=== PATIENT | male | born 1975 | race Caucasian/White ===

== ENCOUNTER → 2018-06-08 | Emergency (ER) | payer MEDICAID ==
[~2018-06-08] VITALS: Ht 177.8 cm; Wt 117.9 kg
[~2018-06-08] MED LIST: PERCOCET 5-3251 EACH PO
--- NOTE | 2018-06-09 07:52 | EKG ---
[facility] [address] [facility] [address] [place], [place] [address] Signed Normal sinus rhythm Possible Left atrial enlargement Right ventricular hypertrophy Possible Anteroseptal infarct , age undetermined Abnormal ECG No previous ECGs available Confirmed by CALLIE HASTINGS MD ([id number]) on 06/09/2018 7:51:59 AM Electronically Signed By: CALLIE HASTINGS MD 06/09/18 0752 PATIENT NAME: CAROLE MARTINS Electrocardiogram DATE OF : 77 PHYSICIAN: CALLIE HASTINGS MD REPORT #: [id number] REPORT IS CONFIDENTIAL AND NOT TO BE RELEASED WITHOUT AUTHORIZATION
== END ==
LOC: ED 22:02
DX: I11.0 Hypertensive heart disease with heart failure (principal); I50.9 Heart failure, unspecified; R09.02 Hypoxemia; F15.90 Other stimulant use, unspecified, uncomplicated; E83.42 Hypomagnesemia; R79.89 Other specified abnormal findings of blood chemistry; Z88.5 Allergy status to narcotic agent; Z88.2 Allergy status to sulfonamides
CPT/HCPCS: 71045; 80053; 83735; 83880; 84484; 85025; 93005; 93010; 94640; 96374; 96375; 99285-25; J1100; J1650; J3475

== ENCOUNTER 2018-08-19 18:18 | Observation (INO) | payer MEDICAID ==
[~2018-08-19] VITALS: Ht 177.8 cm; Wt 107.6 kg
--- OUTSIDE RECORDS SUMMARY | ~2018-08-19 | XMS | Clinical Summary ---
Demographics + + + | Address | [address] | | | [place] [address] | + + + | Home Phone | | + + + | Preferred Language | Unknown | + + + | Marital Status | Legally | + + + | Mormon Affiliation | Unknown | + + + | Race | Unknown | + + + | Ethnic Group | Unknown | + + + Author + + + | Author | [facility] | + + + | Organization | [facility] | + + + | Address | Unknown | + + + | Phone | Unavailable | + + + Support + + +---------+ + | Name | Relationship | Address | Phone | + + +---------+ + | Shelley Dodson | ECON | Unknown | | + + +---------+ + Care Team Providers + +------+ + | Care Pecan Huller Name | Role | Phone | + [...] + | CLARE (acute kidney injury) (HCC) | 08/15/2017 | + + + | Drug abuse (HCC) | 08/15/2017 | + + + Social [...] | | | | (Season Ended) | 9 | | | + + [...] +------+-------+---------+ | HEALTHY OPTIONS | HEALTH | [id number] | HMO | | | | MEDICAID [...] | [birth year] | Home: | [address] | | | al/Fam | | 1975 | [phone] | [address] [place] | | | [place] | | | [phone] | [phone] | + +--------+ +--------+ + +
--- OUTSIDE RECORDS SUMMARY | ~2018-08-19 | XMS | Clinical Summary ---
Demographics + + + | Address | [address] | | | [place] [address] | + + + | Home Phone [...] + + + | Author | [facility] | + + + | Organization | [facility] | + + + | Address | Unknown | + + + | Phone | Unavailable | + + + Support + + +---------+ + | Name | Relationship | Address | Phone | + + +---------+ + | Shelley Dodson | ECON | Unknown | | + + +---------+ + Care Team Providers + +------+ + | Care Armature Winder Name | Role | Phone | + [...] +------+-------+---------+ | HEALTHY OPTIONS | HEALTH | [id number] | HMO | | | | MEDICAID [...] | [place] | | | [phone] | [phone] | + +--------+ +--------+ + +
--- OUTSIDE RECORDS SUMMARY | ~2018-08-19 | XMS | Clinical Summary ---
Demographics + + + | Address | [address] | | | [place] [address] | + + + | Home Phone | | + + + | Preferred Language | Unknown | + + + | Marital Status | Legally | + + + | Bahai Affiliation | Unknown | + + + | Race | Unknown | + + + | Ethnic Group | Unknown | + + + Author + + + | Author | [facility] | + + + | Organization | [facility] | + + + | Address | Unknown | + + + | Phone | Unavailable | + + + Support + + +---------+ + | Name | Relationship | Address | Phone | + + +---------+ + | Shelley Dodson | ECON | Unknown | | + + +---------+ + Care Team Providers + +------+ + | Care Special Assets Officer Name | Role | Phone | [...] +------+-------+---------+ | HEALTHY OPTIONS | HEALTH | [id number] | HMO | | | | MEDICAID [...] | [place] | | | [phone] | [phone] | + +--------+ +--------+ + +
[2018-08-19] MEDS ORDERED: LASIX40 MG PO (18:32)
[2018-08-19] MEDS ORDERED: ISOSORBIDE MONO10 MG PO (18:32)
[2018-08-19] MEDS ORDERED: LISINOPRIL20 MG PO (18:32)
--- NOTE | 2018-08-20 15:32 | EKG ---
[facility] [address] [facility] [place] [address] Signed Sinus rhythm with premature atrial complexes Incomplete right bundle branch block Right ventricular hypertrophy Septal infarct (cited on or before 08-JUN-2018) Abnormal ECG When compared with ECG of 08-JUN-2018 22:14, premature atrial complexes are now present Questionable change in initial forces of Anterior leads Confirmed by HAYDER GARCIA MD ([id number]) on 08/20/2018 3:32:25 PM Electronically Signed By: HAYDER GARCIA MD 08/20/18 1532 PATIENT NAME: CAROLE MARTINS Electrocardiogram DATE OF : [birth year] PHYSICIAN: HAYDER GARCIA MD REPORT #: [id number] REPORT IS CONFIDENTIAL AND NOT TO BE RELEASED WITHOUT AUTHORIZATION
[2018-08-21] MEDS ORDERED: CARVEDILOL6.25 MG PO (10:08)
== END 2018-08-21 11:08 | disposition home or self-care (01) ==
LOC: ED 18:18 → MS 18:20
PROVIDERS: ADMIT Internal Medicine
DX: I11.0 Hypertensive heart disease with heart failure (principal); I50.33 Acute on chronic diastolic (congestive) heart failure; I50.810 Right heart failure, unspecified; I27.29 Other secondary pulmonary hypertension; K76.1 Chronic passive congestion of liver; E83.42 Hypomagnesemia; F15.10 Other stimulant abuse, uncomplicated; F10.11 Alcohol abuse, in remission; Z91.14 Patient's other noncompliance with medication regimen; Z79.899 Other long term (current) drug therapy; Z88.5 Allergy status to narcotic agent; Z88.2 Allergy status to sulfonamides
CPT/HCPCS: 36415; 71045; 80053; 83735; 83880; 84484; 85025; 93005; 93010; 96365; 96366; 96372; 96374; 96375; 96376; 99285-25; G0378; J1650; J1940; J3475

== ENCOUNTER 2019-03-14 11:21 | Inpatient (IN) | payer OTHER ==
[~2019-03-14] VITALS: Ht 177.8 cm; Wt 109.9 kg
--- OUTSIDE RECORDS SUMMARY | ~2019-03-14 | XMS | Encounter Summary ---
Demographics + + + | Address | [address] | | | [place] [address] | + + + | Home Phone | | + + + | Preferred Language | Unknown | + + + | Marital Status | Legally | + + + | Cheondoism Affiliation | Unknown | + + + | Race | Unknown | + + + | Ethnic Group | Unknown | + + + Author + + + | Author | [facility] | | | and [place] | + + + | Organization | [facility] | | | and [place] | + + + | Address | Unknown | + + + | Phone | Unavailable | + + + Support + + +---------+ + | Name | Relationship | Address | Phone | + + +---------+ + | Shelley Dodson | ECON | Unknown | | + + +---------+ + Care Team Providers + +------+ + | Care Tobacco Baler Name | Role | Phone | + +------+ + PCP | Unavailable | + +------+ + Encounter Details +--------+ + + + + | Date | Type | Department | Care Team | Description | +--------+ + + + + | 04/23/ | Emergency | [facility] | [facility] | Cough; | | 2019 | | [facility] | [address] | Viral syndrome | | | | EMERGENCY CENTER | [address] | | | | | [address] | [place], [place] | | | | | [place], [place] | [address] | | | | | [address] | [phone] | | | | | [phone] | | | +--------+ + + + [...] on file | | + + + + + + + | Job Start Date | Occupation | Industry | + + + + | Not on file | Not on file | Not on file | + + + + + + + + | Travel History | Travel Start | Travel End | + + + + + + | No recent travel history available. | + + documented as of this encounter Last Filed Vital Signs + + + + + | Vital Sign | Reading | Time Taken | Comments | + + + + + | Blood Pressure | 170/114 | 04/23/2018 11:36 PM | | | | | PST | | + + + + + | Pulse | 86 | 04/23/2018 11:36 PM | | | | | PST | | + + + + + | Temperature | 36.4 C (97.6 F) | 04/23/2018 11:36 PM | | | | | PST | | + + + + + | Respiratory Rate | 20 | 04/23/2018 11:36 PM | | | | | PST | | + + + + + | Oxygen Saturation | - | - | | + + + + + | Inhaled Oxygen | - | - | | | Concentration | | | | + + + + + | Weight | 111 kg (244 lb 11.4 | 04/23/2018 11:36 PM | | | | oz) | PST | | + + + + + | Height | - | - | | + + + + + | Body Mass Index | 36.14 | 08/16/2017 1:01 PM | | | | | PDT | | + + + + + documented in this encounter Medications at Time of Discharge + + + +---------+ + + | Medication | Sig | Dispensed | Refills | Start | End Date | | | | | | Date | | + + + +---------+ + + | amLODIPine | Take 1 tablet by | 30 | 0 | 08/18/19 | | | (NORVASC) 10 MG | mouth daily. | tablet | | 18 | 9 | | tablet | | | | | | + + + +---------+ + + | hydrALAZINE | Take 1 tablet by | 60 | 1 | 08/17/19 | | | (APRESOLINE) 25 mg | mouth 3 (three) | tablet | | 18 | 9 | | tablet | times daily. | | | | | + + + +---------+ + + documented as of this encounter Plan of Treatment Not on filedocumented as of this encounter Procedures + +--------+ + + + | Procedure Name | Priori | Date/Time | Associated Diagnosis | Comments | | | ty | | | | + +--------+ + + + | XR CHEST 2 VIEWS | Routin | 04/23/2018 | | Results for this | | | e | 11:24 PM | | procedure are in the | | | | PST | | results section. | + +--------+ + + + | HISTORICAL | Routin | 04/23/2018 | | Results for this | | MICROBIOLOGY RESULT | e | 11:15 PM | | procedure are in the | | | | PST | | results section. | + +--------+ + + + | HISTORICAL | STAT | 04/23/2018 | | Results for this | | MICROBIOLOGY RESULT | | 11:06 PM | | procedure are in the | | | | PST | | results section. | + +--------+ + + + documented in this encounter Results XR Chest 2 Vws (04/23/2018 11:24 PM PST) + + | Specimen | + + | | + + + + + | Impressions | Performed At | + + + | No acute cardiopulmonary disease. Lungs clear. Chronic mild | | | cardiomegaly with prominence of the main pulmonary artery suggesting a | | | degree of pulmonary hypertension. Signed by: Malik Morales Sign | | | Date/Time: 04/23/2018 11:43 PM | | + + + + + + | Narrative | Performed At | + + + | CHEST TWO VIEWS CLINICAL INFORMATION: Shortness of Breath | | | COMPARISON: CTA CHEST PULMONARY EMBOLISM W CONTRAST (08/15/2017); XR | | | CHEST 2 VIEW (08/15/2017); FINDINGS: Mild cardiomegaly with | | | prominence of the main pulmonary artery contour suggesting a degree | | | of pulmonary hypertension. Findings similar to prior exams. Lungs | | | clear. No focal consolidation, pneumothorax or pleural effusion. | | | Normal bones. | | + + + + + | Procedure Note | + + | Bill, Rad Conversion - 11/10/2018 10:20 PM PDT CHEST TWO VIEWS | | CLINICAL INFORMATION: | | Shortness of Breath | | COMPARISON: | | CTA CHEST PULMONARY EMBOLISM W CONTRAST (08/15/2017); XR CHEST 2 VIEW | | (08/15/2017); | | FINDINGS: | | Mild cardiomegaly with prominence of the main pulmonary artery contour | | suggesting a degree of pulmonary hypertension. Findings similar to | | prior exams. Lungs clear. No focal consolidation, pneumothorax or | | pleural effusion. Normal bones. | | IMPRESSION: | | No acute cardiopulmonary disease. Lungs clear. Chronic mild | | cardiomegaly with prominence of the main pulmonary artery suggesting a | | degree of pulmonary hypertension. | | Signed by: Malik Morales | | Sign Date/Time: 04/23/2018 11:43 PM | + + HISTORICAL MICROBIOLOGY RESULT (04/23/2018 11:15 PM PST) + + | Specimen | + + | | + + + + + | Narrative | Performed At | + + + | INFLUENZA A NEGATIVE | EXTERNAL LAB | | INFLUENZA B NEGATIVE Testing | | | performed by Molecular Methodology Testing performed at [facility];[address] | | | [place] [address] | | + + + + +---------+ + + | Performing | Address | City/State/Zipcode | Phone Number | | Organization | | | | + +---------+ + + | EXTERNAL LAB | | | | + +---------+ + + HISTORICAL MICROBIOLOGY RESULT (04/23/2018 11:06 PM PST) + + | Specimen | + + | | + + + + + | Narrative | Performed At | + + + | Flu Swab Collection SPECIMEN RECEIVED IN LAB | EXTERNAL LAB | | Testing performed at [facility];[address] [facility] [address];[place] [address] | | + + + + +---------+ + + | Performing | Address | City/State/Zipcode | Phone Number | | Organization | | | | + +---------+ + + | EXTERNAL LAB | | | | + +---------+ + + documented in this encounter Visit Diagnoses + + | Diagnosis | + + | Cough | + + | Viral syndrome Unspecified viral infection, in conditions classified elsewhere and of | | unspecified site | + + documented in this encounter"
--- OUTSIDE RECORDS SUMMARY | ~2019-03-14 | XMS | Clinical Summary ---
Demographics + + + | Address | [address] | | | [place] [address] | + + + | Home Phone | | + + + | Preferred Language | Unknown | + + + | Marital Status | Legally | + + + | Mandaeism Affiliation | Unknown | + + + | Race | Unknown | + + + | Ethnic Group | Unknown | + + + Author + + + | Author | [facility] | | | and [place] | + + + | Organization | [facility] | | | and [...] Team Providers + +------+ + | Care Retirement Specialist Name | Role | Phone | + +------+ + | Penelope Gage | PCP | | + +------+ + Allergies + + + + + + | Active Allergy | Reactions | Severity | Noted | Comments | | | | | Date | | + + + + + + | Sulfa Antibiotics | Other (See Comments) | Medium | 08/16/19 | States told as a | | | | | 19 | child not to take | | | | | | sulfa meds - unknown | | | | | | reation | + + + + + + Medications Not on file Active Problems + + + | Problem | Noted Date | + + + | Chest pain | 08/15/2017 | + + + | Uncontrolled hypertension | 08/15/2017 | + + + | CLARE (acute kidney injury) | 08/15/2017 | + + + | Drug abuse | 08/15/2017 | + + + Social History + +-------+ [...] recent travel history available. | + + Last Filed Vital Signs + + + [...] | | + + + + + Plan of Treatment + + + + + | Health Maintenance | Due Date | Last Done | Comments | + + + + + | Vaccine: | | | | | Dtap/Tdap/Td (1 - | 5 | | | | Tdap) | | | | + + + + + | Vaccine: Influenza | | | | | (#1) | 9 | | | + + + + + Results Not on filefrom Last 3 Months
--- OUTSIDE RECORDS SUMMARY | ~2019-03-14 | XMS | Clinical Summary ---
Demographics + + + | Address | [address] | | | [place] [address] | + + + | Home Phone | | + + + | Preferred Language | Unknown | + + + | Marital Status | Legally | + + + | Pentecostal Affiliation | Unknown | + + + | Race | Unknown | + + + | Ethnic Group | Unknown | + + + Author + + + | Author | [facility] | | | and [place] | + + + | Organization | [facility] [...] Team Providers + +------+ + | Care Digital Campaign Manager Name | Role | Phone | [...]
--- OUTSIDE RECORDS SUMMARY | ~2019-03-14 | XMS | Encounter Summary ---
Demographics + + + | Address | [address] | | | [place] [address] | + + + | Home Phone | | + + + | Preferred Language | Unknown | + + + | Marital Status | Legally | + + + | Rastafarian Affiliation | Unknown | + + + | Race | Unknown | + + + | Ethnic Group | Unknown | + + + Author + + + | Author | [facility] | | | and [place] | + + + | Organization | [facility] | | | and [...] Team Providers + +------+ + | Care Office Manager Executive Assistant Name | Role | Phone | + +------+ + PCP | Unavailable | + +------+ + Encounter Details +--------+ + + + + | Date | Type | Department | Care Team | Description | +--------+ + + + + | 08/15/ | Hospital | LOCATED WITHIN [facility] | Tania Raines MD | Chest pain, | | 2018 - | Encounter | MEDICAL CENTER | [address] [place] | unspecified type; | | | | CLINICAL DECISION | [address] [place], [place] | Hypoxia; | | 08/16/ | | [address] | [address] | Uncontrolled | | 2018 | | [place], [place] | | hypertension; CLARE | | | | [phone] | | (acute kidney | | | | [phone] | | injury) ([facility]); Drug | | | | | [...] Summaries by Tania Raines MD at 08/16/17 0035 Author: Tania Raines MD Service: (none) Author Type: Physician Filed: 08/16/17 1603 Date of Service: 08/16/17 1514 Status: Signed Clinical Care Leader: Tania Raines MD (Physician) Patient: Carole Terry [...] need PCP f/ up information family practice [facility] kahlil michel stats to call and make an apt [...] soft BS+ no tenderness EXt no edwema PROFESSOR OF LEGAL STUDIES alert orientated time three no focality Recent [...] other data, potentially affecting final categorization. 1. English Heart Association and Americ an College of Cardiology Scientific Statement. Circulation (2008); 118: p 4406-4141 Selectio n Text Definition Low Risk 1.Normal [...] (none) Author Type: Registered Nurse Filed: 08/16/17 1517 Date of Service: 08/16/171499 Status: Signed Clinical Care Leader: Lata Arzola RN (Registered Nurse) Patient given AVS and prescriptions. Verbalizes understanding and is agreeable; states no further questions at this time. Declines wheelchair ride out to private vehicle. onver pamela Transaction, Provider Unknown - 08/15/2017 11:09 PM PDT Progress Notes by Elijah Swain RPH at 08/15/172308 Author: Elijah Swain RPH Service: Pharmacy Author Type: Pharmacist Filed: 08/15/172308 Date of Service: 08/15/172308 Status: Signed Clinical Care Leader: Elijah Swain RPH (Pharmacist) Note ccl 82.1ml/min meds reviewed pharmacy will follow c 2309 onver pamela Transaction, Provider Unknown - 08/15/2017 6:08 PM PDT Progress Notes by LUIS ALBERTO Shine at 08/15/171807 Author: LUIS ALBERTO Shine Service: (none) Author Type: Professor Of Exercise Science Filed: 08/15/171810 Date of Service: 08/15/171807 Status: Signed Clinical Care Leader: LUIS ALBERTO Shine (Professor Of Exercise Science) 08/15/171807 Discharge Planning Evaluation Admitting Diagnosis Headache Readmission No Living Arrangements Spouse/significant other Support Systems Spouse/significant other;Family members Type of Residence Private residence House type Apartment Elevator available No Independent with ADL's Yes Independent with Mobility Yes Home Care Services No Caregiver after Discharge No Mental Status Oriented Prior functional status Independent Met with: pt and SO Shelley Dodson [phone] and discussed discharge planning, Pt is a 42 y.o., male, lives with Shelley, is independent, does not use any DME. Patient's PCP is: Per Pt None (Will need assistance) Patient's insurance: [employer] Options [facility] Coverage concerns: None noted Medication coverage/concerns: None noted Community resources utilized / needed: TBD Assistance in transportation: TBD Identification of any specific education / training: TBD Barriers to Discharge / Alternative housing needed: TBD Anticipated DCP: To home via private vehicle, pt will arrange his own transport. PARDEEP CAM docume nted in this encounter Plan of [...] | maxP.34 mmHg TR Vmax: 3.13 m/s Hand Coke Drawer: VICTOR MANUEL | | | Authenticated by: Pina Guallpa MD Report Date/Time: 08-16-2017 | | | 15:18:31 | | + + + + + | Procedure Note | + + | Rubio Khan Conversion - 11/11/2018 4:41 PM PDT Patient [...] (A-L): 11.46 | | ml/m2LAAs A2C: 14.11 [id number] A-L A2C: 29.21 mlLAESV MOD A2C: 27.32 mlLALs A2C: | | 5.78 cmLAAs A4C: 12.17 fl2NUCQM A-L A4C: 22.05 mlLAESV MOD A4C: 19.21 mlLALs A4C: | | 5.70 cmTAPSE: 1.38 cmHR: 90.78 BPMAV maxP.67 mmHgAV meanP.35 mmHgAV | | Vmax: 1.19 m/Carmen Vmean: 0.87 m/Carmen VTI: 17.60 cmAVA Vmax: 4.01 cm2AVA (VTI): | | 4.87 wo6AEUR Vmax: 0.00 cm2/m2AVAI (VTI): 0.00 cm2/m2LVCI Dopp: 3.53 l/pyjx8OLAQ | | Dopp: 7.87 l/minHR: 91.74 BPMLVOT [...] | m/sTR maxP.34 mmHgTR Vmax: 3.13 m/s Hand Coke Drawer: Stepanted by: Pina | | Saloni Guzman Date/Time: 08-16-2017 15:18:31 IMPRESSION: 1. Left ventricular [...] DecT: 207.83 ms | |MV E Jose Calros: 0.68 m/s | |MV E/A Ratio: 0.71 [...] |TR Vmax: 3.13 m/s | | | |Hand Coke Drawer: MW | |Authenticated by: Pina Guallpa MD [...] | | | affecting final categorization. 1. English Heart Association | | | and English College of Cardiology Scientific Statement. Circulation | | | (2008); 118: p 6063-7885 Selection Text Definition Low | | | [...] | + + + | CAROLE TERRY PA MYOCARDIAL PERFUSION SPECT - STRESS AND REST [...] Procedure Note | + + | Bill, Rubio Conversion - 11/11/2018 4:41 PM NIKOLAS SMART MYOCARDIAL PERFUSION | | SPECT - [...] potentially affecting final | | categorization. 1. English Heart Association and English College of Cardiology | | Scientific Statement. Circulation (2008); 118: p 9745-6472 Selection Text Definition | | Low Risk [...] | |final categorization. | | | |1. English Heart Association and English College of Cardiology Scientific Statement. Cir culation (2008); 118: p 8208-0356 | | | | | |Selection Text [...] | | | | | + + Troponin I (08/16/2017 3:08 AM [...] | | | | | | ACUTE TN Testing | | | | | | performed at [facility] | | | | | [facility];[place], [place] | | | | | | [address] | | | | + + + [...] + + + + + + | RED CELL | 5.76 (H) | 4.20 - 5.70 | EXTERNAL | | | COUNT | | M/uL | LAB | | + + + + + + | Hgb | 16.1 | 13.2 - 17.0 | [...] | | | Basophils | performed at [facility], [address] | K/uL | LAB | | | | [address], | | | | | | [place] [address] | | | | + + + [...] EXTERNAL | | | | performed at [facility], [address] | | LAB | | | | [address], | | | | | | [place] [address] | | | | + + + [...] EXTERNAL | | | | performed at [facility], [address] | | LAB | | | | [address], | | | | | | [place] [address] | | | | + + + [...] + + | Hemoglobin | 6.0Comment: The English | 4.0 - 6.0 % | EXTERNAL [...] | | | | | performed at [facility], [address] | | | | | | [facility], | | | | | | [place] [address] | | | | + + + [...] + + + + + + | LDL | 82Comment: Testing | mg/dL | EXTERNAL | | | Cholesterol | performed at [facility], [address] | | LAB | | | , | [address], | | | | | Calculated, | [place] [address] | | | | | External | | | | | + + [...] | | | | | | at [facility], [address] | | | | | | [address], | | | | | | [place] [address] | | | | + + + [...] | | | | | | ACUTE TN Testing | | | | | | performed at [facility];[address] | | | | | | [address];[place], [place] | | | | | | [address] | | | | + + + [...] | | | | | performed at [facility], [address] | | | | | [address], | | | | | | [place] [address] | | | | + + + [...] - 1.035 | EXTERNAL | | | [place] | | | LAB | | + [...] | | | Urine | performed at [facility], [address] | | LAB | | | | [address], | | | | | | [place] [address] | | | | + + + [...] | | LAB | | | | [facility], [address], | | | | | | [place] [address] | | | | + + + [...] | | | reconstructions were performed by instructional design technologist. No 3-D imaging. | | | [...] Conversion - 11/11/2018 4:41 PM PDT CAROLE W DOW1975 42 years MaleCTA | | CHEST PULMONARY EMBOLISM W CONTRAST08/15/2017 5:25 PM HISTORY: Chest pain. COMPARISON: | | Chest radiographs dated August 15, 2017. TECHNIQUE:1.5-mm axial images of the chest were | | acquired in the arterial phase according to a CT angiography protocol. Coronal CT | | angiographic MIP reconstructions were performed by instructional design technologist. No 3-D imaging. | | Automated [...] | | | | | + + XR Chest 2 [place] (08/15/2017 4:18 PM PDT) + + | [...] - 11/11/2018 4:41 PM PDT CAROLE Miramontes DOW years MaleXR | | CHEST 2 VIEW [...] + + + + + -+ | RED CELL | 5.79 (H) | 4.20 - 5.70 | EXTERNAL | | | COUNT | | M/uL | LAB | | + + + + + -+ | Hgb | 16.3 | 13.2 - 17.0 | [...] | | | | | | ACUTE TN Testing | | | | | | performed at [facility], [address] [place], | | | | | | [place] [address] | | | | + + + [...] EXTERNAL | | | | performed at [facility], [address] | | LAB | | | | [address], | | | | | | [place] [address] | | | | + + + [...]
--- OUTSIDE RECORDS SUMMARY | ~2019-03-14 | XMS | Encounter Summary ---
Demographics + + + | Address | [address] | | | [place] [address] | + + + | Home Phone | | + + + | Preferred Language | Unknown | + + + | Marital Status | Legally | + + + | Church Affiliation | Unknown | + + + | Race | Unknown | + + + | Ethnic Group | Unknown | + + + Author + + + | Author | [facility] | | | and [place] | + + + | Organization | [facility] | | | [...] Team Providers + +------+ + | Care Lower In Supervisor Name | Role | Phone | + +------+ + PCP | Unavailable | + +------+ + Encounter Details +--------+ + + + + | Date | Type | Department | Care Team | Description | +--------+ + + + + | 04/23/ | Emergency | [facility] | Thor Soria | Cough; | | 2019 | | MEDICAL CENTER | [address] | Viral syndrome | | | | EMERGENCY CENTER | [address] | | | | | [address] | [place], [place] | | | | | [place], [place] | [address] | | | | | [address] | [phone] | | | | | [phone] | | | +--------+ + + + [...] performed by Molecular Methodology Testing performed at [facility];[address] | | | [address];[place] [address] | | + + + + +---------+ [...] EXTERNAL LAB | | Testing performed at [facility];[address] [facility];[place] [address] | | + + + + +---------+ [...]
--- OUTSIDE RECORDS SUMMARY | ~2019-03-14 | XMS | Encounter Summary ---
Demographics + + + | Address | [address] | | | [place] [address] | + + + | Home Phone | | + + + | Preferred Language | Unknown | + + + | Marital Status | Legally | + + + | Pentecostal Affiliation | Unknown | + + + | Race | Unknown | + + + | Ethnic Group | Unknown | + + + Author + + + | Author | [facility] | | | and [place] | + + + | Organization | [facility] | | [...] Team Providers + +------+ + | Care Drug Abuse Counselor Name | Role | Phone | + +------+ + PCP | Unavailable | + +------+ + Encounter Details +--------+ + + + + | Date | Type | Department | Care Team | Description | +--------+ + + + + | 04/23/ | Emergency | [facility] | Thor Soria | Cough; | | 2019 | | MEDICAL CENTER | [address] | Viral syndrome | | | | EMERGENCY CENTER | [address] | | | | | [address] | [place], [place] | | | | | [place], [place] | [address] | | | | | [address] | [phone] | | | | | [phone] | | | +--------+ + + + [...] performed by Molecular Methodology Testing performed at [facility];[address] | | | [place] [address] | | + + + + +---------+ [...] EXTERNAL LAB | | Testing performed at [facility];[address] [facility];[place] [address] | | + + + + +---------+ [...]
--- OUTSIDE RECORDS SUMMARY | ~2019-03-14 | XMS | Clinical Summary ---
Demographics + + + | Address | [address] | | | [place] [address] | + + + | Home Phone | | + + + | Preferred Language | Unknown | + + + | Marital Status | Legally | + + + | Latter Day Affiliation | Unknown | + + + | Race | Unknown | + + + | Ethnic Group | Unknown | + + + Author + + + | Author | [facility] [employer] (Historical as of | | | 11-14-18) | + + + | Organization | [facility] [employer] (Historical as of | | | 11-14-18) | + + + | Address | Unknown | + + + | Phone | Unavailable | + + + Support + + +---------+ + | Name | Relationship | Address | Phone | + + +---------+ + | Shelley Dodson | ECON | Unknown | | + + +---------+ + Care Team Providers + +------+ + | Care Novelty Worker Name | Role | Phone | + +------+ + | Penelope Gage | PP | | + +------+ + Allergies + [...] | + + + + + + Current Medications + + +--------+---------+------+------+-------+ | Prescription | Sig. | Disp. | Refills | Star | End | Statu | | | | | | t | Date | s | | | | | | Date | | | + + +--------+---------+------+------+-------+ | amLODIPine | Take 1 tablet by | 30 | 0 | 05/2 | | Activ | | (NORVASC) 10 MG | mouth daily. | tablet | | 0/20 | | e | | tablet | | | | 18 | | | + + +--------+---------+------+------+-------+ | hydrALAZINE | Take 1 tablet by | 60 | 1 | 05/1 | | Activ | | (APRESOLINE) 25 MG | mouth 3 (three) | tablet | | 9/20 | | e | | tablet | times daily. | | | 18 | | | + + +--------+---------+------+------+-------+ Active Problems + + + | Problem | Noted Date | + + + | Chest pain | 08/15/2017 | + + + | Uncontrolled hypertension | 08/15/2017 | + + + | CLARE (acute kidney injury) ([facility]) | 08/15/2017 | + + + | Drug abuse ([facility]) | 08/15/2017 | + + + Social History + +-------+ +--------+------+ | Tobacco Use | Types | Packs/Day | Years | Date | | | | | Used | | + +-------+ +--------+------+ | Never Smoker | | | | | + +-------+ +--------+------+ + +---+---+---+ | Smokeless Tobacco: | | | | | Current User | | | | + +---+---+---+ + + +---------+ + | Alcohol Use | Drinks/We | oz/Week | Comments | | | ek | | | + + +---------+ + | No | | | | + + +---------+ + + + + | Sex Assigned at | Date Recorded | | | | + + + | Not on file | | + + + Last Filed Vital Signs + + + + | Vital Sign | Reading | Time Taken | + + + + | Blood Pressure | 170/114 | 04/23/2018 11:35 PM PST | + + + + | Pulse | 86 | 04/23/2018 11:35 PM PST | + + + + | Temperature | 36.4 C (97.6 F) | 04/23/2018 10:53 PM PST | + + + + | Respiratory Rate | 20 | 04/23/2018 11:35 PM PST | + + + + | Oxygen Saturation | 94% | 04/23/2018 11:35 PM PST | + + + + | Inhaled Oxygen | - | - | | Concentration | | | + + + + | Weight | 111 kg (244 lb 11.4 | 04/23/2018 10:53 PM PST | | | oz) | | + + + + | Height | 175.3 cm (5' 9") | 08/15/2017 3:55 PM PDT | + + + + | Body Mass Index | 36.14 | 04/23/2018 10:53 PM PST | + + + + Plan of Treatment [...] filefrom Last 3 Months Insurance + +--------+ +------+-------+---------+ | Payer | Benefi | Subscriber | Type | Phone | Address | | | t Plan | ID | | | | | | / | | | | | | | Group | | | | | + +--------+ +------+-------+---------+ | [employer] | HEALTH | [id number] | HMO | | | | MEDICAID PLANS | Y | | | | | | | OPTION | | | | | | | [place] | | | | | | | IGROUP | | | | | + +--------+ +------+-------+---------+ + +--------+ +--------+ + + | Guarantor Name | Accoun | Relation to | Date | Phone | Billing Address | | | t Type | Patient | of | | | | | | | | | | + +--------+ +--------+ + + | CAROLE TERRY | Person | Self [birth year] Home: | [address] | | | al/Fam | | 1974 | [phone] | [address] [place] | | | [place] | | | [phone] | [phone] | + +--------+ +--------+ + +
--- OUTSIDE RECORDS SUMMARY | ~2019-03-14 | XMS | Encounter Summary ---
Demographics + + + | Address | [address] | | | [place] [address] | + + + | Home Phone | | + + + | Preferred Language | Unknown | + + + | Marital Status | Legally | + + + | Temple Affiliation | Unknown | + + + [...] Team Providers + +------+ + | Care Horseshoer Name | Role | Phone | + +------+ + | Penelope Gage | PCP | | + +------+ + Encounter Details +--------+ + + + + | Date | Type | Department | Care Team | Description | +--------+ + + + + | 08/16/ | Orders Only | [facility] | Teto Broussard MD | | | 2018 | | [facility] [address] | [address] [place] | | | | | [address] [place] [address] | [address] [place] | | | | | [place] | [address] | | | | | [address] | | | | | | [phone] | | | +--------+ + + + [...]
--- OUTSIDE RECORDS SUMMARY | ~2019-03-14 | XMS | Encounter Summary ---
Demographics + + + | Address | [address] | | | [place] [address] | + + + | Home Phone | | + + + | Preferred Language | Unknown | + + + | Marital Status | Legally | + + + | Adventism Affiliation | Unknown | + + + | Race | Unknown | + + + | Ethnic Group | Unknown | + + + Author + + + | Author | [facility] | | | and [place] | + + + | Organization | [facility] | | | [...] Team Providers + +------+ + | Care Sql Consultant Name | Role | Phone | + +------+ + | Penelope Gage | PCP | | + +------+ + Encounter Details +--------+ + + + + | Date | Type | Department | Care Team | Description | +--------+ + + + + | 08/16/ | Orders Only | [facility] | Teto Broussard MD | | | 2018 | | [facility] [address] | [address] [place] | | | | | [address] [place] [address] | [address] [place] | | | | | [place] | [address] | | | | | [address] | | | | | | [phone] | | | +--------+ + + + [...]
--- OUTSIDE RECORDS SUMMARY | ~2019-03-14 | XMS | Clinical Summary ---
Demographics + + + | Address | [address] | | | [place] [address] | + + + | Home Phone | | + + + | Preferred Language | Unknown | + + + | Marital Status | Legally | + + + | Jainism Affiliation | Unknown | + + + | Race | Unknown | + + + | Ethnic Group | Unknown | + + + Author + + + | Author | [facility] [employer] (Historical as of | | | 11-14-18) | + + + | Organization | [facility] [employer] (Historical as of | | | 11-14-18) [...] Team Providers + +------+ + | Care Primary Teacher Name | Role | Phone | + [...] + + | CLARE (acute kidney injury) ([facility]) | 08/15/2017 | + + + | Drug abuse ([facility]) | 08/15/2017 | + + + Social [...] +------+-------+---------+ | [employer] OPT[employer] | HEALTH | [id number] | HMO | | | | MEDICAID [...] | [birth year] | Home: | [address] | | | al/Fam | | 1974 | [phone] | [address] [place] | | | [place] | | | [phone] | [phone] | + +--------+ +--------+ + +
--- OUTSIDE RECORDS SUMMARY | ~2019-03-14 | XMS | Clinical Summary ---
Demographics + + + | Address | [address] | | | [place] [address] | + + + | Home Phone | | + + + | Preferred Language | Unknown | + + + | Marital Status | Legally | + + + | Scientologist Affiliation | Unknown | + + + | Race | Unknown | + + + | Ethnic Group | Unknown | + + + Author + + + | Author | [facility] | | | and [place] | + + + | Organization | [facility] | | [...] Team Providers + +------+ + | Care Merchandising Director Name | Role | Phone | + [...]
--- OUTSIDE RECORDS SUMMARY | ~2019-03-14 | XMS | Encounter Summary ---
Demographics + + + | Address | [address] | | | [place] [address] | + + + | Home Phone | | + + + | Preferred Language | Unknown | + + + | Marital Status | Legally | + + + | Buddhist Affiliation | Unknown | + + + | Race | Unknown | + + + | Ethnic Group | Unknown | + + + Author + + + | Author | [facility] | | | and [place] | + + + | Organization | [facility] | [...] Team Providers + +------+ + | Care Registered Nurse Nursery Name | Role | Phone | + +------+ + PCP | Unavailable | + +------+ + Encounter Details +--------+ + + + + | Date | Type | Department | Care Team | Description | +--------+ + + + + | 08/15/ | Hospital | [facility] | Tania Raines MD | Chest pain, | | 2018 - | Encounter | MEDICAL CENTER | [address] | unspecified type; | | | | CLINICAL DECISION | [address] [place], [place] | Hypoxia; | | 08/16/ | | [address] | [id number] | Uncontrolled | | 2018 | | [place], [place] | | hypertension; [place] | | | | [address] | | (acute kidney | | | | [phone] | | injury) ([facility]); Drug | | | | | | [...] Summaries by Tania Raines MD at 08/16/17 4898 Author: Tania Raines MD Service: (none) Author Type: Physician Filed: 08/16/17 1603 Date of Service: 08/16/17 1514 Status: Signed Etcher Apprentice: Tania Raines MD (Physician) Patient: Carole Terry [...] soft BS+ no tenderness EXt no edwema CONTRACT IMPLEMENTATION ANALYST alert orientated time three no focality [...] acute cardiopulmonary process. Electronically signed by Dylan aHgan MD on 2017 4:34 PM Nm Myocardial [...] other data, potentially affecting final categorization. 1. [place] Heart Association and [place] College of Cardiology Scientific Statement. Circulation (2008); 118: p 3066-7102 Selectio n Text Definition Low Risk 1.Normal [...] 1517 Date of Service: 08/16/171499 Status: Signed Etcher Apprentice: Lata Arzola RN (Registered Nurse) Patient given [...] 08/15/172308 Date of Service: 08/15/172308 Status: Signed Etcher Apprentice: Elijah Swain RPH (Pharmacist) Note ccl 82.1ml/min meds reviewed pharmacy will follow c 2309 onver pamela Transaction, Provider Unknown - 08/15/2017 6:08 PM PDT Progress Notes by LUIS ALBERTO Shine at 08/15/171807 Author: LUIS ALBERTO Shine Service: (none) Author Type: Fish Processing Supervisor Filed: 08/15/171810 Date of Service: 08/15/171807 Status: Signed Etcher Apprentice: LUIS ALBERTO Shine (Fish Processing Supervisor) 08/15/171807 Discharge Planning Evaluation Admitting Diagnosis Headache Readmission No Living Arrangements Spouse/significant other Support Systems Spouse/significant other;Family members Type of Residence Private residence House type Apartment Elevator available No Independent with ADL's Yes Independent with Mobility Yes Home Care Services No Caregiver after Discharge No Mental Status Oriented Prior functional status Independent Met with: pt and SO Shelley Dodson [phone] and discussed discharge planning, Pt is a 42 y.o., male, lives with Shelley, is independent, does not use any DME. Patient's PCP is: Per Pt None (Will need assistance) Patient's insurance: Healthy Options [facility] Coverage concerns: None noted Medication [...] | maxP.34 mmHg TR Vmax: 3.13 m/s Roll Tender: VICTOR MANUEL | | | Authenticated by: [...] (A-L): 11.46 | | ml/m2LAAs A2C: 14.11 [id number] A-L A2C: 29.21 mlLAESV MOD A2C: 27.32 mlLALs A2C: | | 5.78 cmLAAs A4C: 12.17 [id number] A-L A4C: 22.05 mlLAESV MOD A4C: 19.21 mlLALs A4C: | | 5.70 cmTAPSE: 1.38 cmHR: 90.78 BPMAV maxP.67 mmHgAV meanP.35 mmHgAV | | Vmax: 1.19 m/Carmen Vmean: 0.87 m/Carmen VTI: 17.60 cmAVA Vmax: 4.01 cm2AVA (VTI): | | 4.87 ms0VPDO Vmax: 0.00 cm2/m2AVAI (VTI): 0.00 cm2/m2LVCI Dopp: 3.53 l/[id number] | | Dopp: 7.87 l/minHR: 91.74 BPMLVOT [...] | m/sTR maxP.34 mmHgTR Vmax: 3.13 m/s Roll Tender: Stepanted by: Pina | | Saloni Guzman [...] |TR Vmax: 3.13 m/s | | | |Roll Tender: MW | |Authenticated by: Pina Guallpa MD [...] | | | affecting final categorization. 1. [place] Heart Association | | | and [place] College of Cardiology Scientific Statement. Circulation | | | (2008); 118: p 2244-7483 Selection Text Definition Low | | | [...] | + + + | CAROLE TERRY [place] MYOCARDIAL PERFUSION SPECT - STRESS AND REST [...] potentially affecting final | | categorization. 1. [place] Heart Association and [place] College of Cardiology | | Scientific Statement. Circulation (2008); 118: p 5981-9907 Selection Text Definition | | Low Risk [...] | |final categorization. | | | |1. [place] Heart Association and [place] College of Cardiology Scientific Statement. Cir culation (2008); 118: p 8948-3999 | | | | | |Selection Text [...] | | | | | | ACUTE [place] Testing | | | | | | performed at [facility] | | | | | | [facility];[place], [place] | | | | | | [address] | | | | + + + [...] | | | Basophils | performed at [facility], [address] | [address] | LAB | | | | [place], | | | | | | [place] [address] | | | | + + + [...] EXTERNAL | | | | performed at [facility], [address] | | LAB | | | | [place], | | | | | | [place] [address] | | | | + + + [...] | | | | | [place] [address] | | | | + + + [...] + + | Hemoglobin | 6.0Comment: The Lao | 4.0 - 6.0 % | EXTERNAL [...] | | | | | performed at [facility], [address] | | | | | | [facility], | | | | | | [place] [address] | | | | + + + [...] | | | Cholesterol | performed at [facility], [address] | | LAB | | | , | [place], | | | | | Calculated, | [place] [address] | | | | | External | [...] | | | | | | at [facility], [address] | | | | | | [place], | | | | | | [place] [address] | | | | + + + [...] | | | | | | ACUTE [place] Testing | | | | | | performed at [facility] | | | | | | [address];[place], [place] | | | | | | [address] | | | | + + + [...] | | | | | performed at [facility], [address] | | | | | [address], | | | | | | [place] [address] | | | | + + + [...] - 1.035 | EXTERNAL | | | [place] | | | LAB | | + [...] | | | Urine | performed at [facility], [address] | | LAB | | | | [address], | | | | | | [place] [address] | | | | + + + [...] | | LAB | | | | [facility], [address], | | | | | | [place] [address] | | | | + + + [...] | | | reconstructions were performed by cytogenetics technologist. No 3-D imaging. | | | [...] | angiographic MIP reconstructions were performed by cytogenetics technologist. No 3-D imaging. | | Automated [...] | | | | | | ACUTE [place] Testing | | | | | | performed at [facility], [address] [place], | | | | | | [place] [address] | | | | + + + [...] EXTERNAL | | | | performed at [facility], [address] | | LAB | | | | [address], | | | | | | [place] [address] | | | | + + + [...]
--- OUTSIDE RECORDS SUMMARY | ~2019-03-14 | XMS | Clinical Summary ---
Demographics + + + | Address | [address] | | | [place] [address] | + + + | Home Phone | | + + + | Preferred Language | Unknown | + + + | Marital Status | Legally | + + + | Yazidism Affiliation | Unknown | + + + | Race | Unknown | + + + | Ethnic Group | Unknown | + + + Author + + + | Author | [facility] (Historical as of | | | 11-14-18) | + + + | Organization | [facility] [employer] (Historical as of | | | 11-14-18) [...] Team Providers + +------+ + | Care Sewage Screen Operator Name | Role | Phone | + [...] + + | [place] (acute kidney injury) ([facility]) | 08/15/2017 | + + + | Drug abuse ([facility]) | 08/15/2017 | + + + [...] +------+-------+---------+ | HEALTHY OPTIONS | HEALTH | [id number] | HMO | | | | MEDICAID [...] | [birth year] | Home: | [address] | | | al/Fam | | 1974 | [phone] | [address] [place] | | | [place] | | | [phone] | [phone] | + +--------+ +--------+ + +
--- OUTSIDE RECORDS SUMMARY | ~2019-03-14 | XMS | Encounter Summary ---
Demographics + + + | Address | [address] | | | [place] [address] | + + + | Home Phone | | + + + | Preferred Language | Unknown | + + + | Marital Status | Legally | + + + | Jewish Affiliation | Unknown | + + + | Race | Unknown | + + + | Ethnic Group | Unknown | + + + Author + + + | Author | [facility] | | | and [place] | + + + | Organization | [facility] | | | [...] Team Providers + +------+ + | Care Accessibility Lift Technician Name | Role | Phone | + +------+ + PCP | Unavailable | + +------+ + Encounter Details +--------+ + + + + | Date | Type | Department | Care Team | Description | +--------+ + + + + | 08/15/ | Hospital | [facility] | Tania Raines MD | Chest pain, | | 2018 - | Encounter | MEDICAL CENTER | [address] | unspecified type; | | | | CLINICAL DECISION | [address] [place], [place] | Hypoxia; | | 08/16/ | | [address] | [address] | Uncontrolled | | 2018 | | [place], [place] | | hypertension; [place] | | | | [address] | | (acute kidney | | | | [phone] | | injury) ([facility]); Drug | | | | | | [...] Summaries by Tania Raines MD at 08/16/17 8478 Author: Tania Raines MD Service: (none) Author Type: Physician Filed: 08/16/17 1603 Date of Service: 08/16/17 1514 Status: Signed Thermal Engineer: Tania Raines MD (Physician) Patient: [place] [...] soft BS+ no tenderness EXt no edwema TIN PLATER alert orientated time three no focality Recent [...] other data, potentially affecting final categorization. 1. [place] Heart Association and [place] an College of Cardiology Scientific Statement. Circulation (2008); 118: p 4997-6507 Selectio n Text Definition Low Risk 1.Normal [...] 1517 Date of Service: 08/16/171499 Status: Signed Thermal Engineer: Lata Arzola RN (Registered Nurse) Patient given [...] 08/15/172308 Date of Service: 08/15/172308 Status: Signed Thermal Engineer: Elijah Swain RPH (Pharmacist) Note ccl 82.1ml/min meds reviewed pharmacy will follow c 2309 onver pamela Transaction, Provider Unknown - 08/15/2017 6:08 PM PDT Progress Notes by LUIS ALBERTO Shine at 08/15/171807 Author: LUIS ALBERTO Shine Service: (none) Author Type: Manager Managed Care Filed: 08/15/171810 Date of Service: 08/15/171807 Status: Signed Thermal Engineer: LUIS ALBERTO Shine (Manager Managed Care) 08/15/171807 Discharge Planning Evaluation Admitting Diagnosis Headache Readmission No Living Arrangements Spouse/significant other Support Systems Spouse/significant other;Family members Type of Residence Private residence House type Apartment Elevator available No Independent with ADL's Yes Independent with Mobility Yes Home Care Services No Caregiver after Discharge No Mental Status Oriented Prior functional status Independent Met with: pt and SO Shelley Dodson [phone] and discussed discharge planning, Pt is a 42 y.o., male, lives with Shelley, is independent, does not use any DME. Patient's PCP is: Per Pt None (Will need assistance) Patient's insurance: Healthy Options [facility] Coverage concerns: None noted Medication coverage/concerns: [...] | maxP.34 mmHg TR Vmax: 3.13 m/s Timber Sizer Operator: VICTOR MANUEL | | | Authenticated by: [...] (A-L): 11.46 | | ml/m2LAAs A2C: 14.11 [id number] A-L A2C: 29.21 mlLAESV MOD A2C: 27.32 mlLALs A2C: | | 5.78 cmLAAs A4C: 12.17 [id number] A-L A4C: 22.05 mlLAESV MOD A4C: 19.21 mlLALs A4C: | | 5.70 cmTAPSE: 1.38 cmHR: 90.78 BPMAV maxP.67 mmHgAV meanP.35 mmHgAV | | Vmax: 1.19 m/Carmen Vmean: 0.87 m/Carmen VTI: 17.60 cmAVA Vmax: 4.01 cm2AVA (VTI): | | 4.87 qc4NXPD Vmax: 0.00 cm2/m2AVAI (VTI): 0.00 cm2/m2LVCI Dopp: 3.53 l/[id number] | | Dopp: 7.87 l/minHR: 91.74 BPMLVOT [...] | m/sTR maxP.34 mmHgTR Vmax: 3.13 m/s Timber Sizer Operator: Stepanted by: Pina | | Saloni Guzman [...] |TR Vmax: 3.13 m/s | | | |Timber Sizer Operator: MW | |Authenticated by: Pina Guallpa MD [...] | | | affecting final categorization. 1. [place] Heart Association | | | and [place] College of Cardiology Scientific Statement. Circulation | | | (2008); 118: p 7264-9133 Selection Text Definition Low | | | [...] | + + + | CAROLE TERRY [place] MYOCARDIAL PERFUSION SPECT - STRESS AND REST [...] potentially affecting final | | categorization. 1. [place] Heart Association and [place] College of Cardiology | | Scientific Statement. Circulation (2008); 118: p 4951-1548 Selection Text Definition | | Low Risk [...] | |final categorization. | | | |1. [place] Heart Association and [place] College of Cardiology Scientific Statement. Cir culation (2008); 118: p 5314-0536 | | | | | |Selection Text [...] | | | | | | ACUTE [place] Testing | | | | | | performed at [facility] | | | | | | [facility];[place], [place] | | | | | | [address] | | | | + + + [...] | | | Basophils | performed at [facility], [address] | [address] | LAB | | | | [address], | | | | | | [place] [address] | | | | + + + [...] EXTERNAL | | | | performed at [facility], [address] | | LAB | | | | [place], | | | | | | [place] [address] | | | | + + + [...] | | | | | [place] [address] | | | | + + + [...] + + | Hemoglobin | 6.0Comment: The [place] | 4.0 - 6.0 % | EXTERNAL [...] | | | | | performed at [facility], [address] | | | | | | [facility], | | | | | | [place] [address] | | | | + + + [...] | | | Cholesterol | performed at [facility], [address] | | LAB | | | , | [place], | | | | | Calculated, | [place] [address] | | | | | External | [...] | | | | | | at [facility], [address] | | | | | | [place], | | | | | | [place] [address] | | | | + + + [...] | | | | | | ACUTE [place] Testing | | | | | | performed at [facility];[address] | | | | | | [address];[place], [place] | | | | | | [address] | | | | + + + [...] | | | | | performed at [facility], [address] | | | | | [address], | | | | | | [place] [address] | | | | + + + [...] - 1.035 | EXTERNAL | | | [place] | | | LAB | | + [...] | | | Urine | performed at [facility], [address] | | LAB | | | | [address], | | | | | | [place] [address] | | | | + + + [...] | | LAB | | | | [facility], [address], | | | | | | [place] [address] | | | | + + + [...] | | | reconstructions were performed by electroencephalographic technologist. No 3-D imaging. | | | [...] | angiographic MIP reconstructions were performed by electroencephalographic technologist. No 3-D imaging. | | Automated [...] | | | | | | ACUTE [place] Testing | | | | | | performed at [facility], [address] [place], | | | | | | [place] [address] | | | | + + + [...] EXTERNAL | | | | performed at [facility], [address] | | LAB | | | | [address], | | | | | | [place] [address] | | | | + + + [...]
--- OUTSIDE RECORDS SUMMARY | ~2019-03-14 | XMS | Encounter Summary ---
Demographics + + + | Address | [address] | | | [place] [address] | + + + | Home Phone | | + + + | Preferred Language | Unknown | + + + | Marital Status | Legally | + + + | Sabianism Affiliation | Unknown | + + + | Race | Unknown | + + + | Ethnic Group | Unknown | + + + Author + + + | Author | [facility] | | | and [place] | + + + | Organization | [facility] | | [...] Team Providers + +------+ + | Care Flaking Roll Operator Name | Role | Phone | + +------+ + | Penelope Gage | PCP | | + +------+ + Encounter Details +--------+ + + + + | Date | Type | Department | Care Team | Description | +--------+ + + + + | 08/16/ | Orders Only | [facility] | Teto Broussard MD | | | 2018 | | [facility] [address] | [address] [place] | | | | | [address] [place] [address] | [address] [place] | | | | | [place] | [address] | | | | | [address] | | | | | | [phone] | | | +--------+ + + + [...]
[~2019-03-14 11:21] MED LIST changes: +CARVEDILOL6.25 MG PO; +ISOSORBIDE MONO10 MG PO; +LASIX40 MG PO; +LISINOPRIL20 MG PO
--- NOTE | 2019-03-14 16:14 | EKG ---
[facility] [address] [facility] [place] [address] Signed Normal sinus rhythm Right axis deviation Right ventricular hypertrophy Cannot rule out Anteroseptal infarct (cited on or before 08-JUN-2018) Abnormal ECG When compared with ECG of 19-AUG-2018 18:29, premature atrial complexes are no longer present Questionable change in initial forces of Anteroseptal leads Confirmed by HAYDER GARCIA MD ([id number]) on 03/14/2019 4:14:22 PM Electronically Signed By: HAYDER GARCIA MD 03/14/19 1614 PATIENT NAME: CAROLE MARTINS Electrocardiogram DATE OF : [birth year] PHYSICIAN: HAYDER GARCIA MD REPORT #: [id number] REPORT IS CONFIDENTIAL AND NOT TO BE RELEASED WITHOUT AUTHORIZATION
--- NOTE | 2019-03-14 16:40 | NUR ---
PATIENT ARRIVED TO THE CRITICAL CARE VIA STRETCHER. PATIENT TRANSFERED FROM STRETCHER TO STANDING SCALE AND THEN TO HIS BED. ON ARRIVAL PATIENT NOTED TO HAVE BLUISH TINGED FINGERS, NOSE, LIPS, AND EARS. PATIENT ARRIVES ON 4L NC. PATIENT SPO2 94%. WILL CONTINUE TO CLOSELY MONITOR.
--- NOTE | 2019-03-14 16:53 | NUR ---
Medications reconciled, however, per patient, he has not taken any of his prescribed meds for quite a while
--- NOTE | 2019-03-14 17:00 | NUR ---
PATIENT ASSESSMENT COMPLETED. PATIENT SKIN NOTED TO BE RED ON ABD AND UMBILICUS. PATIENT NOTED TO HAVE A SCAB ON RIGHT GAFFNEY AND STATES "THATS BEEN THERE FOR A MONTH OR SO". PATIENT REFUSED TO REMOVE HIS PANTS TO ALLOW STAFF TO DO A COMPLETE SKIN ASSESSMENT. EDUCATED PATIENT THE REASON STAFF NEED TO SEE HIS SKIN TO DOCUMENT ANY WOUNDS OR OTHER SKIN ISSUES. PATIENT STATES "I DONT THINK I HAVE ANY OTHER ISSUES". BOWEL TONES ACTIVE. BREATH SOUNDS CLEAR AND DIMINISHED. CAP REFIL 5 SECONDS IN ALL EXTREMITIES. EDEMA UP TO MID ABDOMEN. NO OTHER ISSUES AT THIS TIME. WILL CONTINUE TO CLOSELY MONITOR.
--- NOTE | 2019-03-14 17:10 | NUR ---
MD GARCIA UPDATED OF BLUISH TINGED EXTREMITIES, NOSE, LIPS, AND EARS. ALSO UPDATED OF STOP BANG SCORE OF 7 OFR THE SLEEP APNEA SCREENING. RT IN TO ASSESS PATIENT WELL. PATIENT SPO2 94% ON 5L NC. RT SET-UP HUMIDIFICATION FOR COMFORT. PER MD GARCIA RT MAY SET UP CPAP FOR SLEEP. WILL CONTINUE TO CLOSELY MONITOR SPO2. PATIENT DENIES ANY OTHER NEEDS AT THIS TIME. WILL CONTINUE TO CLOSELY MONITOR.
--- NOTE | 2019-03-14 17:19 | NUR ---
PT STOOD AT EDGE OF BED INDEPENDENTLY TO VOID USING URINAL. NOW SITTING AT EDGE OF BED EATING DINNER. O2 SAT 96% ON 5LNC. CALL LIGHT WITHIN REACH.
--- NOTE | 2019-03-14 18:03 | NUR ---
PATIENT ATE ALL OF HIS DINNER. PATIENT NOW RESTING . PATIENTS SPO2 90% WITH SLEEPING. CALLED RT TO SET-UP CPAP MACHINE AT THIS TIME. NO OTHER NEEDS. WILL CONTINUE TO CLOSELY MONITOR.
--- NOTE | 2019-03-14 18:39 | NUR ---
RT WAS IN TO SET-UP CPAP. PATIENT DID NOT TOLERATE PRESSURES AND TOLD RT HE WOULD TRY IT AGAIN LATER. STAFF IN TO SWITCH HIM OVER TO OXYMASK D/T PATIENTS SPO2 88% WITH REST. INCREASED OXYGEN TO 6L OXYMASK WHILE PATIENT IS RESTING TO KEEP SPO2 93%. PATIENT WAS MORE IRRITABLE WITH STAFF AT THIS TIME. COMPLAINING OF CORDS AND TOLD STAFF "JUST HURRY UP AND GET WHAT EVER DONE YOU NEED TO". REORIENTED PATIENT TO SITUATION AND THAT STAFF ARE JUST TRYING TO HELP HIM SO HE CAN GET BETTER. PATIENT NOW RESTING. WILL CONTINUE TO CLOSELY MONITOR.
--- NOTE | 2019-03-14 19:49 | NUR ---
IN TO DO ASSESSMENT. pt RECENTLY BACK IN BED AFTER VOID. RESPIRATIONS REGULAR. AT BEDSIDE. pt DENIED PAIN AND SOB. NO REQUESTS AT THIS TIME. ASSESSMENT DONE. UPDATED ON PLAN OF CARE. CALL LIGHT WITHIN REACH.
--- NOTE | 2019-03-14 21:04 | NUR ---
MEDICATIONS ADMINISTERED. pt REPORTED NICOTINE CRAVING. NIO FOR LOZENGE. NO FURTHER REQUESTS AT THIS TIME. DENIES INCREASED SOB. CALL LIGHT WITHIN REACH.
--- NOTE | 2019-03-14 22:11 | NUR ---
pt O2 SAT DOWN TO 86% pt HAD REMOVED OXYMASK, REPLACED. O2 SAT 89%. CALL LIGHT WITHIN REACH.
--- NOTE | 2019-03-14 23:05 | NUR ---
ROUNDED ON pt. RESTING WITH EYES CLOSED, RESPIRATIONS REGULAR. CALL LIGHT WITHIN REACH.
--- NOTE | 2019-03-15 00:07 | NUR ---
ROUNDED ON pt. RESTING WITH EYES CLOSED, RESPIRATIONS REGULAR. CALL LIGHT WITHIN REACH.
--- NOTE | 2019-03-15 00:30 | NUR ---
pt UP TO VOID. SITTING ON SIDE OF BED SAT 90% ON ROOM AIR. URINAL EMPTIED. ASSESSMENT DONE. PROVIDED REST OF WATER. EDUCATED ON FLUID RESTRICTION. NO FURTHER REQUESTS AT THIS TIME. CALL LIGHT WITHIN REACH.
--- NOTE | 2019-03-15 01:47 | NUR ---
ROUNDED ON pt. RESTING WITH EYES CLOSED, RESPIRATIONS REGULAR. CALL LIGHT WITHIN REACH.
--- NOTE | 2019-03-15 02:39 | NUR ---
ROUNDED ON pt. RESTING ON LEFT SIDE, RESPIRATIONS REGULAR. CALL LIGHT WITHIN REACH.
--- NOTE | 2019-03-15 02:46 | NUR ---
CALL LIGHT ON. pt REPORTED "MY NOSE IS STUFFY" OXYGEN HUMIDIFIED. NO FURTHER REQUESTS AT THIS TIME. CALL LIGHT WITHIN REACH.
--- NOTE | 2019-03-15 03:49 | NUR ---
pt RESTING WITH EYES CLOSED, SNORING. CALL LIGHT WITHIN REACH.
--- NOTE | 2019-03-15 04:46 | NUR ---
pt LAYING ON BACK, SNORING, RESPIRATIONS REGULAR. CALL LIGHT WITHIN REACH.
--- NOTE | 2019-03-15 05:27 | NUR ---
LAB INTO DRAW. pt BREATHING LESS LABORED THAN START OF SHIFT. SAT 91% ON ROOM AIR. REPORTED "I SLEPT OKAY LAST NIGHT" ASSESSMENT DONE. EDUCATED ABOUT FLUID RESTRICTION. pt VERBALIZED UNDERSTANDING. NO REQUESTS AT THIS TIME. CALL LIGHT WITHIIN REACH.
--- NOTE | 2019-03-15 07:26 | NUR ---
REPORT RECEIVED FROM LIZETTE WARREN. PATIENT DIURESED 1600ML OF URINE OVERNIGHT. REFUSED CPAP OVERNIGHT. WEARING 6L O2 VIA OXYMASK WHILE ASLEEP. ALL QUESTIONS ANSWERED.
--- NOTE | 2019-03-15 07:30 | NUR ---
In and spoke with pt. He is very irritable and not wanting to answer questions, want to sleep. Pt upset stating oriana is asking the same questions and what don't you get, I am homeless. Discussed with pt there are varying levels of homeles. He is couch surfing at this point and has a place to stay. He is from his of 15 years. Discussed [facility] and he agrees to see. Referral made. Spoke with Sanchez from Cardiac rehab and she will see pt for education.
--- NOTE | 2019-03-15 07:37 | NUR ---
CHW CALLED AND LEFT BLAINE WARRENMAINTENANCE PARTS TECHNICIAN AT [facility] A MESSAGE FOR A RETURN CALL IN REGARDS TO PATIENT.
--- NOTE | 2019-03-15 07:38 | NUR ---
ALEXEIW EMAILED [facility]A [facility]- [facility] TO REVIEW PATIENT CHART AND POSSIBLE CONTACT WITH PATIENT IN REGARDS TO CARDIAC REHAB.
--- NOTE | 2019-03-15 07:58 | NUR ---
WHITEBOARD UPDATED IN ROOM. PATIENT SLEEPING AT THIS TIME. WILL OBTAIN DAILY WEIGHT WHEN HE IS AWAKE.
--- NOTE | 2019-03-15 10:30 | NUR ---
DR. GARCIA IN TO SEE PATIENT. PATIENT TO BE TRANSFERRED TO MED/SURG ON TELEMETRY. PT INFORMED OF THIS AND OKAY WITH TRANSITION. PT NOW RESTING IN BED AND ATTEMPTING TO SLEEP. OXYGEN AT 2 L NASAL CANNULA NOT KEEPING SP02 ABOVE, 90%. PT SWITCHED TO OXYMASK AT 4 L, BUT HAD TO INCREASE TO 6 L TO KEEP SP02 UP. WILL CONTINUE TO MONITOR.
--- NOTE | 2019-03-15 12:05 | NUR ---
PATIENT VERY IRRITABLE WITH NURSING STAFF AND WITH CASE MANAGEMENT. PATIENT REPEATS OVER AND OVER, "I JUST WOKE UP, AND YOU GUYS JUST KEEP ASKING ME THE SAME FUCKING QUESTIONS, CAN'T YOU READ?" PATIENT OFFERED NICOTINE LOZENGE AND REFUSED ADAMENTLY THAT THESE DO NOT HELP. PATIENT ALSO VERY IRRITABLE WITH HIS TRAY TABLE AND STATES, "I WANT IT RIGHT HERE, AND EVERYONE KEEPS MOVING IT, AND I KEEP TELLING EVERYONE BUT THEY DON'T SEEM TO LISTEN." APOLOGIZED TO PATIENT FOR HIS FRUSTRATION, AND REASSURED HIM THAT WE ARE TRYING TO HELP HIM, AND ALSO INFORMED HIM THAT WE HAVE BEEN TRYING TO BUNDLE HIS CARES TOGETHER, TO TRY TO ALLOW HIM TO REST. PATIENT LUNCH ORDERED FOR PATIENT. PATIENT ALSO STATES THAT HE DOES NOT WANT ANY INFORMATION GIVEN TO HIS SISTER, WHO DID CALL EARLIER TO INQUIRE ABOUT PATIENT. 2ND DOSE OF LASIX GIVEN AT THIS TIME. PATIENT'S ARRIVES SHORTLY AFTER AND NOW IN ROOM WITH PATIENT. PT REQUESTING HIS DOOR TO BE SHUT.
--- NOTE | 2019-03-15 12:35 | NUR ---
REPORT GIVEN TO BRIANA ALY ON MED SURG. PATIENT TO BE TRANSFERRED TO ROOM 118 ON TELEMETRY. PT EATING LUNCH AND WILL WAIT UNTIL HE IS DONE EATING BEFORE TRANSFERRING.
--- NOTE | 2019-03-15 12:54 | NUR ---
PT TRANSFERRED TO ROOM 118 ON MED SURG FLOOR AT 1255. AMBULATED WITH STANDBY ASSIST FROM ROOM 127 TO ROOM 118. AT BEDSIDE. TOLERATED WELL.
--- NOTE | 2019-03-15 13:09 | NUR ---
PT ARRIVED TO ROOM 109 FROM CCU. PT ALERT AND ORIENTED. VSS ON 6LPER OXYMASK. CALL LIGHT AND H2O IN REACH. PT TOLERATING FLUID RESTRICTION WELL PER REPORT FROM CCU RN. ASSESSMENT COMPLETED. NO NEEDS OR CONCERNS VOICED.
--- NOTE | 2019-03-15 13:46 | NUR ---
TEACHER DRAMA INFORMED ME THAT PT IS IRRITABLE, LUNCH JUST BROUGHT IN. PT IS TO BE TRANSFERRED TO M/S RM 118 AFTER LUNCH. SUGGESTED I WAIT UNTIL MOVE HAS TAKEN PLACE FOR VISIT. WILL FOLLOW NEEDED
--- NOTE | 2019-03-15 14:21 | NUR ---
CHW CONTACTED ACCREDITATION SPECIALIST JOSE AT [facility] [phone]. REQUESTED TO HAVE PATIENT REVIEWED FOR EMERGENT HOUSING RESOURCES/FUNDING. JOSE STATED PATIENT DOES NOT QUALIFY FOR THE ASSISTANCE AT THIS TIME. REFERRED TO [facility] WAIT LIST.
--- NOTE | 2019-03-15 14:23 | NUR ---
CHW CALLED FRANKLIN CHAND AT [facility] [phone] TO SEE IF FURTHER PROGRAMS ARE AVAILABLE FOR PATIENT BASED ON HOMELESS/COUCH SURFING STATUS. LEFT A MESSAGE FOR A RETURN CALL.
--- NOTE | 2019-03-15 14:24 | NUR ---
ALEXEIW PRINTED OUT HOUSING APPLICATION FOR PATIENT- ONLY APARTMENTS ACCEPTING NEW APPLICATIONS AT THIS TIME IS [facility].
--- NOTE | 2019-03-15 15:05 | NUR ---
Pt resting in semifowlers position in bed, eyes closed and respirations even and unlabored. Call light and h2o in reach. Pt appears to be sleeping comfortably.
--- NOTE | 2019-03-15 16:21 | NUR ---
VISITED WITH THE PT REGARDING PT EDUCATION. PT STATES LOOK IF YOU ARE JUST GOING TO ASK ME A BUNCH OF QUESTIONS DON'T BOTHER. MY HAS RECENTLY LEFT ME AND I AM HOMELESS AND THAT IS THE BIGGEST PROBLEM ON TAKING CARE OF MY HEALTH. WE TALKED ABOUT THE FACT THAT EVEN THOUGH HE IS HOMELESS HE IS STILL ABLE TO GET AND TAKE HIS MEDS HE STILL HAS MEDICAL INSURANCE. HE WAS ABLE TO TALK WITH ME ABOUT HIS MEDS, GIVING ME THAT NAME OF MOST OF THEM AND WHY HE IS TAKING THEM. HE STATES THAT HE IS HAVING A LOT OF DIFFICULTIES BECAUSE OF A BREAKUP WITH HIS OF 15 YEARS. THAT IS WHY HE ISN'T TAKING CARE OF HIMSELF. HE KNOWS HE NEEDS TO WORK ON IT BETTER. WE DID REVIEW IN DEPTH THE STOP LIGHT MAGNET, HE STATES UNDERSTANDING. BUT THEN HE STATES HE JUST WANTS TO SLEEP AND NO ONE TO WAKE HIM UP. TOLD HIM WE WOULD TALK AGAIN TOMORROW. HE AGREED.
--- NOTE | 2019-03-15 16:35 | NUR ---
PT UP TO RESTROOM AND BACK TO BED INDEPENDANTLY ON RA. PT ASSSITED WITH ORDERING DINNER AND PT BACK ON 6L PER OXYMASK AND DENIES SOB AT THIS TIME. CALL LIGHT AND H2O IN REACH. PT TOLERATING FLUID RESTRICTION WELL.
--- NOTE | 2019-03-15 17:02 | NUR ---
Certified Heart Failure Nurse Notes: Diagnosis:HFpEF with pulmonary hypertension Doctor Of Chiropractic -CRISTINA PCP: Marlin Altamirano Date of echocardiogram -not found Admit Wt.: 274 lb Admit BNP:652 Social support system: See case specialist's notes Medication routine: Has been non adherent due to situational stressors Attempted to see patient today but he was eating lunch. supervisor long goods has reviewed zones forms and discussed obtaining medications with patients. Barriers to self-care include: Homeless. Current tobacco use. May not have access to healthy food options. Follow-up plans: Will confer with medical staff specialist and windows software developer. How to access healthy meal items, how to keep track of weights/symptom monitoring in current situation. Will attempt to follow up with patient before discharge. Recommendations prior to discharge: Document ambulation oxygen saturations prior to discharge;Absence of orthostatic hypotension. Discharge weight less than admit weight. Discharge BNP less than admit (as per [facility] Heart Failure DC Bundle) Follow up appointment be within a week of discharge. Teaching materials given today: [facility] Heart Failure bundle folder-[facility] My Action Plan Living Well with Heart Failure book, , Zones magnet, [facility] contact information
--- NOTE | 2019-03-15 17:36 | NUR ---
PATIENT SITTING UP ON THE EDGE OF THE BED. VITAL SIGNS AND I&O DONE. CALL LIGHT WITHIN REACH. NO OTHER NEEDS AT THIS TIME
--- NOTE | 2019-03-15 19:25 | NUR ---
REPORT TO BRIANA CABALLERO. PT RESTING ON LEFT LATERAL SIDE ALERT TO VOICE. OXYMASK LAYING NEXT TO PT PT STATES "IT'S DRYING ME OUT TOO MUCH I CANT USE IT". PROVIDED PT WITH MOISTENED TOOTHETTES FOR COMFORT. O2 BACK ON AT 6LPER OXYMASK AND PT NOW TOLERATING WELL. CALL LIGTH AND H2O IN REACH. PT DENIES SOB WITH OR WITHOUT O2 SURING THIS INTERACTION. PT'S O2 SAT WAS 89% ON RA PRIOR TO O2 BEING REAPPLIED AND IS NOW SATTING IN HIGH 90'S. NO NEEDS OR CONCERNS VOICED.
--- NOTE | 2019-03-15 20:03 | NUR ---
REPORT RECEIVED FROM DAY SHIFT RN. PT LYING IN BED ON RIGHT SIDE. DROWSY BUT ALERT AND ORIENTED. RESPONDS APPROPRIATELY. FAMILY MEMBER IN ROOM. DENIES FURTHER NEEDS AT THIS TIME. CALL LIGHT IN REACH.
--- NOTE | 2019-03-15 22:10 | NUR ---
EVENING ASSESSMENT COMPLETE. PM MEDS GIVEN WITHOUT ISSUE. O2 3L NC IN PLACE, OXYGEN SATS 92-93%. RR 22. FINGERTIPS NOTED TO BE DUSKY. PT CONTINUES TO C/O DRY MOUTH. CHAPSTICK AND FRESH H20 PROVIDED. PT DENIES PAIN. VS AND I&O COMPLETE. PT CONTINUES TO SUSANNAH FLUID RESTRICTION WELL. NO FURTHER NEEDS AT THIS TIME. CALL LIGHT IN REACH.
--- NOTE | 2019-03-15 23:25 | NUR ---
OXYGEN SPOT CHECKED, 92% ON 3L/NC. RR EVEN AND UNLABORED.
--- NOTE | 2019-03-16 00:20 | NUR ---
PT WITHOUT NASAL CANNULA FOR AN UNKNOWN AMOUNT OF TIME. OXYGEN SATURATIONS 88%. REPLACED NC 3L, SATURATIONS RETURNED TO 93%. RR EVEN AND UNLABORED.
--- NOTE | 2019-03-16 03:22 | NUR ---
IN TO CHECK ON PT. PT HAD REMOVED NASAL CANNULA BECAUSE HIS FACE/NOSE IS "SO FUCKING DRY" AND HE CAN NOT BREATHE. OXYGEN SATURATIONS 90-91% ON RA WHILE PT IS AWAKE AND SPEAKING TO THIS RN. SATS DROP TO 88% WHEN PT BEGINS TO DOZE OFF. A FEW ICE CHIPS GIVEN FOR COMFORT. EDUCATION PROVIDED. PT AGREES TO WEAR OXY MASK AT 3L AT THIS TIME. O2 SATS 93%. PT DENIES SOB. PT STARVING AND REQUESTING SOMETHING TO EAT. WILL PROVIDE SNACK.
--- NOTE | 2019-03-16 05:25 | NUR ---
IN TO CHECK ON PT. OXYGEN OFF, O2 SATS 83%. PT STATES HE CAN'T "FLIPPING BREATHE" BECAUSE HIS NOSE AND MOUTH ARE SO "FLIPPING DRY". PT EXPRESSES FRUSTRATION AND STATES HE JUST WANTS TO GET OUT OF "HERE". ORAL SWABS, CHAPSTICK, ICE CHIPS, AND DECREASED OXYGEN LEVELS HAVE ALL BEEN ATTEMPTED TO MAKE PT MORE COMFORTABLE WITHOUT SUCCESS. DISCUSSED WITH PROVISIONING ANALYST AND RT. OXY MASK AT 3L ON AT THIS TIME, OXYGEN SATS 91-93%. PT STATES "I DON'T KNOW" WHEN ASKED IF HE FEELS SOB BECAUSE HE'S HAVING DIFFICULTY BREATHING DUE TO DRYNESS. NO INCREASED WORK OF BREATHING NOTED. PT REQUESTING LIGHTS OUT AND DOOR CLOSED. CALL LIGHT IN REACH.
--- NOTE | 2019-03-16 06:10 | NUR ---
PT HAD A RESTLESS NIGHT. ALERT AND ORIENTED, USES CALL LIGHT APPROPRIATELY. 3L OXYGEN, ALTERNATES BETWEEN NC AND OXYMASK. PT C/O MOUTH/NOSE DRYNESS FROM WEARING OXYGEN. BECOMES FRUSTRATED EASILY. ORAL SWABS, CHAPSTICK, ICE CHIPS, AND HUMIDIFICATION PROVIDED FOR COMFORT, PT WITH NO RELIEF. DAILY WEIGHT. 2GR NA DIET, 1600 ML FLUID RESTRICTION. DENIES PAIN. NO SOB NOTED.
--- NOTE | 2019-03-16 09:36 | NUR ---
CHW MET WITH PATIENT IN ROOM- CHW PROVIDED RESOURCE DOCUMENTS FOR [facility], [facility] INFORMATION IF PATIENT WOULD LIKE TO APPLY FOR [facility], [facility] APARTMENT APPLICATION FOR HOUSING. PATIENT STATED HE IS CURRENTLY HOMELESS AND WAS NOT WANTING TO TALK MUCH. HE STATED HE WOULD CONTACT CHW IF HE WANTED TO ONCE HE WAS DISCHARGED FROM THE HOSPITAL. CHW ASKED IF PATIENT WOULD LIKE TO FOLLOW UP WITH [facility] PATIENT STATED HE WOULD DO THAT IF HE WANTED TO ONCE HE LEFT. PER BLAINE WARRENMETROLOGIST AT [facility] PATIENT HAS NOT BEEN SEEN AT [facility] IN A LONG TIME AND HE WOULD HAVE TO REAPPLY FOR BENEFITS. PATIENT LAST KNOWN ADDRESS TO THEM WAS IN [place]. PATIENT IS AWARE AND DOES NOT WANT TO FURTHER DISCUSS AND OR TALK AT THIS TIME. CHW PROVIDED CONTACT CARD FOR FURTHER HELP WITH RESOURCES IF NEEDED.
--- NOTE | 2019-03-16 09:56 | NUR ---
PATIENT RESTING IN BED. RN IN ROOM. VITAL SIGNS AND I&O DONE. ICE WATER GIVEN .CALL LIGHT WITHIN REACH. NO OTHER NEEDS AT THIS TIME
--- NOTE | 2019-03-16 10:08 | NUR ---
CHW CALLED AND LEFT A MESSAGE WITH NELSON IN REGARDS TO HOUSING RESOURCES.
--- NOTE | 2019-03-16 10:09 | NUR ---
CHW CALLED AND LEFT JOSE SinhaPIPE FITTER MARINE FOR [facility] A MESSAGE- FURTHER DISCUSSION FOR RESOURCES FOR HOUSING FOR PATIENT AFTER DISCHARGE.
--- NOTE | 2019-03-16 10:51 | NUR ---
CHW SPOKE WITH JOSE WARRENPROGRAMMER ENGINEERING AND SCIENTIFIC FROM [facility]- SHE STATED SHE WOULD RECOMMEND A DHS ASSESSMENT IF PATIENT IS BEING DISCHARGED WITH OXYGEN HALFWAY DUE TO THE PATIENT BEING HOMELESS. IF PATIENT IS ONLY HAVING OXYGEN FOR SHORT TERM USAGE SHE RECOMMENDED THE RESOURCES CHW PROVIDED TO PAIENT. PER ILA WARRENPROGRAMMER ENGINEERING AND SCIENTIFIC THEY ARE GOING TO SEE IF PATIENT WOULD LIKE PEER TO PEER SUPPORT BASED ON PATIENT RECENT BREAK UP WITH HIS OF 15 YEARS. FURTHER DISCUSSION WITH PATIENT.
--- NOTE | 2019-03-16 11:09 | NUR ---
PT SISTER CALLED FOR AN UPDATE, PT SAID NO WHEN ASKED IF WE COULD TALK TO HER. EXPLAINED TO HER AND SHE WAS OK. ADMINSTERED LASIX. PT ASKED APPROP. QUESTIONS REGARDING MEDICATIONS. PT HAS OXY MASK IN PLACE.
--- NOTE | 2019-03-16 11:49 | NUR ---
CHW SPOKE WITH CARLOS ALBERTO- HE STATED HE CAN COME AND DO AN ASSESSMENT WITH PATIENT TO START THE PROCESS FOR HOUSING FUNDING AVAILABILITY AND RESOURCES. CHW STATED SHE WOULD CONTACT CAKE KNOCKER ILA AND HAVE HER DISCUSS WITH PATIENT IF HE ACCEPTS THE SERVICE/ASSESSMENT. CARLOS ALBERTO DAMON- CONTACT NUMBER [phone] IS HIS DIRECT LINE. HE STATED THERE IS FUNDING THAT COMES AND GO FOR HOUSING FOR THE HOMELESS AND THERE IS A WAIT LIST BUT IT COMES AND GOES BASED ON THE AVAILABILITY OF FUNDING SO HE HIGHLY RECOMMENDED PATIENT HAVE AN ASSESSMENT DONE WHILE IN THE HOSPITAL IF PATIENT APPROVES. ILA CAKE KNOCKER NOTIFIED OF INFORMATION.
--- NOTE | 2019-03-16 12:30 | NUR ---
In to speak with pt. Woman in the room, who I think is his . Pt is extremely nice while visiting with me. Let him now CHW has been in contact with Dylan from [facility] and he will visit today, if the pt agrees, to talk about assist with funding for housing. Pt agrees to see him. I also offered and Kimber also agrees to Peer to Peer support counseling for Drug and Alcohol. Called and spoke with Dylan, he will visit at 3pm. Pt. notified.
--- NOTE | 2019-03-16 13:57 | NUR ---
Called and left a messassage for [facility] for peer support. Left my number. Awaiting call back.
--- NOTE | 2019-03-16 14:00 | NUR ---
PATIENT RESTING IN BED. VITAL SIGNS AND I&O DONE. ICE WATER GIVEN. CALL LIGHT WITHIN REACH. NO OTHER NEEDS AT THIS TIME
--- NOTE | 2019-03-16 14:17 | NUR ---
ADMINISTERED MEDS. PT WOULD LIKE TO BE LEFT ALONE FOR A NAP UNTIL 3 WHEN [facility] IS COMING AND THEN AGAIN UNTIL 6 FOR VITALS
--- NOTE | 2019-03-16 14:24 | NUR ---
Received call from Nirmala from [facility] A&D. She can visit Kimber now, let her know MITESH will be here in 20 minutes. States she will visit at 5 pm.
--- NOTE | 2019-03-16 14:28 | NUR ---
WENT INTO PTS' RM WITH BRIANA SARGENT SHE WAS GIVING MEDS. PT WAS AWAKE, O2 MASK ON. PT WAS PLEASANT, SAID HE WAS TRYING TO GET SOME REST UNTIL 3PM. GAVE A BLESSING TO PT AND TLD HIM I WOULD BE BY AGAIN TOMORROW. HE SAID THAT WOULD BE FINE. VENUS VAUGHAN REQUESTED I VISIT PT-HAVING SOME STRUGGLES. WILL FOLLOW NEEDED
--- NOTE | 2019-03-16 15:20 | NUR ---
Dylan Varela from [facility] in to speak with pt about assistance with housing.
--- NOTE | 2019-03-16 15:30 | NUR ---
Dylan in to speak with pt and releases and consents signed. Unfortunately [facility] does not have funds at this time. Per Dylan he encouraged Kimber to stay in touch as they have new funding from grants or money which "opens up". Awaiting visit from A&D from [facility] at 1700.
--- NOTE | 2019-03-16 18:08 | NUR ---
PATIENT SITTING UP IN BED. IN ROOM. VITAL SINGS AND I&O DONE. CALL LIGHT WITHIN REACH. NO OTHER NEEDS AT THIS TIME
--- NOTE | 2019-03-16 19:17 | NUR ---
RECEIVED REPORT AT NURSES STATION PT WANTS TO BE DISTURBED LITTLE POSSIBLE.
--- NOTE | 2019-03-16 20:41 | NUR ---
IN ROOM TO ASSESS PT AND ADMINISTER MEDICATIONS. Nila AND YAYA ALSO IN ROOM TO GROUP CARE. PT STATES HE WAS UP TO PEE 5 TIMES SINCE HAVING LASIX BUT IS NOT COMPLIANT WITH USING URINAL. HE DENIES PAIN AND DENIES SOB. HE IS ON RA AT THIS TIME. HE DENIES NEEDS AT THIS TIME. CALL LIGHT IS CLOSE.
--- NOTE | 2019-03-16 20:43 | NUR ---
SPOKE WITH DR CASAS ABOUT HOLDING THE COREG. HE WAS OKAY WITH THIS. NO NEW ORDERS RECEIVED.
--- NOTE | 2019-03-16 23:23 | NUR ---
PT IS RESTING WITH EYES CLOSED, RR IS EVEN AND NONLABORED. CALL LIGHT IS CLOSE.
--- NOTE | 2019-03-17 01:16 | NUR ---
PT IS RESTING WITH EYES CLOSED, RR IS EVEN AND NONLABORED. CALL LIGHT IS WITHIN REACH.
--- NOTE | 2019-03-17 02:54 | NUR ---
PT WOKE ASKING FOR A SNACK, HE WAS ALSO GIVEN MORE FLUIDS HE HAS NOT MET HIS FLUID RESTRICTION GOAL FOR THE DAY. HE DENIES SOB AND LUNGS SOUND CLEAR. PT DENIES FURTHER NEEDS AT THIS TIME. CALL LIGHT IS WITHIN REACH.
--- NOTE | 2019-03-17 06:14 | NUR ---
VS and I&Os complete, pt was weighing in at 253.9lbs. He stated his bedding has not been changed since he has been here so I changed out the linens. He gave me his breakfast order, nothing further was needed at this time.
--- NOTE | 2019-03-17 06:36 | NUR ---
PT IS INDEPENDENT IN THE ROOM. HE WAS UP TO THE RESTROOM VOIDING MANY TIMES THROUGH THE NIGHT. HE IS ON A 2G SODIUM DIET WITH 1600 FLUID RESTRICTION. IV IS SL. PT DENIES SOB AND PAIN. HE DID WELL ON RA ALL NIGHT.
--- NOTE | 2019-03-17 07:05 | NUR ---
PT RESTING SUPINE IN BED, EYES CLOSED AND RESPIRATIONS UNLABORED AT 20. PT APPEARS TO BE SLEEPING COMFORTABLY. CALL LIGHT AND H2O IN REACH. BEDSIDE REPORT RECEIVED FROM BRIANA HERBERT.
--- NOTE | 2019-03-17 07:41 | NUR ---
PATIENTS BOARD WAS UPDATED, PATIENT NEEDED NOTHING ELSE AT THIS TIME
--- NOTE | 2019-03-17 08:53 | NUR ---
PT RESTING IN SEMIFOWLERS POSITION IN BED. PT ALERT AND ORIENTED AND DENIES SOB ON RA. PT ASSESSMENT COMPLETED. CALL LIGHT AND H2O IN REACH. NO NEEDS OR CONCERNS VOICED.
--- NOTE | 2019-03-17 09:33 | NUR ---
In to speak with Kimber as nurse has completed pt care and flu shot. Discussed his meeting with [facility] A&D last night. Per Nirmala, he agreed to A&D treatment and they are working on a place for him to go. There is a waiting list for most of the places they usually use. August will return today at 3 pm for Peer to Peer support and hopefully a place for him to go. They have scheduled an appt with him for Mar.02Friday at 1:30. I requested if he is willing to use [facility]. He becomes angry stating, "why wouldn't I". I reminded him of our first conversation where he refused help and did not want to answer any questions. He agrees to appt with [facility]. Called and set appt. for Apr 02 @ 2pm with Carie Mcintyre. Attempted to discuss with patient where he plans to discharge to tomorrow and if he will have a ride. He states he has his own vehichle or he will call his . Pt is very angry during this conversation. States he has a place he can go but will not give me a name, states it is not what would be considered safe as people use alcohol and drugs. He has been staying here prior to hospitalization. Pt again complains entire visit of not being allowed to sleep. Reminded him my last two visits have been when he is awake. Everyone is attempting to work around his schedule. He denies need for addresses of warming station in the area. States he knows what is and is not available.
--- NOTE | 2019-03-17 09:46 | NUR ---
Certified Heart Failure Nurse Notes: Patient reports that he understands diagnosis and does not have any questions. Patient is not very verbal during this interaction so level of understanding not assessed. Patient invited to call this service for outpatient heart failure education sessions.
--- NOTE | 2019-03-17 11:05 | NUR ---
PT RESTING ON LEFT LATERAL SIDE IN BED EYES CLOSED AND RESPIRATIONS EVEN AND UNLABORED. CALL LIGHT AND H2O IN REACH. PT APPEARS TO BE SLEEPING COMFORTABLY.
--- NOTE | 2019-03-17 14:29 | NUR ---
PT RESTING IN SEMIFOWLERS POSITION IN BED ALERT AND ORIENTED. CALL LIGHT AND H2O IN REACH. PT DENIES PAIN, SOB OR NAUSEA AND STATES "I'M ACTUALLY FEELING BETTER TODAY, I'D LIKE TO BE DISCHARGED TOMORROW". PT ASSESSMENT COMPLETED. CALL LIGHT AND H2O IN REACH. NO NEEDS OR CONCERNS VOICED.
--- NOTE | 2019-03-17 16:38 | NUR ---
PT SITTING UP IN BED WATCHING TV. CALL LIGHT AND H2O IN REACH. PT DNEIES NEEDS OR CONCERNS AND APPEARS TO BE IN NO ACUTE DISTRESS.
--- NOTE | 2019-03-17 16:39 | NUR ---
ATTEMPTED TO TALK WITH THE PT REGARDING HIS MEDICATIONS, AND DX AND EVERYTIME I SAID SOMETHING HE STATED "YES I KNOW THAT" "YES I KNOW THAT" 'WHY DO YOU GUYS JUST KEEP GOING OVER AND OVER AND OVER THE SAME QUESTIONS AND INFORMATION "I KNOW I HAVE CONGESTIVE HEART FAILURE AND MY MEDICATIONS JUST QUIT BUGGING ME ABOUT IT" I ASKED THEN WHERE HIS INFORMATION PACKET WAS AND HE STATES "WELL MY TOOK IT, I DIDN'T NEED IT ANYMORE." I INFORMED HIM I WOULD LEAVE HIM THE STOPLIGHT MAGNET AND A WEIGHT LOG. HE THEN STATED HE WOULD DO THE BEST HE COULD TO CARE FOR HIMSELF HE DOES NOT HAVE A HOME--I [place] [address] WHAT AM I TO DO WITH STUFF LIKE THAT. AGAIN STATES HE KNOWS WHAT MEDS ETC THAT HE IS SUPPOSE TO TAKE BUT SAYS THAT BECAUSE OF THAT HE IS NOT SURE HE WILL BE ABLE TO COMPLY WITH THAT.
--- NOTE | 2019-03-17 20:05 | NUR ---
IN ROOM FOR REPORT, PT HAS VISITOR IN THE ROOM AT THIS TIME. CALL LIGHT IS CLOSE.
--- NOTE | 2019-03-17 21:50 | NUR ---
IN ROOM TO ASSESS PT AND ADMINISTER MEDICATIONS. PT DENIES ANY SOB AND PAIN. HE IS EXCITED TO LEAVE TOMORROW AND SAID HE WOULD LIKE A SHOWER IN THE MORNING. HE IS 90% ON RA. REMINDED PT TO COUGH AND DEEP BREATHE. PT DENIES FURTHER NEEDS AND CALL LIGHT IS CLOSE.
--- NOTE | 2019-03-18 00:18 | NUR ---
PT IS RESTING WITH EYES CLOSED, RR IS EVEN AND NONLABORED. CALL LIGHT IS CLOSE.
--- NOTE | 2019-03-18 02:27 | NUR ---
PT IS RESTING WITH EYES CLOSED, RR IS EVEN AND NONLABORED. CALL LIGHT IS CLOSE.
--- NOTE | 2019-03-18 04:07 | NUR ---
PT IS RESTING WITH EYES CLOSED, RR IS EVEN AND NONLABORED. CALL LIGHT IS WITHIN REACH.
--- NOTE | 2019-03-18 06:02 | NUR ---
PT IS RESTING WITH EYES CLOSED, RR IS EVEN AND NONLABORED. CALL LIGHT IS CLOSE.
--- NOTE | 2019-03-18 06:18 | NUR ---
PT IS INDEPENDENT IN THE ROOM. HE IS ON RA IN THE LOW 90'S O2 SAT. HE IS ON THE 2G SODIUM DIET WITH A 1600 FLUID RESTRICTION. IV IS SL. HE IS A DAILY WEIGHT.
--- NOTE | 2019-03-18 07:10 | NUR ---
BEDSIDE HANDOFF REPORT RECEIVED FROM SENIOR BENEFITS MANAGER RN. PT RESTING IN BED. PT REQUESTING APPLE JUICE, PROVIDED. PT DENIES OTHER NEEDS AT THIS TIME.
--- NOTE | 2019-03-18 09:37 | NUR ---
PT ON ROOM AIR, LUNG SOUNDS CLEAR WITH DIMINISHED BASES. PT DENIES PAIN. IV SALINE LOCKED. PT TOLERATING DIET, DENIES NAUSEA, BOWEL TONES ACTIVE. PT WITH EDEMA 1-2+ TO BLE, CMS INTACT. PT PROVIDED WATER WITHIN FLUID RESTRICTION. PT ASKING ABOUT LASIX, NO ORDER AT THIS TIME. DISCUSSED PLAN OF CARE FOR THE DAY. MORNING MEDICATIONS ADMINISTERED PER ORDER. PT DENIES OTHER NEEDS AT THIS TIME.
[2019-03-18] MEDS ORDERED: LISINOPRIL20 MG PO (10:34)
[2019-03-18] MEDS ORDERED: CARVEDILOL6.25 MG PO (10:34)
[2019-03-18] MEDS ORDERED: LASIX40 MG PO (10:35)
--- NOTE | 2019-03-18 11:00 | NUR ---
In to speak with pt about discharge. He is wanting to sleep. Denies needsf or dc. Will call a friend or his exwife for transport.
--- NOTE | 2019-03-18 11:03 | NUR ---
DISCHARGE INSTRUCTIONS COMPLETED WITH PT. MEDICATIONS REVIEWED. VSS. IV CATH REMOVED. DISCUSSED DIET AND FLUID RESTRICTION. FOLLOW UP APPOINTMENTS REVIEWED. PT REQUESTING LUNCH TO GO, KITCHEN CALLED. EX TO PROVIDE RIDE, SHE IS IN ROOM.
== END 2019-03-18 11:17 | disposition home or self-care (01) | DRG 291 ==
LOC: ED 11:21 → CCU 15:51 → MS 03-15 12:55
PROVIDERS: ADMIT Internal Medicine
DX: I11.0 Hypertensive heart disease with heart failure (principal); J96.01 Acute respiratory failure with hypoxia; I50.33 Acute on chronic diastolic (congestive) heart failure; I27.22 Pulmonary hypertension due to left heart disease; K76.1 Chronic passive congestion of liver; F19.11 Other psychoactive substance abuse, in remission; G47.33 Obstructive sleep apnea (adult) (pediatric); Z79.899 Other long term (current) drug therapy; Z91.14 Patient's other noncompliance with medication regimen; Z88.5 Allergy status to narcotic agent; Z88.2 Allergy status to sulfonamides; Z59.0 Homelessness
CPT/HCPCS: 36415; 36600; 71045; 71260; 80048; 80053; 80076; 82803; 83735; 83880; 84439; 84443; 84484; 85025; 85379; 90688; 93005; 93010; 94640; 94660; 94760; 99285-25; J1650; J1940; J3475

== ENCOUNTER 2019-05-02 01:13 | Emergency (ER) | payer OTHER ==
[~2019-05-02] VITALS: Ht 177.8 cm; Wt 113.4 kg
--- NOTE | 2019-05-02 11:11 | EKG ---
[facility] [address] [place], [place] [address] Signed Normal sinus rhythm Possible Left atrial enlargement Incomplete right bundle branch block Right ventricular hypertrophy with repolarization abnormality Possible Anteroseptal infarct (cited on or before 08-JUN-2018) Abnormal ECG When compared with ECG of 14-MAR-2019 11:25, Questionable change in initial forces of Septal leads Confirmed by LISA CASAS DO ([id number]) on 05/02/2019 11:11:25 AM Electronically Signed By: LISA CASAS DO 05/02/19 1111 PATIENT NAME: CAROLE MARTINS Electrocardiogram DATE OF : 77 PHYSICIAN: LISA CASSA DO REPORT #: [id number] REPORT IS CONFIDENTIAL AND NOT TO BE RELEASED WITHOUT AUTHORIZATION
== END 2019-05-02 05:33 | disposition home or self-care (01) ==
LOC: ED 01:13
DX: R06.02 Shortness of breath (principal); R07.9 Chest pain, unspecified; I11.0 Hypertensive heart disease with heart failure; I50.9 Heart failure, unspecified; Z88.5 Allergy status to narcotic agent; Z88.2 Allergy status to sulfonamides; Z79.899 Other long term (current) drug therapy
CPT/HCPCS: 71046; 80053; 83735; 83880; 84484; 85025; 93005; 93010; 96374; 99285-25; J1940

== ENCOUNTER 2019-06-10 20:14 | Inpatient (IN) | payer OTHER ==
[~2019-06-10] VITALS: Ht 177.8 cm; Wt 113.1 kg
--- NOTE | 2019-06-10 22:30 | NUR ---
PT ARRIVED TO THE FLOOR VIA STRETCHER AND WAS ABLE TO SLOWLY MOVE HIMSELF OVER TO THE BED SBA. HE WAS SOB WITH AMBULATION ON 4 LNC. VS TAKEN AND ENTERED. RR IS ELEVATED AT 26. ADMISSION HX IS COMPLETE AND HE HAS APPLEJUICE AT BEDSIDE AND WARM BLANKETS. ORIENTED PT TO ROOM. PT DENIES FURTHER NEEDS AT THIS TIME AND CALL LIGHT IS CLOSE.
--- NOTE | 2019-06-10 23:20 | NUR ---
ASSESSMENT COMPLETE, SCHEDULED EVENING MEDS GIVEN (SEE EMAR). VSS AND RECORDED. PT ON 4LNC, BREATH SOUNDS CLEAR. PT REPORTS PAIN AT ONTIVEROS INSERTION, GENERALIZED EDEMA TO SCROTUM/LOWER ABDOMEN/BLE NOTED. CATHETER PATENT, VOIDING QS. LUNCHBOX AT BEDSIDE. NO FURTHER NEEDS VERBALIZED, CALL LIGHT IN REACH.
--- NOTE | 2019-06-10 23:45 | NUR ---
SCHEDULED IV BUMEX INFUSING AT 10MLS/HR, IV SITE PATENT AND WNL. INFUSION RATE VERIFIED BY SECOND RN LIZETTE. VSS, PT REMAINS ON 4LNC. NO NEED VERBALIZED, CALL LIGHT IN REACH.
--- NOTE | 2019-06-11 01:15 | NUR ---
PT RESTING IN BED, RESPIRATIONS EVEN AND UNLABORED. 4LNC IN PLACE, NO DISTRESS NOTED. VS RECENTLY COMPLETED BY SONIA JUNE, RR 24. IV BUMEX CONTINUES TO INFUSE AT 10MLS/HR. CALL LIGHT IN REACH.
--- NOTE | 2019-06-11 03:01 | NUR ---
VITALS AND I&OS DONE AND CHARTED. FRESH ICE WATER GIVEN. BEDSIDE TABLE AND CALL LIGHT IN REACH.
--- NOTE | 2019-06-11 06:00 | NUR ---
ASSESSMENT COMPLETE, NO NEW CHANGES OR CONCERNS. VSS, PT ON 4LNC. DAILY WEIGHT ALSO COMPLETED. PT ATTEMPTED TO HAVE BM, UNSUCCESSFUL. QUESTIONS REGARDING ONTIVEROS CATHETER ANSWERED, PT VOIDING QS. PT NOW RESTING IN BED, NO FURTHER NEEDS. CALL LIGHT IN REACH.
--- NOTE | 2019-06-11 07:35 | NUR ---
0700: Bedside report received from Maria L WARREN. Pt denies any new problems at this time and fell to sleep while receiving report in his room. Call hernandez within reach. Alfredo draining clear yellow urine.
--- NOTE | 2019-06-11 08:26 | NUR ---
PT states he has some pain related to his edema in his abd, groin and legs. He rates it at a 4 which he states is acceptable. Sat on 4l is 92%, lung sounds clear with decreased bases and he denies any sob at rest. Pt back to sleep prior to me leaving his room. See assessment.
--- NOTE | 2019-06-11 10:11 | NUR ---
PT DROWSY, DENIES ANY LIGHTHEADNESS, SOB, OR PAIN. HE ATE 100% OF HIS BREAKFAST.
--- NOTE | 2019-06-11 11:21 | NUR ---
Pt sleeping at this time.
--- NOTE | 2019-06-11 11:50 | NUR ---
Pt complains of his nairs being dryed out due to his o2. Humidification placed to his o2 at this time.
--- NOTE | 2019-06-11 12:06 | NUR ---
Dr Porras made aware of the pt's blood pressures. New orders recieved, see emar.
--- NOTE | 2019-06-11 12:26 | EKG ---
[facility] [address] [place], [place] [address] Signed Normal sinus rhythm Possible Left atrial enlargement Incomplete right bundle branch block Right ventricular hypertrophy with repolarization abnormality Cannot rule out Anteroseptal infarct (cited on or before 08-JUN-2018) Abnormal ECG When compared with ECG of 02-MAY-2019 01:27, No significant change was found Confirmed by HAYDER GARCIA MD ([id number]) on 06/11/2019 12:26:40 PM Electronically Signed By: HAYDER GARCIA MD 06/11/19 1226 PATIENT NAME: CAROLE AMRTINS Electrocardiogram DATE OF : 77 PHYSICIAN: HAYDER GARCIA MD REPORT #: [id number] REPORT IS CONFIDENTIAL AND NOT TO BE RELEASED WITHOUT AUTHORIZATION
--- NOTE | 2019-06-11 12:39 | NUR ---
PT LAYING IN CHAIR, TV OFF.WAS VERY OPEN ABOUT HOW HE WAS STRUGGLING WITH HIS PRESENT CONDITION.HE AND THAT HE ADMITTED WAS ADDING STRESS TO HIS SITUATION. GENETICS HE FEELS PLAYS A PART, AND I SUGGESTED HE VISIT WITH THE MOCK UP MAKER ABOUT THE REHAB PROGRAM-PT ACKNOWLEDDGED. REQUESTED PRAYER. LEFT Jacob.POST
--- NOTE | 2019-06-11 13:08 | NUR ---
MED REC COMPLETED.
--- NOTE | 2019-06-11 13:21 | NUR ---
PT DENIES ANY CHANGE IN HIS CONDITION. SAT 94% ON 4L, LUNGS DECREASED IN THE BASES. PT DENIES ANY SOB AT REST, HE STATES IT IS JUST WITH ACTIVITY. ONTIVEROS DRAINING LARGE AMOUNTS OF YELLOW URINE. BP 102/57 AT THIS TIME. SEE ASSESSMENT.
--- NOTE | 2019-06-11 14:27 | NUR ---
notified of the pt's BP. Medication changes have already been made by Dr Porras. Pt continues to deny any lightheadedness.
--- NOTE | 2019-06-11 15:13 | NUR ---
BUMEX CONCENTRATION CHANGED, MEDICATION DOSE CHECKED WITH MARTHA WARREN PRIOR TO HANGING.
--- NOTE | 2019-06-11 15:16 | NUR ---
PT STATES HIS BREATHING IS DOING WELL AT THIS TIME. WILL CONTINUE TO MONITOR.
--- NOTE | 2019-06-11 15:56 | NUR ---
Pt resting in his bed and denies any lightheadedness or changes in his condition. Sat on 4l is 93%, bp is 96/68. Pt instructed to not get out of bed without help and he states understanding.
--- NOTE | 2019-06-11 17:39 | NUR ---
Pt continues to have tachypena but denies any sob while resting in his bed. Pt declines to get up to the chair at this time and states, "maybe later". He states he is unsure if his breathing is getting any better as he states he was only sob with activity which he has not attempted to try yet. Sat remains in the low 90's on 4L.
--- NOTE | 2019-06-11 19:09 | NUR ---
DR GARCIA CALLED AND ORDERED THE BUMEX GTT BE DC'D AT THIS TIME WHICH WAS DONE.
--- NOTE | 2019-06-11 19:10 | NUR ---
SHIFT REPORT RECIEVED FROM BRENT WARREN. PT ON 4L NC, DENIES SOB. IV SL, WNL. NO OTHER NEEDS. CALL LIGHT IN REACH.
--- NOTE | 2019-06-11 21:44 | NUR ---
ASSESSMENT COMPLETED. EDEMA NOTED TO ABD, SCROTUM AND BLE. LUNG SOUNDS CLEAR IN UPPER LOBES AND DIMINISHED IN LOWER LOBES. PT CHANGED TO OXYMASK FOR COMFORT, RT NOTIFIED. IV CDI, WNL, FLUSHED WELL. ICE PROVIDED. NO OTHER NEEDS. CALL LIGHT IN REACH.
--- NOTE | 2019-06-11 23:40 | NUR ---
PT RESTING IN BED, EYES CLOSED. OXYMASK AT 4L. RR EVEN AND UNLABORED. CALL LIGHT IN REACH.
--- NOTE | 2019-06-12 02:26 | NUR ---
PT AWAKE IN ROOM. PT ASKS TO BE PUT BACK ON NC, NC @ 4L PROVIDED. ASSESSMENT COMPLETED. NO CHANGES IN LUNG SOUNDS OR EDEMA. ONTIVEROS AND IV WNL. NO OTHER NEEDS. CALL LIGHT IN REACH.
--- NOTE | 2019-06-12 04:23 | NUR ---
PT RESTING IN BED, EYES CLOSED. RR EVEN, UNLABORED. NC @ 4L. CALL LIGHT IN REACH.
--- NOTE | 2019-06-12 05:15 | NUR ---
PT SLEPT WELL LAST NIGHT. NC WAS CHANGED TO OXYMASK AND BACK TO NC AT PT REQUEST. PT USING NC @ 4L CURRENTLY. LUNG SOUNDS CLEAR IN UPPER LOBES AND DIMINISHED IN LOWER LOBES. PT HAS MODERATE EDEMA IN ABD, GENERALIZED IN SCROTUM AND 3+ IN BLE. THIS IS UNCHNAGED THIS SHIFT. PT TOLERATED ONTIVEROS WELL. PT HAS NOT BEEN UP TO AMBULATE YET. PT HAS TOLERATED FLUID RESTRICTION WELL.
--- NOTE | 2019-06-12 07:26 | NUR ---
0705: BEDSIDE REPORT RECEIVED FROM LUBNA WARREN. PT RESTING IN BED AND HE DENIES ANY NEW PROBLEMS OR NEEDS AT THIS TIME. CALL REES WITHIN REACH.
--- NOTE | 2019-06-12 09:18 | NUR ---
PATIENT SITTING UP IN BED. CALL LIGHT IN REACH. NO FURTHER NEEDS AT THIS TIME.
--- NOTE | 2019-06-12 09:33 | NUR ---
SAT 93% ON 4L VIA NC WITH DECREASED LUNG BASES OTHERWISE CLEAR. HE DENIES ANY SOB AT REST BUT DECLINES TO GET OUT OF BED AT THIS TIME. HE STATES HE WILL GET OUT OF BED LATER TODAY. BP IMPORVED FROM YESTERDAY. CAROLE DENIES ANY NEW PROBLEMS. EDEMA IN HIS ABD, GROIN, THIGHS AND LOWER LEGS REMAINS BUT APPEARS TO BE SLIGHTLY LESS TIGHT FROM WHAT IT WAS YESTERDAY.
--- NOTE | 2019-06-12 10:00 | NUR ---
Pt sleeping. IV bumex restarted as ordered, see emar.
--- NOTE | 2019-06-12 11:21 | NUR ---
SAT 94% ON 4L, O2 DECREASED TO 3L VIA NC.
--- NOTE | 2019-06-12 11:51 | NUR ---
SAT 88-89% ON 3L, O2 INCREASED TO 4L AND SAT INCREASED TO 92%. PT DENIES ANY NEW PROBLEMS.
--- NOTE | 2019-06-12 12:45 | NUR ---
PT REMAINS IN BED AND WAS SLEEPING WHEN I ENTERED HIS ROOM. HE STATES HE HAS NOT BEEN SLEEPING WELL AT NIGHT AND IS CATCHING UP NOW. HE DENIES ANY OTHER NEW PROBLEMS, SEE ASSESSMENT.
--- NOTE | 2019-06-12 13:55 | NUR ---
PATIENT IN BED, IN ROOM. CALL LIGHT IN REACH. NO FURTHER NEEDS AT THIS TIME.
--- NOTE | 2019-06-12 15:25 | NUR ---
PT RESTING IN BED WITH NO NEW COMPALINTS. HE CONTINUES TO DENY ANY SOB AT REST AND DECLINES TO GET OUT HIS BED.
--- NOTE | 2019-06-12 17:50 | NUR ---
PT SLEEPING WHEN I ARRIVED TO HIS ROOM AND AWAKES TO VOICE AND DENIES ANY NEW PROBLEMS. HE HAS SLEPT A LARGE AMOUNT OF THE DAY AND HAS DECLINED TO GET UP FROM BED EVERY TIME IT HAS BEEN REQUESTED BY MYSELF AND THE ADMINISTRATIVE TECHNICIAN. VITAL SIGNS ARE STABLE AND HE HAS BEEN PUTTING OUT LARGE AMOUNTS OF URINE. PT'S DINNER AT BEDSIDE AND HE STATES HE WILL EAT LATER AFTER SLEEPING SOME MORE.
--- NOTE | 2019-06-12 19:47 | NUR ---
REPORT RECEIVED FROM DAY SHIFT RN. PT LYING IN BED, ALERT AND ORIENTED. VISITOR AT BEDSIDE. RAMA AVILA. IV DRIP INFUSING. O2 4L/NC IN PLACE. PT DENIES NEEDS AT THIS TIME. CALL LIGHT IN REACH.
--- NOTE | 2019-06-12 21:30 | NUR ---
EVENING ASSESSMENT COMPLETE. SCHEDULED MEDS GIVEN WITHOUT ISSUE. PRN GIVEN FOR "ACHING/CRAMPING" IN BOTH HANDS THAT PT STATES HE HAS A HISTORY OF. ONTIVEROS PATENT DRAINING CL YELLOW URINE. BUMEX INFUSING AT 2ML/HR. SPO2 96% ON 4L/NC. PT DENIES CHEST PAIN OR SOB. NO FURTHER NEEDS AT THIS TIME. CALL LIGHT IN REACH.
--- NOTE | 2019-06-13 01:00 | NUR ---
CALL LIGHT ANSWERED. PT REQUESTING TO GET OOB TO SIT IN RECLINER. SBA TO CHAIR. SUSANNAH WELL. NO SOB OR CHEST PAIN. ONTIVEROS EMPTIED. IV DRIP INFUSING. OXYGEN IN PLACE.
--- NOTE | 2019-06-13 02:49 | NUR ---
OXYGEN TITRATED TO 2L/NC. SPO2 93-94% AT THIS TIME. RESPIRATIONS EVEN AND NON-LABORED.
--- NOTE | 2019-06-13 06:16 | NUR ---
PT SLEPT WELL. ALERT AND ORIENTED. USES CALL LIGHT APPROPRIATELY. BUMEX DRIP. 1800 ML FLUID RESTRICTION, PT COMPLIANT. 2L/NC. DAILY WEIGHT, 19 LB DECREASE IN WEIGHT FROM YESTERDAY. ONTIVEROS DRAINING COPIOUS AMOUNTS OF YELLOW URINE. PRN TYLENOL GIVEN FOR HANDS "CRAMPING/ACHING".
--- NOTE | 2019-06-13 07:13 | NUR ---
0700: Report received from Lupe WARREN. Pt sleeping and had requested prior that report given in the lewis. Will follow up with him shortly.
--- NOTE | 2019-06-13 08:23 | NUR ---
PT SLEEPING, AWAKES TO VOICE AND QUICKLY FALLS BACK TO SLEEP. ONTIVEROS CONTINIUES DRAINING LARGE VOLUMES OF URINE. PT REMAINS ON BUMEX GTT ORDERED. SWELLING IS DECREASED FROM YESTERDAY AND HIS WEIGHT IS DOWN. PT NOW SATING 90% ON 2L WHICH IS AN IMPROVMENT. WILL CONTINUE TO MONITOR, SEE ASSESSMENT.
--- NOTE | 2019-06-13 08:59 | NUR ---
Dr Porras called and notifed of the pt's large amount of urine output, bun and creatine levels and of his weight loss. New orders received, see emar.
--- NOTE | 2019-06-13 09:05 | NUR ---
BUMEX GTT DOSE DECREASED TO 0.25 MG/HR ORDERED.
--- NOTE | 2019-06-13 10:00 | NUR ---
PATIENT IN BED RESTING. CALL LIGHT IN REACH. NO FURTHER NEEDS AT THIS TIME.
--- NOTE | 2019-06-13 10:51 | NUR ---
Pt continues resting in his bed with no new complaits.
--- NOTE | 2019-06-13 11:20 | NUR ---
PT laying in his bed and continues sleeping when not taking directly to him. He was instructed that it would be good for him to move and to get out of his bed. He states he was out of bed for awhile last night and he refuses to get up at this time. He states he will get out of bed when his gets here. He stated this same thing to me for the past two days and then did not get up once she arrived.
--- NOTE | 2019-06-13 12:40 | NUR ---
EDEMA CONTINUES TO DECREASE AND ONTIVEROS PUTTING OUT LARGE VOLUMES OF URINE. PT CONTINUES SLEEPING.
--- NOTE | 2019-06-13 13:49 | NUR ---
Pt had stated he would take a shower once his mag gtt was completed. The mag gtt is done and he is refusing a shower at this time. Pt quickly back to sleep.
--- NOTE | 2019-06-13 17:20 | NUR ---
PT CONTINUE LAYING IN BED. HE STATES HE BREATHING CONTINUE TO FEEL FINE AT THIS TIME.
--- NOTE | 2019-06-13 18:31 | NUR ---
PT DENIES ANY CHANGES IN HIS CONDITION.
--- NOTE | 2019-06-13 19:20 | NUR ---
REPORT RECEIVED FROM DAY SHIFT RN. PT LYING IN BED, ALERT AND ORIENTED. RAMA PATENT. IV BUMEX INFUSING AT 1ML/HR. 2L/NC IN PLACE. PT DENIES SOB. NO NEEDS AT THIS TIME. WHITE BOARD UPDATED. CALL LIGHT IN REACH.
--- NOTE | 2019-06-13 20:31 | NUR ---
EVENING ASSESSMENT COMPLETE. SCHEDULED MEDS GIVEN WITHOUT ISSUE. LUNCH BOX PROVIDED. OXYGEN TITRATED TO 1L/NC. PT DENIES SOB OR CHEST PAIN. ONTIVEROS DRAINING QS. 1+ BLE EDEMA AND ABDOMINAL EDEMA. PT WEARING SAME GOWN FROM LAST NOC, STATES "I'M OK FOR NOW" WHEN OFFERED A FRESH GOWN. ICE CHIPS GIVEN. NO QUESTIONS OR CONCERNS. CALL LIGHT IN REACH.
--- NOTE | 2019-06-13 21:55 | NUR ---
SPO2 91% ON 1L/NC. HR 84. RR EVEN AND UNLABORED. PT DENIES SOB. EXTRA BLANKET PROVIDED.
--- NOTE | 2019-06-13 23:17 | NUR ---
PT UP TO BR TO HAVE BM. SET UP FOR SHOWER, PT SHOWERED INDEPENDENTLY. REFUSED TO WEAR OXYGEN DURING SHOWER. LINENS CHANGED. BACK TO BED, DENIES SOB OR CHEST PAIN. SUSANNAH WELL. SPO2 88-91% ON RA, RR 20, HR 95. 1L/NC PLACED. NO FURTHER NEEDS. CALL LIGHT IN REACH.
--- NOTE | 2019-06-14 01:30 | NUR ---
PT IN BED RESTING WITH EYES CLOSED, RR EVEN AND UNLABORED. SPO2 88-93% ON 1L/NC.
--- NOTE | 2019-06-14 05:34 | NUR ---
DAILY WEIGHT COMPLETE. PT ON RA AT THIS TIME. SPO2 89-90%. PT WITHOUT OXYGEN WHEN ENTERING ROOM. DENIES SOB. RR EVEN AND UNLABORED. HALF CUP COFFEE PROVIDED. BREAKFAST ORDER TAKEN. NO QUESTIONS OR CONCERNS AT THIS TIME. CALL LIGHT IN REACH.
--- NOTE | 2019-06-14 09:00 | NUR ---
DC'D ONTIVEROS PRE DR. GARCIA ORDERS. PT DID NOT SUSANNAH WELL, HAD SIGNIFICANT PAIN WITH ONTIVEROS REMOVAL DUE TO MODERATE AMOUNT OF SWELLING OF GROIN AND SCROTUM. NOW AWAITING VOID BEFORE STOPPING BUMEX AND PROCEEDING WITH DISCHARGE. PT ALERT AND ORIENTED BUT BECOMES EASILY AGITATED. PT DENIES NEEDS OR CONCERNS AT THIS TIME. URINAL LEFT AT BEDSIDE. CALL LIGHT WITHIN REACH.
[2019-06-14] MEDS ORDERED: LASIX40 MG PO (09:18)
[2019-06-14] MEDS ORDERED: CARVEDILOL6.25 MG PO (09:18)
[2019-06-14] MEDS ORDERED: LISINOPRIL20 MG PO (09:18)
--- NOTE | 2019-06-14 10:16 | NUR ---
PT VOIDED APPROX 425ML WITHOUT DIFFICULTY. BUMEX DRIP STOPPED PER DR. GARCIA. PT AWAITING DC NOW. ATE ALL OF BREAKFAST DENIES NEEDS OR CONCERNS AT THIS TIME. CALL LIGHT WITHIN REACH.
--- NOTE | 2019-06-14 11:16 | NUR ---
Patient admitted for HF exacerbation. History of uncontrolled hypertension. Patient not receptive to heart failure education and declines information from this service. States he lives with others and what he eats is out of his control. Left low salt shopping list and contact information at bedside. Conferred with Jess lumite injector on folow up with PCP.
== END 2019-06-14 10:52 | disposition home or self-care (01) | DRG 291 ==
LOC: ED 20:14 → MS 21:53
PROVIDERS: ADMIT Internal Medicine
DX: I11.0 Hypertensive heart disease with heart failure (principal); J96.01 Acute respiratory failure with hypoxia; I50.33 Acute on chronic diastolic (congestive) heart failure; I27.20 Pulmonary hypertension, unspecified; F15.11 Other stimulant abuse, in remission; F17.220 Nicotine dependence, chewing tobacco, uncomplicated; K76.1 Chronic passive congestion of liver; Z79.899 Other long term (current) drug therapy; Z88.5 Allergy status to narcotic agent; Z88.2 Allergy status to sulfonamides; Z91.14 Patient's other noncompliance with medication regimen
CPT/HCPCS: 36415; 51702; 71045; 80048; 80053; 80076; 81001; 83735; 83880; 84484; 85025; 93005; 93010; 93306; 99285-25; J1650; J1940; J3475; J3490

== ENCOUNTER 2019-09-23 12:10 | Inpatient (IN) | payer OTHER ==
[~2019-09-23] VITALS: Ht 177.8 cm; Wt 117.9 kg
--- OUTSIDE RECORDS SUMMARY | ~2019-09-23 | XMS | Encounter Summary ---
Demographics + + + | Address | [address] | | | [place] [address] | + + + | Home Phone | | + + + | Preferred Language | Unknown | + + + | Marital Status | Legally | + + + | Anglican Affiliation | Unknown | + + + | Race | Unknown | + + + | Ethnic Group | Unknown | + + + Author + + + | Author | [facility] | | | and [place] | + + + | Organization | [facility] | | | and [place] | + + + | Address | Unknown | + + + | Phone | Unavailable | + + + Support + + +---------+ + | Name | Relationship | Address | Phone | + + +---------+ + | Contact No | ECON | Unknown | | + + +---------+ + Care Team Providers + +------+ + | Care Mechanical Meter Tester Name | Role | Phone | + +------+ + | Penelope Gage | PCP | | + +------+ + Reason for Visit +--------+--------+ + | Reason | Onset | Comments | | | Date | | +--------+--------+ + | Other | 07/26/ | CHF QM | | | 2020 | | +--------+--------+ + Encounter Details +--------+ + + + + | Date | Type | Department | Care Team | Description | +--------+ + + + + | 07/26/ | Telephone | [facility] | Zunilda Chávez | Other ([facility]) | | 2020 | | [address] | [place] | | | | | [place], [place] | | | | | | [address] | | | | | | [phone] | | | +--------+ + + + + Social History + +-------+ +--------+------+ | Tobacco Use | Types | Packs/Day | Years | Date | | | | | Used | | + +-------+ +--------+------+ | Never Smoker | | | | | + +-------+ +--------+------+ + + + | Sex Assigned at | Date Recorded | | | | + + + | Not on file | | + + + documented as of this encounter Miscellaneous Notes Telephone Encounter - Zunilda Chávez RN - 07/27/2019 3:57 PM PDTCHF QM chart check c omplete. documented in this encounter Plan of Treatment Not on filedocumented as of this encounter Visit Diagnoses Not on filedocumented in this encounter"
--- OUTSIDE RECORDS SUMMARY | ~2019-09-23 | XMS | Encounter Summary ---
Demographics + + + | Address | [address] | | | [place] [address] | + + + | Home Phone | | + + + | Preferred Language | Unknown | + + + | Marital Status | Legally | + + + | Restoration Affiliation | Unknown | + + + | Race | Unknown | + + + | Ethnic Group | Unknown | + + + Author + + + | Author | [facility] | | | and [place] | + + + | Organization | [facility] | | | and [place] [...] Team Providers + +------+ + | Care Store Deli Manager Name | Role | Phone | + +------+ + PCP | Unavailable | + +------+ + Encounter Details +--------+ + + + + | Date | Type | Department | Care Team | Description | +--------+ + + + + | 08/15/ | Hospital | [facility] | Tania Raines MD | Chest pain, | | 2018 - | Encounter | MEDICAL CENTER | [address] [place] | unspecified type; | | | | CLINICAL DECISION | [address] [place], [place] | Hypoxia; | | 08/16/ | | [address] | [phone] | Uncontrolled | | 2018 | | [place], [place] | | hypertension; CLARE | | | | [phone] | | (acute kidney | | | | [phone] | | injury) ([facility]); Drug | | | | | | abuse; Acute | | | | | | nonintractable | | | | | | headache, | | | | | | unspecified headache | | | | | | type | +--------+ + + + + Social History + +-------+ +--------+------+ | Tobacco Use | Types | Packs/Day | Years | Date | | | | | Used | | + +-------+ +--------+------+ | Never Assessed | | | | | + +-------+ [...] + + + | Blood Pressure | 140/92 | 08/16/2017 1:01 PM | | | | | PDT | | + + + + + | Pulse | 86 | 08/16/2017 1:01 PM | | | | | PDT | | + + + + + | Temperature | 36.7 C (98 F) | 08/16/2017 1:01 PM | | | | | PDT | | + + + + + | Respiratory Rate | 20 | 08/16/2017 1:01 PM | | | | | PDT | | + + + + + | Oxygen Saturation | - | - | | + + + + + | Inhaled Oxygen | - | - | | | Concentration | | | | + + + + + | Weight | 108.9 kg (240 lb) | 08/16/2017 1:01 PM | | | | | PDT | | + + + + + | Height | 175.3 cm (5' 9") | 08/16/2017 1:01 PM | | | | | PDT | | + + + + + | Body Mass Index | 35.44 | 08/16/2017 1:01 PM | | | | | PDT | | + + + + + documented in this encounter Discharge Summaries Tania Raines MD - 08/16/2017 3:14 PM PDTFormatting of this note might be different f rom the original. Discharge Summaries by Tania Raines MD at 08/16/17 0530 Author: Tania Raines MD Service: (none) Author Type: Physician Filed: 08/16/17 6564 Date of Service: 08/16/175 Status: Signed Foot Worker: Tania Raines MD (Physician) Patient: Carole Terry : 1975 Date of Admission: 08/15/2017 Date of Discharge: 08/16/2017 Treatment Team: Consulting Physician: Tania Raines MD Admitting Provider: Tania Raines MD Discharging Provider: TANIA RAINES MD Discharge Diagnoses: Active Problems: Chest pain resolved at d/c Uncontrolled hypertension better trend at d/c CLARE (acute kidney injury) (HCC) resolved at d/c Drug abuse amphatamine daily user -educate drug cessation Procedures Performed: NM stress Chief Complaint: Headache (states has had headaches for several months); Dizziness (stats has had progressiv e dizziness for several months); and Blurred Vision usually with his migrain aura Hospital Course: Carole Terry is a 42 y.o. male who was admitted on 08/15/2017 with complinat high BP noted at home reading And headache ( h/o of migrain with aura) per michelle ent noted labile BP last 3 months on and off up to 236 systolic bP at home ER arrival SBP 210s HR 92 afebril o2 sat 94% was givien labetalol IV SBP Drop 160s , O2 sat drop 85% some what diaphorectic ches t pain compliantr O2 was put on feel better was givien Resolved CP O2 sat > 90% no PCP never evaluted in term of BP issue for headache Taking ibuprofen at home he daily use meth amphatamine ( last use was august 16 am befor ER visist) Hb and Hct stable plt normal cre 1.44 no baseline to compare AST normal ALt 70s GFR 57 BNP 376 tropon sets neg no acute EKG changes Xray chest neg CTA pE no PE cardiomegaly he also has family history of hypertension, admitted for BP control and cardic work up echo was order NM stress test NM stress Test today was negative With BP trend better than admit no headcahe or CP or s OB or palpitaion his lipid and a!C profile were in range CLARE resolved he is d/c home today BP med norvasc and hydralzine were written educate diet luifestyle educate drug abuse use c essation need PCP f/ up information family practice [facility] clinic kahlil he stats to call and make an apt in 1 week echo was pending at d/c time to f/ up with new PCP Office for result Discharge Exam and Data: Vital Signs: BP (!) 140/92 (BP Location: Left upper arm) | Pulse 86 | Temp 98 F (36.7 C) (Oral) | Resp 20 | Ht 1.753 m (5' 9") | Wt 108.9 kg (240 lb) | SpO2 92% | BMI 35.44 kg/m HEENT-perrel NEck Supple no JVD, no L/N lung- BS+ no crepts No wheez heart S1 S2 no murmur abdomen- soft BS+ no tenderness EXt no edwema 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 No acute cardiopulmonary process. Electronically signed by Dylan Hagan MD on 2017 4:34 PM Nm Myocardial Perfusion Spect (stress And Rest) Result Date: 08/16/2017 1. No evidence of pharmacologic stress-induced left ventricular ischemia. 2. Left ventric ular stress ejection fraction is calculated at 55%. Using the risk stratification system at our institution, this examination equates to at least a low risk based on this imaging, frank ing from the criteria below (1). Note that this should be interfaced with clinical and other data, potentially affecting final categorization. 1. [place] [employer] and [place] an College of Cardiology Scientific Statement. Circulation (2008); 118: p 8975-8191 Selectio n Text Definition Low Risk 1.Normal or small myocardial perfusion defect at rest or with st ress.* 2. No change of resting wall motion abnormalities during stress* . * Although the pub lished data are limited, patients with these findings will probably not be at low risk in th e presence of either a high-risk treadmill score or severe resting left ventricular dysfunct ion (LVEF <35%). Low risk equates with a less than 1% annual mortality rate. Intermediate Ri sk 1. Mild/moderate resting left ventricular dysfunction (LVEF=35% to 49%). 2. Stress-echo abdirashid moderate perfusion defect without LV dilation or increased lung intake Intermediate risk equates with a 1%-3% annual mortality rate. High Risk 1. Severe resting left ventricular d ysfunction (exercise LVEF <35%) 2. Severe exercise left ventricular dysfunction (exercise L VEF <35%) 3. Stress-induced large perfusion defect (particularly if anterior) 4. Stress-in duced multiple perfusion defects of moderate size 5. Large, fixed perfusion defect with LV dilation 6. Stress-induced moderate perfusion defect with LV dilation High risk equates wit h a greater than 3% annual mortality rate. 1. Electronically signed by MD rafa Javier 08/16/2017 12:[address] Chest Pe Protocol Result Date: 08/15/2017 1. No pulmonary arterial emboli or other acute findings are noted. 2. Mild to moderate ca rdiomegaly. Echo Cardiac Adult Complete Result Date: 08/16/2017 1. Left ventricular systolic function is hyperdynamic with an estimated EF of >70%. 2. Ther e is mild concentric left ventricular hypertrophy. 3. No regional wall motion abnormalities. 4. The right ventricle is severely enlarged measuring >4.1 cm. 5. The right ventricular sys tolic function is severely impaired. 6. The right atrium is moderately enlarged. 7. Mild tri cuspid regurgitation present. 8. There is moderate pulmonary hypertension. 9. The right vent ricular systolic pressure (pulmonary artery systolic pressure), as measured by Doppler, is 3 9+15=54 mmHg. 10. The aortic root and ascending aorta are dilated measuring up to 4.1 cm. Outstanding Issues: echo result to f/ up with new PCP Discharge Information: Follow up: need new PCP information kahlil Medication List START taking these medications amLODIPine 10 MG tablet QTY: 30 tablet Refills: 0 Commonly known as: NORVASC Take 1 tablet by mouth daily. Start taking on: 08/17/2017 Notes to patient: Last 08/16 at 1130am hydrALAZINE 25 MG tablet QTY: 60 tablet Refills: 1 Commonly known as: APRESOLINE Take 1 tablet by mouth 3 (three) times daily. Notes to patient: Last 08/16 at 1215am Where to Get Your Medications You can get these medications from any pharmacy Bring a paper prescription for each of these medications amLODIPine 10 MG tablet hydrALAZINE 25 MG tablet Disposition: Home Condition: Stable Code Status: Full Code Discharge took 30 minutes, to include final examination, discussion of admission, and prepa ration of prescriptions, instructions for on-going care, follow-up and documentation of disc harge summary. TANIA RAINES 3:39 PM documented in this encounter Medications at Time [...] + + documented as of this encounter Progress Notes Conversion Transaction, Provider Unknown - 08/16/2017 3:00 PM PDTFormatting of this note m ight be different from the original. Nurse Progress Note by Lata Arzola RN at 08/16/17 1500 Author: Lata Arzola RN Service: (none) Author Type: Registered Nurse Filed: 08/16/17 4741 Date of Service: 08/16/171499 Status: Signed Foot Worker: Lata Arzola RN (Registered Nurse) Patient given AVS and prescriptions. Verbalizes understanding and is agreeable; states no further questions at this time. Declines wheelchair ride out to private vehicle. onver pamela Transaction, Provider Unknown - 08/15/2017 11:09 PM PDT Progress Notes by Elijah Swain RPH at 08/15/17 1554 Author: Elijah Swain RPH Service: Pharmacy Author Type: Pharmacist Filed: 08/15/172308 Date of Service: 08/15/172308 Status: Signed Foot Worker: Elijah Swain RPH (Pharmacist) Note ccl 82.1ml/min meds reviewed pharmacy will follow [facility] [address] pam[address] Transaction, Provider Unknown - 08/15/2017 6:08 PM PDT Progress Notes by LUIS ALBERTO Shine at 08/15/171807 Author: LUIS ALBERTO Shine Service: (none) Author Type: Laundromat Manager Filed: 08/15/171810 Date of Service: 08/15/171807 Status: Signed Foot Worker: LUIS ALBERTO Shine (Laundromat Manager) 08/15/171807 Discharge Planning Evaluation Admitting Diagnosis Headache Readmission No Living Arrangements Spouse/significant other Support Systems Spouse/significant other;Family members Type of Residence Private residence House type Apartment Elevator available No Independent with ADL's Yes Independent with Mobility Yes Home Care Services No Caregiver after Discharge No Mental Status Oriented Prior functional status Independent Met with: pt and SO Shelley Dodson [phone] and discussed discharge planning, Pt is a 42 y.o., male, lives with Shelley, is independent, does not use any DME. Patient's PCP is: Per Pt None (Will need assistance) Patient's insurance: [employer] [facility] Coverage concerns: None noted Medication coverage/concerns: None noted Community resources utilized / needed: TBD Assistance in transportation: TBD Identification of any specific education / training: TBD Barriers to Discharge / Alternative housing needed: TBD Anticipated DCP: To home via private vehicle, pt will arrange his own transport. PARDEEP CAM docume nted in this encounter H&P Notes Tania Raines MD - 08/15/2017 6:15 PM PDTFormatting of this note might be different f rom the original. H&P by Tania Raines MD at 08/15/171814 Author: Tania Raines MD Service: (none) Author Type: Physician Filed: 08/15/172200 Date of Service: 08/15/171814 Status: Addendum Foot Worker: Tania Raines MD (Physician) Related Notes: Original Note by Tania Raines MD (Physician) filed at 08/15/172054 [facility] Service: Hospitalist Admission History & Physical Pt: Carole Terry AGE/SEX: 42 y.o. male ROOM: [place] [address] PCP: Per Pt None : 1975 TODAY'S DATE: 08/15/2017 Date of Admission: 08/15/2017 Chief Complaint: Reason for Admission: uncontrol BP chest pain ( h/o meth use) History of Present Illness: History Obtained From: patient /girlfriend The patient is a 42 y.o. male with significant past medical history of History reviewed. No pertinent past medical history. complinat high BP headche ( h/o of migrain with aura with labile BP last 3 montsh on and off 236 systolic bP at home ER arrival SBP 210s HR 92 afebril o2 sat 94% was givien labetalol IV SBP Drop 160s O2 sat drop 85% some what diaphorectic chest pain compliantr O2 was put on was givien tylenol now subside CP O2 sat > 90% no PCP never evaluted in term of BP issue for headache Taking ibuprofen at home also use meth ( last use thsi am as well ) ER lab- Hb and Hct stable plt normal cre 1.44 no baseline to compare ADT normal ALt 70s GFR 57 BNP 376 tropon 1 set neg no acuter EKG chnages Xray chest neg CTA pE no PE cardiomegaly family history of hypertension, Review of Systems: A 10 point review of systems was negative except as mentioned in the HPI. PSHx: Past Surgical History Procedure Laterality Date HERNIA REPAIR Prior To admission Meds: Prior to Admission medications Not on File Allergies: Allergies Allergen Reactions Sulfa Antibiotics Other (See Comments) States told as a child not to take sulfa meds - unknown reation Family Hx: History reviewed. No pertinent family history. Social Hx: Social History Social History Marital status: Legally Spouse name: N/A Number of children: N/A Years of education: N/A Occupational History Not on file. Social History Main Topics Smoking status: Never Smoker Smokeless tobacco: Current User Alcohol use No Drug use: Yes Types: Methamphetamines Sexual activity: Not on file Other Topics Concern Not on file Social History Narrative No narrative on file History Smoking Status Never Smoker Smokeless Tobacco Current User History Alcohol Use No Physical Exam: BP (!) 153/104 (BP Location: Left upper arm) | Pulse 75 | Temp 98.1 F (36.7 C) (Oral) | Resp 20 | Ht 1.753 m (5' 9") | Wt 108.9 kg (240 lb) | SpO2 94% | BMI 35.44 kg/m No intake/output data recorded. General Appearance: Alert, cooperative, no distress, appears stated age Head: Normocephalic, without obvious abnormality, atraumatic Eyes: PERRL, conjunctiva/corneas clear, EOM's intact. Ears: Normal external ear canals, both ears Nose: Nares normal, septum midline, mucosa normal, no drainage or sinus tenderness Throat: Lips, mucosa, and tongue normal; teeth and gums normal Neck: Supple, symmetrical, trachea midline, thyroid: no enlargement/tenderness/nodules ; no carotid bruit or JVD Back: Symmetric, no curvature, ROM normal, no CVA tenderness Lungs: Clear to auscultation bilaterally, respirations unlabored Chest Wall: No tenderness or deformity Heart: Regular rate and rhythm, S1 and S2 normal, no murmur, rub or gallop Abdomen: Soft, non-tender, bowel sounds active all four quadrants, no masses, no organomegaly Psychiatric: Alert and oriented x 3. Intact Judgement and insight Rectal: Deferred Extremities: Extremities normal, atraumatic, no cyanosis or edema Pulses: 2+ and symmetric all extremities Skin: Skin color, texture, turgor normal, no rashes or lesions Lymph nodes: Cervical nodes normal Neurologic: CNII-XII intact, normal strength, sensation and reflexes throughout Data: CBC: Lab Results Component Value Date WBC 8.24 08/15/2017 RBC 5.79 (H) 08/15/2017 HGB 16.3 08/15/2017 HCT 48.6 08/15/2017 MCV 83.9 08/15/2017 MCH 28.1 08/15/2017 MCHC 33.5 08/15/2017 RDW 42.0 08/15/2017 PLT 192 08/15/2017 MPV 9.7 08/15/2017 DIFFTYPE AUTOMATED 08/15/2017 CMP: Lab Results Component Value Date NA 142 08/15/2017 K 4.1 08/15/2017 CL 107 08/15/2017 CO2 26 08/15/2017 ANIONGAP 13 08/15/2017 GLUF 76 08/15/2017 BUN 23 08/15/2017 CREATININE 1.44 (H) 08/15/2017 BCR 16 08/15/2017 CA 9.0 08/15/2017 PROT 7.0 08/15/2017 ALB 3.6 08/15/2017 GLOB 3.4 08/15/2017 BILITOT 1.2 08/15/2017 ALP 92 08/15/2017 AST 40 08/15/2017 ALT 70 (H) 08/15/2017 EGFR 57 (L) 08/15/2017 Magnesium: No results found for: MG Phosphorus: No results found for: PHOS PT/INR: Lab Results Component Value Date INR 1.1 08/15/2017 Troponin: Lab Results Component Value Date TROPONINI <0.04 08/15/2017 Last 3 Troponin: Lab Results Component Value Date TROPONINI <0.04 08/15/2017 TSH: No results found for: TSH, TSHNEO CPK: Lab Results Component Value Date CKTOTAL 193 08/15/2017 CKMB: Lab Results Component Value Date CKMB 5.4 (H) 08/15/2017 U/A: No results found for: COLORU, CLARITYU, MEROPENEM, LEUKOCYTESUR, NITRITE, UROBILINOGE N, UPRO, PHUR, BLOODU, KETONES, BILIRUBINUR, GLUCOSEU EKG: I personally reviewed the EKG. Findings: IMAGING: Xr Chest Pa And Lateral Result Date: 08/15/2017 CAROLE TERRY 1975 42 years Male XR CHEST 2 VIEW FRONTAL AND LATERAL 08/15/2017 4:18 PM INDICATION: Chest pain. COMPARISON: None. TECHNIQUE: Two view chest, PA and lateral views FI NDINGS: The cardiomediastinal contours are normal. There is no mediastinal widening or shif t. No pneumothorax or effusion. The lungs are clear with no focal consolidation or pulmona ry nodules. Mild to moderate multilevel degenerative disc disease is seen in the spine. 1. No acute cardiopulmonary process. Electronically signed by Dylan Hagan MD on 2017 4:[address] Chest Pe Protocol Result Date: 08/15/2017 CAROLE TERRY 1975 42 years Male CTA CHEST PULMONARY EMBOLISM W CONTRAST 08/15/2017 5:25 PM HISTORY: Chest pain. COMPARISON: Chest radiographs dated August 15, 2017. TECHNIQUE: 1.5-m m axial images of the chest were acquired in the arterial phase according to a CT angiograph y protocol. Coronal CT angiographic MIP reconstructions were performed by medical technologist generalist. No 3-D imaging. Automated exposure control was utilized. IV contrast: 100 mL IsoVue 370 FIND INGS: The visualized portion of the thyroid gland is normal. No thoracic aortic aneurysm is seen. The cardiac size is mild to moderately enlarged. No pulmonary arterial dilatation or p ulmonary arterial filling defects are seen. No lung mass or significant region of lung conso lidation seen. No pneumothorax or pleural effusions found. Upper abdominal structures are no table for probable hepatic steatosis and an incidental right adrenal adenoma measures 12 mm. Multilevel degenerative disc disease and facet arthropathy are seen spine. 1. No pulmonary arterial emboli or other acute findings are noted. 2. Mild to moderate ca rdiomegaly. Problem List: Active Problems: Urgent HTN chest pressure CLARE ( unknown baseline ) meth ( drug use h/o) Assessment and Plan: Active Problems: Urgent HTN admit hydralzine for now with parameter norvasc will titred slowly down next 24-48 hours educate drug use might precipitated sympathomimetic effect effect demand on heart might trigger chest compliant low salt diet chest pressure with uncontroll BP at presentataion and met use as well tele ASA statin betablocker ( caution use with meth h/o ) NTG as need echo for wall motion with cardiomegaly noted in Xray CTA pE was negative BNP review 300s can be ventricular strain with BP if all troponins set neg will do stress test in am CLARE ( unknown baseline ) Can precipiated by uncontroll BP ruuning for period of time per h/o seem to be euvoluemic will control BP send out renal work up including UA For proteinuri moniter trend avoid ne phrotoxins meth ( drug use h/o) educate cessation effect on health educate drug screen amphetamine + noted LFT trend mild ALT up moniter trend will use IV lorazepan low dose as need As alos can help BP lability With meth use effect h/o of migrain with aura no temporal tenderness no visison change today moniter pain med a s need DVT pro Patient's old records and labs that were available, were reviewed in detail and summarized as above. explained radiology and lab findings, plan of care and management to patient at bedside, Mo re than 50 minutes spent on admitting this patient face to face at bedside, taking history a nd physical examination, more than 65% of this spent on explaining plan of care to patient a nd relatives at bedside, chart review,formulating a plan and placing orders coordinating car e with other providers well as Computerized Ruby Software Developer. Other recommendations for managemen t of this patient will be dependent upon the patient's clinical course. Code Status: No Order Primary Care Physician: Per Pt None TANIA RAINES MD 08/15/2017 6:15 PM documented in this encounter Procedure Notes Anthony Sharp NP - 08/16/2017 10:17 AM PDT Procedures by LILIANA Green at 08/16/17 1017 Author: LILIANA Green Service: Palliative Care Author Type: Advanced Registered Nurse Practitioner Filed: 08/16/17 1019 Date of Service: 08/16/17 1017 Status: Signed Foot Worker: LILIANA Green (Advanced Registered Nurse Practitioner) Pre-procedure Diagnoses: 1. Chest tightness [R07.89] Post-procedure Diagnoses: 1. Chest tightness [R07.89] Procedures: 1. NM MYOCARDIAL PERFUSION SPECT - STRESS AND REST [VLE936 (Custom)] [facility] Service: Diagnostic Imaging/Nuclear Medicine Preliminary Cardiac Stress Test Note Type of Stress Test performed (protocol): Initial attempt with exercise. Patient became to o fatigued to continue, target HR not achieved. Changed to pharmacologic stress test. Sudheer protocol time (if applicable): 3:31 Rhythm changes: None Ectopy: Occasional PVC Symptoms experienced during exam: Fatigue with exercise, no CP/discomfort ST/T wave changes: None Medications administered: Lexiscan 0.4 mg Aggarwal Treadmill Score: N/A LILIANA GREEN 08/16/2017 10:18 AM documented in th is encounter ED Notes Conversion Transaction, Provider Unknown - 08/15/2017 10:30 PM PDTFormatting of this note m ight be different from the original. ED Notes by Nirmal Carr RN at 08/15/172229 Author: Nirmal Carr RN Service: (none) Author Type: Registered Nurse Filed: 08/15/172229 Date of Service: 08/15/172229 Status: Signed Foot Worker: Nirmal Carr RN (Registered Nurse) Report given to EMS crew. Patient transferred to [facility] at this time Nirmal Carr RN 08/15/172229 onver pamela Transaction, Provider Unknown - 08/15/2017 10:04 PM PDT ED Notes by Nirmal Carr RN at 08/15/172203 Author: Nirmal Carr RN Service: (none) Author Type: Registered Nurse Filed: 08/15/172203 Date of Service: 08/15/172203 Status: Signed Foot Worker: Nirmal Carr RN (Registered Nurse) Report called to CDU RN Nirmal Carr RN 08/15/172203 onver pamela Transaction, Provider Unknown - 08/15/2017 5:32 PM PDT ED Notes by Alicia Dupont RN at 08/15/171731 Author: Alicia Dupont RN Service: (none) Author Type: Registered Nurse Filed: 08/15/171732 Date of Service: 08/15/171731 Status: Signed Foot Worker: Alicia Dupont RN (Registered Nurse) Patient denies any pain at this time, advised of current plan of care-ct results and need f or urine. Bolus continues running to patent line at this time. Alicia Dupont RN 08/15/17 1733 onver pamela Transaction, Provider Unknown - 08/15/2017 4:55 PM PDT ED Notes by Cheryl Charlton at 08/15/171654 Author: Cheryl Charlton Service: (none) Author Type: Irrigating Pump Operator Filed: 08/15/171654 Date of Service: 08/15/171654 Status: Signed Foot Worker: Cheryl Charlton (Irrigating Pump Operator) Tele notified that patient in on the monitor Cheryl Charlton 08/15/171654 onver pamela Transaction, Provider Unknown - 08/15/2017 4:53 PM PDT ED Notes by Nirmal Carr RN at 08/15/171652 Author: Nirmal Carr RN Service: (none) Author Type: Registered Nurse Filed: 08/15/171653 Date of Service: 08/15/171652 Status: Signed Foot Worker: Nirmal Carr RN (Registered Nurse) x1 SL NTG prepared and patient now denies chest pain. NTG not given Nirmal Carr RN 08/15/171653 onver pamela Transaction, Provider Unknown - 08/15/2017 4:49 PM PDT ED Notes by Nirmal Carr RN at 08/15/171648 Author: Nirmal Carr RN Service: (none) Author Type: Registered Nurse Filed: 08/15/171649 Date of Service: 08/15/171648 Status: Signed Foot Worker: Nirmal Carr RN (Registered Nurse) Patient c/o chest pain. ED provider notified. Patient on 4L NC O2 to maintain sats Nirmal Carr RN 08/15/171649 onver pamela Transaction, Provider Unknown - 08/15/2017 4:32 PM PDT ED Notes by Nirmal Carr RN at 08/15/171631 Author: Nirmal Carr RN Service: (none) Author Type: Registered Nurse Filed: 08/15/171632 Date of Service: 08/15/171631 Status: Signed Foot Worker: Nirmal Carr RN (Registered Nurse) Patient's room air sat at rest = 85%. O2 at 2L applied. ED provider informed Nirmal Carr RN 08/15/171632 cPhee , SANDI Arevalo - 08/15/2017 3:56 PM PDT ED Provider Notes by Mickey Brand PA-C at 08/15/171555 Author: Mickey Brand PA-C Service: Emergency Department Author Type: Physician Salvador tant - Certified Filed: 08/15/172017 Date of Service: 08/15/171555 Status: Attested Foot Worker: Mickey Brand PA-C (Physician [employer] Etch Operator - Certified) Cosigner: Angel hancock DO at 08/15/172029 Attestation signed by Angel Holland DO at 08/15/172029 I have reviewed the patient's chart. I was available for consultation during the care of the patient. Angel Holland DO Procedures [facility] EMERGENCY DEPARTMENT IN [place] History of Present Illness Patient Identification Carole Terry is a 42 y.o. male. Patient information was obtained from patient and spouse/partner. History/Exam limitations: none. Patient presented to the Emergency Department by: Car Chief Complaint Chief Complaint Patient presents with Headache states has had headaches for several months Dizziness stats has had progressive dizziness for several months Blurred Vision The patient is a 42 y.o. male presenting for Hypertension, headaches, and visual changes. T he patient and his reports that he has had at least 3 months of elevated blood pressure readings at home. states they have been around 236 systolic. He reports getting daily headaches that he feels is related to this, and getting migraines because of this. He will h ave blurred vision in his right eye, usually with associated migraine. Currently he states t hat his vision is at baseline, but does have a headache. He states that he will feel lighthe aded with standing up, but denies vertigo. He does admit yesterday he had some chest tightne ss and shortness of breath. He also reports swelling in his legs bilaterally around his sock line. He has a family history of hypertension, but states that he does not have any persona l history of hypertension or other medical problems. He takes no medications daily other danielle n ibuprofen prn for headaches. No primary care provider. The patient does admit to methamphe tamine use including this morning. PCP: Per Pt None History reviewed. No pertinent past medical history. Past Surgical History Procedure Laterality Date HERNIA REPAIR Prior to Admission medications Not on File Allergies Allergen Reactions Sulfa Antibiotics Other (See [...] use No Drug use: Yes Types: Methamphetamines Sexual activity: Not on file Other Topics Concern Not on file Social History Narrative No narrative on file History reviewed. No pertinent family history. ROS Review of Systems Review of Systems Eyes: Positive for blurred vision. Respiratory: Positive for shortness of breath. Cardiovascular: Positive for chest pain (described as "tightness") and leg swelling. Gastrointestinal: Negative for abdominal pain and vomiting. Neurological: Positive for headaches. Negative for sensory change, speech change and focal weakness. All other systems reviewed and are negative. Physical Exam Vitals: 08/15/17 1731 08/15/17 1830 08/15/17 1923 08/15/172014 BP: (!) 153/104 (!) 151/110 (!) 154/104 BP Location: Left upper arm Left upper arm Left upper arm Pulse: 75 78 77 78 Resp: Temp: TempSrc: SpO2: 94% 93% 93% 94% Weight: Height: Pulse Oximetry interpretation: Normal Vital Signs Reviewed: hypertensive General: Alert, in no apparent distress, non toxic Eyes: Normal inspection, pupils equal and round, reactive to light, no conjunctival inject ion, EOMI, HENT: Nose normal Pharynx normal, no erythema or exudates noted Uvula midline Moist mucous membranes Neck: Normal inspection, trachea midline Cardiovascular: Rate and rhythm normal No murmurs, clicks, or rubs Normal distal perfusion Respiratory: Breath sounds normal bilaterally without rhonchi, rales, or wheezes Normal respiratory excursion without retractions Abdomen: Soft and non tender without guarding or rebound tenderness Genitourinary: Deferred Rectal exam: Deferred Back: Normal inspection Skin: Color normal, well perfused Warm and dry No rash Neuro: No AMS, normal speech CN II-XII grossly intact Normal sensation to light touch 5/5 strength in all 4 extremities No pronator drift Normal gait Medical Decision Making and Emergency Department Course ED Department Course 1555: Patient is a 42 y.o. male presenting with hypertension, headaches with visual changes for the last several months. Differential diagnosis includes, but is not limited to: Hypert ensive urgency, hypertensive emergency, untreated hypertension, cranial hemorrhage, acute co ronary syndrome, new onset congestive heart failure, vs other. Patient reports chronically elevated blood pressure up to 236 home systolically, and daily headaches associated with this. Symptoms have not acutely worsen, but his partner reports th at she felt like it was time to get evaluated. He does not have primary care. He does admit to methamphetamine use including today, which is likely contributing to his hypertension. Do not see any evidence of neurological deficits, I considered intracranial hemorrhage, but fe el this is less likely. Discussed case with the attending physician, Dr. Holland. We disc ussed plan of screening labs and treating his hypertension with 10 mg of IV labetalol. 1643: RN reports the patient is now hypoxic at 85 percent on room air. He has put the patie nt on 4 L of oxygen he is still maintaining sats in the upper 80s to low 90s. I reevaluated the patient who is now diaphoretic and complaining of chest pain. I have discussed case becky paul with Dr. Holland evaluated the patient. It is unclear what is causing the patient's hyp oxia. CTA chest and give nitroglycerin. Will repeat EKG. 1651: Repeat EKG similar to prior. Patient reports chest pain has improved. CXR negative. BNP mildly elevated at 376. Troponin <0.04. Creatinine slightly elevated and GFR 57. This may be acute kidney injury, but no prior labs for comparison. ALT mildly elevat ed. 1745: CTA does not show any pulmonary arterial emboli or other acute findings. Pagr-ep-anyb rate cardiomegaly noted. Chest pain has resolved currently. We will admit this time. Discuss ed admission with the patient and his girlfriend. He reluctantly agrees to admission, but re fuses my offer for [facility] transport. Currently he is maintaining his oxygen saturations on room air and denies chest pain. 1820: Spoke with Dr. Raines, hospitalist, who has agreed to accept the patient. I appreciate her help in the care of this patient. Patient has consented to ambulance transfer. Dictation software, [employer], is used. Sound-alike errors may be present. If there is any maia bt, please refer to provider for clarification. Records Reviewed Nursing notes. Records unavailable Labs & Radiology Results Laboratory Evaluation Results Procedure Component Value Ref Range Date/Time Urine DOA screen (PLUS TCA) DRUG8 FSED ONLY [[id number]] (Abnormal) Collected: 08/15/171854 Order Status: Completed Specimen: Urine, Clean Catch Updated: 08/15/17 1920 PCP NEGATIVE NEGATIVE BENZODIAZEPINE NEGATIVE NEGATIVE COCAINE NEGATIVE NEGATIVE AMPHETAMINE POSITIVE (A) NEGATIVE THC NEGATIVE NEGATIVE OPIATES NEGATIVE NEGATIVE BARBITUATES NEGATIVE NEGATIVE TRICYCLIC ANTIDEPRESS NEGATIVE NEGATIVE Urine microscopic only [[id number]] Collected: 08/15/171854 Order Status: Completed Updated: 08/15/17 1918 WBC NONE SEEN 0 - 5 /hpf RBC 0-2 0 - 2 /hpf EPITHELIAL NONE SEEN /lpf BACTERIA NONE SEEN NONE SEEN Urinalysis (reflex to microscopic/reflex to culture) [[id number]] (Abnormal) Collected: 08/15/171854 Order Status: Completed Specimen: Urine from Urine, Clean Catch Updated: 08/15/17 191 8 COLOR UA YELLOW CLARITY CLEAR Specific [place], UA <1.005 1.001 - 1.035 LEUKOCYTE ESTERASE NEGATIVE NEGATIVE NITRITE NEGATIVE NEGATIVE UROBILINOGEN 0.2 <1.1 mg/dL PROTEIN NEGATIVE NEGATIVE mg/dL PH,URINE 5.5 4.6 - 8.0 BLOOD TRACE (A) NEGATIVE KETONES NEGATIVE NEGATIVE mg/dL BILIRUBIN NEGATIVE NEGATIVE GLUCOSE NEGATIVE NEGATIVE mg/dL Cardiac Panel [[id number]] (Abnormal) Collected: 08/15/17 1600 Order Status: Completed Updated: 08/15/17 1640 WBC 8.24 3.80 - 11.00 K/uL RBC 5.79 (H) 4.20 - 5.70 M/uL HGB 16.3 13.2 - 17.0 g/dL HCT 48.6 39.0 - 50.0 % MCV 83.9 80.0 - 100.0 fl MCH 28.1 27.0 - 34.0 pg MCHC 33.5 32.0 - 35.5 g/dL RDW SD 42.0 37 - 53 fl PLT 192 150 - 400 K/uL MPV 9.7 fl DIFF TYPE AUTOMATED NEUTROPHILS 60.32 % LYMPHOCYTES 29.13 % MONOCYTES 8.67 % EOSINOPHILS 1.15 % BASOPHILS 0.73 % NEUTROPHILS ABS 4.97 1.90 - 7.40 K/uL LYMPHOCYTES ABS 2.40 1.00 - 3.90 K/uL MONOCYTES ABS 0.72 0.00 - 0.80 K/uL EOSINOPHILS ABS 0.09 0.00 - 0.50 K/uL BASOPHILS ABS 0.06 0.00 - 0.10 K/uL SODIUM 142 135 - 145 mmol/L POTASSIUM 4.1 3.5 - 4.9 mmol/L CHLORIDE 107 99 - 109 mmol/L CO2 26 23 - 32 mmol/L ANION GAP AGAP 13 5 - 20 mmol/L GLUCOSE 76 65 - 99 mg/dL BUN 23 8 - 25 mg/dL CREATININE 1.44 (H) 0.70 - 1.30 mg/dL BUN/CREAT 16 CALCIUM 9.0 8.5 - 10.5 mg/dL TOTAL PROTEIN 7.0 6.3 - 8.2 g/dL Albumin 3.6 3.6 - 5.0 g/dL GLOBULIN 3.4 1.3 - 4.9 g/dL A/G 1.1 1.0 - 2.4 TBIL 1.2 0.1 - 1.5 mg/dL ALK PHOS 92 35 - 115 U/L AST 40 10 - 45 U/L ALT 70 (H) 10 - 65 U/L EGFR 57 (L) >60 mL/min/1.73m2 CPK 193 55 - 400 U/L INR 1.1 APTT 26 23 - 32 seconds MMB 5.4 (H) 0.5 - 3.6 ng/mL CK-MB Index 2.8 Troponin I, Lab [[id number]] Collected: 08/15/17 1600 Order Status: Completed Specimen: Blood Updated: 08/15/17 1640 TROPONIN I <0.04 0.00 - 0.10 ng/mL BNP [[id number]] (Abnormal) Collected: 08/15/17 1600 Order Status: Completed Specimen: Blood Updated: 08/15/17 1627 BRAIN NATRIURETIC PEPTIDE 376 (H) 0 - 100 pg/mL Radiology and EKG Evaluation EKG @ 1558: Normal Sinus Rhythm. Rate: 98 Right ventricular hypertrophy S wave in lead I, Q waves in lead III and V1 Nonspecific ST abnormality No acute ischemia. Interpreted by myself and Dr. Holland at time of service. Priors for comparison: none Imaging Results CT Chest PE Protocol (Final result) Result time 08/15/17 17:37:08 Final result by Dylan Hagan MD (08/15/17 17:37:08) Impression: 1. No pulmonary arterial emboli or other acute findings are noted. 2. Mild to moderate cardiomegaly. Narrative: CAROLE TERRY 1975 42 years Male CTA CHEST PULMONARY EMBOLISM W CONTRAST 08/15/2017 5:25 PM HISTORY: Chest pain. COMPARISON: Chest radiographs dated August 15, 2017. TECHNIQUE: 1.5-mm axial images of the chest were acquired in the arterial phase according to a CT valente ography protocol. Coronal CT angiographic MIP reconstructions were performed by CT technolo [facility]. No 3-D imaging. Automated exposure control was utilized. IV contrast: 100 mL IsoVue 370 FINDINGS: The visualized portion of the thyroid gland is normal. No thoracic aortic aneurys m is seen. The cardiac size is mild to moderately enlarged. No pulmonary arterial dilatation or pulmonary arterial filling defects are seen. No lung mass or significant region of lung consolidation seen. No pneumothorax or pleural effusions found. Upper abdominal structures are notable for probable hepatic steatosis and an incidental rig ht adrenal adenoma measures 12 mm. Multilevel degenerative disc disease and facet arthropath y are seen spine. XR chest PA and lateral (Final result) Result time 08/15/17 16:34:19 Final result by Dylan Hagan MD (08/15/17 16:34:19) Impression: 1. No acute cardiopulmonary process. Narrative: CAROLE TERRY 1975 42 years Male XR CHEST 2 VIEW FRONTAL AND LATERAL 08/15/2017 4:18 PM INDICATION: Chest pain. COMPARISON: None. TECHNIQUE: Two view chest, PA and lateral views FINDINGS: The cardiomediastinal contours are normal. There is no mediastinal widening or s hift. No pneumothorax or effusion. The lungs are clear with no focal consolidation or pulm onary nodules. Mild to moderate multilevel degenerative disc disease is seen in the spine. Diagnosis & Disposition ED Diagnoses Final diagnoses Chest pain, unspecified type Hypoxia Uncontrolled hypertension CLARE (acute kidney injury) ([facility]) Drug abuse Acute nonintractable headache, unspecified headache type Disposition: ED Disposition ED Disposition Condition Comment Admit/Observation Bed request special needs: none Diagnosis?: Chest pain, hypoxia, hypertension, methamphetamine abuse Follow-up Information None Discharge Medications: New Prescriptions No new medications Mickey Brand PA-C 08/15/172017 Angel Holland DO 08/15/172029 documented in this encounter Miscellaneous Notes Plan of Care - Conversion Transaction, Provider Unknown - 08/16/2017 1:22 AM PDT Plan of Care by Toi Vaca RN at 08/16/17121 Author: Toi Vaca RN Service: (none) Author Type: Registered Nurse Filed: 08/16/17121 Date of Service: 08/16/17121 Status: Signed Foot Worker: Toi Vaca RN (Registered Nurse) Problem: Pain Goal: Patient's pain/discomfort is manageable Assess and monitor patient's pain using appropriate pain scale. Collaborate with interdisci plinary team and initiate plan and interventions as ordered. Re-assess patient's pain level approximately 1-2 hours after pain management intervention. Premedicate as needed. Outcome: Progressing Patient denies any chest pain/discomfort. Patient able to express needs. Will continue to m onitor. docume nted in this encounter Plan of Treatment Not on filedocumented as of this encounter Procedures + +--------+ + + + | Procedure Name | Priori | Date/Time | Associated Diagnosis | Comments | | | ty | | | | + +--------+ + + + | ECHO COMPLETE | Routin | 08/16/2017 | | Results for this | | | e | 12:50 PM | | procedure are in the | | | | PDT | | results section. | + +--------+ + + + | NM MYOCARDIAL | Routin | 08/16/2017 | | Results for this | | PERFUSION MULT SPECT | e | 11:32 AM | | procedure are in the | | | | PDT | | results section. | + +--------+ + + + | ECG 12 LEAD | Routin | 08/16/2017 | | Results for this | | | e | 4:20 AM | | procedure are in the | | | | PDT | | results section. | + +--------+ + + + | EXTERNAL LAB: CBC | Routin | 08/16/2017 | | Results for this | | | e | 3:08 AM | | procedure are in the | | | | PDT | | results section. | + +--------+ + + + | LIPID PANEL | Routin | 08/16/2017 | | Results for this | | | e | 3:08 AM | | procedure are in the | | | | PDT | | results section. | + +--------+ + + + | TROPONIN I | Routin | 08/16/2017 | | Results for this | | | e | 3:08 AM | | procedure are in the | | | | PDT | | results section. | + +--------+ + + + | PHOSPHORUS | Routin | 08/16/2017 | | Results for this | | | e | 3:08 AM | | procedure are in the | | | | PDT | | results section. | + +--------+ + + + | MAGNESIUM | Routin | 08/16/2017 | | Results for this | | | e | 3:08 AM | | procedure are in the | | | | PDT | | results section. | + +--------+ + + + | HEMOGLOBIN A1C | Routin | 08/16/2017 | | Results for this | | | e | 3:08 AM | | procedure are in the | | | | PDT | | results section. | + +--------+ + + + | COMPREHENSIVE | Routin | 08/16/2017 | | Results for this | | METABOLIC PANEL | e | 3:08 AM | | procedure are in the | | | | PDT | | results section. | + +--------+ + + + | TROPONIN I | Routin | 08/15/2017 | | Results for this | | | e | 11:21 PM | | procedure are in the | | | | PDT | | results section. | + +--------+ + + + | DOA, TRICYCLICS, | Routin | 08/15/2017 | | Results for this | | URINE, QUANT | e | 6:55 PM | | procedure are in the | | | | PDT | | results section. | + +--------+ + + + | URINALYSIS, REFLEX | Routin | 08/15/2017 | | Results for this | | MICROSCOPIC AND/OR | e | 6:55 PM | | procedure are in the | | CULTURE | | PDT | | results section. | + +--------+ + + + | URINALYSIS, | Routin | 08/15/2017 | | Results for this | | MICROSCOPIC ONLY | e | 6:55 PM | | procedure are in the | | | | PDT | | results section. | + +--------+ + + + | CT ANGIOGRAM | Routin | 08/15/2017 | | Results for this | | PULMONARY | e | 5:25 PM | | procedure are in the | | | | PDT | | results section. | + +--------+ + + + | ECG 12 LEAD | Routin | 08/15/2017 | | Results for this | | | e | 4:53 PM | | procedure are in the | | | | PDT | | results section. | + +--------+ + + + | XR CHEST 2 VIEWS | Routin | 08/15/2017 | | Results for this | | | e | 4:18 PM | | procedure are in the | | | | PDT | | results section. | + +--------+ + + + | HISTORICAL LAB PANEL | Routin | 08/15/2017 | | Results for this | | RESULT | e | 4:00 PM | | procedure are in the | | | | PDT | | results section. | + +--------+ + + + | TROPONIN I | Routin | 08/15/2017 | | Results for this | | | e | 4:00 PM | | procedure are in the | | | | PDT | | results section. | + +--------+ + + + | B TYPE NATRIURETIC | Routin | 08/15/2017 | | Results for this | | PEPTIDE | e | 4:00 PM | | procedure are in the | | | | PDT | | results section. | + +--------+ + + + | ECG 12 LEAD | Routin | 08/15/2017 | | Results for this | | | e | 3:58 PM | | procedure are in the | | | | PDT | | results section. | + +--------+ + + + documented in this encounter Results ECHO Complete (08/16/2017 12:50 PM PDT) + + | Specimen | + + | | + + + + + | Impressions | Performed At | + + + | 1. Left ventricular systolic function is hyperdynamic with an | | | estimated EF of >70%. 2. There is mild concentric left ventricular | | | hypertrophy. 3. No regional wall motion abnormalities. 4. The right | | | ventricle is severely enlarged measuring >4.1 cm. 5. The right | | | ventricular systolic function is severely impaired. 6. The right | | | atrium is moderately enlarged. 7. Mild tricuspid regurgitation | | | present. 8. There is moderate pulmonary hypertension. 9. The right | | | ventricular systolic pressure (pulmonary artery systolic pressure), as | | | measured by Doppler, is 39+15=54 mmHg. 10. The aortic root and | | | ascending aorta are dilated measuring up to 4.1 cm. | | + + + + + + | Narrative | Performed At | + + + | Patient Name: CAROLE TERRY Date of : 1975 | | | Performing Physician: Pina Guallpa MD | | | | | | INDICATIONS wall motion evaluation CONCLUSIONS | | | 1. Left ventricular systolic function is hyperdynamic | | | with an estimated EF of >70%. 2. There is mild concentric left | | | ventricular hypertrophy. 3. No regional wall motion abnormalities. | | | 4. The right ventricle is severely enlarged measuring >4.1 cm. 5. The | | | right ventricular systolic function is severely impaired. 6. The | | | right atrium is moderately enlarged. 7. Mild tricuspid regurgitation | | | present. 8. There is moderate pulmonary hypertension. 9. The right | | | ventricular systolic pressure (pulmonary artery systolic pressure), as | | | measured by Doppler, is 39+15=54 mmHg. 10. The aortic root and | | | ascending aorta are dilated measuring up to 4.1 cm. FINDINGS | | | -------- ECG rhythm: Sinus rhythm. Study: A 2-dimensional | | | transthoracic echocardiogram with m-mode, spectral and color flow | | | Doppler was perfomed. Study: This was a technically adequate study. | | | Left Ventricle: Left ventricular systolic function is hyperdynamic | | | with an estimated EF of >70%. Left Ventricle: The cavity size is | | | decreased. Left Ventricle: There is mild concentric left ventricular | | | hypertrophy. Indeterminate diastolic filling. Left Ventricle: No | | | regional wall motion abnormalities. Left Ventricle: There is septal | | | flattening in diastole and systole which is consistent with right | | | ventricular pressure and volume overload. Right Ventricle: The right | | | ventricle is severely enlarged measuring >4.1 cm. Right Ventricle: | | | The right ventricular systolic function is severely impaired. Left | | | Atrium: The left atrial size is normal. Right Atrium: The right | | | atrium is moderately enlarged. Aortic Valve: The aortic valve is | | | trileaflet. Aortic Valve: There is no evidence of aortic | | | regurgitation. Aortic Valve: There is no evidence of aortic stenosis. | | | Mitral Valve: The mitral valve is normal. Mitral Valve: No mitral | | | regurgitation. Tricuspid Valve: Mild tricuspid regurgitation present. | | | Tricuspid Valve: There is moderate pulmonary hypertension. | | | Tricuspid Valve: The right ventricular systolic pressure (pulmonary | | | artery systolic pressure), as measured by Doppler, is 39+15=54 mmHg. | | | Pulmonic Valve: Moderate pulmonic regurgitation. Pericardium: There | | | is a trivial pericardial effusion present. Pericardium: No pleural | | | effusion seen. IVC/Hepatic Veins: The IVC is dilated and collapses | | | <50% with sniff, consistent with central venous pressures of 15 mmHg. | | | Aorta: The aortic root and ascending aorta are dilated measuring up | | | to 4.1 cm. Septum: Interatrial septal aneurysm. MEASUREMENTS | | | Ao asc: 4.12 cm Ao sinus: 3.80 cm IVC: 2.39 | | | cm LA Diam: 4.59 cm EDV(Teich): 54.21 ml IVSd: 1.19 cm | | | LVIDd: 3.59 cm LVPWd: 1.47 cm LVOT Diam: 2.33 cm %FS: | | | 42.98 % EF(Teich): 75.03 % ESV(Teich): 13.53 ml IVSs: 1.79 | | | cm LVIDs: 2.04 cm LVPWs: 1.95 cm SV(Teich): 40.68 ml | | | MPA: 3.24 cm RA Major: 6.45 cm RVIDd: 4.90 cm LAESV(A-L): | | | 25.55 ml LAESV Index (A-L): 11.46 ml/m2 LAAs A2C: 14.11 cm2 | | | LAESV A-L A2C: 29.21 ml LAESV MOD A2C: 27.32 ml LALs A2C: | | | 5.78 cm LAAs A4C: 12.17 cm2 LAESV A-L A4C: 22.05 ml LAESV | | | MOD A4C: 19.21 ml LALs A4C: 5.70 cm TAPSE: 1.38 cm HR: | | | 90.78 BPM AV maxP.67 mmHg AV meanP.35 mmHg AV Vmax: | | | 1.19 m/s AV Vmean: 0.87 m/s AV VTI: 17.60 cm EDI Vmax: | | | 4.01 cm2 EDI (VTI): 4.87 cm2 AVAI Vmax: 0.00 cm2/m2 AVAI | | | (VTI): 0.00 cm2/m2 LVCI Dopp: 3.53 l/minm2 LVCO Dopp: 7.87 | | | l/min HR: 91.74 BPM LVOT maxP.02 mmHg LVOT meanPG: | | | 2.99 mmHg LVSI Dopp: 38.48 ml/m2 LVSV Dopp: 85.82 ml LVOT | | | Vmax: 1.12 m/s LVOT Vmean: 0.83 m/s LVOT VTI: 20.12 cm | | | MCO: 408.30 ms MV A Jose Carlos: 0.94 m/s MV DecT: 207.83 ms MV E | | | Jose Carlos: 0.68 m/s MV E/A Ratio: 0.71 MV PHT: 65.93 ms MVA By | | | PHT: 3.33 cm2 MV A Dur: 138.40 ms Septal e': 0.05 m/s | | | Septal E/e': 12.33 Lateral e': 0.08 m/s Lateral E/e': 7.90 | | | PRend P.81 mmHg PRend Vmax: 2.28 m/s HR: 87.13 BPM | | | PV maxP.33 mmHg PV meanP.61 mmHg PV Vmax: 0.57 m/s | | | PV Vmean: 0.37 m/s PV VTI: 9.57 cm RV S': 0.10 m/s TR | | | maxP.34 mmHg TR Vmax: 3.13 m/s Spray Technician: VICTOR MANUEL | | | Authenticated by: Pina Guallpa MD Report Date/Time: 08-16-2017 | | | 15:18:31 | | + + + + + | Procedure Note | + + | BillRubio benton Conversion - 11/11/2018 4:41 PM PDT Patient Name: Luis Fernando TERRY of | | : 1975 Performing Physician: Pina Guallpa | | INDICATIONS w | | all motion evaluation CONCLUSIONS 1. Left ventricular systolic function is | | hyperdynamic with an estimated EF of >70%.2. There is mild concentric left ventricular | | hypertrophy.3. No regional wall motion abnormalities.4. The right ventricle is severely | | enlarged measuring >4.1 cm.5. The right ventricular systolic function is severely | | impaired.6. The right atrium is moderately enlarged.7. Mild tricuspid regurgitation | | present.8. There is moderate pulmonary hypertension.9. The right ventricular systolic | | pressure (pulmonary artery systolic pressure), as measured by Doppler, is 39+15=54 | | mmHg.10. The aortic root and ascending aorta are dilated measuring up to 4.1 cm. | | FINDINGS--------ECG rhythm: Sinus rhythm.Study: A 2-dimensional transthoracic | | echocardiogram with m-mode, spectral and color flow Doppler was perfomed.Study: This was | | a technically adequate study.Left Ventricle: Left ventricular systolic function is | | hyperdynamic with an estimated EF of >70%.Left Ventricle: The cavity size is | | decreased.Left Ventricle: There is mild concentric left ventricular hypertrophy. | | Indeterminate diastolic filling.Left Ventricle: No regional wall motion | | abnormalities.Left Ventricle: There is septal flattening in diastole and systole which | | is consistent with right ventricular pressure and volume overload.Right Ventricle: The | | right ventricle is severely enlarged measuring >4.1 cm.Right Ventricle: The right | | ventricular systolic function is severely impaired.Left Atrium: The left atrial size is | | normal.Right Atrium: The right atrium is moderately enlarged.Aortic Valve: The aortic | | valve is trileaflet.Aortic Valve: There is no evidence of aortic regurgitation.Aortic | | Valve: There is no evidence of aortic stenosis.Mitral Valve: The mitral valve is | | normal.Mitral Valve: No mitral regurgitation.Tricuspid Valve: Mild tricuspid | | regurgitation present.Tricuspid Valve: There is moderate pulmonary | | hypertension.Tricuspid Valve: The right ventricular systolic pressure (pulmonary artery | | systolic pressure), as measured by Doppler, is 39+15=54 mmHg.Pulmonic Valve: Moderate | | pulmonic regurgitation.Pericardium: There is a trivial pericardial effusion | | present.Pericardium: No pleural effusion seen.IVC/Hepatic Veins: The IVC is dilated and | | collapses <50% with sniff, consistent with central venous pressures of 15 mmHg.Aorta: | | The aortic root and ascending aorta are dilated measuring up to 4.1 cm.Septum: | | Interatrial septal aneurysm. MEASUREMENTS Ao asc: 4.12 cmAo sinus: 3.80 | | cmIVC: 2.39 cmLA Diam: 4.59 cmEDV(Teich): 54.21 mlIVSd: 1.19 cmLVIDd: 3.59 | | cmLVPWd: 1.47 cmLVOT Diam: 2.33 cm%FS: 42.98 %EF(Teich): 75.03 %ESV(Teich): | | 13.53 mlIVSs: 1.79 cmLVIDs: 2.04 cmLVPWs: 1.95 cmSV(Teich): 40.68 mlMPA: 3.24 | | cmRA Major: 6.45 cmRVIDd: 4.90 cmLAESV(A-L): 25.55 mlLAESV Index (A-L): 11.46 | | ml/m2LAAs A2C: 14.11 qc4LFPVE A-L A2C: 29.21 mlLAESV MOD A2C: 27.32 mlLALs A2C: | | 5.78 cmLAAs A4C: 12.17 [id number] A-L A4C: 22.05 mlLAESV MOD A4C: 19.21 mlLALs A4C: | | 5.70 cmTAPSE: 1.38 cmHR: 90.78 BPMAV maxP.67 mmHgAV meanP.35 mmHgAV | | Vmax: 1.19 m/Carmen Vmean: 0.87 m/Carmen VTI: 17.60 cmAVA Vmax: 4.01 cm2AVA (VTI): | | 4.87 vi6JCVX Vmax: 0.00 cm2/m2AVAI (VTI): 0.00 cm2/m2LVCI Dopp: 3.53 l/inhc3ZOEM | | Dopp: 7.87 l/minHR: 91.74 BPMLVOT maxP.02 mmHgLVOT meanP.99 mmHgLVSI | | Dopp: 38.48 ml/m2LVSV Dopp: 85.82 mlLVOT Vmax: 1.12 m/sLVOT Vmean: 0.83 m/sLVOT | | VTI: 20.12 cmMCO: 408.30 msMV A Jose Carlos: 0.94 m/sMV DecT: 207.83 msMV E Jose Carlos: 0.68 | | m/sMV E/A Ratio: 0.71MV PHT: 65.93 msMVA By PHT: 3.33 cm2MV A Dur: 138.40 | | msSeptal e': 0.05 m/sSeptal E/e': 12.33Lateral e': 0.08 m/sLateral E/e': | | 7.90PRend P.81 mmHgPRend Vmax: 2.28 m/sHR: 87.13 BPMPV maxP.33 mmHgPV | | meanP.61 mmHgPV Vmax: 0.57 m/sPV Vmean: 0.37 m/sPV VTI: 9.57 cmRV S': 0.10 | | m/sTR maxP.34 mmHgTR Vmax: 3.13 m/s Spray Technician: Adryticated by: Pina | | Saulim MDReport Date/Time: 08-16-2017 15:18:31 IMPRESSION: 1. Left ventricular systolic | | function is hyperdynamic with an estimated EF of >70%.2. There is mild concentric left | | ventricular hypertrophy.3. No regional wall motion abnormalities.4. The right ventricle | | is severely enlarged measuring >4.1 cm.5. The right ventricular systolic function is | | severely impaired.6. The right atrium is moderately enlarged.7. Mild tricuspid | | regurgitation present.8. There is moderate pulmonary hypertension.9. The right | | ventricular systolic pressure (pulmonary artery systolic pressure), as measured by | | Doppler, is 39+15=54 mmHg.10. The aortic root and ascending aorta are dilated measuring | | up to 4.1 cm. | |LA Diam: 4.59 cm | |EDV(Teich): 54.21 ml | |IVSd: 1.19 cm | |LVIDd: 3.59 cm | |LVPWd: 1.47 cm | |LVOT Diam: 2.33 cm | |%FS: 42.98 % | |EF(Teich): 75.03 % | |ESV(Teich): 13.53 ml | |IVSs: 1.79 cm | |LVIDs: 2.04 cm | |LVPWs: 1.95 cm | |SV(Teich): 40.68 ml | |MPA: 3.24 cm | |RA Major: 6.45 cm | |RVIDd: 4.90 cm | |LAESV(A-L): 25.55 ml | |LAESV Index (A-L): 11.46 ml/m2 | |LAAs A2C: 14.11 cm2 | |LAESV A-L A2C: 29.21 ml | |LAESV MOD A2C: 27.32 ml | |LALs A2C: 5.78 cm | |LAAs A4C: 12.17 cm2 | |LAESV A-L A4C: 22.05 ml | |LAESV MOD A4C: 19.21 ml | |LALs A4C: 5.70 cm | |TAPSE: 1.38 cm | |HR: 90.78 BPM | |AV maxP.67 mmHg | |AV meanP.35 mmHg | |AV Vmax: 1.19 m/s | |AV Vmean: 0.87 m/s | |AV VTI: 17.60 cm | |EDI Vmax: 4.01 cm2 | |EDI (VTI): 4.87 cm2 | |AVAI Vmax: 0.00 cm2/m2 | |AVAI (VTI): 0.00 cm2/m2 | |LVCI Dopp: 3.53 l/minm2 | |LVCO Dopp: 7.87 l/min | |HR: 91.74 BPM | |LVOT maxP.02 mmHg | |LVOT meanP.99 mmHg | |LVSI Dopp: 38.48 ml/m2 | |LVSV Dopp: 85.82 ml | |LVOT Vmax: 1.12 m/s | |LVOT Vmean: 0.83 m/s | |LVOT VTI: 20.12 cm | |MCO: 408.30 ms | |MV A Jose Carlos: 0.94 m/s | |MV DecT: 207.83 ms | |MV E Jose Carlos: 0.68 m/s | |MV E/A Ratio: 0.71 | |MV PHT: 65.93 ms | |MVA By PHT: 3.33 cm2 | |MV A Dur: 138.40 ms | |Septal e': 0.05 m/s | |Septal E/e': 12.33 | |Lateral e': 0.08 m/s | |Lateral E/e': 7.90 | |PRend P.81 mmHg | |PRend Vmax: 2.28 m/s | |HR: 87.13 BPM | |PV maxP.33 mmHg | |PV meanP.61 mmHg | |PV Vmax: 0.57 m/s | |PV Vmean: 0.37 m/s | |PV VTI: 9.57 cm | |RV S': 0.10 m/s | |TR maxP.34 mmHg | |TR Vmax: 3.13 m/s | | | |Spray Technician: MW | |Authenticated by: Pina Guallpa MD | |Report Date/Time: 08-16-2017 15:18:31 | | | |IMPRESSION: | |1. Left ventricular systolic function is hyperdynamic with an estimated EF of >70%. | |2. There is mild concentric left ventricular hypertrophy. | |3. No regional wall motion abnormalities. | |4. The right ventricle is severely enlarged measuring >4.1 cm. | |5. The right ventricular systolic function is severely impaired. | |6. The right atrium is moderately enlarged. | |7. Mild tricuspid regurgitation present. | |8. There is moderate pulmonary hypertension. | |9. The right ventricular systolic pressure (pulmonary artery systolic pressure), as measure d by Doppler, is 39+15=54 mmHg. | |10. The aortic root and ascending aorta are dilated measuring up to 4.1 cm. | + + NM Myocardial Perfusion Mult SPECT (08/16/2017 11:32 AM PDT) + + | Specimen | + + | | + + + + + | Impressions | Performed At | + + + | 1. No evidence of pharmacologic stress-induced left ventricular | | | ischemia. 2. Left ventricular stress ejection fraction is | | | calculated at 55%. Using the risk stratification system at our | | | institution, this examination equates to at least a low risk based on | | | this imaging, arising from the criteria below (1). Note that this | | | should be interfaced with clinical and other data, potentially | | | affecting final categorization. 1. [place] [employer] | | | and [place] [employer] Scientific Statement. Circulation | | | (2008); 118: p 6239-5528 Selection Text Definition Low | | | Risk 1.Normal or small myocardial perfusion defect at rest or with | | | stress.* 2. No change of resting wall motion abnormalities during | | | stress* . * Although the published data are limited, patients | | | with these findings will probably not be at low risk in the presence | | | of either a high-risk treadmill score or severe resting left | | | ventricular dysfunction (LVEF <35%). Low risk equates with a less | | | than 1% annual mortality rate. Intermediate Risk 1. | | | Mild/moderate resting left ventricular dysfunction (LVEF=35% to 49%). | | | 2. Stress-induced moderate perfusion defect without LV dilation | | | or increased lung intake Intermediate risk equates with a 1%-3% | | | annual mortality rate. High Risk 1. Severe resting left | | | ventricular dysfunction (exercise LVEF <35%) 2. Severe exercise | | | left ventricular dysfunction (exercise LVEF <35%) 3. | | | Stress-induced large perfusion defect (particularly if anterior) | | | 4. Stress-induced multiple perfusion defects of moderate size 5. | | | Large, fixed perfusion defect with LV dilation 6. | | | Stress-induced moderate perfusion defect with LV dilation High | | | risk equates with a greater than 3% annual mortality rate. 1. | | | | | + + + + + + | Narrative | Performed At | + + + | [facility] MYOCARDIAL PERFUSION SPECT - STRESS AND REST | | | 08/16/2017 11:32 AM HISTORY: 42 years. Male. Chest pain | | | TECHNIQUE: A same day, dual-isotope protocol was used. For the | | | resting portion of the study the patient was injected intravenously | | | with 11.3 mCi of technetium 99 labeled Myoview. Gated SPECT imaging | | | was performed in the supine position. The patient was then | | | pharmacologically stressed with 0.4 mg of regadenoson intravenously | | | according to protocol. Resting heart rate bernadette from 79 beats/min to | | | 121 beats/min which was 67% of the maximum age-predicted heart rate. | | | At the point of maximum stress, the patient received 30.2 mCi of | | | technetium 99m labeled Myoview intravenously. Gated SPECT images | | | were acquired in the prone and supine positions. Chest pain: None. | | | Arrhythmias: Ventricular premature beats.. ST segment changes: | | | None. COMPARISON: None. FINDINGS: All segments of the | | | ventricular myocardium demonstrate normal perfusion. Wall motion | | | is normal in all segments. The following functional stress data | | | was obtained: End-diastolic volume: 65 mL End-systolic volume: 23 mL | | | Ejection fraction: 55% The following functional rest data was | | | obtained: End-diastolic volume: 68 mL End-systolic volume: 20 mL | | | Ejection fraction: 71% | | + + + + + | Procedure Note | + + | Bill, Rad Conversion - 11/11/2018 4:41 PM PDT [facility] MYOCARDIAL PERFUSION | | SPECT - STRESS AND REST08/16/2017 11:32 AM HISTORY:42 years. Male. Chest pain | | TECHNIQUE:A same day, dual-isotope protocol was used. For the resting portion of the | | study the patient was injected intravenously with 11.3 mCi of technetium 99 labeled | | Myoview. Gated SPECT imaging was performed in the supine position. The patient was then | | pharmacologically stressed with 0.4 mg of regadenoson intravenously according to | | protocol. Resting heart rate bernadette from 79 beats/min to 121 beats/min which was 67% of | | the maximum age-predicted heart rate. At the point of maximum stress, the patient | | received 30.2 mCi of technetium 99m labeled Myoview intravenously. Gated SPECT images | | were acquired in the prone and supine positions. Chest pain: None.Arrhythmias: | | Ventricular premature beats..ST segment changes: None. COMPARISON:None. FINDINGS:All | | segments of the ventricular myocardium demonstrate normal perfusion. Wall motion is | | normal in all segments. The following functional stress data was obtained:End-diastolic | | volume: 65 mLEnd-systolic volume: 23 mLEjection fraction: 55% The following functional | | rest data was obtained:End-diastolic volume: 68 mLEnd-systolic volume: 20 mLEjection | | fraction: 71% IMPRESSION: 1. No evidence of pharmacologic stress-induced left | | ventricular ischemia.2. Left ventricular stress ejection fraction is calculated at 55%. | | Using the risk stratification system at our institution, this examination equates to at | | least a low risk based on this imaging, arising from the criteria below (1). Note that | | this should be interfaced with clinical and other data, potentially affecting final | | categorization. 1. [place] [employer] and [employer] | | Scientific Statement. Circulation (2008); 118: p 3496-4494 Selection Text Definition | | Low Risk 1.Normal or small myocardial perfusion defect at rest or with stress.* 2. No | | change of resting wall motion abnormalities during stress* . * Although the published | | data are limited, patients with these findings will probably not be at low risk in the | | presence of either a high-risk treadmill score or severe resting left ventricular | | dysfunction (LVEF <35%). Low risk equates with a less than 1% annual mortality rate. | | Intermediate Risk 1. Mild/moderate resting left ventricular dysfunction (LVEF=35% to | | 49%). 2. Stress-induced moderate perfusion defect without LV dilation or increased lung | | intake Intermediate risk equates with a 1%-3% annual mortality rate. High Risk 1. | | Severe resting left ventricular dysfunction (exercise LVEF <35%) 2. Severe exercise | | left ventricular dysfunction (exercise LVEF <35%) 3. Stress-induced large perfusion | | defect (particularly if anterior) 4. Stress-induced multiple perfusion defects of | | moderate size5. Large, fixed perfusion defect with LV dilation 6. Stress-induced | | moderate perfusion defect with LV dilation High risk equates with a greater than 3% | | annual mortality rate.1. | | PM | |Using the risk stratification system at our institution, this examination equates to at lynette st a low risk based on this imaging, arising from the criteria below (1). Note that this fei uld be interfaced with clinical and | |other data, potentially affecting | |final categorization. | | | |1. [place] [employer] and [place] [employer] Scientific Statement. Cir culation (2008); 118: p 4373-8700 | | | | | |Selection Text Definition | | | |Low Risk | | | |1.Normal or small myocardial perfusion defect at rest or with stress.* | | | |2. No change of resting wall motion abnormalities during stress* . | | | |* Although the published data are limited, patients with these findings will probably not b e at low risk in the presence of either a high-risk treadmill score or severe resting left v entricular dysfunction (LVEF <35%). | | | |Low risk equates with a less than 1% annual mortality rate. | | | | | |Intermediate Risk 1. Mild/moderate resting left ventricular dysfunction (LVEF=35% to 49%). | | | |2. Stress-induced moderate perfusion defect without LV dilation or increased lung intake | | | |Intermediate risk equates with a 1%-3% annual mortality rate. | | | | | |High Risk 1. Severe resting left ventricular dysfunction (exercise LVEF <35%) | | | |2. Severe exercise left ventricular dysfunction (exercise LVEF <35%) | | | |3. Stress-induced large perfusion defect (particularly if anterior) | | | |4. Stress-induced multiple perfusion defects of moderate size | |5. Large, fixed perfusion defect with LV dilation | | | |6. Stress-induced moderate perfusion defect with LV dilation | | | |High risk equates with a greater than 3% annual mortality rate. | |1. | | | | | + + ECG 12 lead (08/16/2017 4:20 AM PDT) + + + + + + | Component | Value | Ref Range | Performed | Pathologist | | | | | At | Signature | + + + + + + | DIAGNOSIS: | Normal sinus | | EXTERNAL | | | | rhythmPossible Right | | LAB | | | | ventricular | | | | | | hypertrophyNonspecific | | | | | | ST abnormalityProlonged | | | | | | QTAbnormal ECGWhen | | | | | | compared with ECG of | | | | | | 15-AUG-2017 16:53,T wave | | | | | | inversion no longer | | | | | | evident in Anterior | | | | | | leadsQT has | | | | | | lengthenedConfirmed by | | | | | | Pina Guallpa MD | | | | | | (111) on 08/18/2017 | | | | | | 7:01:30 PM | | | | + + + + + + + + | Specimen | + + | | + + + + + | Narrative | Performed At | + + + | Historically converted procedure from [facility] environment | EXTERNAL LAB | + + + + +---------+ + + | Performing | Address | City/State/Zipcode | Phone Number | | Organization | | | | + +---------+ + + | EXTERNAL LAB | | | | + +---------+ + + Troponin I (08/16/2017 3:08 AM PDT) + + + + + + | Component | Value | Ref Range | Performed | Pathologist | | | | | At | Signature | + + + + + + | Troponin I, | 0.034Comment: 0.00 to | 0.00 - 0.10 | EXTERNAL | | | Qual | 0.10 CONSISTENT WITH | ng/mL | LAB | | | | NORMAL POPULATION0.11 to | | | | | | 0.60 CONSISTENT WITH | | | | | | INCREASED RISK FOR | | | | | | ADVERSE OUTCOMES> 0.60 | | | | | | CONSISTENT | | | | | | WITH WHO CRITERIA FOR | | | | | | ACUTE NE Testing | | | | | | performed at [facility];[id number] | | | | [address] [facility];[place], [place] | | | | | | [address] | | | | + + + + + + + + | Specimen | + + | Blood specimen | | (specimen) | + + + +---------+ + + | Performing | Address | City/State/Zipcode | Phone Number | | Organization | | | | + +---------+ + + | EXTERNAL LAB | | | | + +---------+ + + External Lab: CBC (08/16/2017 3:08 AM PDT) + + + + + + | Component | Value | Ref Range | Performed | Pathologist | | | | | At | Signature | + + + + + + | WBC | 9.22 | 3.80 - 11.00 | EXTERNAL | | | | | K/uL | LAB | | + + + + + + | Red Blood | 5.76 (H) | 4.20 - 5.70 | EXTERNAL | | | Cells | | M/uL | LAB | | | Counted | | | | | + + + + + + | Hemoglobin | 16.1 | 13.2 - 17.0 | EXTERNAL | | | | | g/dL | LAB | | + + + + + + | Hematocrit, | 48.0 | 39.0 - 50.0 % | EXTERNAL | | | POC | | | LAB | | + + + + + + | MCV | 83.4 | 80.0 - 100.0 fl | EXTERNAL | | | | | | LAB | | + + + + + + | MCH | 28.0 | 27.0 - 34.0 pg | EXTERNAL | | | | | | LAB | | + + + + + + | MCHC | 33.5 | 32.0 - 35.5 | EXTERNAL | | | | | g/dL | LAB | | + + + + + + | RDW-CV | 44.6 | 37 - 53 fl | EXTERNAL | | | | | | LAB | | + + + + + + | Platelet | 200 | 150 - 400 K/uL | EXTERNAL | | | Count | | | LAB | | | Plasma | | | | | + + + + + + | MPV | 10.4 | fl | EXTERNAL | | | | | | LAB | | + + + + + + | Differentia | AUTOMATED | | EXTERNAL | | | l Type | | | LAB | | + + + + + + | % Segmented | 53.94 | % | EXTERNAL | | | | | | LAB | | | Neutrophils | | | | | + + + + + + | % | 36.46 | % | EXTERNAL | | | Lymphocytes | | | LAB | | + + + + + + | % Monocytes | 7.01 | % | EXTERNAL | | | | | | LAB | | + + + + + + | % | 1.70 | % | EXTERNAL | | | Eosinophils | | | LAB | | + + + + + + | % Basophils | 0.89 | % | EXTERNAL | | | | | | LAB | | + + + + + + | Absolute | 4.98 | 1.90 - 7.40 | EXTERNAL | | | Segmented | | K/uL | LAB | | | Neutrophils | | | | | + + + + + + | Absolute | 3.36 | 1.00 - 3.90 | EXTERNAL | | | Lymphocytes | | K/uL | LAB | | + + + + + + | Absolute | 0.65 | 0.00 - 0.80 | EXTERNAL | | | Monocytes | | K/uL | LAB | | + + + + + + | Absolute | 0.16 | 0.00 - 0.50 | EXTERNAL | | | Eosinophils | | K/uL | LAB | | + + + + + + | Absolute | 0.08Comment: Testing | 0.00 - 0.10 | EXTERNAL | | | Basophils | performed at [facility], [address] | K/uL | LAB | | | | [facility], | | | | | | [place] [address] | | | | + + + + + + + + | Specimen | + + | Blood specimen | | (specimen) | + + + +---------+ + + | Performing | Address | City/State/Zipcode | Phone Number | | Organization | | | | + +---------+ + + | EXTERNAL LAB | | | | + +---------+ + + Phosphorus (08/16/2017 3:08 AM PDT) + + + + + + | Component | Value | Ref Range | Performed | Pathologist | | | | | At | Signature | + + + + + + | PHOSPHORUS | 3.8Comment: Testing | 2.3 - 4.8 mg/dL | EXTERNAL | | | | performed at [facility], [address] | | LAB | | | | [address], | | | | | | [place] [address] | | | | + + + + + + + + | Specimen | + + | Blood specimen | | (specimen) | + + + +---------+ + + | Performing | Address | City/State/Zipcode | Phone Number | | Organization | | | | + +---------+ + + | EXTERNAL LAB | | | | + +---------+ + + Magnesium (08/16/2017 3:08 AM PDT) + + + + + + | Component | Value | Ref Range | Performed | Pathologist | | | | | At | Signature | + + + + + + | Magnesium | 1.9Comment: Testing | 1.7 - 2.4 mg/dL | EXTERNAL | | | | performed at [facility], [address] | | LAB | | | | [address], | | | | | | [place] [address] | | | | + + + + + + + + | Specimen | + + | Blood specimen | | (specimen) | + + + +---------+ + + | Performing | Address | City/State/Zipcode | Phone Number | | Organization | | | | + +---------+ + + | EXTERNAL LAB | | | | + +---------+ + + Hemoglobin A1C (08/16/2017 3:08 AM PDT) + + + + + + | Component | Value | Ref Range | Performed | Pathologist | | | | | At | Signature | + + + + + + | Hemoglobin | 6.0Comment: The [place] | 4.0 - 6.0 % | EXTERNAL | | | A1c | Diabetes Association | | LAB | | | | considers a hemoglobin | | | | | | A1c result of <7.0% to | | | | | | be the goal of diabetic | | | | | | therapy. When results | | | | | | are consistently >8.0%, | | | | | | the ADA suggests | | | | | | reevaluation of the | | | | | | treatment regimen. The | | | | | | testing method used is | | | | | | certified traceable to | | | | | | the Diabetes Control and | | | | | | Complications Trial | | | | | | reference method. | | | | + + + + + + | Glycohemogl | 126Comment: The ADA | mg/dL | EXTERNAL | | | obin | considers an eAG result | | LAB | | | (GHb),Total | of LT 154 mg/dL to be | | | | | | the goal of diabetic | | | | | | therapy. Estimated | | | | | | Average Glucose | | | | | | calculated from | | | | | | hemoglobin A1c by use of | | | | | | the ADA recommended | | | | | | formula.Testing | | | | | | performed at [facility], [address] | | | | | | [address], | | | | | | [place] [address] | | | | + + + + + + + + | Specimen | + + | Blood specimen | | (specimen) | + + + +---------+ + + | Performing | Address | City/State/Zipcode | Phone Number | | Organization | | | | + +---------+ + + | EXTERNAL LAB | | | | + +---------+ + + Lipid Panel (08/16/2017 3:08 AM PDT) + + + + + + | Component | Value | Ref Range | Performed | Pathologist | | | | | At | Signature | + + + + + + | Cholesterol | 126 | mg/dL | EXTERNAL | | | | | | LAB | | + + + + + + | Triglycerid | 104 | mg/dL | EXTERNAL | | | es | | | LAB | | + + + + + + | HDL | 23 (L) | mg/dL | EXTERNAL | | | | | | LAB | | + + + + + + | LDL, | 82Comment: Testing | mg/dL | EXTERNAL | | | Calculated | performed at [facility], [address] | | LAB | | | | [address], | | | | | | [place] [address] | | | | + + + + + + + + | Specimen | + + | Blood specimen | | (specimen) | + + + +---------+ + + | Performing | Address | City/State/Zipcode | Phone Number | | Organization | | | | + +---------+ + + | EXTERNAL LAB | | | | + +---------+ + + Comprehensive Metabolic Panel (08/16/2017 3:08 AM PDT) + + + + + + | Component | Value | Ref Range | Performed | Pathologist | | | | | At | Signature | + + + + + + | Na | 139 | 135 - 145 | EXTERNAL | | | | | mmol/L | LAB | | + + + + + + | K | 4.1 | 3.5 - 4.9 | EXTERNAL | | | | | mmol/L | LAB | | + + + + + + | Cl | 108 | 99 - 109 mmol/L | EXTERNAL | | | | | | LAB | | + + + + + + | CO2 | 23 | 23 - 32 mmol/L | EXTERNAL | | | | | | LAB | | + + + + + + | Anion Gap | 12 | 5 - 20 mmol/L | EXTERNAL | | | | | | LAB | | + + + + + + | Glucose, | 121 (H) | 65 - 99 mg/dL | EXTERNAL | | | Fasting | | | LAB | | + + + + + + | BUN | 19 | 8 - 25 mg/dL | EXTERNAL | | | | | | LAB | | + + + + + + | Creatinine | 1.2 | 0.70 - 1.30 | EXTERNAL | | | | | mg/dL | LAB | | + + + + + + | BUN/Creatin | 16 | | EXTERNAL | | | ine Ratio | | | LAB | | + + + + + + | Calcium | 8.8 | 8.5 - 10.5 | EXTERNAL | | | | | mg/dL | LAB | | + + + + + + | Protein, | 6.3 | 6.3 - 8.2 g/dL | EXTERNAL | | | Total | | | LAB | | + + + + + + | Albumin | 3.3 (L) | 3.6 - 5.0 g/dL | EXTERNAL | | | | | | LAB | | + + + + + + | Globulin | 3.0 | 1.3 - 4.9 g/dL | EXTERNAL | | | | | | LAB | | + + + + + + | A/G Ratio | 1.1 | 1.0 - 2.4 | EXTERNAL | | | | | | LAB | | + + + + + + | Bilirubin | 1.2 | 0.1 - 1.5 mg/dL | EXTERNAL | | | Total | | | LAB | | + + + + + + | ALP, | 94 | 35 - 115 U/L | EXTERNAL | | | External | | | LAB | | + + + + + + | AST | 37 | 10 - 45 U/L | EXTERNAL | | | | | | LAB | | + + + + + + | ALT | 63 | 10 - 65 U/L | EXTERNAL | | | | | | LAB | | + + + + + + | Estimated | >60Comment: GFR <60: | mL/min/1.73m2 | EXTERNAL | | | GFR | CHRONIC KIDNEY DISEASE, | | LAB | | | | IF FOUND OVER A 3 MONTH | | | | | | PERIOD.GFR <15: KIDNEY | | | | | | FAILURE.FOR | | | | | | AMERICANS, MULTIPLY THE | | | | | | CALCULATED GFR BY | | | | | | 1.210.Testing performed | | | | | | at [facility], [address] | | | | | | [facility], | | | | | | [place] [address] | | | | + + + + + + + + | Specimen | + + | Blood specimen | | (specimen) | + + + +---------+ + + | Performing | Address | City/State/Zipcode | Phone Number | | Organization | | | | + +---------+ + + | EXTERNAL LAB | | | | + +---------+ + + Troponin I (08/15/2017 11:21 PM PDT) + + + + + + | Component | Value | Ref Range | Performed | Pathologist | | | | | At | Signature | + + + + + + | Troponin I, | 0.03Comment: 0.00 to | 0.00 - 0.10 | EXTERNAL | | | Qual | 0.10 CONSISTENT WITH | ng/mL | LAB | | | | NORMAL POPULATION0.11 to | | | | | | 0.60 CONSISTENT WITH | | | | | | INCREASED RISK FOR | | | | | | ADVERSE OUTCOMES> 0.60 | | | | | | CONSISTENT | | | | | | WITH WHO CRITERIA FOR | | | | | | ACUTE NE Testing | | | | | | performed at [facility] | | | | | | [facility];[place], [place] | | | | | | [address] | | | | + + + + + + + + | Specimen | + + | Blood specimen | | (specimen) | + + + +---------+ + + | Performing | Address | City/State/Zipcode | Phone Number | | Organization | | | | + +---------+ + + | EXTERNAL LAB | | | | + +---------+ + + Drugs of Abuse, Tricyclics, Urine, Quant (08/15/2017 6:55 PM PDT) + + + + + + | Component | Value | Ref Range | Performed | Pathologist | | | | | At | Signature | + + + + + + | PCP | NEGATIVEComment: | | EXTERNAL | | | | Positive cutoff for PCP | | LAB | | | | = 25 ng/mL | | | | + + + + + + | Benzodiazep | NEGATIVEComment: | | EXTERNAL | | | heike | Positive cutoff for | | LAB | | | Screen, | BENZO = 300 ng/mL | | | | | Urine | | | | | + + + + + + | Cocaine | NEGATIVEComment: | | EXTERNAL | | | | Positive cutoff for FABRICE | | LAB | | | | = 300 ng/mL | | | | + + + + + + | Amphetamine | POSITIVE (A)Comment: | | EXTERNAL | | | s | Positive cutoff for AMP | | LAB | | | | = 1000 ng/mL | | | | + + + + + + | Cannabinoid | NEGATIVEComment: | | EXTERNAL | | | s Screen, | Positive cutoff for THC | | LAB | | | Serum | = 50 ng/mL | | | | + + + + + + | Opiates | NEGATIVEComment: | | EXTERNAL | | | | Positive cutoff for OPI | | LAB | | | | = 300 ng/mL | | | | + + + + + + | Barbiturate | NEGATIVEComment: | | EXTERNAL | | | s Screen, | Positive cutoff for SHAYY | | LAB | | | Urine | = 300 ng/mL | | | | + + + + + + | TCA Scrn | NEGATIVEComment: | | EXTERNAL | | | | Positive cutoff for TCA | | LAB | | | | = 1000 ng/mLThe above | | | | | | are unconfirmed | | | | | | screening results. | | | | | | These results are to | | | | | | be used only for medical | | | | | | (i.e.,treatment) | | | | | | purposes. Unconfirmed | | | | | | screening results must | | | | | | not be used for | | | | | | non-medical purposes | | | | | | (e.g., employment | | | | | | testing, legal | | | | | | testing).Testing | | | | | | performed at [facility], [address] | | | | | [address], | | | | | | [place] [address] | | | | + + + + + + + + | Specimen | + + | | + + + +---------+ + + | Performing | Address | City/State/Zipcode | Phone Number | | Organization | | | | + +---------+ + + | EXTERNAL LAB | | | | + +---------+ + + Urinalysis, Reflex Microscopic and/or Culture (08/15/2017 6:55 PM PDT) + + + + + + | Component | Value | Ref Range | Performed | Pathologist | | | | | At | Signature | + + + + + + | Color | YELLOW | | EXTERNAL | | | | | | LAB | | + + + + + + | Clarity | CLEAR | | EXTERNAL | | | | | | LAB | | + + + + + + | Specific | <1.005 | 1.001 - 1.035 | EXTERNAL | | | [place], | | | LAB | | | Urine | | | | | + + + + + + | Leukocyte | NEGATIVE | | EXTERNAL | | | Esterase, | | | LAB | | | Urine | | | | | + + + + + + | Nitrite, | NEGATIVE | | EXTERNAL | | | Urine | | | LAB | | + + + + + + | Urobilinoge | 0.2 | mg/dL | EXTERNAL | | | n, Urine | | | LAB | | + + + + + + | Protein, | NEGATIVE | mg/dL | EXTERNAL | | | Urine | | | LAB | | + + + + + + | pH, Urine | 5.5 | 4.6 - 8.0 | EXTERNAL | | | | | | LAB | | + + + + + + | Blood, | TRACE (A) | | EXTERNAL | | | Urine | | | LAB | | + + + + + + | Ketones | NEGATIVE | mg/dL | EXTERNAL | | | | | | LAB | | + + + + + + | Bilirubin, | NEGATIVE | | EXTERNAL | | | Urine | | | LAB | | + + + + + + | Glucose, | NEGATIVEComment: Testing | mg/dL | EXTERNAL | | | Urine | performed at [facility], [address] | LAB | | | | [address], | | | | | | [place] [address] | | | | + + + + + + + + | Specimen | + + | Urine specimen | | (specimen) | + + + +---------+ + + | Performing | Address | City/State/Zipcode | Phone Number | | Organization | | | | + +---------+ + + | EXTERNAL LAB | | | | + +---------+ + + Urinalysis, Microscopic Only (08/15/2017 6:55 PM PDT) + + + + + + | Component | Value | Ref Range | Performed | Pathologist | | | | | At | Signature | + + + + + + | WBC, UA | NONE SEEN | 0 - 5 /hpf | EXTERNAL | | | | | | LAB | | + + + + + + | RBC, UA | 0-2 | 0 - 2 /hpf | EXTERNAL | | | | | | LAB | | + + + + + + | Epithelial | NONE SEEN | /lpf | EXTERNAL | | | Cells | | | LAB | | + + + + + + | Bacteria, | NONE SEENComment: | | EXTERNAL | | | UA | Testing performed at | | LAB | | | | [facility], [address], | | | | | | [place] [address] | | | | + + + + + + + + | Specimen | + + | | + + + +---------+ + + | Performing | Address | City/State/Zipcode | Phone Number | | Organization | | | | + +---------+ + + | EXTERNAL LAB | | | | + +---------+ + + CT Angiogram Pulmonary w Contrast (08/15/2017 5:25 PM PDT) + + | Specimen | + + | | + + + + + | Impressions | Performed At | + + + | 1. No pulmonary arterial emboli or other acute findings are noted. | | | 2. Mild to moderate cardiomegaly. | | + + + + + + | Narrative | Performed At | + + + | CAROLE TERRY 1975 42 years Male CTA CHEST PULMONARY EMBOLISM | | | W CONTRAST 08/15/2017 5:25 PM HISTORY: Chest pain. | | | COMPARISON: Chest radiographs dated August 15, 2017. TECHNIQUE: | | | 1.5-mm axial images of the chest were acquired in the arterial phase | | | according to a CT angiography protocol. Coronal CT angiographic MIP | | | reconstructions were performed by medical technologist generalist. No 3-D imaging. | | | Automated exposure control was utilized. IV contrast: 100 mL IsoVue | | | 370 FINDINGS: The visualized portion of the thyroid gland is | | | normal. No thoracic aortic aneurysm is seen. The cardiac size is mild | | | to moderately enlarged. No pulmonary arterial dilatation or pulmonary | | | arterial filling defects are seen. No lung mass or significant | | | region of lung consolidation seen. No pneumothorax or pleural | | | effusions found. Upper abdominal structures are notable for | | | probable hepatic steatosis and an incidental right adrenal adenoma | | | measures 12 mm. Multilevel degenerative disc disease and facet | | | arthropathy are seen spine. | | + + + + + | Procedure Note | + + | Bill, Rad Conversion - 11/11/2018 4:41 PM PDT CAROLE Miramontes DOW1975 42 years MaleCTA | | CHEST PULMONARY EMBOLISM W CONTRAST08/15/2017 5:25 PM HISTORY: Chest pain. COMPARISON: | | Chest radiographs dated August 15, 2017. TECHNIQUE:1.5-mm axial images of the chest were | | acquired in the arterial phase according to a CT angiography protocol. Coronal CT | | angiographic MIP reconstructions were performed by medical technologist generalist. No 3-D imaging. | | Automated exposure control was utilized.IV contrast: 100 mL IsoVue 370 FINDINGS: The | | visualized portion of the thyroid gland is normal. No thoracic aortic aneurysm is seen. | | The cardiac size is mild to moderately enlarged. No pulmonary arterial dilatation or | | pulmonary arterial filling defects are seen. No lung mass or significant region of lung | | consolidation seen. No pneumothorax or pleural effusions found. Upper abdominal | | structures are notable for probable hepatic steatosis and an incidental right adrenal | | adenoma measures 12 mm. Multilevel degenerative disc disease and facet arthropathy are | | seen spine. IMPRESSION: 1. No pulmonary arterial emboli or other acute findings are | | noted. 2. Mild to moderate cardiomegaly. | |significant region of lung consolidation seen. No pneumothorax or pleural effusions found. | | | |Upper abdominal structures are notable for probable hepatic steatosis and an incidental rig ht adrenal adenoma measures 12 mm. Multilevel degenerative disc disease and facet arthropath y are seen spine. | | | |IMPRESSION: | |1. No pulmonary arterial emboli or other acute findings are noted. | | | |2. Mild to moderate cardiomegaly. | | | | | + + ECG 12 lead (08/15/2017 4:53 PM PDT) + + + + + + | Component | Value | Ref Range | Performed | Pathologist | | | | | At | Signature | + + + + + + | DIAGNOSIS: | Normal sinus | | EXTERNAL | | | | rhythmPossible Right | | LAB | | | | ventricular | | | | | | hypertrophyST & T wave | | | | | | abnormality, consider | | | | | | anterior | | | | | | ischemiaAbnormal ECGWhen | | | | | | compared with ECG of | | | | | | 15-AUG-2017 15:58,No | | | | | | significant change was | | | | | | foundThis ECG contains | | | | | | Unconfirmed | | | | | | Interpretation | | | | | | Statements. See ED | | | | | | Record for Physician | | | | | | Interpretation. | | | | | | Confirmed by MUSE READ | | | | | | ONLY, -COMPUTER ([id number]), | | | | | | legal editor Elida Lucas | | | | | | ([id number]) on 08/16/2017 | | | | | | 2:57:08 AM | | | | + + + + + + + + | Specimen | + + | | + + + + + | Narrative | Performed At | + + + | Historically converted procedure from [facility] | EXTERNAL LAB | + + + + +---------+ + + | Performing | Address | City/State/Zipcode | Phone Number | | Organization | | | | + +---------+ + + | EXTERNAL LAB | | | | + +---------+ + + XR Chest 2 Vws (08/15/2017 4:18 PM PDT) + + | Specimen | + + | | + + + + + | Impressions | Performed At | + + + | 1. No acute cardiopulmonary process. | | + + + + + + | Narrative | Performed At | + + + | CAROLE Miramontes LAKSHMI 1975 42 years Male XR CHEST 2 VIEW FRONTAL AND | | | LATERAL 08/15/2017 4:18 PM INDICATION: Chest pain. COMPARISON: | | | None. TECHNIQUE: Two view chest, PA and lateral views | | | FINDINGS: The cardiomediastinal contours are normal. There is no | | | mediastinal widening or shift. No pneumothorax or effusion. The | | | lungs are clear with no focal consolidation or pulmonary nodules. Mild | | | to moderate multilevel degenerative disc disease is seen in the | | | spine. | | + + + + + | Procedure Note | + + | Bill, Rad Conversion - 11/11/2018 4:41 PM PDT CAROLE Miramontes DOW1975 42 years MaleXR | | CHEST 2 VIEW FRONTAL AND LATERAL08/15/2017 4:18 PM INDICATION: Chest pain. COMPARISON: | | None. TECHNIQUE: Two view chest, PA and lateral views FINDINGS: The cardiomediastinal | | contours are normal. There is no mediastinal widening or shift. No pneumothorax or | | effusion. The lungs are clear with no focal consolidation or pulmonary nodules. Mild to | | moderate multilevel degenerative disc disease is seen in the spine. IMPRESSION: 1. No | | acute cardiopulmonary process. | | 4:34 PM | |COMPARISON: None. | | | |TECHNIQUE: Two view chest, PA and lateral views | | | |FINDINGS: The cardiomediastinal contours are normal. There is no mediastinal widening or s hift. No pneumothorax or effusion. The lungs are clear with no focal consolidation or pulm onary nodules. Mild to | |moderate multilevel degenerative disc disease is | | seen in the spine. | | | |IMPRESSION: | |1. No acute cardiopulmonary process. | | | | | + + HISTORICAL LAB PANEL RESULT (08/15/2017 4:00 PM PDT) + + + + + -+ | Component | Value | Ref Range | Performed | Pathologist | | | | | At | Signature | + + + + + -+ | WBC | 8.24 | 3.80 - 11.00 | EXTERNAL | | | | | K/uL | LAB | | + + + + + -+ | Red Blood | 5.79 (H) | 4.20 - 5.70 | EXTERNAL | | | Cells | | M/uL | LAB | | | Counted | | | | | + + + + + -+ | Hemoglobin | 16.3 | 13.2 - 17.0 | EXTERNAL | | | | | g/dL | LAB | | + + + + + -+ | Hematocrit, | 48.6 | 39.0 - 50.0 % | EXTERNAL | | | POC | | | LAB | | + + + + + -+ | MCV | 83.9 | 80.0 - 100.0 fl | EXTERNAL | | | | | | LAB | | + + + + + -+ | MCH | 28.1 | 27.0 - 34.0 pg | EXTERNAL | | | | | | LAB | | + + + + + -+ | MCHC | 33.5 | 32.0 - 35.5 | EXTERNAL | | | | | g/dL | LAB | | + + + + + -+ | RDW-CV | 42.0 | 37 - 53 fl | EXTERNAL | | | | | | LAB | | + + + + + -+ | Platelet | 192 | 150 - 400 K/uL | EXTERNAL | | | Count | | | LAB | | | Plasma | | | | | + + + + + -+ | MPV | 9.7 | fl | EXTERNAL | | | | | | LAB | | + + + + + -+ | Differentia | AUTOMATED | | EXTERNAL | | | l Type | | | LAB | | + + + + + -+ | % Segmented | 60.32 | % | EXTERNAL | | | | | | LAB | | | Neutrophils | | | | | + + + + + -+ | % | 29.13 | % | EXTERNAL | | | Lymphocytes | | | LAB | | + + + + + -+ | % Monocytes | 8.67 | % | EXTERNAL | | | | | | LAB | | + + + + + -+ | % | 1.15 | % | EXTERNAL | | | Eosinophils | | | LAB | | + + + + + -+ | % Basophils | 0.73 | % | EXTERNAL | | | | | | LAB | | + + + + + -+ | Absolute | 4.97 | 1.90 - 7.40 | EXTERNAL | | | Segmented | | K/uL | LAB | | | Neutrophils | | | | | + + + + + -+ | Absolute | 2.40 | 1.00 - 3.90 | EXTERNAL | | | Lymphocytes | | K/uL | LAB | | + + + + + -+ | Absolute | 0.72 | 0.00 - 0.80 | EXTERNAL | | | Monocytes | | K/uL | LAB | | + + + + + -+ | Absolute | 0.09 | 0.00 - 0.50 | EXTERNAL | | | Eosinophils | | K/uL | LAB | | + + + + + -+ | Absolute | 0.06 | 0.00 - 0.10 | EXTERNAL | | | Basophils | | K/uL | LAB | | + + + + + -+ | Na | 142 | 135 - 145 | EXTERNAL | | | | | mmol/L | LAB | | + + + + + -+ | K | 4.1 | 3.5 - 4.9 | EXTERNAL | | | | | mmol/L | LAB | | + + + + + -+ | Cl | 107 | 99 - 109 mmol/L | EXTERNAL | | | | | | LAB | | + + + + + -+ | CO2 | 26 | 23 - 32 mmol/L | EXTERNAL | | | | | | LAB | | + + + + + -+ | Anion Gap | 13 | 5 - 20 mmol/L | EXTERNAL | | | | | | LAB | | + + + + + -+ | Glucose, | 76 | 65 - 99 mg/dL | EXTERNAL | | | Fasting | | | LAB | | + + + + + -+ | BUN | 23 | 8 - 25 mg/dL | EXTERNAL | | | | | | LAB | | + + + + + -+ | Creatinine | 1.44 (H) | 0.70 - 1.30 | EXTERNAL | | | | | mg/dL | LAB | | + + + + + -+ | BUN/Creatin | 16 | | EXTERNAL | | | ine Ratio | | | LAB | | + + + + + -+ | Calcium | 9.0 | 8.5 - 10.5 | EXTERNAL | | | | | mg/dL | LAB | | + + + + + -+ | Protein, | 7.0 | 6.3 - 8.2 g/dL | EXTERNAL | | | Total | | | LAB | | + + + + + -+ | Albumin | 3.6 | 3.6 - 5.0 g/dL | EXTERNAL | | | | | | LAB | | + + + + + -+ | Globulin | 3.4 | 1.3 - 4.9 g/dL | EXTERNAL | | | | | | LAB | | + + + + + -+ | A/G Ratio | 1.1 | 1.0 - 2.4 | EXTERNAL | | | | | | LAB | | + + + + + -+ | Bilirubin | 1.2 | 0.1 - 1.5 mg/dL | EXTERNAL | | | Total | | | LAB | | + + + + + -+ | ALP, | 92 | 35 - 115 U/L | EXTERNAL | | | External | | | LAB | | + + + + + -+ | AST | 40 | 10 - 45 U/L | EXTERNAL | | | | | | LAB | | + + + + + -+ | ALT | 70 (H) | 10 - 65 U/L | EXTERNAL | | | | | | LAB | | + + + + + -+ | Estimated | 57 (L)Comment: GFR <60: | mL/min/1.73m2 | EXTERNAL | | | GFR | CHRONIC KIDNEY DISEASE, | | LAB | | | | IF FOUND OVER A 3 MONTH | | | | | | PERIOD.GFR <15: KIDNEY | | | | | | FAILURE.FOR | | | | | | AMERICANS, MULTIPLY THE | | | | | | CALCULATED GFR BY 1.210. | | | | | | | | | | + + + + + -+ | CK, Total | 193 | 55 - 400 U/L | EXTERNAL | | | | | | LAB | | + + + + + -+ | INR | 1.1Comment: REFERENCE | | EXTERNAL | | | | RANGE:0.9 - 1.2 | | LAB | | | | NON-ANTICOAGULATED2.0 | | | | | | - 3.0 ALL OTHER | | | | | | THERAPEUTIC | | | | | | INDICATIONS2.5 - 3.5 | | | | | | MECHANICAL HEART VALVES, | | | | | | RECURRENT OR SYSTEMIC | | | | | | EMBOLISM | | | | + + + + + -+ | aPTT, | 26 | 23 - 32 seconds | EXTERNAL | | | Patient | | | LAB | | + + + + + -+ | CK-MB | 5.4 (H) | 0.5 - 3.6 ng/mL | EXTERNAL | | | | | | LAB | | + + + + + -+ | CK-MB Index | 2.8Comment: CK INDEX | | EXTERNAL | | | | INTERPRETATION: | | LAB | | | | MMB ng/mL | | | | | | | | | | | |CK INDEX INTERPRETATION: | | | | | | MMB ng/mL | | | | | | | | | | + + + + + -+ + + | Specimen | + + | | + + + +---------+ + + | Performing | Address | City/State/Zipcode | Phone Number | | Organization | | | | + +---------+ + + | EXTERNAL LAB | | | | + +---------+ + + Troponin I (08/15/2017 4:00 PM PDT) + + + + + + | Component | Value | Ref Range | Performed | Pathologist | | | | | At | Signature | + + + + + + | Troponin I, | <0.04Comment: 0.00 to | 0.00 - 0.10 | EXTERNAL | | | Qual | 0.10 CONSISTENT WITH | ng/mL | LAB | | | | NORMAL POPULATION0.11 to | | | | | | 0.60 CONSISTENT WITH | | | | | | INCREASED RISK FOR | | | | | | ADVERSE OUTCOMES> 0.60 | | | | | | CONSISTENT | | | | | | WITH WHO CRITERIA FOR | | | | | | ACUTE NE Testing | | | | | | performed at [facility], [address], | | | | | | [place] [address] | | | | + + + + + + + + | Specimen | + + | Blood specimen | | (specimen) | + + + +---------+ + + | Performing | Address | City/State/Zipcode | Phone Number | | Organization | | | | + +---------+ + + | EXTERNAL LAB | | | | + +---------+ + + B Type Natriuretic Peptide (08/15/2017 4:00 PM PDT) + + + + + + | Component | Value | Ref Range | Performed | Pathologist | | | | | At | Signature | + + + + + + | BNP | 376 (H)Comment: Testing | 0 - 100 pg/mL | EXTERNAL | | | | performed at [facility], [address] | LAB | | | | [address], | | | | | | [place] [address] | | | | + + + + + + + + | Specimen | + + | Blood specimen | | (specimen) | + + + +---------+ + + | Performing | Address | City/State/Zipcode | Phone Number | | Organization | | | | + +---------+ + + | EXTERNAL LAB | | | | + +---------+ + + ECG 12 lead (08/15/2017 3:58 PM PDT) + + + + + + | Component | Value | Ref Range | Performed | Pathologist | | | | | At | Signature | + + + + + + | DIAGNOSIS: | Normal sinus rhythmRight | | EXTERNAL | | | | ventricular | | LAB | | | | hypertrophyNonspecific | | | | | | ST abnormalityAbnormal | | | | | | ECGNo previous ECGs | | | | | | availableThis ECG | | | | | | contains Unconfirmed | | | | | | Interpretation | | | | | | Statements. See ED | | | | | | Record for Physician | | | | | | Interpretation. | | | | | | Confirmed by MUSE READ | | | | | | ONLY, -COMPUTER ([id number]), | | | | | | legal editor Elida Lucas | | | | | | ([id number]) on 08/16/2017 | | | | | | 2:57:07 AM | | | | + + + + + + + + | Specimen | + + | | + + + + + | Narrative | Performed At | + + + | Historically converted procedure from [place] [facility] | EXTERNAL LAB | + + + + +---------+ + + | Performing | Address | City/State/Zipcode | Phone Number | | Organization | | | | + +---------+ + + | EXTERNAL LAB | | | | + +---------+ + + documented in this encounter Visit Diagnoses + + | Diagnosis | + + | Chest pain, unspecified type | + + | Hypoxia Hypoxemia | + + | Uncontrolled hypertension Unspecified essential hypertension | + + | CLARE (acute kidney injury) (HCC) Acute kidney failure, unspecified | + + | Drug abuse (HCC) Other, mixed, or unspecified nondependent drug abuse, unspecified | + + | Acute nonintractable headache, unspecified headache type | + + documented in this encounter
--- OUTSIDE RECORDS SUMMARY | ~2019-09-23 | XMS | Encounter Summary ---
Demographics + + + | Address | [address] | | | [place] [address] | + + + | Home Phone | | + + + | Preferred Language | Unknown | + + + | Marital Status | Legally | + + + | Jew Affiliation | Unknown | + + + | Race | Unknown | + + + | Ethnic Group | Unknown | + + + Author + + + | Author | [facility] | | | and [place] | + + + | Organization | [facility] | | | and [place] | [...] Team Providers + +------+ + | Care Lug Breaker And Wire Puller Name | Role | Phone | + [...] + + + + | 06/26/ | [facility] | [facility] | Sergei Gamez MD | Acute on chronic | | 2020 - | Encounter | MEDICAL CENTER ACUTE | [address] | respiratory failure | | | | CARE FLOOR [address] | [place], [place] | with hypoxia (HCC) | | 04/04/ | | [address] | [address] | (Primary Dx); Acute | | 2020 | | [place], [place] | [phone] | on chronic diastolic | | | | [address] | | heart failure | | | | [phone] | Veronica Arriola MD | (HCC); Hypervolemia, | | | | | [address] | unspecified | | | | | [place] [address] | hypervolemia type | | | | | [phone] | | | | | | | | | | | | Maxime Cochran MD | | | | | | [address] | | | | | | [place] [address] | | | | | | [phone] | | | | | | | | | | | | Pernell Godoy MD | | | | | | [address] | | | | | | [place] [address] | | | | | | [phone] | | | | | | | | | | | | Markos Sanchez DO | | | | | | [address] | | | | | | [place] [address] | | | | | | [phone] | | | | | | | | | | | | Augustus Mclean MD | | | | | | [address] | | | | | | [place] | | | | | | [address] | | | | | | | | | | | | Teodoro Gutierrez MD | | | | | | [address] | | | | | | [place] [address] | | | | | | [phone] | | | | | | | [...] fraction, and other comorbidities who presented to [facility] on 06/26 with progressivel y worsening [...] Information: Follow up: LILIANA Saez [address] [facility] [address] In 1 week hospital follow up Current [...] ugustus Mclean MD - 2:26 PM PDT [facility] Adult Hospitalist Progress Note Hospital Day: 5 Patient Summary: Briefly, 44-year-old male with a significant past medical history of essential hypertensio n, history of methamphetamine abuse (quit 6 months ago), chronic right heart failure, chroni c heart failure with preserved ejection fraction likely, and other comorbidities who present s to [facility] on 06/26 with progressively worsening shortness [...] hydralazine PRN -COVID-19 negative. -Kindly, see case briefer note for further details. The patient will require set up with outpatient CHF clinic and referral to outpatient architectural wood model maker. Elevated troponin: -Patient presently denies any chest [...] DVT prophylaxis: In place Augustus Mclean MD 2:26 PM 07/02/2019 Augustus Carter MD - 07/01/2019 11:06 AM PDT [facility] Adult Hospitalist Progress Note Hospital Day: 4 Patient Summary: Briefly, 44-year-old male with a significant past medical history of essential hypertensio n, history of methamphetamine abuse (quit 6 months ago), chronic right heart failure, chroni c heart failure with preserved ejection fraction likely, and other comorbidities who present s to [facility] on 06/26 with progressively worsening shortness [...] Will continue to monitor. Ezio Booker RN 0085: pt tapered down to approx 3L per [...] note might be different from the original. [facility] Adult Hospitalist Progress Note Hospital Day: 3 Patient Summary: Briefly, 44-year-old male with a significant past medical history of essential hypertensio n, history of methamphetamine abuse (quit 6 months ago), chronic right heart failure, chroni c heart failure with preserved ejection fraction likely, and other comorbidities who present s to [facility] on 06/26 with progressively worsening shortness [...] notes minimal/no shortness of breath at rest; [facility] er, the patient does get dyspneic with [...] Carter MD - 06/29/2019 10:16 AM PDT [facility] Adult Hospitalist Progress Note Hospital Day: 2 Patient Summary: Briefly, 44-year-old male with a significant past medical history of essential hypertensio n, history of methamphetamine abuse (quit 6 months ago), chronic right heart failure, chroni c heart failure with preserved ejection fraction likely, and other comorbidities who present s to [facility] on 06/26 with progressively worsening shortness [...] Arriola MD - 06/27/2019 7:52 PM PDT [facility] Service: Hospitalist Admission History & Physical Date [...] 05/19 for dyspnea along with [facility] at [facility]. He was transferred to [facility] for acute on chronic right-sided heart failure [...] file Gets together: Not on file Attends scientologist service: Not on file Active member of [...] Will repeat echocardiogram. Also patient admitted at [facility] 05/20, will request records. Acute hypoxic respiratory failure: most likely will need fdc oxygen as dyspnea due to pulmonary hypertension. [...] LILIANA Saez MD 06/27/2019 documented in this [facility] ED Notes Segrei Gamez MD - 06/27/2019 3:33 PM PDTFormatting of this note might be different from t he original. [facility] Department of Emergency Medicine 7:59 PM Pt [...] file Gets together: Not on file Attends scientologist service: Not on file Active member of [...] includes, but is not limited to: acute CO, unstable angina, thoracic aortic dissection, pneumothorax, PE, myocarditis, pericarditis, esophagitis, musculoskeletal disorder, pleurisy, anxiety, vs other. Considered COVID19 as trigger for his CHF and so wore appropriate PPE and face shiel d during my clinical encounter. Will obtain labs and imaging and reevaluate the patient. ====EKG Interpretation==== The following EKG interpreted by Me Time: 15:04 Rate: 88 Rhythm: NSR [place]: normal Intervals: qrs 94 ST: No significant [...] on chronic respiratory failure with hypoxia (HCC) [[id number]] Clinical impression: Acute on chronic diastolic heart failure (HCC) [428.33.ICD-9-CM] Clinical impression: Hypervolemia, unspecified hypervolemia type [7191068] Admitting provider: [facility] [[id number]] Expected patient class: Inpatient [101] Level of [...] Current Outpt/Agency/Support Groups: none Community Agency Name: ([facility] food stamps) Neptune of Choice: given Other Resources: offered Pt declined, wanting to leave hospital today Equipment Durable Medical Equipment Provider: Home Equipment at Discharge: Equipment Used at Home: none Pharmacy Pharmacy/Medication needs: ([facility]) Notes: Pt stated he wanted to leave hospital today.Pt to discharge home today 07/03/19. Pt st ated he had a place to go, if needed he could go to friends or [place]. Pt's [place], [place], can contact friend if needed. Prescription [...] Medium Current Discharge Plan Anticipated Discharge Disposition: correction/friends Expected DC Date: TBD Barriers to Discharge: Pt is homeless Steps Taken Toward Discharge: (CM discussed by phone w/pt initial discharge plan) Next Steps: (f/u on placement issues) Community Support Services Current Outpt/Agency/Support Groups: none Community Agency Name: ([facility] food stamps) Discharge Transportation Transportation Needs: Pt car in [facility] parking garage Notes:Pt will likely discharge to the [facility] when medically stable. Pt is still requiring [...] on while ambulating. lan of Care - [facility], Keyla Bey RN - 06/28/2019 1:20 PM PDTCare Management Initial Assessment Readmission Risk: Medium Status Prior to Admission or Illness Arrival From: home or self-care Lives With: alone Living Arrangements: homeless Caregiver For: no one Patient s Caregiver: Functional Status: IADLs, lives out of his car currently. Caregiving Concerns: Home Accessibility: no concerns Transportation Available: car(Pt car in in [facility] garage) Able to return to prior living: may need placement @ [place] or [facility]. Pending Covid19 re [place]. Care [...] Current Outpt/Agency/Support Groups: none Community Agency Name: ([facility] food stamps) Anticipated Changes Related to Illness: inability to care for self Concerns to be Addressed: homelessness/housing concerns Services Anticipated at Discharge: education services Equipment Used at Home: none Equipment Needed after Discharge: Durable Medical Equipment Provider: Pharmacy/Medication Needs: ([facility]) Transportation Needs: no home, pt car in garage. Initial Plan Anticipated Discharge Disposition: correction Expected DC Date: Steps Taken Toward Discharge: (CM discussed by phone w/pt initial discharge plan) Next Steps: (f/u on placement issues) Notes: Pt lives out of his car. Claims has food stamps for meals. States, he has no conta cts. Pt has not been to the [place]. He lives from place to place when available. Electronically signed: KEYLA WILKERSON RN 06/28/2019 1:21 PM lan of [...] | + +--------+ + + + | RT BLOOD [place] | STAT | 06/27/2019 | | | | OF CARE | | 2:54 PM | | | [...] W?MRN: | | | | | | [id number] | | | [id number] | | | riteri | | | [...] | | | St. | | | [place] | | | y | | | [...] | | | St. | | | [place] | | | y H. | | [...] | | | St. | | | [place] | | | y H. | | [...] | | | St. | | | [place] | | | y H. | | [...] | | | St. | | | [place] | | | y H. | | [...] | | | St. | | | [place] | | | y H. | | [...] | | | St. | | | [place] | | | y H. | | [...] | | | St. | | | [place] | | | y H. | | [...] | >60Comment: GFR <60: | >60 | [facility] | | | GFR | CHRONIC KIDNEY [...] | | | | | performed at [facility], [address] | | | | | | [facility], | | | | | | [place] [address] | | | | + + + + + + + + | Specimen | + + | Blood | + + + + + + + | Performing | Address | City/State/Zipcode | Phone Number | | Organization | | | | + + + + + | [facility] | [address] | [place] [address] | [phone] | + + + + + Magnesium (07/02/2019 5:33 AM PDT) + + + + + + | Component | Value | Ref Range | Performed | Pathologist | | | | | At | Signature | + + + + + + | Magnesium | 2.1Comment: Testing | 1.7 - 2.4 mg/dL | [facility] | | | | performed at [facility], [address] | | LABORATORY | | | | [address], | | | | | | [place] [address] | | | | + + + + + + + + | Specimen | + + | | + + + + + + + | Performing | Address | City/State/Zipcode | Phone Number | | Organization | | | | + + + + + | [facility] | [address] | [place] [address] | [phone] | + + + + + Renal [...] | >60Comment: GFR <60: | >60 | [facility] | | | GFR | CHRONIC KIDNEY [...] | | | | | | MDRD IDNV traceable | | | | | | equation.Testing | | | | | | performed at [facility], [address] | | | | | | [facility], | | | | | | [place] [address] | | | | + + + + + + + + | Specimen | + + | Blood | + + + + + + + | Performing | Address | City/State/Zipcode | Phone Number | | Organization | | | | + + + + + | [facility] | [address] | [place] [address] | [phone] | + + + + + Potassium (07/01/2019 4:54 AM PDT) + + + + + + | Component | Value | Ref Range | Performed | Pathologist | | | | | At | Signature | + + + + + + | K | 3.9Comment: Testing | 3.5 - 4.9 | [facility] | | | | performed at [facility];[address] | mmol/L | LABORATORY | | | | [address];[place], [place] | | | | | | [address] | | | | + + + + + + + + | Specimen | + + | Blood | + + + + + + + | Performing | Address | City/State/Zipcode | Phone Number | | Organization | | | | + + + + + | [facility] | [address] | [place] [address] | [phone] | + + + + + Magnesium (06/30/2019 5:35 AM PDT) + + + + + + | Component | Value | Ref Range | Performed | Pathologist | | | | | At | Signature | + + + + + + | Magnesium | 2.1Comment: Testing | 1.7 - 2.4 mg/dL | [facility] | | | | performed at [facility], [address] | | LABORATORY | | | | [address], | | | | | | [place] [address] | | | | + + + + + + + + | Specimen | + + | | + + + + + + + | Performing | Address | City/State/Zipcode | Phone Number | | Organization | | | | + + + + + | [facility] | [address] | [place] [address] | [phone] | + + + + + Renal [...] | | | | | performed at [facility], [address] | | | | | | [facility], | | | | | | [place] [address] | | | | + + + + + + + + | Specimen | + + | Blood | + + + + + + + | Performing | Address | City/State/Zipcode | Phone Number | | Organization | | | | + + + + + | [facility] | [address] | [place] [address] | [phone] | + + + + + Potassium (06/29/2019 7:17 PM PDT) + + + + + + | Component | Value | Ref Range | Performed | Pathologist | | | | | At | Signature | + + + + + + | K | 3.8Comment: Testing | 3.5 - 4.9 | [facility] | | | | performed at [facility];[address] | mmol/L | LABORATORY | | | | [address];[place], [place] | | | | | | [address] | | | | + + + + + + + + | Specimen | + + | Blood | + + + + + + + | Performing | Address | City/State/Zipcode | Phone Number | | Organization | | | | + + + + + | [facility] | [address] | [place] [address] | [phone] | + + + + + Phosphorus (06/29/2019 6:29 AM PDT) + + + + + + | Component | Value | Ref Range | Performed | Pathologist | | | | | At | Signature | + + + + + + | Phosphorus | 4.0Comment: Testing | 2.3 - 4.8 mg/dL | [facility] | | | | performed at [facility];[address] | | LABORATORY | | | | [address];[place] | | | | | | [address] | | | | + + + + + + + + | Specimen | + + | Blood | + + + + + + + | Performing | Address | City/State/Zipcode | Phone Number | | Organization | | | | + + + + + | [facility] | [address] | [place] [address] | [phone] | + + + + + Magnesium (06/29/2019 6:29 AM PDT) + + + + + + | Component | Value | Ref Range | Performed | Pathologist | | | | | At | Signature | + + + + + + | Magnesium | 1.4 (L)Comment: Testing | 1.7 - 2.4 mg/dL | [facility] | | | | performed at [facility];[address] | | LABORATORY | | | | [address];[place] | | | | | | [address] | | | | + + + + + + + + | Specimen | + + | Blood | + + + + + + + | Performing | Address | City/State/Zipcode | Phone Number | | Organization | | | | + + + + + | [facility] | [address] | [place] [address] | [phone] | + + + + + Basic [...] | | | | | performed at [facility];[address] | | | | | | [facility];[place], [place] | | | | | | [address] | | | | + + + + + + + + | Specimen | + + | Blood | + + + + + + + | Performing | Address | City/State/Zipcode | Phone Number | | Organization | | | | + + + + + | [facility] | [address] | [place] [address] | [phone] | + + + + + CBC [...] + + + + + + | RBC | 4.71 | 4.20 - 5.70 | [facility] | | | | | M/uL | LABORATORY | | [...] + + + | Absolute | 0.88 () | 0.00 - 0.80 | [facility] | [...] | | | Absolute | performed at [facility];[address] | K/uL | LABORATORY | | | | [address];[place] | | | | | | [address] | | | | + + + + + + + + | Specimen | + + | Blood | + + + + + + + | Performing | Address | City/State/Zipcode | Phone Number | | Organization | | | | + + + + + | [facility] | [address] | [place] [address] | [phone] | + + + + + ECHO [...] (H)Comment: 0.04 | 0.00 - 0.04 | [facility] | | | | ng/mL or less [...] at | | | | | | [facility];[address] [facility] | | | | | | Blvd;[place] [address] | | | | + + + + + + + + | Specimen | + + | Blood | + + + + + + + | Performing | Address | City/State/Zipcode | Phone Number | | Organization | | | | + + + + + | [facility] | [address] | [place] [address] | [phone] | + + + + + Comprehensive [...] | | | | | performed at [facility];[address] | | | | | | [facility];[place], [place] | | | | | | [address] | | | | + + + + + + + + | Specimen | + + | Blood | + + + + + + + | Performing | Address | City/State/Zipcode | Phone Number | | Organization | | | | + + + + + | [facility] | [address] | [place] [address] | [phone] | + + + + + CBC [...] + + + + + + | RBC | 4.78 | 4.20 - 5.70 | [facility] | | | | | M/uL | LABORATORY | | [...] LABORATORY | | | | performed at [facility];[address] | | | | | | [address];[place], [place] | | | | | | [address] | | | | + + + + + + + + | Specimen | + + | Blood | + + + + + + + | Performing | Address | City/State/Zipcode | Phone Number | | Organization | | | | + + + + + | [facility] | [address] | [place] [address] | [phone] | + + + + + Troponin I (06/27/2019 9:48 PM PDT) + + + + + + | Component | Value | Ref Range | Performed | Pathologist | | | | | At | Signature | + + + + + + | Troponin I | 0.046 (H)Comment: 0.04 | 0.00 - 0.04 | [facility] | | | | ng/mL or less [...] at | | | | | | [facility];[address];[place] [address] | | | | + + + + + + + + | Specimen | + + | Blood | + + + + + + + | Performing | Address | City/State/Zipcode | Phone Number | | Organization | | | | + + + + + | [facility] | [address] | [place] [address] | [phone] | + + + + + POC CG 4, ISTAT Arterial (06/27/2019 4:15 PM PDT) + + + + + + | Component | Value | Ref Range | Performed | Pathologist | | | | | At | Signature | + + + + + + | pH, | 7.460 (H)Comment: This | 7.350 - 7.450 | [facility] | | | Arterial, | test was [...] | | | | | performed at [facility];[address] | | | | | | [address];[place], [place] | | | | | | [address] | | | | + + + + + + + + | Specimen | + + | | + + + + + + + | Performing | Address | City/State/Zipcode | Phone Number | | Organization | | | | + + + + + | [facility] | [address] | [place] [address] | [phone] | + + + + + XR [...] + + | Bill, Rad Results In 06/27/2019 4:14 PM PDT | | CHEST [...] + + | Performing | Address | City/State/[facility] | Phone Number | | Organization [...] | Not DetectedComment: | Not Detected | [facility] | | | [facility] | Testing was performed | | LABORATORY | | | (COVID-19) | using the robert(R) | | | | | | SARS-CoV-2 test.This | | | | | | test was developed and | | | | | | its performance | | | | | | characteristicsdetermine | | | | | | d by [facility] | | | | | | [...] | | | | | performed at [facility] | | | | | | [place], [address] | | | | | | [address], | | | | | | [place], [id number]. | | | | + + + + + + + + | Specimen | + + | Tissue - Entire | | nasopharynx (body | | structure) | + + + + + + + | Performing | Address | City/State/Zipcode | Phone Number | | Organization | | | | + + + + + | [facility] | [address] | [place] [address] | [phone] | + + + + + ECG [...] | | | | | ONLY, -COMPUTER ([id number]), | | | | | | non linear editor Mack Hebert | | | | [...] | | | | | performed at [facility];[address] | | | | | | [address];[place], [place] | | | | | | [address] | | | | + + + + + + + + | Specimen | + + | Blood | + + + + + + + | Performing | Address | City/State/Zipcode | Phone Number | | Organization | | | | + + + + + | [facility] | [address] | [place] [address] | [phone] | + + + + + Troponin I (06/27/2019 2:55 PM PDT) + + + + + + | Component | Value | Ref Range | Performed | Pathologist | | | | | At | Signature | + + + + + + | Troponin I | 0.058 (H)Comment: 0.04 | 0.00 - 0.04 | [facility] | | | | ng/mL or less [...] at | | | | | | [facility];[address] [facility] | | | | | | [facility];[place] [address] | | | | + + + + + + + + | Specimen | + + | Blood | + + + + + + + | Performing | Address | City/State/Zipcode | Phone Number | | Organization | | | | + + + + + | [facility] | [address] | [place] [address] | [phone] | + + + + + Comprehensive [...] | | | | | performed at [facility];[address] | | | | | | [address];[place] | | | | | | [address] | | | | + + + + + + + + | Specimen | + + | Blood | + + + + + + + | Performing | Address | City/State/Zipcode | Phone Number | | Organization | | | | + + + + + | [facility] | [address] | [place] [address] | [phone] | + + + + + CBC [...] + + + + + + | RBC | 5.17 | 4.20 - 5.70 | [facility] | | | | | M/uL | LABORATORY | | [...] | | | Absolute | performed at [facility];[address] | K/uL | LABORATORY | | | | [address];[place], [place] | | | | | | [address] | | | | + + + + + + + + | Specimen | + + | Blood | + + + + + + + | Performing | Address | City/State/Zipcode | Phone Number | | Organization | | | | + + + + + | [facility] | [address] | [place] [address] | [phone] | + + + + + B Type Natriuretic Peptide (06/27/2019 2:55 PM PDT) + + + + + + | Component | Value | Ref Range | Performed | Pathologist | | | | | At | Signature | + + + + + + | BNP | 1,344.20 (H)Comment: | 0 - 100 pg/mL | [facility] | | | | Testing performed at | | LABORATORY | | | | [facility];[address] | | | | | | [address];[place] [address] | | | | + + + + + + + + | Specimen | + + | Blood | + + + + + + + | Performing | Address | City/State/Zipcode | Phone Number | | Organization | | | | + + + + + | [facility] | [address] | [place] [address] | [phone] | + + + + + documented [...] | | | (after last modification) on Anna | | | | | | | [...] Additional Health Concerns + + + + | Infection | Noted Time | Resolved Time | + + + + | Rule out COVID-19 | 06/27/2019 2:54 PM | 06/30/2019 8:50 AM | | | PDT | PDT | + + + + documented as of this encounter
--- OUTSIDE RECORDS SUMMARY | ~2019-09-23 | XMS | Encounter Summary ---
Demographics + + + | Address | [address] | | | [place] [address] | + + + | Home Phone [...] + + + | Author | [facility] | | | and [place] | + + + | Organization | [facility] | | | and [...] Team Providers + +------+ + | Care Mortgage Loan Assistant Name | Role | Phone | + +------+ + | Penelope Gage | PCP | | + +------+ + Encounter Details +--------+ + + + + | Date | Type | Department | Care Team | Description | +--------+ + + + + | 08/16/ | Orders Only | [facility] | Teto Broussard MD | | | 2018 | | [facility] [address] | [address] | | | | | [address] | [address] [facility] | | | | | [place] | [id number] | | | | | [address] | | | | | | [phone] | | | +--------+ + + + [...] Visit Diagnoses Not on filedocumented in this encounter Additional Health Concerns + + + + | Infection | Noted Time | Resolved Time | + + + + | Rule out COVID-19 | 06/27/2019 2:54 PM | 06/30/2019 8:50 AM | | | PDT | PDT | + + + + documented as of this encounter"
--- OUTSIDE RECORDS SUMMARY | ~2019-09-23 | XMS | Clinical Summary ---
Demographics + + + | Address | [address] | | | [place] [address] | + + + | Home Phone | | + + + | Preferred Language | Unknown | + + + | Marital Status | Legally | + + + | Hindu Affiliation | Unknown | + + + | Race | Unknown | + + + | Ethnic Group | Unknown | + + + Author + + + | Author | [facility] | | | and Jobyana | + + + | Organization | [facility] | | | and [...] Team Providers + +------+ + | Care Metal Welder Name | Role | Phone | + [...] Telephone | Hospitalist | Zunilda Chávez | Kelly ([facility]) | | 2019 | | | BRIANA Enriquez | | +--------+ + + + + | 06/26/ | Hospital | Internal Medicine | Sergei Gamez MD | Acute on chronic | | 2019 - | Encounter | | Veronica Arriola MD | respiratory failure | | | | | Maxime Cochran MD | with hypoxia ([facility]) | | 07/02/ | | | Pernell Godoy, | (Primary Dx); Acute | | 2019 | | | Markos Wells, | on chronic diastolic | | | | | DO Ablemona, | heart failure | | | | | MD Matt Coffman, | ([facility]); Hypervolemia, | | | | | MD Teodoro | unspecified | | | | | | hypervolemia type | +--------+ + + + + from [...] Vaccine: Influenza | | | | | (Season Ended) | 0 | | | + + +-------+ + Procedures + +--------+ + + + | [...] | | n - | | | 06/26/ | | | 2019 | | | [...] W?MRN: | | | | | | [id number] | | | [id number] | | | riteri | | | [...] | | | St. | | | [facility] | | | y | | | [...] | | | St. | | | Gates | | | y H. | | [...] | | | St. | | | Gates | | | y H. | | [...] | | | St. | | | Gates | | | y H. | | [...] | | | St. | | | Gates | | | y H. | | [...] | | | St. | | | Gates | | | y H. | | [...] | | | St. | | | Gates | | | y H. | | [...] | | | St. | | | Gates | | | y H. | | [...] | | | ed.? | | | 2019 | | | Collec | | | tive | | | Medica | | | l | | | Techno | | | logies | | | , Inc. | | | - | | | [email or web address] | | | llecti | | | vemedi | | | [email or web address] | | | m | +---+--------+ from Last 3 Months Results Renal Function Panel (07/03/2019 5:11 AM PDT)Only the most recent of 3 results within the time period is included. + + + + + + | [...] | >60Comment: GFR <60: | >60 | [facility] | | | GFR | CHRONIC KIDNEY [...] | | | | | performed at [facility], [address] | | | | | | [facility], | | | | | | [place] [address] | | | | + + + + + + + + | Specimen | + + | Blood | + + + + + + + | Performing | Address | City/State/Zipcode | Phone Number | | Organization | | | | + + + + + | [facility] | [address] | [place] [address] | [phone] | + + + + + Magnesium (07/02/2019 5:33 AM PDT)Only the most recent of 3 results within the time period is included. + + + + + + | Component | Value | Ref Range | Performed | Pathologist | | | | | At | Signature | + + + + + + | Magnesium | 2.1Comment: Testing | 1.7 - 2.4 mg/dL | [facility] | | | | performed at [facility], [address] | | LABORATORY | | | | [address], | | | | | | [place] [address] | | | | + + + + + + + + | Specimen | + + | | + + + + + + + | Performing | Address | City/State/Zipcode | Phone Number | | Organization | | | | + + + + + | [facility] | [address] | [place] [address] | [phone] | + + + + + Potassium (07/01/2019 4:54 AM PDT)Only the most recent of 2 results within the time period is included. + + + + + + | Component | Value | Ref Range | Performed | Pathologist | | | | | At | Signature | + + + + + + | K | 3.9Comment: Testing | 3.5 - 4.9 | [facility] | | | | performed at [facility];[address] | mmol/L | LABORATORY | | | | [address] [facility];[place], [place] | | | | | | [address] | | | | + + + + + + + + | Specimen | + + | Blood | + + + + + + + | Performing | Address | City/State/Zipcode | Phone Number | | Organization | | | | + + + + + | [facility] | [address] | [place] [address] | [phone] | + + + + + CBC with Differential (06/29/2019 6:29 AM PDT)Only the most recent of 2 results within the time period is included. + + + + + + | [...] 0.03Comment: Testing | 0.00 - 0.10 | [facility] | | | Absolute | performed at [facility];[address] | K/uL | LABORATORY | | | | [address];[place] | | | | | | [address] | | | | + + + + + + + + | Specimen | + + | Blood | + + + + + + + | Performing | Address | City/State/Zipcode | Phone Number | | Organization | | | | + + + + + | [facility] | [address] | [place] [address] | [phone] | + + + + + Phosphorus (06/29/2019 6:29 AM PDT) + + + + + + | Component | Value | Ref Range | Performed | Pathologist | | | | | At | Signature | + + + + + + | Phosphorus | 4.0Comment: Testing | 2.3 - 4.8 mg/dL | [facility] | | | | performed at [facility];[address] | | LABORATORY | | | | [address] [facility];[place], [place] | | | | | | [address] | | | | + + + + + + + + | Specimen | + + | Blood | + + + + + + + | Performing | Address | City/State/Zipcode | Phone Number | | Organization | | | | + + + + + | [facility] | [address] | [place] [address] | [phone] | + + + + + Basic [...] | 8.9 | 8.5 - 10.5 | [facility] | | | | | mg/dL | LABORATORY | | + + + + + + | Estimated | >60Comment: GFR <60: | >60 | [facility] | | | GFR | CHRONIC KIDNEY [...] | | | | | | MDRD IDNE traceable | | | | | | equation.Testing | | | | | | performed at [facility];[address] | | | | | | [facility];[place], [place] | | | | | | [address] | | | | + + + + + + + + | Specimen | + + | Blood | + + + + + + + | Performing | Address | City/State/Unm Psychiatric Centercode | Phone Number | | Organization | | | | + + + + + | [facility] | [address] | [place] [address] | [phone] | + + + + + ECHO [...] + + Troponin I (06/28/2019 4:23 AM PDT)Only the most recent of 3 results within the time aleksandar soto is included. + + + + + + | Component | Value | Ref Range | Performed | Pathologist | | | | | At | Signature | + + + + + + | Troponin I | 0.054 (H)Comment: 0.04 | 0.00 - 0.04 | [facility] | | | | ng/mL or less [...] at | | | | | | [facility];[address] [place] [address] | | | | | | [facility];[place] [address] | | | | + + + + + + + + | Specimen | + + | Blood | + + + + + + + | Performing | Address | City/State/Zipcode | Phone Number | | Organization | | | | + + + + + | [facility] | [address] | [place] [address] | [phone] | + + + + + CBC [...] LABORATORY | | | | performed at [facility];[address] | | | | | | [address];[place] | | | | | | [address] | | | | + + + + + + + + | Specimen | + + | Blood | + + + + + + + | Performing | Address | City/State/Zipcode | Phone Number | | Organization | | | | + + + + + | [facility] | [address] | [place] [address] | [phone] | + + + + + Comprehensive Metabolic Panel (06/28/2019 4:22 AM PDT)Only the most recent of 2 results wi thin the time period is included. + + + + + + | [...] | | | | | | MDRD [facility] traceable | | | | | | equation.Testing | | | | | | performed at [facility];[address] | | | | | | [facility];[place], [place] | | | | | | [address] | | | | + + + + + + + + | Specimen | + + | Blood | + + + + + + + | Performing | Address | City/State/Zipcode | Phone Number | | Organization | | | | + + + + + | [facility] | [address] | [place] [address] | [phone] | + + + + + POC CG 4, ISTAT Arterial (06/27/2019 4:15 PM PDT) + + + + + + | Component | Value | Ref Range | Performed | Pathologist | | | | | At | Signature | + + + + + + | pH, | 7.460 (H)Comment: This | 7.350 - 7.450 | [place] | | | Arterial, | test was [...] | | | | | performed at [facility];[address];[place] | | | | | | [address] | | | | + + + + + + + + | Specimen | + + | | + + + + + + + | Performing | Address | City/State/Zipcode | Phone Number | | Organization | | | | + + + + + | [facility] | [address] | [place] [address] | [phone] | + + + + + XR [...] Not Detected | [facility] | | | [facility] | Testing was performed | | LABORATORY | | | (COVID-19) | using the robert(R) | | | | | | SARS-CoV-2 test.This | | | | | | test was developed and | | | | | | its performance | | | | | | characteristicsdetermine | | | | | | d by [facility] | | | | | | Laboratories. [...] | | | | | performed at [facility] | | | | | | [place], [address] | | | | | [address], | | | | | | [place], [place]. | | | | + + + + + + + + | Specimen | + + | Tissue - Entire | | nasopharynx (body | | structure) | + + + + + + + | Performing | Address | City/State/Zipcode | Phone Number | | Organization | | | | + + + + + | [facility] | [address] | [place] [address] | [phone] | + + + + + ECG [...] (500), | | | | | | clinical editor Mack [place] | | | | [...] | | | | | performed at [facility] | | | | | | [address];[place], [place] | | | | | | [address] | | | | + + + + + + + + | Specimen | + + | Blood | + + + + + + + | Performing | Address | City/State/Zipcode | Phone Number | | Organization | | | | + + + + + | [facility] | [address] | [place] [address] | [phone] | + + + + + B Type Natriuretic Peptide (06/27/2019 2:55 PM PDT) + + + + + + | Component | Value | Ref Range | Performed | Pathologist | | | | | At | Signature | + + + + + + | BNP | 1,344.20 (H)Comment: | 0 - 100 pg/mL | [facility] | | | | Testing performed at | | LABORATORY | | | | [facility];[address];[place] [address] | | | | + + + + + + + + | Specimen | + + | Blood | + + + + + + + | Performing | Address | City/State/Zipcode | Phone Number | | Organization | | | | + + + + + | [facility] | [address] | [place] [address] | [phone] | + + + + + from Last 3 Months Insurance + +--------+ +--------+ [...] | [employer] | [employer] | [id number] | | [phone] | | [employer] | [...] | + +--------+ +--------+ + + | Carole Terry | Person | Self [birth year] | [address] | | | al/Fam | | 1975 | [phone] | [place] [address] | | | [place] | | | 5 (Home) | | + +--------+ +--------+ + + Advance Directives + + + + + | Type | Date Recorded | Patient | Explanation | | | | Occupational Rehabilitation Aide | | + + + + + | Power of | | | | | Product Design Specialist | | | | + + + [...]
--- OUTSIDE RECORDS SUMMARY | ~2019-09-23 | XMS | Encounter Summary ---
Demographics + + + | Address | [address] | | | [place] [address] | + + + | Home Phone | | + + + | Preferred Language | Unknown | + + + | Marital Status | Legally | + + + | Uatsdin Affiliation | Unknown | + + + | Race | Unknown | + + + | Ethnic Group | Unknown | + + + Author + + + | Author | [facility] | | | and Jobyana | + + + | Organization | [facility] | | | and [...] Team Providers + +------+ + | Care Newspaper Clipper Name | Role | Phone | + +------+ + PCP | Unavailable | + +------+ + Encounter Details +--------+ + + + + | Date | Type | Department | Care Team | Description | +--------+ + + + + | 04/23/ | Emergency | [facility] | Thor Soria | Cough; | | 2019 | | MEDICAL [facility]ENTER | DO Scott [address] | Viral syndrome | | | | EMERGENCY CENTER | [address] | | | | | [address] | [place], [place] | | | | | [place], [place] | [address] | | | | | [address] | [phone] | | | | | [phone] | | | +--------+ + + + [...] 04/23/182317 Date of Service: 04/23/182316 Status: Signed Management Trainee Program Stores: Charlee Quintanilla RN (Registered Nurse) Assumed care of patient at this time. Report received from BRIANA Garcia. Charlee Quintanilla RN 04/23/182317 onver pamela Transaction, Provider Unknown - 04/23/2018 11:05 PM PST ED Notes by Lani Brand RN at 04/23/182304 Author: Lani Brand RN Service: (none) Author Type: Registered Nurse Filed: 04/23/182309 Date of Service: 04/23/182304 Status: Signed Management Trainee Program Stores: Lani Brand RN (Registered Nurse) Pt c/o [...] Filed: 04/24/18 0144 Date of Service: 04/23/18 263 Status: Signed Management Trainee Program Stores: Thor Soria DO (Physician) [facility] Department of Emergency Medicine 11:00 PM History [...] sore throat CV/Resp: Positive for chest pain, [id number], cough GI: Negative for abdominal pain, nausea, [...] Ref Range Date/Time INFLUENZA A AND B [[id number]] Collected: 04/23/182314 Order Status: Completed Updated: 04/23/182345 INFLUENZA A NEGATIVE NEGATIVE INFLUENZA B NEGATIVE NEGATIVE Flu Swab [[id number]] Collected: 04/23/182305 Order Status: Completed Specimen: Nasal [...] up of your emergency department visit [facility] [address] [facility] Emergency Department Emergency Medicine Go to If symptoms worsen [address] [facility] [address] Discharge Medications: Discharge Medication List as of [...] performed by Molecular Methodology Testing performed at [facility];[address] | | | Jessica;[place] [address] | | + + + + +---------+ [...] EXTERNAL LAB | | Testing performed at [facility];[address] [facility];[place] [address] | | + + + + +---------+ [...]
--- NOTE | 2019-09-23 16:29 | NUR ---
PATIENT RESTING IN BED AT THIS TIME. PATIENT ARRIVED VIA STRETCHER AND WAS ABLE TO STAND AND TRANSFER ON HIS OWN TO THE BED. PATIENT TOLERATED WELL. PATIENTS AT THE BEDSIDE AND EDUCATED IF HE GOES BACK ON THE BIPAP SHE WILL HAVE TO LEAVE. PATIENT AND FAMILY AGREEABLE TO PLAN OF CARE. CALLED AND SPOKE WITH MD TO VERIFY PRECAUTIONS. PER MD PATIENT IS NOT A SUSPECTED OR R/O COVID AND DOES NOT NEED TO BE ON PRECAUTIONS UNLESS GETTING AEROSOLIZED PROCEDURES. PATIENT IS CURRENTLY ON 3-4L OYGEN VIA LA. PATIENT DENIES ANY OTHER NEEDS AT THIS TIME. DINNER ORDERED. WILL CONTINUE TO CLOSELY MONITOR.
--- NOTE | 2019-09-23 17:00 | NUR ---
PATIENT RESTING IN BED WITH HIS EYES SHUT. PATIENT DENEIS ANY NEEDS, BUT HAS CALL LIGHT IN PLACE. WILL CONTINUE TO CLOSELY MONITOR.
--- NOTE | 2019-09-23 18:56 | NUR ---
PATIENT ATE 100% OF HIS DINNER AND TOLERATED WELL. PATIENT REMAINS ON 4L NC. PATIENT CATHETER EMPTIED AND PATIENT HAS HAD GREAT URINE RETURN WITH BUMEX GTT. WILL CONTINUE TO CLOSELY MONITOR.
--- NOTE | 2019-09-23 19:15 | NUR ---
Report received, orders acknowledged.
--- NOTE | 2019-09-23 20:00 | NUR ---
Patient laying in bed with eyes closed, rouses easily to voice. Patient requests blinds drawn, which is accommodated. Vital signs taken, assessment complete. Anasarca noted. BLE tight and painful to the touch, 2+ pitting edema noted. Presumably would be 3-4+ pitting edema if less swelling and tightness in lower extremities. PM medications given. Alfredo emptied, 1400 mls of dilute urine. 4LNC in place, SpO2 of 95%. Lung sounds clear throughout all lobes. Warm blanket provided, patient denies further needs. Call light within reach.
--- NOTE | 2019-09-23 21:15 | NUR ---
Dr. Porras called, new orders acknowledged. Bumex gtt titrated to 0.25 mg/hr. Patient sleeping in bed, respirations even and unlabored. HR in the 80's, SpO2 of 95% on 4LNC. Call light within reach.
--- NOTE | 2019-09-23 22:02 | NUR ---
Patient sleeping in bed, respirations even and unlabored. HR in the 70-80's. SpO2 ranging from 93-95% on 4LNC. Urine output of 450 mls, yellow in color. Bumex gtt at 0.25mg/hr. Call light within reach.
--- NOTE | 2019-09-23 23:05 | NUR ---
Patient sleeping in bed, respirations even and unlabored. HR in the 80's, SpO2 of 96% on 4LNC. 175 mls of dark yellow urine emptied from bills. Call light within reach.
--- NOTE | 2019-09-24 00:01 | NUR ---
Patient restless in bed, reports pain in back of 8/10. In addition, reports heartburn. PRN maalox given, PRN acetaminophen given. Vitals taken, assessment complete. Fine crackles auscultated in bases of lungs. 2-3+ pitting edema noted in BLE. Distended abdomen of severe grade noted, tender to the touch. Patient sits up at edge of bed with feet on floor to relieve back pain. Dyspnea noted on exertion. HR in the 80's, SpO2 of 94% on 4LNC. After several minutes, patient lays back down in bed with RN assistance. HOB elevated, warm blankets provided. Patient denies needs at this time, call light within reach.
--- NOTE | 2019-09-24 01:09 | NUR ---
Dr. Porras called and notified of 12 beat run of vtach. Orders acknowledged to continue bumex gtt at 0.25mg/hr, unless systolic BP of 100. Patient sleeping in bed, respirations even and unlabored. Manual BP taken of 104/62 in left arm. Sinus rhythm noted currently. HR in the 70's. SpO2 of 93% on 4LNC. Call light within reach.
--- NOTE | 2019-09-24 01:09 | NUR ---
Run of 12 beats of vtach noted on monitor car operator. Patient sleeping in bed, respirations even and unlabored. Chest rise and fall observed. HR jumps to 110's, quickly returns to 70's. BP of 104/62. Bumex gtt placed on standby while Dr. Porras called and notified. Orders acknowledged to continue infusing bumex gtt unless systolic BP less than 100. Bumex gtt resumed at 0.25 mg/hr. Patient continues sleeping in bed, respirations even and unlabored. Call light within reach.
--- NOTE | 2019-09-24 01:30 | NUR ---
New orders acknowledged. 2gm mag sulfate hung and infusing at 50 mls/hr. Bumex gtt continues infusing at 0.25 mg/hr. Patient sleeping in bed, respirations even and unlabored. Rouses easily to voice. Denies needs at this time, call light within reach.
--- NOTE | 2019-09-24 02:00 | NUR ---
Patient laying in bed, HOB elevated. Respirations even and unlabored on 4LNC, SpO2 of 94%. Patient requests bipap, which is accommodated. Settings at 14/8, FiO2 of 40%, SpO2 of 99%. Mag sulfate gtt infusing at 50 mls/hr, bumex gtt infusing at 0.25 mg/hr. Patient reports "I'm hot," blankets removed. Denies further needs, call light within reach.
--- NOTE | 2019-09-24 03:00 | NUR ---
Patient restless in bed, reports continued pain in middle of back. Patient requests to sit in chair, 1PA to chair. 4LNC in place, SpO2 of 94%. Patient reports reduction in back pain from new position. Vitals taken, assessment complete. BP of 97/62, bumex gtt placed on standby. Urine output of 25 mls, christiane in color. Patient reports slight dizziness. Patient educated on safety and fall risk, patient verbalizes understanding to call RN prior to getting out of chair. Call light within reach.
--- NOTE | 2019-09-24 04:00 | NUR ---
Patient sleeping in chair, respirations even and unlabored. 4LNC in place, SpO2 of 93%. Urine output of 75 mls, dark yellow in color. Manual BP in the low 90's systolic. Bumex gtt continues to be on standby. 0430 - Manual BP taken with a systolic in the upper 80's. Dr. Porras called and notified of low urine output and soft BPs. Orders acknowledged for 500mls of LR to be infused over 30 minutes and morning cardiac meds to be held. Patient returns to bed with 1PA. Denies needs at this time, call light within reach.
--- NOTE | 2019-09-24 05:15 | NUR ---
Patient sleeping in bed, respirations even and unlabored. 4LNC in place, SpO2 of 94%. LR bolus finished infusing. Manual BP of 94/60. HR in the 60's. Urine output of 30 mls, dark yellow in color. Call light within reach. Dr. Porras called and notified of urine output and manual BP after bolus infusion complete. Orders acknowledged to continue holding bumex gtt, hold AM cardiac meds, and to administer a 500 ml bolus of LR if systolic BP drops below 90.
--- NOTE | 2019-09-24 06:45 | NUR ---
Patient sleeping in bed, respirations even and unlabored. Chest rise and fall observed. HR in the 70's, SpO2 of 95% on 4LNC. Call light within reach.
--- NOTE | 2019-09-24 07:42 | NUR ---
PT O2 TITRATED DOWN TO 2L FROM 4L. O2 SAT IS 98% ON 4L. WILL CONTINUE TO MONITOR.
--- NOTE | 2019-09-24 09:10 | NUR ---
pt sleeping soundly at this time. vitals are wnl, pt pam 2l o2 well, o2 sats are 94%
--- NOTE | 2019-09-24 09:16 | NUR ---
MED REC COMPLETE
--- NOTE | 2019-09-24 10:33 | NUR ---
pt still sleeping soudly, vitals are wnl, urine output is greater than qs. pt appears to be comfortable, and is snoring softly.
--- NOTE | 2019-09-24 10:45 | NUR ---
PT AWAKE AND ALERT X4, GAVE ORDER FOR BREAKFAST WHICH WAS THEN CALLED DOWN TO THE KITCHEN. ALL VITALS REMAIN WNL. PT COOPERATIVE AND POLITE THIS AM.
--- NOTE | 2019-09-24 11:39 | EKG ---
[facility] [address] [facility] [place], [place] [address] Signed Sinus rhythm with 1st degree AV block Right axis deviation Right ventricular hypertrophy with repolarization abnormality Septal infarct (cited on or before 08-JUN-2018) Abnormal ECG When compared with ECG of 10-JUN-2019 20:24, Questionable change in initial forces of Anteroseptal leads Confirmed by HAYDER GARCIA MD ([id number]) on 09/24/2019 11:38:43 AM Electronically Signed By: HAYDER GARCIA MD 09/24/19 1139 PATIENT NAME: CAROLE MARTINS Electrocardiogram DATE OF : 77 PHYSICIAN: HAYDER GARCIA MD REPORT #: [id number] REPORT IS CONFIDENTIAL AND NOT TO BE RELEASED WITHOUT AUTHORIZATION
--- NOTE | 2019-09-24 16:11 | NUR ---
CALLED TO UPDATE ON PT LOW URINE OUTPUT FOR THE LAST FOUR HOURS. ORDER GIVEN TO LIFT THE FLUID RESTRICTION, AND NOT RESTART BUMEX DRIP AT ALL TODAY. PT ALSO STILL HAVING SOFT B/P CONSISTANTLY.
--- NOTE | 2019-09-24 16:45 | NUR ---
In and spoke with Kimber. He immediately begins to complain he was attempting to sleep. Pt was watching TV on my arrival. He agrees to answer CM questions. He declines to answer most questions and states, "Yes janae" to all questions. I asked what his needs are when he goes home and just wants to get the fluid off. Discussed he has not kept any of the appt. to establish care with in the past. He agrees to keep appt, if I schedule him in [place]. Pt declines to answer any questions of where he live or if he has roommates. Will not answer questions regarding if he needs assistance. He denies all use of 02 or DME. He requests his exwife, Leonora be listed as emergency contact. Informed I will attenpt to schedule him with the [facility] in [place].
--- NOTE | 2019-09-24 16:51 | NUR ---
Called [facility] and they state they cannot accept any patients at this time. I asked about their walk in clinic and again was told they cannot accept of see any patients at this time. Will suggest pt go to Urgent Care in [place] for follow up. Spoke with Filomena Bejarano and she will pass info onto patient.
--- NOTE | 2019-09-24 19:00 | NUR ---
PT UP TO BEDSIDE COMMODE ABLE TO HAVE LARGE BM, CLEANS SELF WITH BABY WIPES. PT ABLE TO GET BACK TO BED ON HIS OWN. ONTIVEROS REMOVED, PT SLIGHTLY PAINFUL WITH REMOVAL, NOTED PENIAL SWELLING.
--- NOTE | 2019-09-24 19:00 | NUR ---
RECEIVED REPORT FROM BRIANA ABBOTT. TRANSFERRED pt FROM CCU TO MED/SURG VIA BED. pt SETTLED IN ROOM. SHADES SHUT FOR COMFORT. URINAL AT BEDSIDE. NO FURTHER REQUESTS AT THIS TIME. CALL LIGHT WITHIN REACH.
--- NOTE | 2019-09-24 19:12 | NUR ---
FULL BEDSIDE REPORT GIVEN TO LIZETTE WARREN, ALL QUESTIONS ANSWERED, PT TRANSFERED TO MED/SURG ROOM 109 VIA BED WITH ALL PERSONAL BELONGINGS. PT TRANSFERED WITH LIZETTE WARREN AND EDMOND SCOTT.
--- NOTE | 2019-09-24 20:51 | NUR ---
Nila SAID PT WOULD LIKE HIS DINNER TRAY TAKEN AWAY. PT DENIES FURTHER NEEDS AT THIS TIME. CALL LIGHT IS CLOSE.
--- NOTE | 2019-09-24 21:10 | NUR ---
ASSESSMENT DONE. pt DENIES PAIN ABOVE BASELINE AT THIS TIME. O2 SAT 93% ON ROOM AIR. pt DROWSY. MEDICATION GIVEN (SEE MAR). UPDATED pt ON PLAN OF CARE AND IMPORTANCE OF VOIDING. URINAL AT BEDSIDE. PROVIDED FRESH WATER. NO FURTHER REQUESTS AT THIS TIME. CALL LIGHT WITHIN REACH.
--- NOTE | 2019-09-24 21:32 | NUR ---
CALL LIGHT ON. pt REPORTED VOIDING, PINK URINE IN URINAL, URINE IN BED WELL. LINENS CHANGED, pt ASSISTED TO MOVE AND REPOSITION. URINAL AT BEDSIDE. REQUESTED pt CALL BEFORE ATTEMPTING TO GET UP, pt VERBALIZED UNDERSTANDING. NO FURTHER REQUESTS AT THIS TIME. CALL LIGHT WITHIN REACH.
--- NOTE | 2019-09-25 00:15 | NUR ---
CALL LIGHT ON. pt REQUESTED TO NC, "I CAN'T SLEEP, AND I'M FEELING SHORT OF BREATH WITHOUT THE OXYGEN" O2 SAT 92% ON ROOM AIR. NC PLACED PER REQUEST 2L O2 SAT 94%. pt REPORTED "NOW I CAN BREATH" RESPIRATIONS, WORK OF BREATHING AND LUNG SOUNDS UNCHANGED FROM PRIOR ASSESSMENT. NO FURTHER REQUESTS AT THIS TIME. CALL LIGHT WITHIN REACH.
--- NOTE | 2019-09-25 02:30 | NUR ---
ROUNDED ON pt. RESTING WITH EYES CLOSED RESPIRATIONS REGULAR AND UNLABORED, RATE = 14. NC IN PLACE. CALL LIGHT WITHIN REACH.
--- NOTE | 2019-09-25 03:24 | NUR ---
CALL LIGHT ON. pt REPORTED GETTING UP TO VOID "I DIDN'T MAKE IT" URINE FROM BED TO TOILET. SCANT AMOUNT OF BLOOD NOTED. URINE IN TOILET CONCENTRATED. EDUCATED ON THE IMPORTANCE OF USING CALL LIGHT AND MEASURING VOID. pt VERBALIZED UNDERSTANDING. URINAL REMAINS AT BEDSIDE. pt REPORTED "SOME" SOB AFTER AMBULATION, O2 OFF, O2 SAT 92% ON RA. NEW CANULA PROVIDED O2 SAT 95% ON 2L. ASSESSMENT DONE. ROOM CLEANED. NEW GOWN PROVIDED. pt REQUESTED A SANDWICH BOX, PROVIDED WITH FRESH WATER. NO FURTHER REQUESTS AT THIS TIME. CALL LIGHT WITHIN REACH.
--- NOTE | 2019-09-25 06:40 | NUR ---
pt RESTING WITH EYES CLOSED, RESPIRATIONS REGULAR AND UNLABORED. WOKE TO VOICE. REQUESTED pt WOULD VOID PRIOR TO WEIGHT, pt AGREEABLE TO TRY, STOOD AT BEDSIDE, STATED "NOTHING IS MOVING" THEN SHOUTED "NOTHING IS MOVING, WHERE IS THE SCALE" BROUGHT THE SCALE IN AND WEIGHED pt. VITALS RECORDED. pt SOB WHEN AMBULATED, RECOVERED QUICKLY. NO REQUESTS AT THIS TIME. CALL LIGHT WTIHIN REACH.
--- NOTE | 2019-09-25 07:24 | NUR ---
REPORT RECEIVED. PT IN BED WITH EYES CLOSED. RESPIRATIONS EQUAL AND NONLABORED. CALL LIGHT IN REACH
--- NOTE | 2019-09-25 08:03 | NUR ---
PATIENT RESTING IN BED. WHITE BOARD UPDATED. CALL LIGHT WITHIN REACH. NO OTHER NEEDS AT THIS TIME
--- NOTE | 2019-09-25 08:29 | NUR ---
IN TO ASSESS PT. PT EXPRESSES ANGER AND FRUSTRATION BECAUSE HE "DOESN'T KNOW WHATS GOING ON". PT EXPRESSED CONCERNS ABOUT REMOVAL OF FOELY D/T INCONTINENCE. OFFERED ATTENDS BE PUT ON. PT APPEARD FRUSTRATED BY THE SUGGESTION AND EXPRESSED EMBARASSMENT. PT REFUSED TO GET OOB STATING "I DON'T KNOW, I MIGHT DO IT I MIGHT NOT." DISCCUSED PLAN OF CARE MUCH POSSIBLE BUT PT WOULD LIKE TO "HEAR IT FROM THE DOCTOR". REASSURED PT THE DOCTOR WOULD BE IN TO SEE HIM TODAY.
--- NOTE | 2019-09-25 09:20 | NUR ---
IN TO ADMISNTER HOLLIE. VITALS TAKEN AND STABLE. PT BEING RUDE AND CONFRONTATIONAL THE WHOLE INTERACTION. ATE 100% OF BREAKFAST. PT IN BED WITH LIGHTS OFF AND BLINDS COSED. 2L NC PER PT REQUEST.
--- NOTE | 2019-09-25 09:33 | NUR ---
PATIENT RESTING IN BED. VITAL SIGNS DONE BY RN. I&O DONE. WARM BLANKET PROVIDED. CALL LIGHT WITHIN REACH. NO OTHER NEEDS AT THIS TIME
--- NOTE | 2019-09-25 10:58 | NUR ---
CALL LIGHT ANSWERED. PATIENT RESTING IN BED. RN IN ROOM. IV WRAPPED. SETS UP BATHROOM FOR SHOWER. CALL LIGHT WITHIN REACH. NO OTHER NEEDS AT THIS TIME
--- NOTE | 2019-09-25 11:41 | NUR ---
PT SET UP FOR INDEPENDENT SHOWER D/T INCONTINENCE OF BM. UP TO CHAIR AFTER SHOWER THEN AMBUALTED 1 LAP IN HALLS WITH NURSE. ON RA SATURATIONS 95%. PT SLIGHTLY SOB WITH ACTIVITY BUT ABLE TO COMPLETE WALK WITHOUT BREAK. NOW SITTING IN CHAIR WAITING FOR LUNCH. REQUESTING LIGHTS TO STAY OFF. CALL LIGHT IN REACH
--- NOTE | 2019-09-25 13:10 | NUR ---
PATIENT RESTING IN BED. VITAL SIGNS AND I&O DONE. CALL LIGHT WITHIN REACH. NO OTHER NEEDS AT THIS TIME
--- NOTE | 2019-09-25 14:37 | NUR ---
CALL LIGHT ANSWERED TO ASSIST IN TEACHING TO USE URINAL WITH SCROTAL AND PENILE EDEMA. PT EXPRESSES FRUSTRATION THAT CATHETER WAS PULLED. TOLD PT IT WAS GOOD IF HE WAS ABLE TO GET UP TO BATHROOM FOR ALL VOIDS. WILL CONTINUE TO ENCOURAGE GETTING OOB WHEN ABLE.
--- NOTE | 2019-09-25 15:55 | NUR ---
ROUNDED WITH DR GARCIA. POC DISCUSSED. NEW ORDER FOR IV LASIX GIVEN.
--- NOTE | 2019-09-25 18:09 | NUR ---
VITALS STABLE. GREAT URINE OUTPUT THIS SHIFT. PT AMBULATED X1 LAP TODAY. EATING WELL. TOLERATING FLUID RESTRICTION. SOME SOB WITH ACTIVITY.
--- NOTE | 2019-09-25 18:27 | NUR ---
PATIENT RESTING IN BED. VITAL SIGNS AND I&O DONE. CALL LIGHT WITHIN REACH. NO OTHER NEEDS AT THIS TIME
--- NOTE | 2019-09-25 18:45 | NUR ---
IN TO ROUND ON PT. PT AGGITATED I CAME INTO ROOM. REQUESTING TO BE LEFT ALONE SO HE CAN "NAP". REQUESTED WE DID NOT COME IN ROOM FOR REPORT.
--- NOTE | 2019-09-25 19:12 | NUR ---
RECEIVED REPORT FROM BRIANA MORAN. pt REQUESTED NOT TO BE DISTURBED AT THIS TIME.
--- NOTE | 2019-09-25 21:08 | NUR ---
pt REQUESTED FLUIDS. DISCUSSED FLUID RESTRICTION, pt AGREEABLE TO PLAN LONG "I GET WATER RIGHT NOW." pt VERBALIZED UNDERSTANDING THAT THE FLUIDS PROVIDED WERE ALL IN HIS FLUID RESTRICTION UNTIL 0600. ASSESSMENT DONE. VITALS AND I&O RECORDED. pt REQUESTED TO BE LEFT ALONE TO REST. CALL LIGHT WITHIN REACH.
--- NOTE | 2019-09-26 01:05 | NUR ---
ROUNDED ON pt. RESTING IN BED, RESPIRATIONS REGULAR AND UNLABORED. CALL LIGHT WTIHIN REACH.
--- NOTE | 2019-09-26 03:49 | NUR ---
ROUNDED ON pt. RESTING WITH EYES CLOSED, RESPIRATIONS REGULAR AND UNLABORED. CALL LIGHT WITHIN REACH.
--- NOTE | 2019-09-26 05:07 | NUR ---
WITH THE HELP OF BRIANA BAUER WE DID VITALS AND I&OS DONE AND CHARTED. DAILY WEIGHT DONE WELL. BEDSIDE TABLE AND CALL LIGHT IN REACH.
--- NOTE | 2019-09-26 05:09 | NUR ---
pt RESTED MOST OF SHIFT. SBA. SOB WITH EXERTION. DAILY WEIGHT. 2GM SODIUM DIET WITH 1800 FLUID RESTRICTION. IV SL. USES CALL LIGHT APPROPRIATELY.
--- NOTE | 2019-09-26 05:11 | NUR ---
CALL LIGHT ON. pt REQUESTED URINAL BE EMPTIED, DONE. pt WILL CALL WHEN HE HAS FINISHED URINATING. CALL LIGHT ON. pt UP FOR DAILY WEIGHT. DENIED SOB. ASSESSMENT DONE. VITALS AND I&O RECORDED. EDUCATED ON FLUID RESTRICTION NO FURTHER REQUESTS AT THIS TIME. CALL LIGHT WITHIN REACH.
--- NOTE | 2019-09-26 07:25 | NUR ---
REPORT RECIEVED. PT IN BED. CALL LIGHT IN REACH.
--- NOTE | 2019-09-26 10:00 | NUR ---
ASSESSMENT COMPLETED. PT STILL WITH TIGHT ABDOMEN. 2+ EDEMA ON BILAT LE AND THIGHS. SOB WITH ACTIVITY. VOIDING WELL. ON RA. AT BEDSIDE.
--- NOTE | 2019-09-26 13:42 | NUR ---
THIS NURSE TO BEDSIDE TO ADMINISTER LASIX. VITLAS TAKEN AND I/O COMPLETED. OFFER TO WALK PT IN HALLS. PT REFUSED. ASKED IF HE'D BE WILLING TO GETT OOB TO CHAIR. PT REFUSED. PT STARTED TO GET FRUSTRATED WITH QUESTIONS. PUDDLE ON FLOOR NEXT TO BED NOTICED. ASKED PT IF IT WAS URINE FROM URINAL. PT RESPONDED WITH " YEA, WELL IF YOU GUYS WOULD DUMP ALL THE URINE OUT. I DONT LIKE WHEN THERE IS ANY URINE IN MY URINAL". I ASKED IF HE DUMPED THE URINE ON THE GROUND. PT RESPONDED WITH, "WHERE ELSE AM I SUPPOSE TO DUMP IT? ON MY ZAFAR?" FINISHED ADMINSITERING MEDICATION AND TOLD PT I WOULD HAVE ES COME TO MOP AND ENDED INTERACTION AND TURNED LIGHT OFF PER PT REQUEST.
--- NOTE | 2019-09-26 16:00 | NUR ---
ROUNDED ON PT. ASKED PT IF HE WAS WILL TO TAKE A WALK IN HALLS. PT REFUSED. ASKED PT IF HE WOULD LIKE TO GET UP TO CHAIR. PT REFUSED. EDUATED ON RISKS OF STAYING IN BED, PT AWARE. PT PROVIDED WITH INCENTIVE SPEROMETER. RDUCATION PROVIDED. CALL LIGHT IN REACH
--- NOTE | 2019-09-26 18:19 | NUR ---
PT VOIDING WELL. VITALS STABLE. PT REFUSING ALL ACTIVITIES. DID NOT GET OOB ALL DAY. EDUCATED ON RISKS OF STAYING IN BED, IS PROVIDED. ATE 100% OF ALL MEALS. TOLERATING FLUID RESTRICTION WELL. IV WNL. NO BM THIS SHIFT.
--- NOTE | 2019-09-26 19:09 | NUR ---
IN TO VISIT. ASSITED PT UP TO SHOWER.
--- NOTE | 2019-09-26 19:31 | NUR ---
SHIFT REPORT FROM NURSE MORAN. PT IN SHOWER WITH PRESENT IN ROOM.
--- NOTE | 2019-09-26 19:43 | NUR ---
DID A COMPLETE BED CHANGE . PT TOOK A SHOWER AND WANTED IT DONE AT THIS TIME. CLEANED UP THE BATHROOM AND ALL LINEN. EMPTIED GARBAGES. NEW DERRICK GIVEN PER HIS REQUEST. BEDSIDE TABLE AND CALL LIGHT IN REACH. PT WOULD LIKE HIS RN SUKUMAR TO LOOK AT A "SORE" ON HIS LEG. I INFORMED RN. FRESH WATER GIVEN.
--- NOTE | 2019-09-26 20:17 | NUR ---
ASSESSMENT COMPLETE. OF PATIENT IN ROOM. PT IN BED, REQUESTS WARM BLANKET WHICH IS PROVIDED. PT IS PLEASANT AND COOPERATIVE, STATES HE IS TENDER IN LEGS AND ABDOMEN BUT THIS IS UNCHANGED FOR HIM. CURRENTLY PT IS NOT USING CALL LIGHT BUT IS MAKING REQUESTS FOR PT TO NURSES STATION. VSS.
--- NOTE | 2019-09-26 21:34 | NUR ---
PT CALLED SO I COULD TURN DOWN HIS HEAT.
--- NOTE | 2019-09-26 23:31 | NUR ---
CALL LIGHT ANSWERED. PT HAD VOIDED IN URINAL. NO OTHER REQUESTS AT THIS TIME.
--- NOTE | 2019-09-27 02:55 | NUR ---
ROUNDS COMPLETED. PT AWAKEN DOOR TO ROOM OPENED. PT REPORTS ALL IS WELL; NO REQUESTS OR NEEDS AT THIS TIME. CALL LIGHT AND BEDSIDE TABLE WITH IN REACH.
--- NOTE | 2019-09-27 04:49 | NUR ---
CALL LIGHT ANSWERED. URINAL EMPTIED. ALLOTTED ICE WATER PROVIDED. CALL LIGHT IN REACH, pt STATES HE HAS SLEPT WELL. NO ADDITIONAL REQUESTS.
--- NOTE | 2019-09-27 05:52 | NUR ---
ASSESSMENT COMPLETE. VSS, EDEMA STILL PRESENT BILATERAL LEGS, ABDOMEN DISTENTION TIGHT ALTHOUGH UNCHANGED THIS SHIFT.
--- NOTE | 2019-09-27 05:58 | NUR ---
PT HAD A DECENT NIGHT. PT REPORTS HE SLEPT "SOME". PT CALLED APPROPRIATELY AND WAS COOPERATIVE WITH HIS CARE. PT USED URINAL WHILE IN BED FOR VOIDS. PT WAS ONLY UP TO SCALE FOR DAILY WEIGHT AFTER THE SHOWER REPORTED AT SHIFT CHANGE.
--- NOTE | 2019-09-27 07:34 | NUR ---
Pt in bed awake, a&ox4. Pt denies sob and pain at this time. Recent lasix given. Urinal provided. No needs at this time.
--- NOTE | 2019-09-27 07:40 | NUR ---
PATIENT RESTING IN BED. RN IN ROOM. WHITE BOARD UPDATED. CALL LIGHT WITHIN REACH. NO OTHER NEEDS AT THIS TIME
--- NOTE | 2019-09-27 09:45 | NUR ---
PATIENT RESTING IN BED. VITAL SIGNS AND I&O DONE. CALL LIGHT WITHIN REACH. NO OTHER NEEDS AT THIS TIME
--- NOTE | 2019-09-27 11:00 | NUR ---
Attempted to see pt. He states he is trying sleep and does not want visitors.
--- NOTE | 2019-09-27 12:04 | NUR ---
In to empty urinal; urine more dilute as compared to earlier today. Pt eating at this time. Denies needs at this time. Call light within reach.
--- NOTE | 2019-09-27 13:28 | NUR ---
PATIENT RESTING IN BED. VITAL SIGNS AND I&O DONE. CALL LIGHT WITHIN REACH. NO OTHER NEEDS AT THIS TIME
--- NOTE | 2019-09-27 14:31 | NUR ---
Pt resting in bed, respirations are even and non labored. No notable distress. Personal supplies and call light within reach.
--- NOTE | 2019-09-27 18:00 | NUR ---
PATIENT RESTING IN BED. VITAL SIGNS AND I&O DONE. CALL LIGHT WITHIN REACH. NO OTHER NEEDS AT THIS TIME
--- NOTE | 2019-09-27 19:50 | NUR ---
REPORT RECEIVED FROM NURSE MODI. PT REQUESTS TO BE ALONE IN ROOM. NO REQUESTS AT THIS TIME.
--- NOTE | 2019-09-27 21:30 | NUR ---
ASSESSMENT COMPLETE. PT IS IN BED, ALERT, ORIENTED AND COOPERATIVE. PT REPORTS NO PAIN. PER PT WISHES EYE MASK AND EAR PLUGS PROVIDED. PT USING BEDSIDE URINAL FOR VOIDS. BEDSIDE TABLE AND CALL LIGHT PLACED WITHIN REACH.
--- NOTE | 2019-09-27 21:40 | NUR ---
SANDWICH BOX PLACED ON BEDSIDE TABLE. PT WITH EYES CLOSED, EYE MASK IN PLACE.
--- NOTE | 2019-09-28 00:08 | NUR ---
CALL LIGHT ANSWERED. PT REQUESTS URINAL EMPTIED AND WATER REFILL. NO OTHER REQUESTS AT THIS TIME.
--- NOTE | 2019-09-28 04:08 | NUR ---
PATIENT CALLED. EMPTIED THE URINAL.
--- NOTE | 2019-09-28 05:30 | NUR ---
ASSESSMENT COMPLETE. PT COOPERATIVE. PT STATES HE DID NOT SLEEP WELL ALTHOUGH PT CALL INFREQUENTLY THROUGH THIS SHIFT.
--- NOTE | 2019-09-28 05:52 | NUR ---
PT STATES HE DID NOT SLEEP WELL ALTHOUGH HE ONLY CALLED FOR URINAL EMPTYING THROUGHOUT THE NIGHT. PT REPORTS NO PAIN AND THAT HE OVERALL FEELS BETTER. PT QUESTIONED HIS PLAN OF CARE FOR TODAY. PT IS ABLE TO STAND EASILY ALTHOUGH REMAINS UNMOTIVATED TO AMBULATE.
--- NOTE | 2019-09-28 07:26 | NUR ---
Pt resting in bed, respirations are even and non labored. Pt has no distress noted. Respirations even and non labored. Call light within reach.
--- NOTE | 2019-09-28 09:15 | NUR ---
Attempted to see pt, per RN he only wants visitor when the RN goes in. Asked her to let him know, I attempted to schedule appt. in [place], they are not accepting new pts. I called today and they do take walk ins.
--- NOTE | 2019-09-28 09:39 | NUR ---
PATIENT RESTING IN BED. VITAL SIGNS AND I&O DONE. CALL LIGHT WITHIN REACH. NO OTHER NEEDS AT THIS TIME
--- NOTE | 2019-09-28 09:55 | NUR ---
Urinal emptied. Pt denies pain and sob. Personal supplies and call light within reach.
--- NOTE | 2019-09-28 12:59 | NUR ---
In to empty urinal. Pt has no needs at this time. at bedside visiting. Pt looking forward to visiting with provider here soon.
[2019-09-28] MEDS ORDERED: CARVEDILOL3.125 MG PO (13:04)
[2019-09-28] MEDS ORDERED: LISINOPRIL10 MG PO (13:05)
[2019-09-28] MEDS ORDERED: LASIX40 MG PO (13:06)
--- NOTE | 2019-09-28 13:47 | NUR ---
PATIENT SITTING UP IN BED. VISITOR IN ROOM. VITAL SIGNS AND I&O DONE. CALL LIGHT WITHIN REACH. NO OTHER NEEDS AT THIS TIME
== END 2019-09-28 14:00 | disposition home or self-care (01) | DRG 291 ==
LOC: ED 12:10 → CCU 14:58 → MS 09-24 19:10
PROVIDERS: ADMIT Internal Medicine
PROC: 5A09357 Assistance with Respiratory Ventilation, Less than 24 Consecutive Hours, Continuous Positive Airway Pressure (ICD-10-PCS; principal; 2019-09-23)
DX: I11.0 Hypertensive heart disease with heart failure (principal); J96.01 Acute respiratory failure with hypoxia; I50.33 Acute on chronic diastolic (congestive) heart failure; K76.1 Chronic passive congestion of liver; Z20.828 Contact with and (suspected) exposure to other viral communicable diseases; Z88.2 Allergy status to sulfonamides; Z88.5 Allergy status to narcotic agent; Z79.899 Other long term (current) drug therapy
CPT/HCPCS: 36415; 71045; 80053; 83735; 83880; 84484; 85025; 93005; 93010; 94660; 94760; 96374; 96375; 99285-25; C9803; J1650; J1940; J3475; J3490; J7121; U0002

== ENCOUNTER 2019-10-23 20:16 | Inpatient (IN) | payer OTHER ==
[~2019-10-23] VITALS: Ht 177.8 cm; Wt 111.7 kg
--- OUTSIDE RECORDS SUMMARY | ~2019-10-23 | XMS | Encounter Summary ---
Demographics + + + | Address | [address] | | | [place] [address] | + + + | Home Phone | | + + + | Preferred Language | Unknown | + + + | Marital Status | Legally | + + + | Advent Affiliation | Unknown | + + + | Race | Unknown | + + + | Ethnic Group | Unknown | + + + Author + + + | Author | [facility] | | | and Jobyana | + + + | Organization | [facility] | | | and [...] Team Providers + +------+ + | Care Community Health Navigator Name | Role | Phone | + [...] + + | 07/26/ | Telephone | [facility] | Zunilda Chávez | Other ([facility]) | | 2020 | | [phone] | [place] | | | | | [place], [place] | | | | | | [phone] | | | | | | [phone] | | | +--------+ + + + [...]
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
--- OUTSIDE RECORDS SUMMARY | ~2019-10-23 | XMS | Encounter Summary ---
Demographics + + + | Address | [address] | | | [place] [address] | + + + | Home Phone | | + + + | Preferred Language | Unknown | + + + | Marital Status | Legally | + + + | Catholic Affiliation | Unknown | + + + | Race | Unknown | + + + | Ethnic Group | Unknown | + + + Author + + + | Author | [facility] | | | and [place] | + + + | Organization | [facility] | | | and [...] Team Providers + +------+ + | Care Systems Programmer Analyst Name | Role | Phone | + +------+ + PCP | Unavailable | + +------+ + Encounter Details +--------+ + + + + | Date | Type | Department | Care Team | Description | +--------+ + + + + | 08/15/ | Hospital | [facility] | Tania Raines MD | Chest pain, | | 2018 - | Encounter | MEDICAL CENTER | [address] [place] | unspecified type; | | | | CLINICAL DECISION | [address] [place], [place] | Hypoxia; | | 08/16/ | | [address] | [id number] | Uncontrolled | | 2018 | | [place], [place] | | hypertension; [place] | | | | [phone] | | (acute kidney | | | | [phone] | | injury) ([facility]); Drug | | | | | | [...] Summaries by Tania Raines MD at 08/16/17 6242 Author: Tania Raines MD Service: (none) Author Type: Physician Filed: 08/16/17 9621 Date of Service: 08/16/176 Status: Signed Performance Manager: Tania Raines MD (Physician) Patient: Carole Terry [...] need PCP f/ up information family practice [facility] clinic kahlil he stats to [...] soft BS+ no tenderness EXt no edwema ALL SOURCE ANALYST alert orientated time three no focality Recent [...] other data, potentially affecting final categorization. 1. [place] [employer] and [place] [employer] College of Cardiology Scientific Statement. Circulation (2008); 118: p 0755-2843 Selectio n Text Definition Low Risk 1.Normal [...] (none) Author Type: Registered Nurse Filed: 08/16/17 9052 Date of Service: 08/16/171499 Status: Signed Performance Manager: Lata Arzola RN (Registered Nurse) Patient given AVS and prescriptions. Verbalizes understanding and is agreeable; states no further questions at this time. Declines wheelchair ride out to private vehicle. onver pamela Transaction, Provider Unknown - 08/15/2017 11:09 PM PDT Progress Notes by Elijah Swain RPH at 08/15/17 6029 Author: Elijah Swain RPH Service: Pharmacy Author Type: Pharmacist Filed: 08/15/172308 Date of Service: 08/15/172308 Status: Signed Performance Manager: Elijah Swain RPH (Pharmacist) Note ccl 82.1ml/min meds reviewed pharmacy will follow [facility] [address] onver pamela Transaction, Provider Unknown - 08/15/2017 6:08 PM PDT Progress Notes by LUIS ALBERTO Shine at 08/15/171807 Author: LUIS ALBERTO Shine Service: (none) Author Type: Plate Painter Apprentice Filed: 08/15/171810 Date of Service: 08/15/171807 Status: Signed Performance Manager: LUIS ALBERTO Shine (Plate Painter Apprentice) 08/15/171807 Discharge Planning Evaluation Admitting Diagnosis Headache Readmission No Living Arrangements Spouse/significant other Support Systems Spouse/significant other;Family members Type of Residence Private residence House type Apartment Elevator available No Independent with ADL's Yes Independent with Mobility Yes Home Care Services No Caregiver after Discharge No Mental Status Oriented Prior functional status Independent Met with: pt and SO Shelley Dodson [phone] and discussed discharge planning, Pt is a 42 y.o., male, lives with Shelley, is independent, does not use any DME. Patient's PCP is: Per Pt None (Will need assistance) Patient's insurance: [employer] [facility] Coverage concerns: None noted Medication coverage/concerns: None [...] 08/15/172200 Date of Service: 08/15/171814 Status: Addendum Performance Manager: Tania Raines MD (Physician) Related Notes: Original Note by Tania Raines MD (Physician) filed at 08/15/172054 [facility] Service: Hospitalist Admission History & Physical Pt: Carole Terry AGE/SEX: 42 y.o. male ROOM: [place] [address] PCP: Per Pt None : 1975 TODAY'S [...] CT angiographic MIP reconstructions were performed by phlebotomy technologist. No 3-D imaging. Automated exposure control was [...] e with other providers well as Computerized Gauger Chief Delivery. Other recommendations for managemen t of this [...] Date of Service: 08/16/17 1017 Status: Signed Performance Manager: LILIANA Green (Advanced Registered Nurse Practitioner) Pre-procedure Diagnoses: 1. Chest tightness [R07.89] Post-procedure Diagnoses: 1. Chest tightness [R07.89] Procedures: 1. NM MYOCARDIAL PERFUSION SPECT - STRESS AND REST [RBC336 (Custom)] [facility] Service: Diagnostic Imaging/Nuclear Medicine Preliminary Cardiac Stress [...] 08/15/172229 Date of Service: 08/15/172229 Status: Signed Performance Manager: Nirmal Carr RN (Registered Nurse) Report given to EMS crew. Patient transferred to [facility] CDU at this time Nirmal Carr RN 08/15/172229 onver pamela Transaction, Provider Unknown - 08/15/2017 10:04 PM PDT ED Notes by Nirmal Carr RN at 08/15/172203 Author: Nirmal Carr RN Service: (none) Author Type: Registered Nurse Filed: 08/15/172203 Date of Service: 08/15/172203 Status: Signed Performance Manager: Nirmal Carr RN (Registered Nurse) Report called to CDU RN Nirmal Carr RN 08/15/172203 onver apmela Transaction, Provider Unknown - 08/15/2017 5:32 PM PDT ED Notes by Alicia Dupont RN at 08/15/171731 Author: Alicia Dupont RN Service: (none) Author Type: Registered Nurse Filed: 08/15/171732 Date of Service: 08/15/171731 Status: Signed Performance Manager: Alicia Dupont RN (Registered Nurse) Patient denies any pain at this time, advised of current plan of care-ct results and need f or urine. Bolus continues running to patent line at this time. Alicia Dupont RN 08/15/17 1733 onver pamela Transaction, Provider Unknown - 08/15/2017 4:55 PM PDT ED Notes by Cheryl Charlton at 08/15/171654 Author: Cheryl Charlton Service: (none) Author Type: Feature Writer Filed: 08/15/171654 Date of Service: 08/15/171654 Status: Signed Performance Manager: Cheryl Charlton (Feature Writer) Tele notified that patient in on the monitor Cheryl Charlton 08/15/171654 onver pamela Transaction, Provider Unknown - 08/15/2017 4:53 PM PDT ED Notes by Nirmal Carr RN at 08/15/171652 Author: Nirmal Carr RN Service: (none) Author Type: Registered Nurse Filed: 08/15/171653 Date of Service: 08/15/171652 Status: Signed Performance Manager: Nirmal Carr RN (Registered Nurse) x1 SL NTG prepared and patient now denies chest pain. NTG not given Nirmal Carr RN 08/15/171653 onver pamela Transaction, Provider Unknown - 08/15/2017 4:49 PM PDT ED Notes by Nirmal Carr RN at 08/15/171648 Author: Nirmal Carr RN Service: (none) Author Type: Registered Nurse Filed: 08/15/171649 Date of Service: 08/15/171648 Status: Signed Performance Manager: Nirmal Carr RN (Registered Nurse) Patient c/o chest pain. ED provider notified. Patient on 4L NC O2 to maintain sats Nirmal Carr RN 08/15/171649 onver pamela Transaction, Provider Unknown - 08/15/2017 4:32 PM PDT ED Notes by Nirmal Carr RN at 08/15/171631 Author: Nirmal Carr RN Service: (none) Author Type: Registered Nurse Filed: 08/15/171632 Date of Service: 08/15/171631 Status: Signed Performance Manager: Nirmal Carr RN (Registered Nurse) Patient's room [...] 08/15/172017 Date of Service: 08/15/171555 Status: Attested Performance Manager: Mickey Brand PA-C (Physician Table Top Tile Setter - Certified) Cosigner: Angel hancock DO at 08/15/172029 Attestation signed by Angel Holland DO at 08/15/172029 I have reviewed the patient's chart. I was available for consultation during the care of the patient. Angel Holland DO Procedures [facility] EMERGENCY DEPARTMENT IN [place] History of Present Illness Patient Identification Carole [...] pulmonary arterial emboli or other acute findings. Tkzv-wk-maws rate cardiomegaly noted. Chest pain has resolved [...] has consented to ambulance transfer. Dictation software, [employer], is used. Sound-alike errors may be present. If there is any maia bt, please refer to provider for clarification. Records Reviewed Nursing notes. Records unavailable Labs & Radiology Results Laboratory Evaluation Results Procedure Component Value Ref Range Date/Time Urine DOA screen (PLUS TCA) DRUG8 FSED ONLY [[id number]] (Abnormal) Collected: 08/15/171854 Order Status: Completed Specimen: Urine, Clean Catch Updated: 08/15/17 1920 PCP NEGATIVE NEGATIVE BENZODIAZEPINE NEGATIVE NEGATIVE COCAINE NEGATIVE NEGATIVE AMPHETAMINE POSITIVE (A) NEGATIVE THC NEGATIVE NEGATIVE OPIATES NEGATIVE NEGATIVE BARBITUATES NEGATIVE NEGATIVE TRICYCLIC ANTIDEPRESS NEGATIVE NEGATIVE Urine microscopic only [[id number]] Collected: 08/15/171854 Order Status: Completed Updated: 08/15/17 1918 WBC NONE SEEN 0 - 5 /hpf RBC 0-2 0 - 2 /hpf EPITHELIAL NONE SEEN /lpf BACTERIA NONE SEEN NONE SEEN Urinalysis (reflex to microscopic/reflex to culture) [[id number]] (Abnormal) Collected: 08/15/171854 Order Status: Completed Specimen: Urine from Urine, Clean Catch Updated: 08/15/17 191 8 COLOR UA YELLOW CLARITY CLEAR Specific [place], UA <1.005 1.001 - 1.035 LEUKOCYTE ESTERASE NEGATIVE NEGATIVE NITRITE NEGATIVE NEGATIVE UROBILINOGEN 0.2 <1.1 mg/dL PROTEIN NEGATIVE NEGATIVE mg/dL PH,URINE 5.5 4.6 - 8.0 BLOOD TRACE (A) NEGATIVE KETONES NEGATIVE NEGATIVE mg/dL BILIRUBIN NEGATIVE NEGATIVE GLUCOSE NEGATIVE NEGATIVE mg/dL Cardiac Panel [[id number]] (Abnormal) Collected: 08/15/17 1600 Order Status: Completed [...] ng/mL CK-MB Index 2.8 Troponin I, Lab [[id number]] Collected: 08/15/17 1600 Order Status: Completed Specimen: Blood Updated: 08/15/17 1640 TROPONIN I <0.04 0.00 - 0.10 ng/mL BNP [[id number]] (Abnormal) Collected: 08/15/17 1600 Order Status: Completed [...] MIP reconstructions were performed by CT technolo [facility]. No 3-D imaging. Automated exposure control was [...] Hypoxia Uncontrolled hypertension CLARE (acute kidney injury) ([facility]) Drug abuse Acute nonintractable headache, unspecified headache [...] 08/16/17121 Date of Service: 08/16/17121 Status: Signed Performance Manager: Toi Vaca RN (Registered Nurse) Problem: Pain [...] | maxP.34 mmHg TR Vmax: 3.13 m/s Strap Sewer: VICTOR MANUEL | | | Authenticated by: [...] (A-L): 11.46 | | ml/m2LAAs A2C: 14.11 pr1ZCXTE A-L A2C: 29.21 mlLAESV MOD A2C: 27.32 mlLALs A2C: | | 5.78 cmLAAs A4C: 12.17 qx0XYBXS A-L A4C: 22.05 mlLAESV MOD A4C: 19.21 mlLALs A4C: | | 5.70 cmTAPSE: 1.38 cmHR: 90.78 BPMAV maxP.67 mmHgAV meanP.35 mmHgAV | | Vmax: 1.19 m/Carmen Vmean: 0.87 m/Carmen VTI: 17.60 cmAVA Vmax: 4.01 cm2AVA (VTI): | | 4.87 bt6WWPD Vmax: 0.00 cm2/m2AVAI (VTI): 0.00 cm2/m2LVCI Dopp: 3.53 l/bpth7EJYM | | Dopp: 7.87 l/minHR: 91.74 BPMLVOT [...] | m/sTR maxP.34 mmHgTR Vmax: 3.13 m/s Strap Sewer: Adryticated by: Pina | | Saulim MDReport [...] |TR Vmax: 3.13 m/s | | | |Strap Sewer: MW | |Authenticated by: Pina Guallpa MD [...] | | | affecting final categorization. 1. [employer] Heart Association | | | and [place] College of Cardiology Scientific Statement. Circulation | | | (2008); 118: p 7633-8252 Selection Text Definition Low | | | [...] potentially affecting final | | categorization. 1. [employer] Heart Association and [place] College of [employer]iology | | Scientific Statement. Circulation (2008); 118: p 4931-2178 Selection Text Definition | | Low Risk [...] | |final categorization. | | | |1. [employer] Heart Association and [place] College of [employer]iology Scientific Statement. Cir culation (2008); 118: p 1757-7244 | | | | | |Selection Text [...] + + | Historically converted procedure from [facility] environment | EXTERNAL LAB | + [...] | | | | | | ACUTE NH Testing | | | | | | performed at [facility];[address] | | | | | | [facility];[place], [place] | | | | | | [address] | | | | + + + [...] + + + + + + | Non- | 5.76 (H) | 4.20 - 5.70 | EXTERNAL | | | Red Blood | | M/uL | LAB | | | Cells | | | | | | Counted | | | [...] | | | Basophils | performed at [facility], [address] | K/uL | LAB | | | | [facility], | | | | | | [place] [address] | | | | + + + [...] EXTERNAL | | | | performed at [facility], [address] | | LAB | | | | [address], | | | | | | [place] [address] | | | | + + + [...] EXTERNAL | | | | performed at [facility], [address] | | LAB | | | | [address], | | | | | | [place] [address] | | | | + + + [...] + + | Hemoglobin | 6.0Comment: The Finnish | 4.0 - 6.0 % | EXTERNAL [...] | | | | | performed at [facility], [address] | | | | | | [facility], | | | | | | [place] [address] | | | | + + + [...] | | | Calculated | performed at [facility], [address] | | LAB | | | | [place], | | | | | | [place] [address] | | | | + + + [...] | | | | | | at [facility], [address] | | | | | | [facility], | | | | | | [place] [address] | | | | + + + [...] | | | | | | ACUTE NH Testing | | | | | | performed at [facility] | | | | | | [facility];[place] | | | | | | [address] | | | | + + + [...] | | | | | performed at [facility], [address] | | | | | [address] [place], | | | | | | [place] [address] | | | | + + + [...] + + + + + + | Clarity, | CLEAR | | EXTERNAL | | | Urine | | | LAB | | + + + + + + | Specific | <1.005 | 1.001 - 1.035 | EXTERNAL | | | [place], | | | LAB | | | [...] | | | Urine | performed at [facility], [address] | | LAB | | | | [address] [place], | | | | | | [place] [address] | | | | + + + [...] | | LAB | | | | [facility], [address], | | | | | | [place] [address] | | | | + + + [...] Performed At | + + + | CAROEL TERRY 1975 42 years Male CTA CHEST [...] | | | reconstructions were performed by phlebotomy technologist. No 3-D imaging. | | | Automated [...] | angiographic MIP reconstructions were performed by phlebotomy technologist. No 3-D imaging. | | Automated exposure [...] | | | | | ONLY, -COMPUTER (367), | | | | | | film editor Elida Lucas | | | | | | (62) on 08/16/2017 | | | | | | 2:57:08 AM | | | | + + + + + + + + | Specimen | + + | | + + + + + | Narrative | Performed At | + + + | [facility] | EXTERNAL LAB | + + + [...] + + + + + -+ | Non- | 5.79 (H) | 4.20 - 5.70 | EXTERNAL | | | Red Blood | | M/uL | LAB | | | Cells | | | | | | Counted | | | [...] | | | | | | ACUTE NH Testing | | | | | | performed at [facility], [address] | [address] | [address] [place], | | | | | | [place] [address] | | | | + + + [...] EXTERNAL | | | | performed at [facility], [address] | | LAB | | | | [address] [place] [address], | | | | | | [place] [address] | | | | + + + [...] | | | | | ONLY, -COMPUTER ([id number]), | | | | | | film editor Elida Lucas | | | | | | (00) on 08/16/2017 | | | | | | 2:57:07 AM | | | | + + + + + + + + | Specimen | + + | | + + + + + | Narrative | Performed At | + + + | Historically converted procedure from [facility] environment | EXTERNAL LAB | + [...]
--- OUTSIDE RECORDS SUMMARY | ~2019-10-23 | XMS | Encounter Summary ---
Demographics + + + | Address | [address] | | | [place] [address] | + + + | Home Phone | | + + + | Preferred Language | Unknown | + + + | Marital Status | Legally | + + + | Protestant Affiliation | Unknown | + + + | Race | Unknown | + + + | Ethnic Group | Unknown | + + + Author + + + | Author | [facility] | | | and [place] | + + + | Organization | [facility] | | | and [place] | [...] Team Providers + +------+ + | Care Highway Patrol Officer Name | Role | Phone | + +------+ + | Penelope Gage | PCP | | + +------+ + Reason for Visit + + + | Reason | Comments | + + + | Shortness of Breath | hx CHF | + + + | Cough | | + + + Auth/Cert +--------+--------+ + + + + | Status | Reason | Specialty | Diagnoses / | Referred By | Referred To | | | | | Procedures | Contact | Contact | +--------+--------+ + + + + | | | | Diagnoses | | | | | | | Acute on | | | | | | | chronic | | | | | | | diastolic | | | | | | | heart | | | | | | | failure | | | | | | | (HCC) Acute | | | | | | | on chronic | | | | | | | respiratory | | | | | | | failure with | | | | | | | hypoxia | | | | | | | (HCC) | | | | | | | Hypervolemia | | | | | | | , | | | | | | | unspecified | | | | | | | hypervolemia | | | | | | | type | | | +--------+--------+ + + + + Encounter Details +--------+ + + + + | Date | Type | Department | Care Team | Description | +--------+ + + + + | 06/26/ | [facility] | [facility] | Sergei Gamez MD | Acute on chronic | | 2020 - | Encounter | [facility] | [address] | respiratory failure | | | | CARE [address]LO[phone] | [place], [place] | with hypoxia (HCC) | | 04/04/ | [address] | [phone] | (Primary Dx); Acute | | 2020 | | [place], [place] | [phone] | on chronic diastolic | | | | [phone] | | heart failure | | | | [phone] | Veronica Arriola MD | (HCC); Hypervolemia, | | | | | [address] | unspecified | | | | | [place] [address] | hypervolemia type | | | | | [phone] | | | | | | | | | | | | Maxime Cochran MD | | | | | | [address] | | | | | | [place] [address] | | | | | | [phone] | | | | | | | | | | | | Pernell Godoy MD | | | | | | [address] | | | | | | [place] [address] | | | | | | [phone] | | | | | | | | | | | | Markos Sanchez DO | | | | | | [address] | | | | | | [place] [address] | | | | | | [phone] | | | | | | | | | | | | Augustus Mclean MD | | | | | | [address] | | | | | | [place] | | | | | | [address] | | | | | | | | | | | | Teodoro Gutierrez MD | | | | | | [address] | | | | | | [place] [address] | | | | | | [phone] | | | | | | | | +--------+ + + + [...] + + + | Blood Pressure | 101/56 | 07/03/2019 7:37 AM | | | | | PDT | | + + + + + | Pulse | 77 | 07/03/2019 7:37 AM | | | | | PDT | | + + + + + | Temperature | 36.6 C (97.8 F) | 07/03/2019 7:37 AM | | | | | PDT | | + + + + + | Respiratory Rate | 18 | 07/03/2019 7:37 AM | | | | | PDT | | + + + + + | Oxygen Saturation | 91% | 07/03/2019 7:37 AM | | | | | PDT | | + + + + + | Inhaled Oxygen | - | - | | | Concentration | | | | + + + + + | Weight | 102.3 kg (225 lb 9.6 | 07/02/2019 6:26 AM | | | | oz) | PDT | | + + + + + | Height | 175.3 cm (5' 9") | 06/27/2019 9:34 PM | | | | | PDT | | + + + + + | Body Mass Index | 33.32 | 06/27/2019 9:34 PM | | | | | PDT | | + + + + + documented in this encounter Discharge Summaries Teodoro Gutierrez MD - 07/03/2019 9:19 AM PDT Patient: Carole Terry : 1975 Date of Admission: 06/27/2019 Date of Discharge: 07/03/2019 Discharging Provider: Teodoro Gutierrez MD Discharge Diagnoses: Principal Problem: Acute right-sided heart failure Active Problems: Elevated troponin Cellulitis Acute hypoxemic respiratory failure Resolved Problems: * No resolved hospital problems. * Procedures Performed: None Chief Complaint: Shortness of Breath (hx CHF) and Cough Hospital Course: Mr. Terry is a 44-year-old male with a history of essential HTN, history of methamphetamine a buse (quit 6 months ago), chronic right heart failure, chronic heart failure with preserved ejection fraction, and other comorbidities who presented to [facility] on 06/26 with progressivel y worsening shortness of breath, found to have acute hypoxemic respiratory failure, admitted for acute on chronic combined right and left sided heart failure in the context of pulmonar y hypertension. Hospital stay also complicated with periumbilical cellulitis on admission. Patient was also ruled out for COVID-19 while here. Patient initially required IV diuresis however was transitioned to p.o. diuresis prior to discharge. He originally presented at 2 64 pounds and discharged at 225 pounds (102 kg) and this can be seen on his dry weight. Roxanna segura feels well overall and has been weaned to room air and is ambulating without assistance . He was discharged on his home regimen of Lasix 40 mg p.o. twice daily as well as potassiu m 20 mEq daily as well as a few days left of Keflex to complete a course for cellulitis. He has been advised to follow-up with his PCP within 1 week for general hospital follow-up. O n discharge she felt well denying any fevers, chills, chest pain, dyspnea, orthopnea, abdomi nal pain, nausea/vomiting. Discharge Exam and Data: Vital Signs: BP 101/56 | Pulse 77 | Temp 36.6 C (97.8 F) (Oral) | Resp 18 | Ht 1.753 m (5' 9") | Wt 102.3 kg (225 lb 9.6 oz) | SpO2 91% | BMI 33.32 kg/m GEN: middle aged male in no apparent distress HEAD: normocephalic EYES: no conjunctival icterus or injection ENT: MMM, clear oropharynx NECK: supple, no cervical lymphadenpathy CV: RR at ~70 bpm, normal S1/S2, no murmurs RESP: CTAB without crackles or wheezes ABD: soft, NT/ND, BS+, no obvious masses/organomegaly SKIN: warm and dry, no rashes MSK: normal muscle bulk and tone PSYCH: mood is good, affect congruent NEURO: grossly non-focal Recent Labs BMP 135 103 23 89 4.0 26 0.9 CaMgPhos 8.8 2.1 3.6 LFT 27 129* 14 2.3* CBC 7.00 13.4 313 41.3 Coag 1.4 Last labs from current encounter as of 07/03/19-09:19 Recent Radiology Results CXR - 06/27/19 - Impression: New left basilar opacities likely combination of pleural effusion and airspace consolidation. In the absence of suspected complicated infection requiring repeat or advanced imaging, radiographic followup in 8-10 weeks recommended to document complete resolution. Outstanding Issues: Unresulted Labs and Imaging (From admission, onward) None Discharge Information: Follow up: LILIANA Saez [address] [facility] [address] In 1 week hospital follow up Current active diet order is: Diet Diet fat and cholesterol modified; sodium restricted 2 gm; 2000 ml fluid; Effective Now Discharge Medications New Medications Details cephalexin 500 mg capsule Take 1 capsule by mouth 4 times daily for 2 days. Indications: Non-Purulent Skin and Soft Tissue Infection aka: KEFLEX furosemide 40 mg tablet Take 1 tablet by mouth 2 times daily for 30 days. aka: LASIX potassium chloride 20 mEq ER tablet Take 1 tablet by mouth Daily for 30 days. aka: Klor-Con M20 Start: July 04, 2019 Disposition: home Condition: Fair Code Status: Full Code Discharge took greater than 30 minutes, to include final examination, discussion of admissi on, and preparation of prescriptions, instructions for on-going care, follow-up and document ation of discharge summary. Teodoro Gutierrez MD 9:19 AM 07/03/2019 documented in t his encounter Medications at Time of Discharge + + + +---------+ + + | Medication | Sig | Dispensed | Refills | Start | End Date | | | | | | Date | | + + + +---------+ + + | cephalexin | Take 1 capsule by | 8 | 0 | 07/03/19 | | | (KEFLEX) 500 mg | mouth 4 times daily | capsule | | 20 | 0 | | capsuleIndications: | for 2 days. | | | | | | NON-PURULENT SKIN | Indications: | | | | | | AND SOFT TISSUE | Non-Purulent Skin | | | | | | INFECTION | and Soft Tissue | | | | | | | Infection | | | | | + + + +---------+ + + | furosemide (LASIX) | Take 1 tablet by | 60 | 0 | 07/03/19 | | | 40 mg tablet | mouth 2 times daily | tablet | | 20 | 0 | | | for 30 days. | | | | | + + + +---------+ + + | potassium chloride | Take 1 tablet by | 30 | 0 | 07/04/19 | | | (KLOR-CON M20) 20 | mouth Daily for 30 | tablet | | 20 | 0 | | mEq ER tablet | days. | | | | | + + + +---------+ + + documented as of this encounter Progress Notes Shakira Martin RN - 07/03/2019 9:47 AM PDTPatient wanting to go home today. Pt states if he is not to discharged in a few minutes he would leave AMA. Dr. Gutierrez notified. Patient being discharged home with Discharge instructions given to patient and patient verbalizes underst anding of teaching. Paper scripts given to patient. CHF education given to patient. VSS at t chance of discharge. All questions and concerns addressed. IV removed. Will continue to monito r. Shakira Martin RN Shakira Fritz RN - 07/01 6:50 PM PDTPt A/O x4. Afebrile. VSS. Denies nausea, vomiting, SOB or chest pain. Pt w alked in room today. O2 salutation in low 90's on RA. Pt desats when sleeping. No acute gómez ges since previous assessment. Will continue to monitor. Chart check complete. Shakira Martin RN ugustus Mclean MD - 2:26 PM PDT [facility] Adult Hospitalist Progress Note Hospital Day: 5 Patient Summary: Briefly, 44-year-old male with a significant past medical history of essential hypertensio n, history of methamphetamine abuse (quit 6 months ago), chronic right heart failure, chroni c heart failure with preserved ejection fraction likely, and other comorbidities who present s to [facility] on 06/26 with progressively worsening shortness of breath admitted for likely a cute on chronic combined right and left sided heart failure in the context of pulmonary hype rtension. Hospital stay also complicated with periumbilical cellulitis on admission. Patie nt is actively being ruled out for COVID. SUBJECTIVE No acute overnight events. Patient is alert and oriented x3. Patient is sitting up in bed no acute distress, patient does have nasal cannula in place at approximately 3 L/mi n. The patient notes improvement in his shortness of breath at rest as compared to 06/30. Th e patient is ambulating, but does note dyspnea with exertion. Associated with fatigue and m alaise. Patient notes stability with mild improvement in the past 24 hours. Review of Systems Constitutional: Positive for malaise/fatigue. Negative for chills and fever. Respiratory: Positive for cough and shortness of breath. Negative for hemoptysis. Cardiovascular: Positive for leg swelling. Negative for chest pain, palpitations and orthop paulette. Genitourinary: Negative for flank pain. Endo/Heme/Allergies: Positive for polydipsia. Psychiatric/Behavioral: Negative for hallucinations. OBJECTIVE Vital Signs: BP 103/66 | Pulse 85 | Temp 36.9 C (98.5 F) (Oral) | Resp 24 | Ht 1.753 m (5' 9") | Wt 102.3 kg (225 lb 9.6 oz) | SpO2 91% | BMI 33.32 kg/m Physical Exam Vitals signs and nursing note reviewed. Constitutional: General: He is not in acute distress. Appearance: He is obese. He is not toxic-appearing. HENT: Head: Normocephalic. Eyes: Pupils: Pupils are equal, round, and reactive to light. Cardiovascular: Rate and Rhythm: Normal rate. Pulses: Normal pulses. Pulmonary: Breath sounds: Rales present. Comments: Good air entry bilaterally Abdominal: Palpations: Abdomen is soft. Tenderness: There is no guarding. Musculoskeletal: General: Swelling (Trace) present. Neurological: Mental Status: He is alert and oriented to person, place, and time. Mental status is at baseline. DATA BMP 134* 102 20 84 4.0 25 0.9 CaMgPhos 8.4* 2.1 3.6 LFT 27 129* 14 2.3* CBC 7.00 13.4 313 41.3 Coag 1.4 Last labs from current encounter as of 07/02/19-14:26 Imaging: -Imaging reviewed and will be addressed as indicated in the assessment and plan. PROBLEM LIST Principal Problem: Acute right-sided heart failure Active Problems: Elevated troponin Cellulitis Resolved Problems: * No resolved hospital problems. * IMPRESSION/PLAN: 1. 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 Continue with telemetry monitoring. -Hemoglobin unremarkable. Downtrending troponin. -Home regimen: Home medications reviewed patient is homeless, no medication reconciliatio n list identified. -The patient states compliance with home regimen. -2D echocardiogram (06/27) demonstrates EF of 80%, pulmonary hypertension, moderate tricuspi d regurgitation and indeterminate left ventricular diastolic function; however, moderate inc reased left ventricular wall thickness with severely dilated right ventricle. -We will continue patient on Lasix 40 mg IV twice daily. We will administer Lasix 40 mg IV x1. -Strict I's and O's. Will attempt to target a net negative of 2 L daily. -Daily weights. Patient's reported dry weight is unknown. -Fluid and salt restriction -Continue with supportive care and blood pressure control hydralazine PRN -COVID-19 negative. -Kindly, see case management coordinator note for further details. 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 Elevated troponin: -Patient presently denies any chest pain. -Most likely demand ischemia secondary to point #1. -Would recommend outpatient cardiology referral/follow-up on discharge. Hypokalemia/hypomagnesemia: -Resolving. Essential hypertension: -Presently, the patient systolic blood pressure has been ranging from 113 122. Per mariangel rollins of home medication reconciliation list no antihypertensive medication identified. -We will add hydralazine 10 mg every 4 hours PRN for SBP persistently greater than 150 at r est not due to pain or anxiety. History of methamphetamine abuse: -Ativan PRN. Cellulitis: -We will transition the patient to Keflex. DVT prophylaxis: In place uAgustus Mclean MD 2:26 PM 07/02/2019 Augustus Carter MD - 07/01/2019 11:06 AM PDT [facility] Adult Hospitalist Progress Note Hospital Day: 4 Patient Summary: Briefly, 44-year-old male with a significant past medical history of essential hypertensio n, history of methamphetamine abuse (quit 6 months ago), chronic right heart failure, chroni c heart failure with preserved ejection fraction likely, and other comorbidities who present s to [facility] on 06/26 with progressively worsening shortness of breath admitted for likely a cute on chronic combined right and left sided heart failure in the context of pulmonary hype rtension. Hospital stay also complicated with periumbilical cellulitis on admission. Patie nt is actively being ruled out for COVID. SUBJECTIVE No acute overnight events. Patient is alert and oriented x3. Patient is sitting up in bed no acute distress, patient does have nasal cannula in place. The patient notes dec reased urine output as compared to the past 24 hours with increased fatigue and malaise. Th e patient does note progressively worsening dyspnea with exertion. Review of Systems Constitutional: Positive for malaise/fatigue. Negative for chills and fever. Respiratory: Positive for cough and shortness of breath. Negative for hemoptysis. Cardiovascular: Positive for leg swelling. Negative for chest pain, palpitations and orthop paulette. Gastrointestinal: Negative for abdominal pain. Neurological: Negative for focal weakness. Endo/Heme/Allergies: Negative for polydipsia. OBJECTIVE Vital Signs: BP 132/88 | Pulse 75 | Temp 36.9 C (98.5 F) (Oral) | Resp 20 | Ht 1.753 m (5' 9") | Wt 109 kg (240 lb 4.8 oz) | SpO2 95% | BMI 35.49 kg/m Physical Exam Vitals signs and nursing note reviewed. Constitutional: General: He is not in acute distress. Appearance: He is obese. He is not toxic-appearing. HENT: Head: Normocephalic. Eyes: Pupils: Pupils are equal, round, and reactive to light. Cardiovascular: Rate and Rhythm: Normal rate. Pulses: Normal pulses. Pulmonary: Breath sounds: Rales present. Comments: Good air entry bilaterally Abdominal: Palpations: Abdomen is soft. Tenderness: There is no guarding or rebound. Musculoskeletal: General: Swelling (+2) present. Neurological: Mental Status: He is alert and oriented to person, place, and time. Mental status is at baseline. DATA BMP 134* 102 28* 91 3.9 24 1.0 CaMgPhos 8.6 2.1 3.4 LFT 27 129* 14 2.3* CBC 7.00 13.4 313 41.3 Coag 1.4 Last labs from current encounter as of 07/01/19-11:06 Imaging: -Imaging reviewed and will be addressed as indicated in the assessment and plan. PROBLEM LIST Principal Problem: Acute right-sided heart failure Active Problems: Elevated troponin Cellulitis Resolved Problems: * No resolved hospital problems. * IMPRESSION/PLAN: 1. 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 Continue with telemetry monitoring. -Hemoglobin unremarkable. Downtrending troponin. -Home regimen: Home medications reviewed patient is homeless, no medication reconciliatio n list identified. -The patient states compliance with home regimen. -2D echocardiogram (06/27) demonstrates EF of 80%, pulmonary hypertension, moderate tricuspi d regurgitation and indeterminate left ventricular diastolic function; however, moderate inc reased left ventricular wall thickness with severely dilated right ventricle. -We will place patient on Lasix 40 mg IV twice daily. Will consider restarting p.o. Lasix in the next 24 to 48 hours. -Strict I's and O's. Will attempt to target a net negative of 2 L daily. -Daily weights. Patient's reported dry weight is unknown. -Fluid and salt restriction -Continue with supportive care and blood pressure control hydralazine PRN -COVID-19 negative. Elevated troponin: -Patient presently denies any chest pain. -Most likely demand ischemia secondary to point #1. -Would recommend outpatient cardiology follow-up on discharge. Hypokalemia/hypomagnesemia: -Resolving. Essential hypertension: -Presently, the patient systolic blood pressure has been ranging from 113 122. Per mariangel w of home medication reconciliation list no antihypertensive medication identified. -We will add hydralazine 10 mg every 4 hours PRN for SBP persistently greater than 150 at r est not due to pain or anxiety. History of methamphetamine abuse: -Ativan PRN. Cellulitis: -We will transition the patient to Keflex. DVT prophylaxis: In place Augustus Mclean MD 11:06 AM 07/01/2019 Shelley Hartley RN - 06/30/2019 12:05 PM PDTReceived report from BRIANA Arias. Assumed care of patient at 1000. Agree with previous assessment. Will continue to monitor. Ezio Booker RN [id number]: pt tapered down to approx 3L per nasal cannula and tolerating well. O2 saturations ma intaining in low to mid 90's. Otherwise no acute changes, will continue to monitor. END OF SHIFT AUDIT COMPLETE. Ezio Booker RN Electronically signed by Shelley Booker RN at 03/2019 5:14 PM Esther Momin RN - 06/30/2019 11:19 AM PDTPt COVID 19 negative. Re spiratory panel also negative. You may take off all isolation if patient remains asymptomati c of respiratory symptoms. Thank you! Esther Morfin, RN, MSN, Infection Prevention Coordinator Augustus Carter MD - 06/30/2019 11:04 AM PDTFormat ting of this note might be different from the original. [facility] Adult Hospitalist Progress Note Hospital Day: 3 Patient Summary: Briefly, 44-year-old male with a significant past medical history of essential hypertensio n, history of methamphetamine abuse (quit 6 months ago), chronic right heart failure, chroni c heart failure with preserved ejection fraction likely, and other comorbidities who present s to [facility] on 06/26 with progressively worsening shortness of breath admitted for likely a cute on chronic combined right and left sided heart failure in the context of pulmonary hype rtension. Hospital stay also complicated with periumbilical cellulitis on admission. Patie nt is actively being ruled out for COVID. SUBJECTIVE No acute overnight events. Patient is alert and oriented x3. The patient is sitting up in bed no acute distress. Patient notes minimal/no shortness of breath at rest; [facility], the patient does get dyspneic with minimal exertion including ambulating to the bathro om. Patient notes associated symptoms of fatigue, malaise and weakness. Progression stable with minimal improvement in next 24 hours. Review of Systems Constitutional: Positive for malaise/fatigue. Negative for chills and fever. Respiratory: Positive for cough and shortness of breath. Negative for hemoptysis. Cardiovascular: Positive for leg swelling. Negative for chest pain, palpitations and orthop paulette. Endo/Heme/Allergies: Positive for polydipsia. OBJECTIVE Vital Signs: BP 134/83 | Pulse 90 | Temp 36.6 C (97.9 F) (Oral) | Resp 20 | Ht 1.753 m (5' 9") | Wt 109 kg (240 lb 4.8 oz) | SpO2 93% | BMI 35.49 kg/m Physical Exam Vitals signs and nursing note reviewed. Constitutional: General: He is not in acute distress. Appearance: He is obese. He is not toxic-appearing. Cardiovascular: Rate and Rhythm: Normal rate. Pulses: Normal pulses. Pulmonary: Breath sounds: Rales present. Abdominal: Palpations: Abdomen is soft. Tenderness: There is no guarding or rebound. Musculoskeletal: General: Swelling (trace) present. Neurological: General: No focal deficit present. Mental Status: He is alert and oriented to person, place, and time. Mental status is at baseline. Cranial Nerves: No cranial nerve deficit. DATA BMP 134* 102 28* 91 4.1 24 1.0 CaMgPhos 8.6 2.1 3.4 LFT 27 129* 14 2.3* CBC 7.00 13.4 313 41.3 Coag 1.4 Last labs from current encounter as of 06/30/19-11:04 Recent Labs 06/28/19 0423 06/27/19 2148 06/27/19 1455 TROPONIN 0.054* 0.046* 0.058* BNP -- -- 1,344.20* Imaging: -Imaging reviewed and will be addressed as indicated in the assessment and plan. PROBLEM LIST Principal Problem: Acute right-sided heart failure Active Problems: Elevated troponin Cellulitis Resolved Problems: * No resolved hospital problems. * IMPRESSION/PLAN: 1. 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 Continue with telemetry monitoring. -Hemoglobin unremarkable. Downtrending troponin. -Home regimen: Home medications reviewed patient is homeless, no medication reconciliatio n list identified. -The patient states compliance with home regimen. -2D echocardiogram (06/27) demonstrates EF of 80%, pulmonary hypertension, moderate tricuspi d regurgitation and indeterminate left ventricular diastolic function; however, moderate inc reased left ventricular wall thickness with severely dilated right ventricle. -We will convert patient from Lasix 40 mg IV twice daily to p.o. Lasix 40 mg twice daily. -Strict I's and O's. Will attempt to target a net negative of 2 L daily. -Daily weights. Patient's reported dry weight is unknown. -Fluid and salt restriction -Continue with supportive care and blood pressure control hydralazine PRN -COVID-19 unremarkable, the patient is to be transferred out of COVID unit. Elevated troponin: -Patient presently denies any chest pain. -Most likely demand ischemia secondary to point #1. -Would recommend outpatient cardiology follow-up on discharge. Hypokalemia/hypomagnesemia: -Resolving. Essential hypertension: -Presently, the patient systolic blood pressure has been ranging from 113 122. Per revie w of home medication reconciliation list no antihypertensive medication identified. -We will add hydralazine 10 mg every 4 hours PRN for SBP persistently greater than 150 at r est not due to pain or anxiety. History of methamphetamine abuse: -Ativan PRN. Cellulitis: -We will transition the patient to Augmentin 1 tablet p.o. twice daily to complete a total of 10 days of antibiotic therapy. DVT prophylaxis: In place Augustus Mclean MD 11:04 AM 06/30/2019 Augustus Carter MD - 06/29/2019 10:16 AM PDT [facility] Adult Hospitalist Progress Note Hospital Day: 2 Patient Summary: Briefly, 44-year-old male with a significant past medical history of essential hypertensio n, history of methamphetamine abuse (quit 6 months ago), chronic right heart failure, chroni c heart failure with preserved ejection fraction likely, and other comorbidities who present s to [facility] on 06/26 with progressively worsening shortness of breath admitted for likely a cute on chronic combined right and left sided heart failure in the context of pulmonary hype rtension. Hospital stay also complicated with periumbilical cellulitis on admission. Patie nt is actively being ruled out for COVID. SUBJECTIVE No acute overnight events. Patient is alert and oriented x3. No family at bedside. Patient is sitting up in bed no acute distress. Patient notes associated fatigue, malais e, weakness, lower extremity/truncal edema. Progression stable, with mild improvement sin ce admission. Minimal ambulation. Review of Systems Constitutional: Positive for malaise/fatigue. Negative for chills and fever. HENT: Negative for ear discharge. Eyes: Negative for photophobia. Respiratory: Positive for cough and shortness of breath. Negative for hemoptysis. Cardiovascular: Positive for orthopnea and leg swelling. Negative for chest pain and palpit ations. Gastrointestinal: Negative for abdominal pain. Genitourinary: Negative for dysuria. Musculoskeletal: Negative for falls. Neurological: Negative for focal weakness. Endo/Heme/Allergies: Positive for polydipsia. Psychiatric/Behavioral: Negative for hallucinations. OBJECTIVE Vital Signs: BP 113/58 | Pulse 86 | Temp 36.7 C (98.1 F) (Oral) | Resp 16 | Ht 1.753 m (5' 9") | Wt 111.6 kg (246 lb 0.5 oz) | SpO2 93% | BMI 36.33 kg/m Physical Exam Vitals signs and nursing note reviewed. HENT: Head: Normocephalic. Eyes: Pupils: Pupils are equal, round, and reactive to light. Neck: Comments: Positive JVD Cardiovascular: Rate and Rhythm: Normal rate. Pulses: Normal pulses. Pulmonary: Breath sounds: Wheezing and rales present. Abdominal: Palpations: Abdomen is soft. Tenderness: There is no guarding or rebound. Musculoskeletal: General: Swelling present. Skin: General: Skin is warm. Neurological: General: No focal deficit present. Mental Status: He is alert and oriented to person, place, and time. Mental status is at baseline. Cranial Nerves: No cranial nerve deficit. DATA BMP 135 98* 21 102* 3.2* 26 1.09 CaMgPhos 8.9 1.4* 4.0 LFT 27 129* 14 3.6 CBC 7.00 13.4 313 41.3 Coag 1.4 Last labs from current encounter as of 06/29/19-10:17 Recent Labs 06/28/19 0423 06/27/19 2148 06/27/19 1455 TROPONIN 0.054* 0.046* 0.058* BNP -- -- 1,344.20* Imaging: -Imaging reviewed and will be addressed as indicated in the assessment and plan. PROBLEM LIST Principal Problem: Acute right-sided heart failure Active Problems: Elevated troponin Cellulitis Resolved Problems: * No resolved hospital problems. * IMPRESSION/PLAN: 1. 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 Continue with telemetry monitoring. -Hemoglobin 13.4. Initial troponin mildly elevated. -Home regimen: Home medications reviewed patient is homeless, no medication reconciliatio n list identified. -The patient states compliance with home regimen. -2D echocardiogram (06/27) demonstrates EF of 80%, pulmonary hypertension, moderate tricuspi d regurgitation and indeterminate left ventricular diastolic function; however, moderate inc reased left ventricular wall thickness with severely dilated right ventricle. -We will discontinue IV Lasix drip, and convert patient to Lasix 40 mg IV twice daily. -Strict I's and O's. Will attempt to target a net negative of 2 L daily. -Daily weights. Patient's reported dry weight is unknown. -Fluid and salt restriction -Continue with supportive care and blood pressure control hydralazine PRN -Follow-up COVID 19 Elevated troponin: -Patient presently denies any chest pain. -Most likely demand ischemia secondary to point #1. -Would recommend outpatient cardiology follow-up on discharge Hypokalemia/hypomagnesemia: -We will replete with 40 mEq of potassium x2 doses and 2 g of magnesium sulfate x1. Essential hypertension: -Presently, the patient systolic blood pressure has been ranging from 113 122. Per mariangel rollins of home medication reconciliation list no antihypertensive medication identified. -We will add hydralazine 10 mg every 4 hours PRN for SBP persistently greater than 150 at r est not due to pain or anxiety. History of methamphetamine abuse: -Ativan PRN. Cellulitis: -Continue with Ancef for 24 hours, if patient shows improvement will convert to Augmentin 1 tablet p.o. twice daily DVT prophylaxis: In place Augustus Mclean MD 10:17 AM 06/29/2019 Jelena Moreno RN - 06/28/2019 5:40 PM PDTPatient stable during shift. Lasix drip continues. Patient urin ating quantity sufficient. Awaiting COVID results. Otherwise, no acute changes from shift as sessment. Chart check complete. Jelena Saucedo RN Esther Momin RN - 06/28/2019 3:37 PM PDTFor COVID 19 rule-outs, patient should be placed on special d roplet/contact precautions, in addition to standard precautions. Thank you for ordering special precautions. Thank you! Esther Morfin, RN, MSN, Infection Prevention Coordinator arkos Sanchez DO - 06/28/2019 1:14 PM PDT PROGRESS NOTE for Carole Terry on the hospitalist service. 06/28/2019 ASSESSMENT & PLAN Acute R-sided heart failure and pulm HTN Echo pending. I/O are neg on IV furosemide infusion, continue same and monitor I/O. Goal im provement in oxygenation, currently 5L oxymask. Consider addition of BB and/or KARIN/ARB sheila laureano on echo and vitals. Periumbilical cellulitis Improving on Ancef, continue same. Elevated troponin Due to above, no further workup for ACS planned. Homelessness Creates a challenge for DC planning and outpatient compliance. Problem list: Principal Problem: Acute right-sided heart failure Active Problems: Elevated troponin Cellulitis Length of stay: 1 days Disposition: inpatient SUBJECTIVE Patient seen/examined sitting in bed, can't say if his breathing has improved at all withou t getting up and moving around. OBJECTIVE BP 127/88 | Pulse 83 | Temp 36.8 C (98.2 F) (Oral) | Resp 20 | Ht 1.753 m (5' 9") | Wt 116.4 kg (256 lb 9.9 oz) | SpO2 92% | BMI 37.90 kg/m Physical exam: AOx3 NAD Heart RRR +M Lungs crackles in lower lobes Abd S +TTP periumbilically, there is mild erythema, no induration, exudate/pus, or fluctuan ce Ext +pitting edema I spent over 35 minutes in reviewing patient s data, examination of patient and discussin g care of patient with patient and family. At least, 50% of time was face to face counseling or coordinating of care. Markos Sanchez DO 06/28/2019 1:14 PM documented in this enco unter H&P Notes Veronica Arriola MD - 06/27/2019 7:52 PM PDT [facility] Service: Hospitalist Admission History & Physical Date of Admission: 06/27/2019 Requesting Physician: Emergency Department Reason for Admission: Acute congestive heart failure History Obtained From: Patient CHIEF COMPLAINT: SOB HISTORY OF PRESENT ILLNESS This is a 44-year-old maleWith a past medical history of hypertension, history of methamphe tamine use quit 6 months ago (unsure of how long he took it for) right-sided and diastolic c ongestive heart failure with his last echo done in 08/15 showing an EF of 70% with severe rig ht sided enlargement and impaired systolic function, moderate pulmonary hypertension, and ao rtic root dilatation who presented to the emergency department with shortness of breath and anasarca. He reports lower extremity edema since the last 1 year that has been progressing to his abdomen and his arms.He also noticed shortness of breath 1-1/2-month ago that has bee n getting progressively worse.Patient was seen in 05/19 for dyspnea along with fever at [facility]. He was transferred to [facility] for acute on chronic right-sided heart failure and influe nza (per chart review from care everywhere). CTA done at that time showed no evidence of PE. He was discharged on oral Lasix twice daily. Patient reports that the Lasix has not been w orking for him. He has had decreased urine output, dry cough. He is homeless but has been sitting up and sleeping. He denies any fevers, chills, nausea, vomiting but does report per iumbilical abdominal pain. He does report chest pain 1 month ago which he described as some one stabbing him. No rhinorrhea, no diarrhea or constipation. He has been compliant with h is 1.8 L fluid restriction and 2 g salt restriction. In the emergency department his initial blood pressure was 133/101 he was satting 79% on ro om air and placed on 5 L of oxygen satting 92%. CBC was normal. Sodium was 133 with a bica rb of 22. BNP was 1344. Troponin was slightly elevated at 0.058. ABG was done which showe d a pH of 7.46, PCO2 23, PO2 59, bicarb 16. EKG showed no acute ischemic changes. Chest x- ray showed new left basilar opacity likely combination of pleural effusion and airspace cons olidation. Was given 100 mg of IV Lasix along with aspirin and nitroglycerin. REVIEW OF SYSTEMS Review of Systems - General ROS: negative ENT: No ear discharge No nasal drainage. No sore throat Endocrine:No cold or heat tolerance. No weight changes Respiratory: + cough, +shortness of breath, or wheezing Cardiovascular: no chest pain or dyspnea on exertion Gastrointestinal: + abdominal pain, no change in bowel habits, or black or bloody stools Genitourinary: no dysuria, polyuria, hematuria Musculoskeletal: negative No muscle weakness Neurological: no TIA or stroke symptoms Dermatological:No rash Psych: cooperative No past medical history on file. Past Surgical History: Procedure Laterality Date HERNIA REPAIR Allergies Allergen Reactions Sulfa Antibiotics Other (See Comments) States told as a child not to take sulfa meds - unknown reation No medications prior to admission. No family history on file. Social History Socioeconomic History Marital status: Legally Spouse name: Not on file Number of children: Not on file Years of education: Not on file Highest education level: Not on file Occupational History Not on file Social Needs Financial resource strain: Not on file Food insecurity: Worry: Not on file Inability: Not on file Transportation needs: Medical: Not on file Non-medical: Not on file Tobacco Use Smoking status: Never Smoker Substance and Sexual Activity Alcohol use: Not on file Drug use: Not on file Comment: Drug use: Yes Sexual activity: Not on file Lifestyle Physical activity: Days per week: Not on file Minutes per session: Not on file Stress: Not on file Relationships Social connections: Talks on phone: Not on file Gets together: Not on file Attends pentecostalism service: Not on file Active member of club or organization: Not on file Attends meetings of clubs or organizations: Not on file Relationship status: Not on file Intimate partner violence: Fear of current or ex partner: Not on file Emotionally abused: Not on file Physically abused: Not on file Forced sexual activity: Not on file Other Topics Concern Not on file Social History Narrative Not on file PHYSICAL EXAM Vitals: 06/27/19 2134 BP: (!) 134/96 Pulse: 83 Resp: 20 Temp: 36.7 C (98 F) Gen: AOX3. NAD HEENT: NCAT CV: RRR. S1S2 normal. no murmer, rubs, or gallops. No JVD Chest: diminished BS Abd: S, midline abdominal tenderness with erythema and mild warmth. BS+, no gaurding or rid igity Ext: +3 upper and lower extremity edema. 2+ DP Neuro: Motor/sensations intact. 2+ DTRs DATA Recent Results (from the past 24 hour(s)) B Type Natriuretic Peptide Result Value Ref Range BNP 1,344.20 (H) 0 - 100 pg/mL CBC with Differential Result Value Ref Range WBC 8.38 3.80 - 11.00 K/uL RBC 5.17 4.20 - 5.70 M/uL Hemoglobin 14.9 13.2 - 17.0 g/dL Hematocrit 45.8 39.0 - 50.0 % MCV 88.6 80.0 - 100.0 fl MCH 28.8 27.0 - 34.0 pg MCHC 32.5 32.0 - 35.5 g/dL RDW-SD 50.9 37 - 53 fl Platelet Count 370 150 - 400 K/uL MPV 10.4 fl Diff Type AUTOMATED % nRBC 0.0 0 /100WBC % Neutrophils 64.80 % IMMATURE GRANULOCYTE 0.20 % % Lymphocytes 22.70 % Monocyte % 11.30 % Eosinophils % 0.40 % Basophils % 0.60 % Neutrophils, Absolute 5.43 1.90 - 7.40 K/uL IMMATURE GRANS AB 0.02 0.00 - 0.07 K/uL Absolute Lymphocytes 1.90 1.00 - 3.90 K/uL Absolute Monocytes 0.95 (H) 0.00 - 0.80 K/uL Eosinophils, Absolute 0.03 0.00 - 0.50 K/uL Basophils, Absolute 0.05 0.00 - 0.10 K/uL Comprehensive Metabolic Panel Result Value Ref Range Na 133 (L) 135 - 145 mmol/L K 4.4 3.5 - 4.9 mmol/L Cl 99 99 - 109 mmol/L CO2 22 (L) 23 - 32 mmol/L Anion Gap 16 5 - 20 mmol/L Glucose 115 (H) 65 - 99 mg/dL BUN 22 8 - 25 mg/dL Creatinine 1.09 0.70 - 1.30 mg/dL BUN/Creatinine Ratio 20 Calcium 9.2 8.5 - 10.5 mg/dL Protein, Total 7.5 6.3 - 8.2 g/dL Albumin 4.0 3.6 - 5.0 g/dL Globulin 3.5 1.3 - 4.9 g/dL A/G Ratio 1.1 1.0 - 2.4 BILIRUBIN, TOTAL 4.8 (H) 0.1 - 1.5 mg/dL ALK PHOS 150 (H) 35 - 115 U/L AST 38 10 - 45 U/L ALT 18 10 - 65 U/L Estimated GFR >60 >60 mL/min/1.73m2 Troponin I Result Value Ref Range Troponin I 0.058 (H) 0.00 - 0.04 ng/mL Protime INR Result Value Ref Range INR 1.4 ECG 12 lead Result Value Ref Range INTERPRETATION TEXT Not Confirmed POC CG 4, ISTAT Arterial Result Value Ref Range pH, Arterial, POC 7.460 (H) 7.350 - 7.450 pCO2, Arterial 23 (L) 35 - 45 mmHg pO2, Arterial 59 (L) 80 - 105 mmHg Lactate, Arterial, POC 0.94 0.36 - 1.25 mmol/L HCO3, Arterial 16 (L) 22 - 26 mmol/L TCO2, Arterial, POC 17 (L) 23 - 27 mEq/L POC Base Deficit mmol/L 7 (H) 0.0 - 2.0 mmol/L SO2, Arterial, POC 92 (L) 95 - 98 % FiO2, POC 32 % Comment, POC Modified Miky Test passed IMAGING: Xr Chest Ap Portable Result Date: 06/27/2019 CHEST PORTABLE ONE VIEW CLINICAL INFORMATION: Shortness of breath and cough. COMPARISON: XR CHEST 2 VIEW FRONTAL AND LATERAL (04/24/2018); CTA CHEST PULMONARY EMBOLISM W CONTRAST (08/15); XR CHEST 2 VIEW (08/15/2017); FINDINGS: Left basilar opacities likely a combination o f airspace disease and pleural effusion. No pneumothorax. Stable cardiomegaly. No signifi cant osseous abnormality. New left basilar opacities likely combination of pleural effusion and airspace consolidatio n. In the absence of suspected complicated infection requiring repeat or advanced imaging, radiographic followup in 8-10 weeks recommended to document complete resolution. Signed by: Mary Ellen Guevara Tyson Sign Date/Time: 06/27/2019 4:10 PM PROBLEM LIST Principal Problem: Acute right-sided heart failure Active Problems: Elevated troponin Cellulitis ASSESSMENT & PLAN Acute on chronic right sided congestive heart failure: with mild diastolic congestive heart failure with echo done in 08/15. most likely in the setting of pulmonary hypertension from m ethamphetamine use. Patient with dyspnea, anasarca, and elevated BNP. Worsening symptoms lik cary due to progression of disease. Ordered IV lasix gtt, monitor I/Os and daily weight, 1.5L fluid restriction, 2gm salt restriction. Will repeat echocardiogram. Also patient admitted at [facility] 05/20, will request records. Acute hypoxic respiratory failure: most likely will need [facility] oxygen as dyspnea due to pulmonary hypertension. Monitor saturations. Patient being ruled out for COVID although his tory not suggestive of this. Elevated Troponin: most likely demand from CHF exacerbation, denies any recent chest pain, but will trend troponins and if continue to trend up will need to consult cardiology. Group I pulmonary hypertension: most likely from methamphetamine use. Will trial sildenafil . Will need outpatient follow up with pulmonology. Abdominal wall cellulitis: started ancef. Ordered UA abdomen to r/o underlying abscess, alt herb due to anasarca will check for cardiac cirrhosis and ascites. Hyponatremia: 2/2 hypervolemia. Monitor. Hypertension: BP improved after IV lasix. Monitor. Disposition: inpatient Code Status: Full Code DVT PPx: lovenox SQ Diet: Primary Care Physician: LILIANA Saez MD 06/27/2019 documented in this [facility] ED Notes Sergei Gamez MD - 06/27/2019 3:33 PM PDTFormatting of this note might be different from t he original. [facility] Department of Emergency Medicine 7:59 PM Pt Room: ED07/ED07 History of Present Illness Patient Identification Carole Terry is a 44 y.o. male. Patient information was obtained from patient History/Exam limitations: none. Patient presented to the Emergency Department by: POV History of Presenting Illness The patient is a 44 y.o. male presenting with Chief Complaint Patient presents with Shortness of Breath hx CHF Cough Location-respiratory Onset-is been gradually getting worse over the last week Duration-persistent slowly worsening Severity and Character-moderate shortness of breath Worse with- exertion Better with- nothing Radiation-none Denies- headache, vision change, sore throat, cough, chest pain, shortness of breath, abdom inal pain, nausea, vomiting, diarrhea, constipation, blood in the urine or stool, rash, feve r, mood change Admits-increase swelling lower abdomen, lower legs, exertional shortness of breath Context-patient states that he was diagnosed with congestive heart failure. He is not enti rely sure why. He was cocaine when he was younger. He states that he has had increased swe lling in his legs. He thinks that his dry weight is around 245 pounds. He feels that his L asix is no longer working. He takes 40 mg twice daily. PCP: LILIANA Saez Specialists: No past medical history on file. Past Surgical History: Procedure Laterality Date HERNIA REPAIR Prior to Admission medications Not on File Allergies Allergen Reactions Sulfa Antibiotics Other (See Comments) States told as a child not to take sulfa meds - unknown reation Social History Socioeconomic History Marital status: Legally Spouse name: Not on file Number of children: Not on file Years of education: Not on file Highest education level: Not on file Occupational History Not on file Social Needs Financial resource strain: Not on file Food insecurity: Worry: Not on file Inability: Not on file Transportation needs: Medical: Not on file Non-medical: Not on file Tobacco Use Smoking status: Never Smoker Substance and Sexual Activity Alcohol use: Not on file Drug use: Not on file Comment: Drug use: Yes Sexual activity: Not on file Lifestyle Physical activity: Days per week: Not on file Minutes per session: Not on file Stress: Not on file Relationships Social connections: Talks on phone: Not on file Gets together: Not on file Attends pentecostalism service: Not on file Active member of club or organization: Not on file Attends meetings of clubs or organizations: Not on file Relationship status: Not on file Intimate partner violence: Fear of current or ex partner: Not on file Emotionally abused: Not on file Physically abused: Not on file Forced sexual activity: Not on file Other Topics Concern Not on file Social History Narrative Not on file No family history on file. I have personally reviewed the social history, pertinent history has been addressed. Review of Systems Complete review of systems obtained and negative except as stated above in HPI Physical Exam Temp: 36 C (96.8 F) Pulse: 95 Resp: 30 BP: (!) 133/101 SpO2: 90 % Vital signs interpretation: Rapid respiratory rate. Borderline O2 sat although hypoxic at triage Pulse Oximetry interpretation: Normal on Ventimask however patient with SPO2 in the 70s in triage General: Obese male alert, in no apparent distress but dyspneic Head: Normocephalic, atraumatic Eyes: Normal inspection, pupils equal and round, non-icteric. EOMI ENT: External Ears normal Nose normal Moist mucous membranes Oropharynx clear Neck: Normal inspection Supple Cardiovasc: Rate and rhythm normal No murmurs Respiratory: Breath sounds equal bilaterally although wet in the bases Abdomen: Soft, nondistended, nontender. Edema over the inferior pannus No guarding or rebound No peritoneal sign Genitourinary: Deferred Rectal exam: Deferred Back: Normal inspection Extremities: Bilateral pitting edema all the way up to the thighs. Skin: Skin is mottled with slightly bluish fingertips and mottled wrists and knees No rash Neuro: Alert, no AMS No gross motor/sensory deficits Moving all extremities Psych: Normal Mood Normal Judgement Medical Decision Making and Emergency Department Course ED Department Course 44 y.o. male presents to the ED with a chief complaints of exertional shortness of breath. Patient hypoxic. Patient edematous. Concern for CHF exacerbation. Differential includes, but is not limited to: acute AK, unstable angina, thoracic aortic dissection, pneumothorax, PE, myocarditis, pericarditis, esophagitis, musculoskeletal disorder, pleurisy, anxiety, vs other. Considered COVID19 as trigger for his CHF and so wore appropriate PPE and face shiel d during my clinical encounter. Will obtain labs and imaging and reevaluate the patient. ====EKG Interpretation==== The following EKG interpreted by Me Time: 15:04 Rate: 88 Rhythm: NSR [place]: normal Intervals: qrs 94 ST: No significant ST elevations or depressions T Waves: Normal Other: Incomplete right bundle branch block, septal Q waves, biphasic P waves Compared to ekg done -April 23, 2018 Overall Impression: Non-specific EKG with chronic incomplete right bundle branch block and atrial enlargement Interpreted by Sergei Gamez MD Rhythm strip analysis: Normal sinus rhythm with rate of 88 Echocardiogram from July 2017 shows: CONCLUSIONS 1. Left ventricular systolic function is hyperdynamic with an estimated EF of >70%. 2. There is mild concentric left ventricular hypertrophy. 3. No regional wall motion abnormalities. 4. The right ventricle is severely enlarged measuring >4.1 cm. 5. The right ventricular systolic function is severely impaired. 6. The right atrium is moderately enlarged. 7. Mild tricuspid regurgitation present. 8. There is moderate pulmonary hypertension. 9. The right ventricular systolic pressure (pulmonary artery systolic pressure), as measure d by Doppler, is 39+15=54 mmHg. 10. The aortic root and ascending aorta are dilated measuring up to 4.1 cm. Patient states his Lasix is no longer working. Will check labs and give Lasix. Considered COVID19 and so wore appropriate PPE and face shield during my clinical encounter. Patient d oes not need advanced medical support for this. As swabs are limited will not test at this t chance Review of vitals Temp: 36 C (96.8 F) Pulse: 85 Resp: 25 BP: 145/67 SpO2: 92 % I personally reviewed the results obtained below. Pertinent positive and negative findings have been addressed appropriately and I have discussed any clinically important abnormaliti es with the patient. Medical Decision Making as of Jun 26 1958 Sun Jun 27, 2019 1626 Patient's x-ray may show a focal consolidation. His picture is more concerning with f luid that infection without much of a cough and no true fever. 1901 Patient has not had much results with the 40 of IV Lasix. We will try repeat dose of 60. Spoke with pharmacist about potentially switching to Bumex. Mechanism of action is sim ilar and so unlikely to see much of a difference in result. Patient is not loop diuretic na ve. May need a higher dose. 1941 It is been 2-1/2 hours waiting for a call for admission. Transfer center let me know that it accidentally fell through the cracks. Will find a hospitalist to assist with admiss ion Medications aspirin tablet 325 mg (325 mg Oral Given 06/27/191511) nitroglycerin (NITROSTAT) SL tablet 0.4 mg (0.4 mg Sublingual Given 06/27/191511) furosemide (LASIX) injection 40 mg (40 mg Intravenous Given 06/27/191551) furosemide (LASIX) injection 60 mg (60 mg Intravenous Given 06/27/191957) Records Reviewed Old medical records. Previous electrocardiograms. Nursing notes. Laboratory and Radiology Evaluation Labs Reviewed B TYPE NATRIURETIC PEPTIDE - Abnormal; Notable for the following components: Result Value BNP 1,344.20 (*) All other components within normal limits CBC WITH DIFFERENTIAL - Abnormal; Notable for the following components: Absolute Monocytes 0.95 (*) All other components within normal limits COMPREHENSIVE METABOLIC PANEL - Abnormal; Notable for the following components: Na 133 (*) CO2 22 (*) Glucose 115 (*) BILIRUBIN, TOTAL 4.8 (*) ALK PHOS 150 (*) All other components within normal limits TROPONIN I - Abnormal; Notable for the following components: Troponin I 0.058 (*) All other components within normal limits POC CG 4, ISTAT ARTERIAL - Abnormal; Notable for the following components: pH, Arterial, POC 7.460 (*) pCO2, Arterial 23 (*) pO2, Arterial 59 (*) HCO3, Arterial 16 (*) TCO2, Arterial, POC 17 (*) POC Base Deficit mmol/L 7 (*) SO2, Arterial, POC 92 (*) All other components within normal limits CORONAVIRUS (COVID-19) PCR PROTIME INR I personally reviewed the lab results and they have been posted to the chart. Pertinent po sitive and negative findings have been addressed appropriately and I have discussed any sign ificant abnormalities. Xr Chest Ap Portable Result Date: 06/27/2019 CHEST PORTABLE ONE VIEW CLINICAL INFORMATION: Shortness of breath and cough. COMPARISON: XR CHEST 2 VIEW FRONTAL AND LATERAL (04/24/2018); CTA CHEST PULMONARY EMBOLISM W CONTRAST (08/15); XR CHEST 2 VIEW (08/15/2017); FINDINGS: Left basilar opacities likely a combination o f airspace disease and pleural effusion. No pneumothorax. Stable cardiomegaly. No signifi cant osseous abnormality. New left basilar opacities likely combination of pleural effusion and airspace consolidatio n. In the absence of suspected complicated infection requiring repeat or advanced imaging, radiographic followup in 8-10 weeks recommended to document complete resolution. Signed by: Mary Ellen Guevara Tyson Sign Date/Time: 06/27/2019 4:10 PM Final diagnoses: Acute on chronic respiratory failure with hypoxia (HCC) Acute on chronic diastolic heart failure (HCC) Hypervolemia, unspecified hypervolemia type Disposition: ED Disposition ED Disposition Condition Comment Admit Clinical impression: Acute on chronic respiratory failure with hypoxia (HCC) [[id number]] Clinical impression: Acute on chronic diastolic heart failure (HCC) [428.33.ICD-9-CM] Clinical impression: Hypervolemia, unspecified hypervolemia type [[id number]] Admitting provider: [facility] [[id number]] Expected patient class: Inpatient [101] Level of service: Medical Telemetry: Telemetry ED Prescriptions None Procedures Sergei Gamez MD 06/27/191958 documented in this encou nter Miscellaneous Notes Plan of Care - Darshana Carter RN - 07/03/2019 9:31 AM PDTCare Breanne cox Final Discharge Plan Readmission Risk: Medium Discharge Plan Planned Disposition: Home or Self Care Planned Destination: (Pt stated he had a place to go, would not clarify) PCP: LILIANA Saez Patient/Family Notified: yes Transportation will be provided by: Self/or friend Transportation Date/Time: 07/03/19 1000 Ride Contact: Name: Carole(Pt to drive/ or friend can come help) Community Support Services Current Outpt/Agency/Support Groups: none Community Agency Name: ([facility] food stamps) [place] of Choice: given Other Resources: offered Pt declined, wanting to leave hospital today Equipment Durable Medical Equipment Provider: Home Equipment at Discharge: Equipment Used at Home: none Pharmacy Pharmacy[facility]Medication [facility] ([facility]) Notes: Pt stated he wanted to leave hospital today.Pt to discharge home today 07/03/19. Pt st ated he had a place to go, if needed he could go to friends or [place]. [place], can contact friend if needed. Prescription to be filled at Pt's preferre d pharmacy of choice, Pt stated he had no problems filling his medication. Pt in adherence t o this discharge plan. Electronically signed: Darshana Carter RN 07/03/2019 9:31 AMElectronically sig jonathan by Darshana Carter RN at 07/03/2019 9:37 AM PDTPlan of Care - Hailey pitts, Svitlana Looney RN - 07/03/2019 8:32 AM PDT Problem: Adult Inpatient Plan of Care Goal: Plan of Care Review Outcome: Ongoing, progressing Plan of care reviewed with patient and questions answered. Patient used 2L of oxygen via nasal canula. VSS. No acute events. Chart check complete Svitlana Pappas RN Electronically signed by Svitlana Pappas RN at 2019 8:35 AM PDTPlan of Care - Shakira Martin RN - 07/02/2019 3:36 PM PDT Problem: Adult Inpatient Plan of Care Goal: Plan of Care Review Outcome: Ongoing, progressing Flowsheets (Taken 07/02/2019 1530) Plan of Care Reviewed With: patient Note: Plan of care reviewed with patient. Medications reviewed. Discussed plan to continue to diu rese and decrease wean off O2. Pt agrees with POC. All questions and concerns addressed. Mars l continue to monitor. Shakira Martin RN Problem: Infection Goal: Infection Symptom Resolution Outcome: Ongoing, progressing Note: VSS. Afebrile. WBC trending down. Will continue to monitor. Shakira Martin RN Problem: Respiratory Compromise (Heart Failure) Goal: Effective Oxygenation and Ventilation Outcome: Ongoing, progressing Note: Pt appears less SOB. Pt on weaned off of oxygen. Will continue to monitor. Shakira Martin RN lan of Care - Darin Pappas RN - 07/02/2019 8:06 AM PDT Problem: Adult Inpatient Plan of Care Goal: Plan of Care Review Outcome: Ongoing, progressing Plan of care reviewed with patient and questions answered. VSS. Patient remained on 3-3.5 L of oxygen. Patient noted to become irritable. Care explain ed and questions answered. Chart check complete Svitlana Pappas RN Electronically signed by Svitlana Pappas RN at 020 8:12 AM PDTPlan of Care - Shakira Martin RN - 07/01/2019 4:30 PM PDT Problem: Adult Inpatient Plan of Care Goal: Plan of Care Review Outcome: Ongoing, progressing Flowsheets (Taken 07/01/2019 0740) Plan of Care Reviewed With: patient Note: Plan of care reviewed with patient. Medications reviewed. All questions and concerns addres sed. Will continue to monitor. Shakira Martin RN Goal: Patient-Specific Goal Outcome: Ongoing, progressing Goal: Optimal Comfort and Wellbeing Outcome: Ongoing, progressing Problem: Infection Goal: Infection Symptom Resolution Outcome: Ongoing, progressing Note: VSS. Afebrile. Labs trending down. Will continue to monitor. Shakira Martin RN Problem: Fluid Imbalance (Heart Failure) Goal: Fluid Balance Outcome: Ongoing, progressing Note: Pt on 2L FR. Pt consumed 1400ML today. Output of 2900ml. IV lasix given per orders. Will co ntinue to monitor. Shakira Martin RN Problem: Oral Intake Inadequate (Heart Failure) Goal: Optimal Nutrition Intake Outcome: Ongoing, progressing Problem: Respiratory Compromise (Heart Failure) Goal: Effective Oxygenation and Ventilation Outcome: Ongoing, progressing Note: Pt on 3L of O2 . Oxygen saturation 90-94%. Denies SOB. Will continue to monitor. Shakira Martin RN Pt A/O x4. Afebrile. VSS. Denies nausea, vomiting, SOB or chest pain. Will continue to yosi tor. Chart check complete. Shakira Martin RN lan of Care - Suzanne Bear RN - 07/01/2019 9:01 AM PDTCare Management Follow-Up Readmission Risk: Medium Current Discharge Plan Anticipated [place] [facility] Expected DC Date: TBD Barriers to Discharge: Pt is homeless Steps Taken Toward Discharge: (CM discussed by phone w/pt initial discharge plan) Next Steps: (f/u on placement issues) Community Support Services Current Outpt/Agency/Support Groups: none Community Agency Name: ([facility] food stamps) Discharge Transportation Transportation Needs: Pt car in [facility] parking garage Notes:Pt will likely discharge to the [place] when medically stable. Pt is still requiring O2 and is not medically stable for discharge yet. CM to follow. May need prescriptions fille d prior to discharge. Will need CHF follow up Electronically signed: SUZANNE BEAR RN 07/01/2019 9:01 AM lan of Care - Coni Liu RN - 07/01/2019 6:25 AM PDT Problem: Adult Inpatient Plan of Care Goal: Optimal Comfort and Wellbeing Outcome: Ongoing, not progressing Note: Melatonin given @ beginning of shift per MAY. Pt reported the melatonin not being effective in helping him sleep. Pt was able to sleep 4 hrs @ a time during the night. Will continue t o monitor. Problem: Fall Injury Risk Goal: Absence of Fall and Fall-Related Injury Outcome: Ongoing, progressing Note: Bed in low, locked position. Side rails up X3. Pt's BADL objects and call light within reac h. Pt encouraged to call prior to ambulation. Safety equipment present in pt's room. Will co ntinue to monitor. Plan of care reviewed with pt. Pt was agitated throughout shift, refused prn anxiety meds. Pt's sats dropped to 87% @ 0300. 4L O2 applied. Pt now satting in mid to low 90's. Pt's blad nicole scan @ beginning of shift showed 617 ml urine in bladder. Pt was able to urinate through out night. Pt had an output of 1100 during shift. Medications reviewed. Questions encouraged and answered. Pt denies chest pain, SOB, nausea and vomiting. No acute changes since previo us assessment. Will continue to monitor. Chart check complete. Coni Shelton, RN lan of Care - Meredith Emanuel RN - 06/30/2019 6:42 AM PDTVSS. Pt sating 88-92% on 5-6L oxymask. Problem: Fall Injury Risk Goal: Absence of Fall and Fall-Related Injury Outcome: Ongoing, progressing Intervention: Promote Injury-Free Environment Note: Bed in low position, non-skid socks in place, call light in reach. lan of Kathrin - Jas Ko RN - 06/29/2019 10:59 AM PDT Problem: Adult Inpatient Plan of Care Goal: Plan of Care Review Outcome: Ongoing, progressing Plan of care reviewed with patient. Problem: Arrhythmia/Dysrhythmia (Heart Failure) Goal: Stable Heart Rate and Rhythm Outcome: Ongoing, progressing Telemetry in place, nsr. Problem: Fluid Imbalance (Heart Failure) Goal: Fluid Balance Outcome: Ongoing, progressing Strict I/O, FR 1.5L, Lasix gtt running Problem: Respiratory Compromise (Heart Failure) Goal: Effective Oxygenation and Ventilation Outcome: Ongoing, progressing Continuous pulse oximetry, oxygen at 5L Electronically signed by Jas Ko RN at 2019 11:02 AM PDTPlan of Kathrin - Meredith Nash RN - 06/29/2019 6:00 AM PDTVSS. 88-90 's on 5L oxymask. Lasix gtt infusing, 5mL/hr. Afebrile throughout the shift. Problem: Fall Injury Risk Goal: Absence of Fall and Fall-Related Injury Outcome: Ongoing, progressing Intervention: Promote Injury-Free Environment Note: Bed in low position, non-skid socks in place, call light in reach. lan of Kathrin - Jelena Saucedo RN - 06/28/2019 2:03 PM PDT Problem: Adult Inpatient Plan of Care Goal: Patient-Specific Goal Outcome: Ongoing, progressing Plan of care reviewed and education provided to patient/family, as well as updates provide d as appropriate/as developments occur. Questions encouraged and answered to their satisfact ion. Problem: Infection Goal: Infection Symptom Resolution Outcome: Ongoing, progressing IV antibiotics administered. Cellulitis on abdomen marked. Will continue to monitor for fe vers and increasing redness. Problem: Fall Injury Risk Goal: Absence of Fall and Fall-Related Injury Outcome: Ongoing, progressing Call light in reach, bed locked and in lowest position, side rails x2, and non-skid socks on while ambulating. lan of Care - [facility], Sayda Bey RN - 06/28/2019 1:20 PM PDTCare Management Initial Assessment Readmission Risk: Medium Status Prior to Admission or Illness Arrival From: home or self-care Lives With: alone Living Arrangements: homeless Caregiver For: no one Patient s Caregiver: Functional Status: IADLs, lives out of his car currently. Caregiving Concerns: Home Accessibility: no concerns Transportation Available: car(Pt car in in [facility] garage) Able to return to prior living: may need placement @ [facility] or [facility]. Pending Covid19 re row[place]. Care Management Concerns Last discharge date: Readmission Within Last 30 Days: no previous admission in last 30 days Is Readmission Diagnosis Related to or Same As: Previous Discharging Facility: Previous Discharge Destination From: PCP: LILIANA Saez Contact Information Family Contact Information: Name: no contacts per pt Phone: Pager: Fax: DC Needs Assessment Current Outpt/Agency/Support Groups: none Community Agency Name: ([facility] food stamps) Anticipated Changes Related to Illness: inability to care for self Concerns to be Addressed: homelessness/housing concerns Services Anticipated at Discharge: education services Equipment Used at Home: none Equipment Needed after Discharge: Durable Medical Equipment Provider: Pharmacy/Medication Needs: ([facility]) Transportation Needs: no home, pt car in garage. Initial Plan Anticipated [place] [facility] Expected DC Date: Steps Taken Toward Discharge: (CM discussed by phone w/pt initial discharge plan) Next Steps: (f/u on placement issues) Notes: Pt lives out of his car. Claims has food stamps for meals. States, he has no conta cts. Pt has not been to the [facility]. He lives from place to place when available. Electronically signed: SAYDA WILKERSON RN 06/28/2019 1:21 PM lan of Care - Estela Horvath RN - 06/28/2019 2:40 AM PDTPt currently on 5L oxymask. Lasix gtt remains on with 3,450mL urine output. Chart check complete. Problem: Fall Injury Risk Goal: Absence of Fall and Fall-Related Injury Outcome: Ongoing, progressing Note: Patient has remained free from falls. Bed in lowest position, call light within reach, non- skid socks are on. documented in t his encounter Plan of Treatment + +------+--------+ + + | Name | Type | Priori | Associated Diagnoses | Date/Time | | | | ty | | | + +------+--------+ + + | ED INFORMATION | ZOE | Routin | | 06/27/2019 2:31 PM | | EXCHANGE | | e | | PDT | + +------+--------+ + + documented as of this encounter Procedures + +--------+ + + + | Procedure Name | Priori | Date/Time | Associated Diagnosis | Comments | | | ty | | | | + +--------+ + + + | RENAL FUNCTION PANEL | Routin | 07/03/2019 | | Results for this | | | e | 5:11 AM | | procedure are in the | | | | PDT | | results section. | + +--------+ + + + | MAGNESIUM | Routin | 07/02/2019 | | Results for this | | | e | 5:33 AM | | procedure are in the | | | | PDT | | results section. | + +--------+ + + + | RENAL FUNCTION PANEL | Routin | 07/02/2019 | | Results for this | | | e | 5:33 AM | | procedure are in the | | | | PDT | | results section. | + +--------+ + + + | POTASSIUM | Routin | 07/01/2019 | | Results for this | | | e | 4:54 AM | | procedure are in the | | | | PDT | | results section. | + +--------+ + + + | MAGNESIUM | Routin | 06/30/2019 | | Results for this | | | e | 5:35 AM | | procedure are in the | | | | PDT | | results section. | + +--------+ + + + | RENAL FUNCTION PANEL | Routin | 06/30/2019 | | Results for this | | | e | 5:35 AM | | procedure are in the | | | | PDT | | results section. | + +--------+ + + + | POTASSIUM | Timed | 06/29/2019 | | Results for this | | | | 7:17 PM | | procedure are in the | | | | PDT | | results section. | + +--------+ + + + | CBC WITH | Routin | 06/29/2019 | | Results for this | | DIFFERENTIAL | e | 6:29 AM | | procedure are in the | | | | PDT | | results section. | + +--------+ + + + | PHOSPHORUS | Routin | 06/29/2019 | | Results for this | | | e | 6:29 AM | | procedure are in the | | | | PDT | | results section. | + +--------+ + + + | MAGNESIUM | Routin | 06/29/2019 | | Results for this | | | e | 6:29 AM | | procedure are in the | | | | PDT | | results section. | + +--------+ + + + | BASIC METABOLIC | Routin | 06/29/2019 | | Results for this | | PANEL | e | 6:29 AM | | procedure are in the | | | | PDT | | results section. | + +--------+ + + + | ECHO COMPLETE | Routin | 06/28/2019 | | Results for this | | | e | 9:43 AM | | procedure are in the | | | | PDT | | results section. | + +--------+ + + + | TROPONIN I | Timed | 06/28/2019 | | Results for this | | | | 4:23 AM | | procedure are in the | | | | PDT | | results section. | + +--------+ + + + | CBC NO DIFFERENTIAL | Routin | 06/28/2019 | | Results for this | | | e | 4:22 AM | | procedure are in the | | | | PDT | | results section. | + +--------+ + + + | COMPREHENSIVE | Routin | 06/28/2019 | | Results for this | | METABOLIC PANEL | e | 4:22 AM | | procedure are in the | | | | PDT | | results section. | + +--------+ + + + | TROPONIN I | Timed | 06/27/2019 | | Results for this | | | | 9:48 PM | | procedure are in the | | | | PDT | | results section. | + +--------+ + + + | POC CG 4, ISTAT | Routin | 06/27/2019 | | Results for this | | ARTERIAL | e | 4:15 PM | | procedure are in the | | | | PDT | | results section. | + +--------+ + + + | XR CHEST AP PORTABLE | TONY | 06/27/2019 | | Results for this | | | | 3:39 PM | | procedure are in the | | | | PDT | | results section. | + +--------+ + + + | CORONAVIRUS | Routin | 06/27/2019 | | Results for this | | (COVID-19) NAAT | e | 3:14 PM | | procedure are in the | | | | PDT | | results section. | + +--------+ + + + | ECG 12 LEAD | Routin | 06/27/2019 | | Results for this | | | e | 3:04 PM | | procedure are in the | | | | PDT | | results section. | + +--------+ + + + | TROPONIN I | STAT | 06/27/2019 | | Results for this | | | | 2:55 PM | | procedure are in the | | | | PDT | | results section. | + +--------+ + + + | PROTIME INR | STAT | 06/27/2019 | | Results for this | | | | 2:55 PM | | procedure are in the | | | | PDT | | results section. | + +--------+ + + + | CBC WITH | STAT | 06/27/2019 | | Results for this | | DIFFERENTIAL | | 2:55 PM | | procedure are in the | | | | PDT | | results section. | + +--------+ + + + | B TYPE NATRIURETIC | STAT | 06/27/2019 | | Results for this | | PEPTIDE | | 2:55 PM | | procedure are in the | | | | PDT | | results section. | + +--------+ + + + | COMPREHENSIVE | STAT | 06/27/2019 | | Results for this | | METABOLIC PANEL | | 2:55 PM | | procedure are in the | | | | PDT | | results section. | + +--------+ + + + | POINT OF CARE | STAT | 06/27/2019 | | | | | | 2:54 PM | | | | | | PDT | | | + +--------+ + + + | ED INFORMATION | Routin | 06/27/2019 | | | | EXCHANGE | e | 2:31 PM | | | | | | PDT | | | + +--------+ + + + +---+--------+ | | | | | Proced | | | ure | | | Note - | | | Bill, | | | Lab In | | | | | | Hlseve | | | n - | | | | | | 2019 | | | 2:32 | | | PM PDT | | | | | | Format | | | ting | | | of | | | this | | | note | | | might | | | be | | | differ | | | ent | | | from | | | the | | | origin | | | al.COL | | | LECTIV | | | E?NOTI | | | FICATI | | | ON?/ | | | | | | 0 | | | 14:31? | | | LAKSHMI, | | | CAROLE | | | W?MRN: | | | | | | [id number] | | | [id number] | | | riteri | | | a Met | | | 3 in | | | 60Secu | | | rity | | | and | | | Safety | | | No | | | recent | | | | | | Securi | | | ty | | | Events | | | | | | curren | | | tly on | | | | | | fileED | | | Care | | | Guidel | | | inesTh | | | ere | | | are | | | curren | | | tly no | | | ED | | | Care | | | Guidel | | | heike | | | for | | | this | | | patien | | | t. | | | Please | | | check | | | your | | | facili | | | ty's | | | medica | | | l | | | record | | | s | | | system | | | .Presc | | | riptio | | | n Drug | | | | | | Report | | | (12 | | | Mo.)PD | | | MP | | | query | | | found | | | no | | | report | | | .E.D. | | | Visit | | | Count | | | (12 | | | mo.)Fa | | | cility | | | | | | Visits | | | Low | | | Acuity | | | Good | | | [facility] | | | rd | | | Health | | | 1 0 | | | [facility] | | | | | | [facility] | | | al | | | Medica | | | l | | | Center | | | 1 0 | | | [facility] [place] [facility] | [facility] | | | Hospit | | | al 4 0 | | | Total | | | 6 0 | | | Note: | | | Visits | | | | | | indica | | | te | | | total | | | known | | | visits | | | . | | | Medica | | | id Low | | | | | | Acuity | | | Dx | | | are | | | the | | | number | | | of | | | primar | | | y | | | diagno | | | ses on | | | the | | | Medica | | | id's | | | Low | | | Acuity | | | dx | | | list. | | | | | | Recent | | | | | | Emerge | | | ncy | | | Depart | | | ment | | | Visit | | | [facility] | | | yDate | | | Facili | | | ty | | | City | | | State | | | Type | | | Diagno | | | ses or | | | Chief | | | | | | Compla | | | int | | | Mar | | | 29, | | | 2020 | | | [facility] | | | | | | Region | | | al | | | [facility] | | | [place] | | | [place] | | | Emerge | | | ncy | | | Mar | | | 12, | | | 2020 | | | [facility] [place] | | | [facility] | | | [place] | | | [place] | | | Emerge | | | ncy | | | Chief | | | Compla | | | int: | | | SOB | | | Feb 5, | | | 2020 | | | Good | | | [facility] | | | rd | | | Health | | | | | | [place] | | | [place] | | | Emerge | | | ncy | | | HARD | | | TIME | | | BREATH | | | ING | | | Acute | | | on | | | chroni | | | c | | | right | | | heart | | | failur | | | e | | | Influe | | | nza | | | due to | | | other | | | | | | identi | | | fied | | | influe | | | nza | | | virus | | | with | | | other | | | Feb | | | 2, | | | 2020 | | | [facility] [place] | | [facility] | | | [place] | | | [place] | | | Emerge | | | ncy | | | | | | Allerg | | | y | | | status | | | to | | | narcot | | | ic | | | agent | | | status | | | | | | Chest | | | pain, | | | unspec | | | ified | | | | | | Shortn | | | ess of | | | | | | breath | | | | | | Allerg | | | y | | | status | | | to | | | sulfon | | | amides | | | | | | status | | | | | | Heart | | | failur | | | e, | | | unspec | | | ified | | | | | | Other | | | long | | | term | | | (curre | | | nt) | | | drug | | | therap | | | y | | | Hypert | | | ensive | | | heart | | | | | | diseas | | | e with | | | heart | | | | | | failur | | | e Dec | | | 15, | | | 2019 | | | [facility] [place] | [facility] | | | [place] | | | [place] | | | Emerge | | | ncy | | | Chief | | | Compla | | | int: | | | SOB, | | | CHEST | | | PAIN | | | May | | | 22, | | | 2019 | | | [facility] [place] | | | [facility] | | | [place] | | | [place] | | | Emerge | | | ncy | | | Chief | | | Compla | | | int: | | | SOB | | | Recent | | | | | | Inpati | | | ent | | | Visit | | | [facility] | | | yDate | | | Facili | | | ty | | | City | | | State | | | Type | | | Diagno | | | ses or | | | Chief | | | | | | Compla | | | int | | | Mar | | | 12, | | | 2020 | | | [facility] [place] | | | [facility] | | | [place] | | | [place] | | | Medica | | | l | | | Surgic | | | al | | | Hypert | | | ensive | | | heart | | | | | | diseas | | | e with | | | heart | | | | | | failur | | | e | | | Pulmon | | | rosario | | | hypert | | | ension | | | , | | | unspec | | | ified | | | | | | Other | | | long | | | term | | | (curre | | | nt) | | | drug | | | therap | | | y | | | Patien | | | t's | | | other | | | noncom | | | plianc | | | e with | | | | | | medica | | | tion | | | regime | | | n | | | Acute | | | respir | | | atory | | | failur | | | e with | | | | | | hypoxi | | | a | | | Acute | | | on | | | chroni | | | c | | | diasto | | | lic | | | (conge | | | stive) | | | heart | | | | | | failur | | | e | | | Allerg | | | y | | | status | | | to | | | narcot | | | ic | | | agent | | | status | | | | | | Chroni | | | c | | | passiv | | | e | | | conges | | | tion | | | of | | | liver | | | | | | Allerg | | | y | | | status | | | to | | | sulfon | | | amides | | | | | | status | | | | | | Other | | | stimul | | | ant | | | abuse, | | | in | | | remiss | | | ion | | | Feb 5, | | | 2020 | | | [facility] | | | [facility] | | | [place] | | | [place] | | | Medica | | | l | | | Surgic | | | al | | | 1. | | | Influe | | | nza | | | due to | | | | | | identi | | | fied | | | novel | | | influe | | | nza A | | | virus | | | with | | | othe | | | 2. | | | Acute | | | respir | | | atory | | | failur | | | e with | | | | | | hypoxi | | | a | | | 3. | | | Chroni | | | c | | | diasto | | | lic | | | (conge | | | stive) | | | heart | | | | | | failur | | | e | | | 4. | | | Mild | | | protei | | | n-megan | | | dayana | | | malnut | | | rition | | | 5. | | | Lobar | | | | | | pneumo | | | xavier, | | | unspec | | | ified | | | organi | | | sm | | | 6. | | | Hypert | | | ensive | | | heart | | | | | | diseas | | | e with | | | heart | | | | | | failur | | | e | | | 7. | | | Pulmon | | | rosario | | | hypert | | | ension | | | , | | | unspec | | | ified | | | 8. | | | Gastro | | | -esoph | | | ageal | | | reflux | | | | | | diseas | | | e | | | withou | | | t | | | esopha | | | gitis | | | 9. | | | Other | | | psycho | | | active | | | | | | substa | | | nce | | | use, | | | unspec | | | ified, | | | | | | uncomp | | | licate | | | d | | | 10. | | | Patien | | | t's | | | other | | | noncom | | | plianc | | | e with | | | | | | medica | | | tion | | | regime | | | n Dec | | | 15, | | | 2019 | | | [facility] [place] [facility] | | [facility] [place] | | | Medica | | | l | | | Surgic | | | al | | | Acute | | | respir | | | atory | | | failur | | | e with | | | | | | hypoxi | | | a | | | Homele | | | ssness | | | | | | Obstru | | | ctive | | | sleep | | | apnea | | | (adult | | | ) | | | (pedia | | | tric) | | | | | | Patien | | | t's | | | other | | | noncom | | | plianc | | | e with | | | | | | medica | | | tion | | | regime | | | n | | | Chroni | | | c | | | passiv | | | e | | | conges | | | tion | | | of | | | liver | | | | | | Other | | | psycho | | | active | | | | | | substa | | | nce | | | abuse, | | | in | | | remiss | | | ion | | | Acute | | | on | | | chroni | | | c | | | diasto | | | lic | | | (conge | | | stive) | | | heart | | | | | | failur | | | e | | | 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 [place] | | [facility] | | | [place] | | | [place] | | | Observ | | | ation | | | | | | Other | | | stimul | | | ant | | | abuse, | | | | | | uncomp | | | licate | | | d | | | Right | | | heart | | | failur | | | e, | | | unspec | | | ified | | | | | | Allerg | | | y | | | status | | | to | | | narcot | | | ic | | | agent | | | status | | | | | | Patien | | | t's | | | other | | | noncom | | | plianc | | | e with | | | | | | medica | | | tion | | | regime | | | n | | | Other | | | long | | | term | | | (curre | | | nt) | | | drug | | | therap | | | y | | | Acute | | | on | | | chroni | | | c | | | diasto | | | lic | | | (conge | | | stive) | | | heart | | | | | | failur | | | e | | | Shortn | | | ess of | | | | | | breath | | | | | | Allerg | | | y | | | status | | | to | | | sulfon | | | amides | | | | | | status | | | | | | Hypert | | | ensive | | | heart | | | | | | diseas | | | e with | | | heart | | | | | | failur | | | e | | | Chroni | | | c | | | passiv | | | e | | | conges | | | tion | | | of | | | liver | | | Care | | | TeamPr | | | ovider | | | | | | Specia | | | lty | | | Phone | | | Fax | | | Servic | | | e | | | Dates | | | Unknow | | | n | | | Clinic | | | /Cente | | | r | | | ([phone]) | | | [phone] | | | 30 | | | Dec | | | 16, | | | 2019 - | | | | | | Curren | | | t [place]. | | | [facility] | | | [facility]OM[facility] | | | S | | | HEALTH | | | | | | Primar | | | y Care | | | | | | ([phone] | | | [phone] | | | 11 | | | Curren | | | t | | | HERMIS | | | TON | | | GOOD | | | SHEPHE | | | RD | | | Primar | | | y Care | | | | | | Curren | | | t | | | [facility] | | | tive | | | Portal | | | This | | | patien | | | t has | | | regist | | | ered | | | at the | | | | | | [facility] | | | | | | [facility] | | | al | | | Medica | | | l | | | Center | | | | | | Emerge | | | ncy | | | Depart | | | ment | | | For | | | more | | | inform | | | ation | | | visit: | | | | | | https: | | | //secu | | | [email or web address] | | | lectiv | | | emedic | | | [email or web address] | | | /notif | | | [id number] | | | [id number] | | | [id number] | | | [phone] | | | [phone] | | | [id number] | | | 48 | | | PLEASE | | | NOTE: | | | 1. | | | Any | | | care | | | recomm | | | endati | | | ons | | | and | | | other | | | clinic | | | al | | | inform | | | ation | | | are | | | provid | | | ed as | | | guidel | | | heike | | | or for | | | | | | histor | | | ical | | | purpos | | | es | | | only, | | | and | | | provid | | | ers | | | should | | | | | | exerci | | | se | | | their | | | own | | | clinic | | | al | | | judgme | | | nt | | | when | | | provid | | | ing | | | care. | | | 2. | | | You | | | may | | | only | | | use | | | this | | | inform | | | ation | | | for | | | purpos | | | es of | | | treatm | | | ent, | | | paymen | | | t or | | | health | | | care | | | operat | | | ions | | | activi | | | ties, | | | and | | | subjec | | | t to | | | the | | | limita | | | tions | | | of | | | applic | | | able | | | Colle[facility] | | | tive | | | Polici | | | es. | | | 3. | | | You | | | should | | | | | | consul | | | t | | | direct | | | ly | | | with | | | the | | | organi | | | zation | | | that | | | provid | | | ed a | | | care | | | guidel | | | ine or | | | other | | | | | | clinic | | | al | | | histor | | | y with | | | any | | | questi | | | ons | | | about | | | additi | | | onal | | | inform | | | ation | | | or | | | accura | | | cy or | | | comple | | | teness | | | of | | | inform | | | ation | | | provid | | | ed.? | | | 2020 | | | [facility] | | | tive | | | Medica | | | l | | | Techn[employer] | | | logies | | | , Inc[employer] | | | - | | | [email or web address] | | | llecti | | | vemedi | | | [email or web address] | | | m | +---+--------+ documented in this encounter Results Renal Function Panel (07/03/2019 5:11 AM PDT) + + + + + + | Component | Value | Ref Range | Performed | Pathologist | | | | | At | Signature | + + + + + + | Na | 135 | 135 - 145 | [facility] | | | | | mmol/L | LABORATORY | | + + + + + + | K | 4.0 | 3.5 - 4.9 | [facility] | | | | | mmol/L | LABORATORY | | + + + + + + | Cl | 103 | 99 - 109 mmol/L | [facility] | | | | | | LABORATORY | | + + + + + + | CO2 | 26 | 23 - 32 mmol/L | [facility] | | | | | | LABORATORY | | + + + + + + | Anion Gap | 10 | 5 - 20 mmol/L | [facility] | | | | | | LABORATORY | | + + + + + + | Glucose | 89 | 65 - 99 mg/dL | [facility] | | | | | | LABORATORY | | + + + + + + | BUN | 23 | 8 - 25 mg/dL | [facility] | | | | | | LABORATORY | | + + + + + + | Creatinine | 0.9 | 0.70 - 1.30 | [facility] | | | | | mg/dL | LABORATORY | | + + + + + + | Calcium | 8.8 | 8.5 - 10.5 | [facility] | | | | | mg/dL | LABORATORY | | + + + + + + | Albumin | 2.3 (L) | 3.6 - 5.0 g/dL | [facility] | | | | | | LABORATORY | | + + + + + + | Phosphorus | 3.6 | 2.3 - 4.8 mg/dL | [facility] | | | | | | LABORATORY | | + + + + + + | Estimated | >60Comment: GFR <60: | >60 | [facility] | | | GFR | CHRONIC KIDNEY DISEASE, | mL/min/1.73m2 | LABORATORY | | | | IF FOUND OVER A 3 MONTH | | | | | | PERIOD.GFR <15: KIDNEY | | | | | | FAILURE.FOR | | | | | | AMERICANS, MULTIPLY THE | | | | | | CALCULATED GFR BY | | | | | | 1.210.This eGFR is | | | | | | calculated using the | | | | | | MDRD IDMS traceable | | | | | | equation.Testing | | | | | | performed at [facility], [address] | | | | | [facility], | | | | | | [place] [address] | | | | + + + + + + + + | Specimen | + + | Blood | + + + + + + + | Performing | Address | City/State/Zipcode | Phone Number | | Organization | | | | + + + + + | [facility] | [address] | [place] [address] | [phone] | + + + + + Magnesium (07/02/2019 5:33 AM PDT) + + + + + + | Component | Value | Ref Range | Performed | Pathologist | | | | | At | Signature | + + + + + + | Magnesium | 2.1Comment: Testing | 1.7 - 2.4 mg/dL | [facility] | | | | performed at [facility], [address] | | LABORATORY | | | | [address], | | | | | | [place] [address] | | | | + + + + + + + + | Specimen | + + | | + + + + + + + | Performing | Address | City/State/Zipcode | Phone Number | | Organization | | | | + + + + + | [facility] | [address] | [place] [address] | [phone] | + + + + + Renal Function Panel (07/02/2019 5:33 AM PDT) + + + + + + | Component | Value | Ref Range | Performed | Pathologist | | | | | At | Signature | + + + + + + | Na | 134 (L) | 135 - 145 | [facility] | | | | | mmol/L | LABORATORY | | + + + + + + | K | 4.0 | 3.5 - 4.9 | [facility] | | | | | mmol/L | LABORATORY | | + + + + + + | Cl | 102 | 99 - 109 mmol/L | [facility] | | | | | | LABORATORY | | + + + + + + | CO2 | 25 | 23 - 32 mmol/L | [facility] | | | | | | LABORATORY | | + + + + + + | Anion Gap | 11 | 5 - 20 mmol/L | [facility] | | | | | | LABORATORY | | + + + + + + | Glucose | 84 | 65 - 99 mg/dL | [facility] | | | | | | LABORATORY | | + + + + + + | BUN | 20 | 8 - 25 mg/dL | [facility] | | | | | | LABORATORY | | + + + + + + | Creatinine | 0.9 | 0.70 - 1.30 | [facility] | | | | | mg/dL | LABORATORY | | + + + + + + | Calcium | 8.4 (L) | 8.5 - 10.5 | [facility] | | | | | mg/dL | LABORATORY | | + + + + + + | Albumin | 2.3 (L) | 3.6 - 5.0 g/dL | [facility] | | | | | | LABORATORY | | + + + + + + | Phosphorus | 3.6 | 2.3 - 4.8 mg/dL | [facility] | | | | | | LABORATORY | | + + + + + + | Estimated | >60Comment: GFR <60: | >60 | [facility] | | | GFR | CHRONIC KIDNEY DISEASE, | mL/min/1.73m2 | LABORATORY | | | | IF FOUND OVER A 3 MONTH | | | | | | PERIOD.GFR <15: KIDNEY | | | | | | FAILURE.FOR | | | | | | AMERICANS, MULTIPLY THE | | | | | | CALCULATED GFR BY | | | | | | 1.210.This eGFR is | | | | | | calculated using the | | | | | | MDRD IDMS traceable | | | | | | equation.Testing | | | | | | performed at [facility], [address] | | | | | [facility], | | | | | | [place] [address] | | | | + + + + + + + + | Specimen | + + | Blood | + + + + + + + | Performing | Address | City/State/Zipcode | Phone Number | | Organization | | | | + + + + + | [facility] | [address] | [place] [address] | [phone] | + + + + + Potassium (07/01/2019 4:54 AM PDT) + + + + + + | Component | Value | Ref Range | Performed | Pathologist | | | | | At | Signature | + + + + + + | K | 3.9Comment: Testing | 3.5 - 4.9 | [facility] | | | | performed at [facility];[address] | mmol/L | LABORATORY | | | | [address];[place] | | | | | | [address] | | | | + + + + + + + + | Specimen | + + | Blood | + + + + + + + | Performing | Address | City/State/Zipcode | Phone Number | | Organization | | | | + + + + + | [facility] | [address] | [place] [address] | [phone] | + + + + + Magnesium (06/30/2019 5:35 AM PDT) + + + + + + | Component | Value | Ref Range | Performed | Pathologist | | | | | At | Signature | + + + + + + | Magnesium | 2.1Comment: Testing | 1.7 - 2.4 mg/dL | [facility] | | | | performed at [facility], [address] | | LABORATORY | | | | [address], | | | | | | [place] [address] | | | | + + + + + + + + | Specimen | + + | | + + + + + + + | Performing | Address | City/State/Zipcode | Phone Number | | Organization | | | | + + + + + | [facility] | [address] | [place] [address] | [phone] | + + + + + Renal Function Panel (06/30/2019 5:35 AM PDT) + + + + + + | Component | Value | Ref Range | Performed | Pathologist | | | | | At | Signature | + + + + + + | Na | 134 (L) | 135 - 145 | [facility] | | | | | mmol/L | LABORATORY | | + + + + + + | K | 4.1 | 3.5 - 4.9 | [facility] | | | | | mmol/L | LABORATORY | | + + + + + + | Cl | 102 | 99 - 109 mmol/L | [facility] | | | | | | LABORATORY | | + + + + + + | CO2 | 24 | 23 - 32 mmol/L | [facility] | | | | | | LABORATORY | | + + + + + + | Anion Gap | 12 | 5 - 20 mmol/L | [facility] | | | | | | LABORATORY | | + + + + + + | Glucose | 91 | 65 - 99 mg/dL | [facility] | | | | | | LABORATORY | | + + + + + + | BUN | 28 (H) | 8 - 25 mg/dL | [facility] | | | | | | LABORATORY | | + + + + + + | Creatinine | 1.0 | 0.70 - 1.30 | [facility] | | | | | mg/dL | LABORATORY | | + + + + + + | Calcium | 8.6 | 8.5 - 10.5 | [facility] | | | | | mg/dL | LABORATORY | | + + + + + + | Albumin | 2.3 (L) | 3.6 - 5.0 g/dL | [facility] | | | | | | LABORATORY | | + + + + + + | Phosphorus | 3.4 | 2.3 - 4.8 mg/dL | [facility] | | | | | | LABORATORY | | + + + + + + | Estimated | >60Comment: GFR <60: | >60 | [facility] | | | GFR | CHRONIC KIDNEY DISEASE, | mL/min/1.73m2 | LABORATORY | | | | IF FOUND OVER A 3 MONTH | | | | | | PERIOD.GFR <15: KIDNEY | | | | | | FAILURE.FOR | | | | | | AMERICANS, MULTIPLY THE | | | | | | CALCULATED GFR BY | | | | | | 1.210.This eGFR is | | | | | | calculated using the | | | | | | MDRD IDMS traceable | | | | | | equation.Testing | | | | | | performed at [facility], [address] | | | | | | [address] [facility], | | | | | | [place] [address] | | | | + + + + + + + + | Specimen | + + | Blood | + + + + + + + | Performing | Address | City/State/Zipcode | Phone Number | | Organization | | | | + + + + + | [facility] | [address] | [place] [address] | [phone] | + + + + + Potassium (06/29/2019 7:17 PM PDT) + + + + + + | Component | Value | Ref Range | Performed | Pathologist | | | | | At | Signature | + + + + + + | K | 3.8Comment: Testing | 3.5 - 4.9 | [facility] | | | | performed at [facility];[address] | mmol/L | LABORATORY | | | | [address] [facility];[place], [place] | | | | | | [address] | | | | + + + + + + + + | Specimen | + + | Blood | + + + + + + + | Performing | Address | City/State/Zipcode | Phone Number | | Organization | | | | + + + + + | [facility] | [address] | [place] [address] | [phone] | + + + + + Phosphorus (06/29/2019 6:29 AM PDT) + + + + + + | Component | Value | Ref Range | Performed | Pathologist | | | | | At | Signature | + + + + + + | Phosphorus | 4.0Comment: Testing | 2.3 - 4.8 mg/dL | [facility] | | | | performed at [facility];[address] | | LABORATORY | | | | [address];[place] | | | | | | [address] | | | | + + + + + + + + | Specimen | + + | Blood | + + + + + + + | Performing | Address | City/State/Zipcode | Phone Number | | Organization | | | | + + + + + | [facility] | [address] | [place] [address] | [phone] | + + + + + Magnesium (06/29/2019 6:29 AM PDT) + + + + + + | Component | Value | Ref Range | Performed | Pathologist | | | | | At | Signature | + + + + + + | Magnesium | 1.4 (L)Comment: Testing | 1.7 - 2.4 mg/dL | [facility] | | | | performed at [facility];[address] | | LABORATORY | | | | [address];[place] | | | | | | [address] | | | | + + + + + + + + | Specimen | + + | Blood | + + + + + + + | Performing | Address | City/State/Zipcode | Phone Number | | Organization | | | | + + + + + | [facility] | [address] | [place] [address] | [phone] | + + + + + Basic Metabolic Panel (06/29/2019 6:29 AM PDT) + + + + + + | Component | Value | Ref Range | Performed | Pathologist | | | | | At | Signature | + + + + + + | Na | 135 | 135 - 145 | [facility] | | | | | mmol/L | LABORATORY | | + + + + + + | K | 3.2 (L) | 3.5 - 4.9 | [facility] | | | | | mmol/L | LABORATORY | | + + + + + + | Cl | 98 (L) | 99 - 109 mmol/L | [facility] | | | | | | LABORATORY | | + + + + + + | CO2 | 26 | 23 - 32 mmol/L | [facility] | | | | | | LABORATORY | | + + + + + + | Anion Gap | 14 | 5 - 20 mmol/L | [facility] | | | | | | LABORATORY | | + + + + + + | Glucose | 102 (H) | 65 - 99 mg/dL | [facility] | | | | | | LABORATORY | | + + + + + + | BUN | 21 | 8 - 25 mg/dL | [facility] | | | | | | LABORATORY | | + + + + + + | Creatinine | 1.09 | 0.70 - 1.30 | [facility] | | | | | mg/dL | LABORATORY | | + + + + + + | BUN/Creatin | 19 | | [facility] | | | ine Ratio | | | LABORATORY | | + + + + + + | Calcium | 8.9 | 8.5 - 10.5 | [facility] | | | | | mg/dL | LABORATORY | | + + + + + + | Estimated | >60Comment: GFR <60: | >60 | [facility] | | | GFR | CHRONIC KIDNEY DISEASE, | mL/min/1.73m2 | LABORATORY | | | | IF FOUND OVER A 3 MONTH | | | | | | PERIOD.GFR <15: KIDNEY | | | | | | FAILURE.FOR | | | | | | AMERICANS, MULTIPLY THE | | | | | | CALCULATED GFR BY | | | | | | 1.210.This eGFR is | | | | | | calculated using the | | | | | | MDRD IDMS traceable | | | | | | equation.Testing | | | | | | performed at [facility];[address] | | | | | | [address];[place], [place] | | | | | | [address] | | | | + + + + + + + + | Specimen | + + | Blood | + + + + + + + | Performing | Address | City/State/Zipcode | Phone Number | | Organization | | | | + + + + + | [facility] | [address] | [place] [address] | [phone] | + + + + + CBC with Differential (06/29/2019 6:29 AM PDT) + + + + + + | Component | Value | Ref Range | Performed | Pathologist | | | | | At | Signature | + + + + + + | WBC | 7.00 | 3.80 - 11.00 | [facility] | | | | | K/uL | LABORATORY | | + + + + + + | Red Blood | 4.71 | 4.20 - 5.70 | [facility] | | | Cells | | M/uL | LABORATORY | | + + + + + + | Hemoglobin | 13.4 | 13.2 - 17.0 | [facility] | | | | | g/dL | LABORATORY | | + + + + + + | Hematocrit | 41.3 | 39.0 - 50.0 % | [facility] | | | | | | LABORATORY | | + + + + + + | MCV | 87.7 | 80.0 - 100.0 fl | [facility] | | | | | | LABORATORY | | + + + + + + | MCH | 28.5 | 27.0 - 34.0 pg | [facility] | | | | | | LABORATORY | | + + + + + + | MCHC | 32.4 | 32.0 - 35.5 | [facility] | | | | | g/dL | LABORATORY | | + + + + + + | RDW-SD | 48.9 | 37 - 53 fl | [facility] | | | | | | LABORATORY | | + + + + + + | Platelet | 313 | 150 - 400 K/uL | [facility] | | | Count | | | LABORATORY | | + + + + + + | MPV | 10.1Comment: NO NORMAL | fl | [facility] | | | | RANGE ESTABLISHED | | LABORATORY | | + + + + + + | Diff Type | AUTOMATED | | [facility] | | | | | | LABORATORY | | + + + + + + | % nRBC | 0.0 | 0 /100WBC | [facility] | | | | | | LABORATORY | | + + + + + + | % | 66.90 | % | [facility] | | | Neutrophils | | | LABORATORY | | + + + + + + | IMMATURE | 0.30 | % | [facility] | | | GRANULOCYTE | | | LABORATORY | | + + + + + + | % | 19.40 | % | [facility] | | | Lymphocytes | | | LABORATORY | | + + + + + + | Monocyte % | 12.60 | % | [facility] | | | | | | LABORATORY | | + + + + + + | Eosinophils | 0.40 | % | [facility] | | | % | | | LABORATORY | | + + + + + + | Basophils % | 0.40 | % | [facility] | | | | | | LABORATORY | | + + + + + + | Neutrophils | 4.68 | 1.90 - 7.40 | [facility] | | | , Absolute | | K/uL | LABORATORY | | + + + + + + | IMMATURE | 0.02Comment: NOTE NEW | 0.00 - 0.07 | [facility] | | | GRANS AB | REFERENCE RANGE | K/uL | LABORATORY | | + + + + + + | Absolute | 1.36 | 1.00 - 3.90 | [facility] | | | Lymphocytes | | K/uL | LABORATORY | | + + + + + + | Absolute | 0.88 (H) | 0.00 - 0.80 | [facility] | | | Monocytes | | K/uL | LABORATORY | | + + + + + + | Eosinophils | 0.03 | 0.00 - 0.50 | [facility] | | | , Absolute | | K/uL | LABORATORY | | + + + + + + | Basophils, | 0.03Comment: Testing | 0.00 - 0.10 | [facility] | | | Absolute | performed at [facility];[address] | K/uL | LABORATORY | | | | [address];[place] | | | | | | [address] | | | | + + + + + + + + | Specimen | + + | Blood | + + + + + + + | Performing | Address | City/State/Zipcode | Phone Number | | Organization | | | | + + + + + | [facility] | [address] | [place] [address] | [phone] | + + + + + ECHO Complete (06/28/2019 9:43 AM PDT) + +--------+ + + + | Component | Value | Ref Range | Performed | Pathologist | | | | | At | Signature | + +--------+ + + + | LVEF-TTE | 80 | % | [facility] | | | TRANSTHORAC | | | | | | IC ECHO | | | | | + +--------+ + + + | RA PRESSURE | 8 | mmHg | [facility] | | + +--------+ + + + | LVIDd | 3 | cm | [facility] | | + +--------+ + + + | FS | 55 | % | [facility] | | + +--------+ + + + | Ascending | 3.4 | cm | [facility] | | | aorta | | | | | + +--------+ + + + | LVOT | 2.46 | cm | [facility] | | | diameter | | | | | + +--------+ + + + | TV peak | 3.84 | mmHg | [facility] | | | gradient | | | | | + +--------+ + + + | Pulm Vein | 30.77 | cm/s | [facility] | | | Peak S Jose Carlos | | | | | + +--------+ + + + | Pulm Vein | 50.34 | cm/s | [facility] | | | Peak D Jose Carlos | | | | | + +--------+ + + + | TR Peak | 53 | mmHg | [facility] | | | Gradient | | | | | + +--------+ + + + | TR Velocity | 364.1 | cm | [facility] | | + +--------+ + + + | RV | 4.44 | cm | [facility] | | | Diastolic | | | | | | Basal | | | | | | Diameter | | | | | + +--------+ + + + | RVSP | 61 | mmHg | [facility] | | | Estimated | | | | | + +--------+ + + + | MV E' | 7.44 | cm/s | [facility] | | | Lateral | | | | | | Velocity | | | | | + +--------+ + + + | MV E' | 6.32 | cm/s | [facility] | | | Septal | | | | | | Velocity | | | | | + +--------+ + + + | MV | 59.86 | msec | [facility] | | | Deceleratio | | | | | | n Time | | | | | + +--------+ + + + | MV E/A | 0.55 | | [facility] | | | Ratio | | | | | + +--------+ + + + | MV Peak | 95.01 | cm/s | [facility] | | | A-Wave | | | | | + +--------+ + + + | MV Peak | 51.83 | cm/s | [facility] | | | E-Wave | | | | | + +--------+ + + + | TV | 153.93 | msec | [facility] | | | Deceleratio | | | | | | n Time | | | | | + +--------+ + + + | TV Peak | 22.75 | cm/s | [facility] | | | A-Wave | | | | | + +--------+ + + + | TV Peak | 97.97 | cm/s | [facility] | | | E-Wave | | | | | + +--------+ + + + | RA Area | 31.29 | cm2 | [facility] | | + +--------+ + + + | LA Systolic | 10.71 | mmHg | [facility] | | | Pressure | | | | | + +--------+ + + + | MV E/E | 8.2 | | [facility] | | | SEPTAL | | | | | + +--------+ + + + | MV E/E | 6.97 | | [facility] | | | LATERAL | | | | | + +--------+ + + + | Vitals | 175.0 | | [facility] | | | Height | | | | | + +--------+ + + + | Vitals | 110.20 | | [facility] | | | Weight | | | | | + +--------+ + + + | Vitals BSA | 2.24 | | [facility] | | + +--------+ + + + | IVS | 1.43 | cm | [facility] | | | Diastolic | | | | | | Thickness | | | | | | MM | | | | | + +--------+ + + + | LVPW | 1.63 | cm | [facility] | | | Diastolic | | | | | | Thickness | | | | | | MM | | | | | + +--------+ + + + | IVS | 1.42 | cm | [facility] | | | Systolic | | | | | | Thickness | | | | | | MM | | | | | + +--------+ + + + | LV Systolic | 1.35 | cm | [facility] | | | Diameter | | | | | | MM | | | | | + +--------+ + + + | LVPW | 2.07 | cm | [facility] | | | Systolic | | | | | | Thickness | | | | | | MM | | | | | + +--------+ + + + + + | Specimen | + + | | + + + + + | Narrative | Performed At | + + + | There is | [facility] | | moderate increased left ventricular wall thickness. Hyperdynamic | | | left ventricular systolic function. | | | The left ventricular ejection fraction is 80%. Moderate tricuspid | | | regurgitation. There is pulmonary hypertension. Estimated right | | | ventricular systolic pressure (RVSP) is 61 mmHg. There is a left | | | pleural effusion. | | | | | + + + + +---------+ + + | Performing | Address | City/State/Zipcode | Phone Number | | Organization | | | | + +---------+ + + | [facility] | | | | + +---------+ + + Troponin I (06/28/2019 4:23 AM PDT) + + + + + + | Component | Value | Ref Range | Performed | Pathologist | | | | | At | Signature | + + + + + + | Troponin I | 0.054 (H)Comment: 0.04 | 0.00 - 0.04 | [facility] [place] | | | | ng/mL or less | ng/mL | LABORATORY | | | | Negative, repeat | | | | | | testing in four to six | | | | | | hour ifclinically | | | | | | indicted0.05 to 0.77 | | | | | | ng/mL | | | | | | Suspicious for | | | | | | myocardial injury. | | | | | | Serial measurementsmay | | | | | | be necessary to confirm | | | | | | or exclude the diagnosis | | | | | | of acute | | | | | | coronarysyndrome. Repeat | | | | | | testing in four to six | | | | | | hours if indicated.0.78 | | | | | | or greater ng/mL | | | | | | Consistent with | | | | | | myocardial injury. | | | | | | Clinical andlaboratory | | | | | | correlation recommended. | | | | | | Testing performed at | | | | | | [facility] [place];[address] | | | | | | [address];[place] [address] | | | | + + + + + + + + | Specimen | + + | Blood | + + + + + + + | Performing | Address | City/State/Zipcode | Phone Number | | Organization | | | | + + + + + | [facility] | [address] | [place] [address] | [phone] | + + + + + Comprehensive Metabolic Panel (06/28/2019 4:22 AM PDT) + + + + + + | Component | Value | Ref Range | Performed | Pathologist | | | | | At | Signature | + + + + + + | Na | 134 (L) | 135 - 145 | [facility] | | | | | mmol/L | LABORATORY | | + + + + + + | K | 3.9 | 3.5 - 4.9 | [facility] | | | | | mmol/L | LABORATORY | | + + + + + + | Cl | 100 | 99 - 109 mmol/L | [facility] | | | | | | LABORATORY | | + + + + + + | CO2 | 22 (L) | 23 - 32 mmol/L | [facility] | | | | | | LABORATORY | | + + + + + + | Anion Gap | 16 | 5 - 20 mmol/L | [facility] | | | | | | LABORATORY | | + + + + + + | Glucose | 87 | 65 - 99 mg/dL | [facility] | | | | | | LABORATORY | | + + + + + + | BUN | 23 | 8 - 25 mg/dL | [facility] | | | | | | LABORATORY | | + + + + + + | Creatinine | 1.13 | 0.70 - 1.30 | [facility] | | | | | mg/dL | LABORATORY | | + + + + + + | BUN/Creatin | 20 | | [facility] | | | ine Ratio | | | LABORATORY | | + + + + + + | Calcium | 9.0 | 8.5 - 10.5 | [facility] | | | | | mg/dL | LABORATORY | | + + + + + + | Protein, | 6.8 | 6.3 - 8.2 g/dL | [facility] | | | Total | | | LABORATORY | | + + + + + + | Albumin | 3.6 | 3.6 - 5.0 g/dL | [facility] | | | | | | LABORATORY | | + + + + + + | Globulin | 3.2 | 1.3 - 4.9 g/dL | [facility] | | | | | | LABORATORY | | + + + + + + | A/G Ratio | 1.1 | 1.0 - 2.4 | [facility] | | | | | | LABORATORY | | + + + + + + | BILIRUBIN, | 4.2 (H) | 0.1 - 1.5 mg/dL | [facility] | | | TOTAL | | | LABORATORY | | + + + + + + | ALK PHOS | 129 (H) | 35 - 115 U/L | [facility] | | | | | | LABORATORY | | + + + + + + | AST | 27 | 10 - 45 U/L | [facility] | | | | | | LABORATORY | | + + + + + + | ALT | 14 | 10 - 65 U/L | [facility] | | | | | | LABORATORY | | + + + + + + | Estimated | >60Comment: GFR <60: | >60 | [facility] | | | GFR | CHRONIC KIDNEY DISEASE, | mL/min/1.73m2 | LABORATORY | | | | IF FOUND OVER A 3 MONTH | | | | | | PERIOD.GFR <15: KIDNEY | | | | | | FAILURE.FOR | | | | | | AMERICANS, MULTIPLY THE | | | | | | CALCULATED GFR BY | | | | | | 1.210.This eGFR is | | | | | | calculated using the | | | | | | MDRD IDMS traceable | | | | | | equation.Testing | | | | | | performed at [facility];[address] | | | | | | [facility];[place], [place] | | | | | | [address] | | | | + + + + + + + + | Specimen | + + | Blood | + + + + + + + | Performing | Address | City/State/Zipcode | Phone Number | | Organization | | | | + + + + + | [facility] | [address] | [place] [address] | [phone] | + + + + + CBC no Differential (06/28/2019 4:22 AM PDT) + + + + + + | Component | Value | Ref Range | Performed | Pathologist | | | | | At | Signature | + + + + + + | WBC | 7.31 | 3.80 - 11.00 | [facility] | | | | | K/uL | LABORATORY | | + + + + + + | Red Blood | 4.78 | 4.20 - 5.70 | [facility] | | | Cells | | M/uL | LABORATORY | | + + + + + + | Hemoglobin | 13.7 | 13.2 - 17.0 | [facility] | | | | | g/dL | LABORATORY | | + + + + + + | Hematocrit | 41.7 | 39.0 - 50.0 % | [facility] | | | | | | LABORATORY | | + + + + + + | MCV | 87.2 | 80.0 - 100.0 fl | [facility] | | | | | | LABORATORY | | + + + + + + | MCH | 28.7 | 27.0 - 34.0 pg | [facility] | | | | | | LABORATORY | | + + + + + + | MCHC | 32.9 | 32.0 - 35.5 | [facility] | | | | | g/dL | LABORATORY | | + + + + + + | RDW-SD | 49.8 | 37 - 53 fl | [facility] | | | | | | LABORATORY | | + + + + + + | Platelet | 311 | 150 - 400 K/uL | [facility] | | | Count | | | LABORATORY | | + + + + + + | MPV | 10.2Comment: NO NORMAL | fl | [facility] | | | | RANGE ESTABLISHEDTesting | | LABORATORY | | | | performed at [facility];[address];[place], [place] | | | | | | [address] | | | | + + + + + + + + | Specimen | + + | Blood | + + + + + + + | Performing | Address | City/State/Zipcode | Phone Number | | Organization | | | | + + + + + | [facility] | [address] | [place] [address] | [phone] | + + + + + Troponin I (06/27/2019 9:48 PM PDT) + + + + + + | Component | Value | Ref Range | Performed | Pathologist | | | | | At | Signature | + + + + + + | Troponin I | 0.046 (H)Comment: 0.04 | 0.00 - 0.04 | [facility] | | | | ng/mL or less | ng/mL | LABORATORY | | | | Negative, repeat | | | | | | testing in four to six | | | | | | hour ifclinically | | | | | | indicted0.05 to 0.77 | | | | | | ng/mL | | | | | | Suspicious for | | | | | | myocardial injury. | | | | | | Serial measurementsmay | | | | | | be necessary to confirm | | | | | | or exclude the diagnosis | | | | | | of acute | | | | | | coronarysyndrome. Repeat | | | | | | testing in four to six | | | | | | hours if indicated.0.78 | | | | | | or greater ng/mL | | | | | | Consistent with | | | | | | myocardial injury. | | | | | | Clinical andlaboratory | | | | | | correlation recommended. | | | | | | Testing performed at | | | | | | [facility];[address];[place] [address] | | | | + + + + + + + + | Specimen | + + | Blood | + + + + + + + | Performing | Address | City/State/Zipcode | Phone Number | | Organization | | | | + + + + + | [facility] | [address] | [place] [address] | [phone] | + + + + + POC CG 4, ISTAT Arterial (06/27/2019 4:15 PM PDT) + + + + + + | Component | Value | Ref Range | Performed | Pathologist | | | | | At | Signature | + + + + + + | pH, | 7.460 (H)Comment: This | 7.350 - 7.450 | [facility] | | | Arterial, | test was developed and | | LABORATORY | | | POC | its performance | | | | | | characteristics | | | | | | determined by[facility]bbott, it | | | | | | has not been cleared or | | | | | | approved by the [place] FDA. | | | | | | Clinicians should | | | | | | beadvised to consider a | | | | | | patient's signs, | | | | | | symptoms, history, and | | | | | | results of | | | | | | otherdiagnostic tests | | | | | | when interpreting | | | | | | results from these | | | | | | cartridges. | | | | + + + + + + | pCO2, | 23 (L) | 35 - 45 mmHg | [facility] | | | Arterial | | | LABORATORY | | + + + + + + | pO2, | 59 (L) | 80 - 105 mmHg | [facility] | | | Arterial | | | LABORATORY | | + + + + + + | Lactate, | 0.94 | 0.36 - 1.25 | [facility] | | | Arterial, | | mmol/L | LABORATORY | | | POC | | | | | + + + + + + | HCO3, | 16 (L) | 22 - 26 mmol/L | [facility] | | | Arterial | | | LABORATORY | | + + + + + + | TCO2, | 17 (L) | 23 - 27 mEq/L | [facility] | | | Arterial, | | | LABORATORY | | | POC | | | | | + + + + + + | POC Base | 7 (H) | 0.0 - 2.0 | [facility] | | | Deficit | | mmol/L | LABORATORY | | | mmol/L | | | | | + + + + + + | SO2, | 92 (L) | 95 - 98 % | [facility] | | | Arterial, | | | LABORATORY | | | POC | | | | | + + + + + + | FiO2, POC | 32 | % | [facility] | | | | | | LABORATORY | | + + + + + + | Comment, | Modified Miky Test | | [facility] | | | POC | passedComment: Site = | | LABORATORY | | | | right radialTesting | | | | | | performed at [facility];[address];[place], [place] | | | | | | [address] | | | | + + + + + + + + | Specimen | + + | | + + + + + + + | Performing | Address | City/State/Zipcode | Phone Number | | Organization | | | | + + + + + | [facility] | [address] | [place] [address] | [phone] | + + + + + XR Chest AP Portable (06/27/2019 3:39 PM PDT) + + | Specimen | + + | | + + + + + | Impressions | Performed At | + + + | New left basilar opacities likely combination of pleural effusion | [facility] | | and airspace consolidation. In the absence of suspected complicated | | | infection requiring repeat or advanced imaging, radiographic | | | followup in 8-10 weeks recommended to document complete resolution. | | | Signed by: Mary Ellen Guevara, Martell Sign Date/Time: 06/27/2019 | | | 4:10 PM | | + + + + + + | Narrative | Performed At | + + + | CHEST PORTABLE ONE VIEW CLINICAL INFORMATION: Shortness of | [facility] | | breath and cough. COMPARISON: XR CHEST 2 VIEW FRONTAL AND LATERAL | | | (04/24/2018); CTA CHEST PULMONARY EMBOLISM W CONTRAST (08/15/2017); XR | | | CHEST 2 VIEW (08/15/2017); FINDINGS: Left basilar opacities | | | likely a combination of airspace disease and pleural effusion. No | | | pneumothorax. Stable cardiomegaly. No significant osseous | | | abnormality. | | + + + + + | Procedure Note | + + | Bill, Rad Results In - 06/27/2019 4:14 PM PDT | | CHEST PORTABLE ONE VIEW | | | | CLINICAL INFORMATION: | | Shortness of breath and cough. | | | | COMPARISON: | | XR CHEST 2 VIEW FRONTAL AND LATERAL (04/24/2018); CTA CHEST PULMONARY | | EMBOLISM W CONTRAST (08/15/2017); XR CHEST 2 VIEW (08/15/2017); | | | | FINDINGS: | | Left basilar opacities likely a combination of airspace disease and | | pleural effusion. No pneumothorax. Stable cardiomegaly. No | | significant osseous abnormality. | | | | IMPRESSION: | | New left basilar opacities likely combination of pleural effusion and | | airspace consolidation. In the absence of suspected complicated | | infection requiring repeat or advanced imaging, radiographic followup | | in 8-10 weeks recommended to document complete resolution. | | | | | | | | Signed by: Mary Ellen Guevara Tyson | | Sign Date/Time: 06/27/2019 4:10 PM | + + + +---------+ + + | Performing | Address | City/State[facility] | Phone Number | | Organization | | | | + +---------+ + + | [facility] | | | | + +---------+ + + Coronavirus (COVID-19) PCR (06/27/2019 3:14 PM PDT) + + + + + + | Component | Value | Ref Range | Performed | Pathologist | | | | | At | Signature | + + + + + + | SARS-CoV-2, | Not DetectedComment: | Not Detected | [facility] | | | NAAT | Testing was performed | | LABORATORY | | | (COVID-19) | using the robert(R) | | | | | | SARS-CoV-2 test.This | | | | | | test was developed and | | | | | | its performance | | | | | | characteristicsdetermine | | | | | | d by [facility] | | | | | | Laboratories. This test | | | | | | has not been FDAcleared | | | | | | or approved. This test | | | | | | has been authorized by | | | | | | FDA under anEmergency | | | | | | Use Authorization (EUA). | | | | | | This test is only | | | | | | authorized forthe | | | | | | duration of time the | | | | | | declaration that | | | | | | circumstances | | | | | | existjustifying the | | | | | | authorization of the | | | | | | emergency use of in | | | | | | vitrodiagnostic tests | | | | | | for detection of | | | | | | SARS-CoV-2 virus and/or | | | | | | diagnosisof COVID-19 | | | | | | infection under section | | | | | | 564(b)(1) of the Act, 21 | | | | | | U.S.C.360bbb-3(b)(1), | | | | | | unless the authorization | | | | | | is terminated or | | | | | | revokedsooner.Testing | | | | | | performed at [facility] | | | | | | [place], [address] | | | | | [address], | | | | | | [place], [id number]. | | | | + + + + + + + + | Specimen | + + | Tissue - Entire | | nasopharynx (body | | structure) | + + + + + + + | Performing | Address | City/State/Zipcode | Phone Number | | Organization | | | | + + + + + | [facility] | [address] | [place] [address] | [phone] | + + + + + ECG 12 lead (06/27/2019 3:04 PM PDT) + + + + + + | Component | Value | Ref Range | Performed | Pathologist | | | | | At | Signature | + + + + + + | VENTRICULAR | 88 | BPM | [facility] | | | RATE EKG | | | | | + + + + + + | ATRIAL RATE | 88 | BPM | [facility] | | + + + + + + | P-R | 198 | ms | [facility] | | | INTERVAL | | | | | + + + + + + | QRS | 94 | ms | [facility] | | | DURATION | | | | | + + + + + + | Q-T | 386 | ms | [facility] | | | INTERVAL | | | | | + + + + + + | Q-T | 467 | ms | [facility] | | | INTERVAL | | | | | | (CORRECTED) | | | | | + + + + + + | P WAVE AXIS | 47 | degrees | [facility] | | + + + + + + | QRS AXIS | 116 | degrees | [facility] | | + + + + + + | T AXIS | 18 | degrees | [facility] | | + + + + + + | INTERPRETAT | Normal sinus | | [facility] | | | ION TEXT | rhythmIncomplete right | | | | | | bundle branch blockRight | | | | | | ventricular | | | | | | hypertrophySeptal | | | | | | infarct (cited on or | | | | | | before | | | | | | 16-AUG-2017)Abnormal | | | | | | ECGWhen compared with | | | | | | ECG of 23-APR-2018 | | | | | | 22:51,Questionable | | | | | | change in initial forces | | | | | | of Anteroseptal | | | | | | leadsThis ECG contains | | | | | | Unconfirmed | | | | | | Interpretation | | | | | | Statements. See ED | | | | | | Record for Physician | | | | | | Interpretation. | | | | | | Confirmed by MUSE READ | | | | | | ONLY, -COMPUTER ([id number]), | | | | | | proposal editor Mack Hebert | | | | | | Jean ([id number]) on 06/29/2019 | | | | | | 2:02:24 AM | | | | + + + + + + + + | Specimen | + + | | + + + + + | Narrative | Performed At | + + + | | | + + + + +---------+ + + | Performing | Address | City/State/Zipcode | Phone Number | | Organization | | | | + +---------+ + + | [facility] | | | | + +---------+ + + Protime INR (06/27/2019 2:55 PM PDT) + + + + + + | Component | Value | Ref Range | Performed | Pathologist | | | | | At | Signature | + + + + + + | INR | 1.4Comment: REFERENCE | | [facility] | | | | RANGE:0.9 - 1.2 | | LABORATORY | | | | NON-ANTICOAGULATED2.0 | | | | | | - 3.0 ALL OTHER | | | | | | THERAPEUTIC | | | | | | INDICATIONS2.5 - 3.5 | | | | | | MECHANICAL HEART VALVES, | | | | | | RECURRENT OR SYSTEMIC | | | | | | EMBOLISMTesting | | | | | | performed at [facility];[address];[place], [place] | | | | | | [address] | | | | + + + + + + + + | Specimen | + + | Blood | + + + + + + + | Performing | Address | City/State/Zipcode | Phone Number | | Organization | | | | + + + + + | [facility] | [address] | [place] [address] | [phone] | + + + + + Troponin I (06/27/2019 2:55 PM PDT) + + + + + + | Component | Value | Ref Range | Performed | Pathologist | | | | | At | Signature | + + + + + + | Troponin I | 0.058 (H)Comment: 0.04 | 0.00 - 0.04 | [facility] | | | | ng/mL or less | ng/mL | LABORATORY | | | | Negative, repeat | | | | | | testing in four to six | | | | | | hour ifclinically | | | | | | indicted0.05 to 0.77 | | | | | | ng/mL | | | | | | Suspicious for | | | | | | myocardial injury. | | | | | | Serial measurementsmay | | | | | | be necessary to confirm | | | | | | or exclude the diagnosis | | | | | | of acute | | | | | | coronarysyndrome. Repeat | | | | | | testing in four to six | | | | | | hours if indicated.0.78 | | | | | | or greater ng/mL | | | | | | Consistent with | | | | | | myocardial injury. | | | | | | Clinical andlaboratory | | | | | | correlation recommended. | | | | | | Testing performed at | | | | | | [facility];[address] [facility] | | | | | | [facility];[place] [address] | | | | + + + + + + + + | Specimen | + + | Blood | + + + + + + + | Performing | Address | City/State/Zipcode | Phone Number | | Organization | | | | + + + + + | [facility] | [address] | [place] [address] | [phone] | + + + + + Comprehensive Metabolic Panel (06/27/2019 2:55 PM PDT) + + + + + + | Component | Value | Ref Range | Performed | Pathologist | | | | | At | Signature | + + + + + + | Na | 133 (L) | 135 - 145 | [facility] | | | | | mmol/L | LABORATORY | | + + + + + + | K | 4.4 | 3.5 - 4.9 | [facility] | | | | | mmol/L | LABORATORY | | + + + + + + | Cl | 99 | 99 - 109 mmol/L | [facility] | | | | | | LABORATORY | | + + + + + + | CO2 | 22 (L) | 23 - 32 mmol/L | [facility] | | | | | | LABORATORY | | + + + + + + | Anion Gap | 16 | 5 - 20 mmol/L | [facility] | | | | | | LABORATORY | | + + + + + + | Glucose | 115 (H) | 65 - 99 mg/dL | [facility] | | | | | | LABORATORY | | + + + + + + | BUN | 22 | 8 - 25 mg/dL | [facility] | | | | | | LABORATORY | | + + + + + + | Creatinine | 1.09 | 0.70 - 1.30 | [facility] | | | | | mg/dL | LABORATORY | | + + + + + + | BUN/Creatin | 20 | | [facility] | | | ine Ratio | | | LABORATORY | | + + + + + + | Calcium | 9.2 | 8.5 - 10.5 | [facility] | | | | | mg/dL | LABORATORY | | + + + + + + | Protein, | 7.5 | 6.3 - 8.2 g/dL | [facility] | | | Total | | | LABORATORY | | + + + + + + | Albumin | 4.0 | 3.6 - 5.0 g/dL | [facility] | | | | | | LABORATORY | | + + + + + + | Globulin | 3.5 | 1.3 - 4.9 g/dL | [facility] | | | | | | LABORATORY | | + + + + + + | A/G Ratio | 1.1 | 1.0 - 2.4 | [facility] | | | | | | LABORATORY | | + + + + + + | BILIRUBIN, | 4.8 (H) | 0.1 - 1.5 mg/dL | [facility] | | | TOTAL | | | LABORATORY | | + + + + + + | ALK PHOS | 150 (H) | 35 - 115 U/L | [facility] | | | | | | LABORATORY | | + + + + + + | AST | 38 | 10 - 45 U/L | [facility] | | | | | | LABORATORY | | + + + + + + | ALT | 18 | 10 - 65 U/L | [facility] | | | | | | LABORATORY | | + + + + + + | Estimated | >60Comment: GFR <60: | >60 | [facility] | | | GFR | CHRONIC KIDNEY DISEASE, | mL/min/1.73m2 | LABORATORY | | | | IF FOUND OVER A 3 MONTH | | | | | | PERIOD.GFR <15: KIDNEY | | | | | | FAILURE.FOR | | | | | | AMERICANS, MULTIPLY THE | | | | | | CALCULATED GFR BY | | | | | | 1.210.This eGFR is | | | | | | calculated using the | | | | | | MDRD IDMS traceable | | | | | | equation.Testing | | | | | | performed at [facility];[address] | [address] | [address];[place] | | | | | | [address] | | | | + + + + + + + + | Specimen | + + | Blood | + + + + + + + | Performing | Address | City/State/Zipcode | Phone Number | | Organization | | | | + + + + + | [facility] | [address] | [place] [address] | [phone] | + + + + + CBC with Differential (06/27/2019 2:55 PM PDT) + + + + + + | Component | Value | Ref Range | Performed | Pathologist | | | | | At | Signature | + + + + + + | WBC | 8.38 | 3.80 - 11.00 | [facility] | | | | | K/uL | LABORATORY | | + + + + + + | Red Blood | 5.17 | 4.20 - 5.70 | [facility] | | | Cells | | M/uL | LABORATORY | | + + + + + + | Hemoglobin | 14.9 | 13.2 - 17.0 | [facility] | | | | | g/dL | LABORATORY | | + + + + + + | Hematocrit | 45.8 | 39.0 - 50.0 % | [facility] | | | | | | LABORATORY | | + + + + + + | MCV | 88.6 | 80.0 - 100.0 fl | [facility] | | | | | | LABORATORY | | + + + + + + | MCH | 28.8 | 27.0 - 34.0 pg | [facility] | | | | | | LABORATORY | | + + + + + + | MCHC | 32.5 | 32.0 - 35.5 | [facility] | | | | | g/dL | LABORATORY | | + + + + + + | RDW-SD | 50.9 | 37 - 53 fl | [facility] | | | | | | LABORATORY | | + + + + + + | Platelet | 370 | 150 - 400 K/uL | [facility] | | | Count | | | LABORATORY | | + + + + + + | MPV | 10.4Comment: NO NORMAL | fl | [facility] | | | | RANGE ESTABLISHED | | LABORATORY | | + + + + + + | Diff Type | AUTOMATED | | [facility] | | | | | | LABORATORY | | + + + + + + | % nRBC | 0.0 | 0 /100WBC | [facility] | | | | | | LABORATORY | | + + + + + + | % | 64.80 | % | [facility] | | | Neutrophils | | | LABORATORY | | + + + + + + | IMMATURE | 0.20 | % | [facility] | | | GRANULOCYTE | | | LABORATORY | | + + + + + + | % | 22.70 | % | [facility] | | | Lymphocytes | | | LABORATORY | | + + + + + + | Monocyte % | 11.30 | % | [facility] | | | | | | LABORATORY | | + + + + + + | Eosinophils | 0.40 | % | [facility] | | | % | | | LABORATORY | | + + + + + + | Basophils % | 0.60 | % | [facility] | | | | | | LABORATORY | | + + + + + + | Neutrophils | 5.43 | 1.90 - 7.40 | [facility] | | | , Absolute | | K/uL | LABORATORY | | + + + + + + | IMMATURE | 0.02Comment: NOTE NEW | 0.00 - 0.07 | [facility] | | | GRANS AB | REFERENCE RANGE | K/uL | LABORATORY | | + + + + + + | Absolute | 1.90 | 1.00 - 3.90 | [facility] | | | Lymphocytes | | K/uL | LABORATORY | | + + + + + + | Absolute | 0.95 (H) | 0.00 - 0.80 | [facility] | | | Monocytes | | K/uL | LABORATORY | | + + + + + + | Eosinophils | 0.03 | 0.00 - 0.50 | [facility] | | | , Absolute | | K/uL | LABORATORY | | + + + + + + | Basophils, | 0.05Comment: Testing | 0.00 - 0.10 | [facility] | | | Absolute | performed at [facility];[address] | [address] | LABORATORY | | | | [address];[place], [place] | | | | | | [address] | | | | + + + + + + + + | Specimen | + + | Blood | + + + + + + + | Performing | Address | City/State/Zipcode | Phone Number | | Organization | | | | + + + + + | [facility] | [address] | [place] [address] | [phone] | + + + + + B Type Natriuretic Peptide (06/27/2019 2:55 PM PDT) + + + + + + | Component | Value | Ref Range | Performed | Pathologist | | | | | At | Signature | + + + + + + | BNP | 1,344.20 (H)Comment: | 0 - 100 pg/mL | [facility] | | | | Testing performed at | | LABORATORY | | | | [facility];[address] | [address];[place] [address] | | | | + + + + + + + + | Specimen | + + | Blood | + + + + + + + | Performing | Address | City/State/Zipcode | Phone Number | | Organization | | | | + + + + + | [facility] | [address] | [place] [address] | [phone] | + + + + + documented in this encounter Visit Diagnoses + + | Diagnosis | + + | Acute right-sided heart failure (HCC) - Primary Congestive heart failure, unspecified | + + | Acute on chronic respiratory failure with hypoxia (HCC) | + + | Acute on chronic diastolic heart failure (HCC) Acute on chronic diastolic heart | | failure | + + | Hypervolemia, unspecified hypervolemia type | + + | Elevated troponin Other abnormal blood chemistry | + + | Cellulitis Cellulitis and abscess of unspecified site | + + documented in this encounter Administered Medications + +--------+ +--------+------+------+ | Medication Order | MAR | Action | Dose | Rate | Site | | | Action | Date | | | | + +--------+ +--------+------+------+ | aspirin tablet 325 mg 325 mg, | Given | 06/27/19 | 325 mg | | | | Oral, ONCE, 06/27/19 at 1455, | | 20 3:12 | | | | | For 1 dose | | PM PDT | | | | + +--------+ +--------+------+------+ +---+---+ | | | +---+---+ + +---------+ +-----+-------+---+ | ceFAZolin in dextrose (ANCEF, | New Bag | 06/30/19 | 1 g | 100 | | | KEFZOL) IVPB 1 g 1 g, | | 20 6:03 | | mL/hr | | | Intravenous, Administer over 30 | | AM PDT | | | | | Minutes, EVERY 8 HOURS (3 times | | | | | | | per day), First dose on Sun | | | | | | | 06/27/19 at 2245, Keep in | | | | | | | refrigerator., Indications: | | | | | | | Cellulitis | | | | | | + +---------+ +-----+-------+---+ +---------+ +-----+-------+---+ | New Bag | 06/29/19 | 1 g | 100 | | | | 20 9:29 | | mL/hr | | | | PM PDT | | | | +---------+ +-----+-------+---+ | New Bag | 06/29/19 | 1 g | 100 | | | | 20 2:01 | | mL/hr | | | | PM PDT | | | | +---------+ +-----+-------+---+ +---+---+ | | | +---+---+ + +-------+ +--------+---+---+ | cephalexin (KEFLEX) capsule 500 | Given | 07/03/19 | 500 mg | | | | mg 500 mg, Oral, 4 TIMES DAILY, | | 20 8:05 | | | | | First dose on Fri06/30/19 at | | AM PDT | | | | | 1700, For 5 days, Indications: | | | | | | | NON-PURULENT SKIN AND SOFT TISSUE | | | | | | | INFECTION | | | | | | + +-------+ +--------+---+---+ +-------+ +--------+---+---+ | Given | 07/02/19 | 500 mg | | | | | 20 10:34 | | | | | | PM PDT | | | | +-------+ +--------+---+---+ | Given | 07/02/19 | 500 mg | | | | | 20 5:13 | | | | | | PM PDT | | | | +-------+ +--------+---+---+ +---+---+ | | | +---+---+ + +-------+ +-------+---+ + | enoxaparin (LOVENOX) 40 mg/0.4 | Given | 07/02/19 | 40 mg | | Abdomen- | | mL injection 40 mg 40 mg, | | 20 8:44 | | | LLQ | | Subcutaneous, EVERY 24 HOURS | | AM PDT | | | | | (Daily), First dose on Mon | | | | | | | 06/28/19 at 0900 | | | | | | + +-------+ +-------+---+ + +-------+ +-------+---+ + | Given | 07/01/19 | 40 mg | | Abdomen- | | | 20 9:58 | | | LLQ | | | AM PDT | | | | +-------+ +-------+---+ + | Given | 06/30/19 | 40 mg | | Abdomen- | | | 20 8:59 | | | RUQ | | | AM PDT | | | | +-------+ +-------+---+ + +---+---+ | | | +---+---+ + +---------+ + +---------+---+ | furosemide (LASIX) 2 mg/mL in | New Bag | 06/29/19 | 10 mg/hr | 5 mL/hr | | | sodium chloride 0.9% 100 mL | | 20 5:53 | | | | | infusion 10 mg/hr (5 mL/hr), at | | AM PDT | | | | | 5 mL/hr, Intravenous, CONTINUOUS, | | | | | | | Starting 06/27/19 at 2130 | | | | | | + +---------+ + +---------+---+ +---------+ + +---------+---+ | New Bag | 06/28/19 | 10 mg/hr | 5 mL/hr | | | | 20 10:43 | | | | | | AM PDT | | | | +---------+ + +---------+---+ | New Bag | 06/27/19 | 10 mg/hr | 5 mL/hr | | | | 20 9:57 | | | | | | PM PDT | | | | +---------+ + +---------+---+ +---+---+ | | | +---+---+ + +-------+ +-------+---+---+ | furosemide (LASIX) injection 40 | Given | 06/27/19 | 40 mg | | | | mg 40 mg, Intravenous, ONCE, | | 20 3:52 | | | | | 06/27/19 at 1535, For 1 dose | | PM PDT | | | | + +-------+ +-------+---+---+ +---+---+ | | | +---+---+ + +-------+ +-------+---+---+ | furosemide (LASIX) injection 40 | Given | 06/30/19 | 40 mg | | | | mg 40 mg, Intravenous, 2 TIMES | | 20 8:59 | | | | | DAILY 0800 & 1600, First dose on | | AM PDT | | | | | 06/29/19 at 1600 | | | | | | + +-------+ +-------+---+---+ +-------+ +-------+---+---+ | Given | 06/29/19 | 40 mg | | | | | 20 3:11 | | | | | | PM PDT | | | | +-------+ +-------+---+---+ +---+---+ | | | +---+---+ + +-------+ +-------+---+---+ | furosemide (LASIX) injection 40 | Given | 07/02/19 | 40 mg | | | | mg 40 mg, Intravenous, 2 TIMES | | 20 8:45 | | | | | DAILY 0800 & 1600, First dose | | AM PDT | | | | | (after last modification) on [facility] | | | | | | | 07/01/19 at 1130 | | | | | | + +-------+ +-------+---+---+ +-------+ +-------+---+---+ | Given | 07/01/19 | 40 mg | | | | | 20 6:35 | | | | | | PM PDT | | | | +-------+ +-------+---+---+ | Given | 07/01/19 | 40 mg | | | | | 20 11:25 | | | | | | AM PDT | | | | +-------+ +-------+---+---+ +---+---+ | | | +---+---+ + +-------+ +-------+---+---+ | furosemide (LASIX) injection 40 | Given | 07/01/19 | 40 mg | | | | mg 40 mg, Intravenous, ONCE, | | 20 3:25 | | | | | Anna 07/01/19 at 1415, For 1 dose | | PM PDT | | | | + +-------+ +-------+---+---+ +---+---+ | | | +---+---+ + +-------+ +-------+---+---+ | furosemide (LASIX) injection 40 | Given | 07/02/19 | 40 mg | | | | mg 40 mg, Intravenous, ONCE, | | 20 4:30 | | | | | 07/02/19 at 1500, For 1 dose | | PM PDT | | | | + +-------+ +-------+---+---+ +---+---+ | | | +---+---+ + +-------+ +-------+---+---+ | furosemide (LASIX) injection 60 | Given | 06/27/19 | 60 mg | | | | mg 60 mg, Intravenous, ONCE, | | 20 7:58 | | | | | 06/27/19 at 1905, For 1 dose | | PM PDT | | | | + +-------+ +-------+---+---+ +---+---+ | | | +---+---+ + +-------+ +-------+---+---+ | furosemide (LASIX) tablet 40 mg | Given | 07/01/19 | 40 mg | | | | 40 mg, Oral, 2 TIMES DAILY 0800 | | 20 10:01 | | | | | & 1600, First dose on Fri06/30/19 | | AM PDT | | | | | at 1600 | | | | | | + +-------+ +-------+---+---+ +-------+ +-------+---+---+ | Given | 06/30/19 | 40 mg | | | | | 20 4:57 | | | | | | PM PDT | | | | +-------+ +-------+---+---+ +---+---+ | | | +---+---+ + +-------+ +-------+---+---+ | furosemide (LASIX) tablet 40 mg | Given | 07/03/19 | 40 mg | | | | 40 mg, Oral, 2 TIMES DAILY 0800 | | 20 8:05 | | | | | & 1600, First dose on Fri07/02/19 | | AM PDT | | | | | at 1730 | | | | | | + +-------+ +-------+---+---+ +-------+ +-------+---+---+ | Given | 07/02/19 | 40 mg | | | | | 20 6:33 | | | | | | PM PDT | | | | +-------+ +-------+---+---+ + +---+ | | | + +---+ | haloperidol (HALDOL) tablet 1-2 | | | mg 1-2 mg, Oral, EVERY 6 HOURS | | | PRN, Agitation, Hallucinations, | | | Starting Fri06/30/19 at 1442 | | + +---+ | | | + +---+ | LORazepam (ATIVAN) tablet 1-2 | | | mg 1-2 mg, Oral, EVERY 6 HOURS | | | PRN, Anxiety, Withdrawal | | | Symptoms, Starting Fri06/30/19 at | | | 0824 | | + +---+ | | | + +---+ + +---------+ +-----+ +---+ | magnesium sulfate 2 g/50 mL | New Bag | 06/29/19 | 2 g | 25 mL/hr | | | IVPB 2 g 2 g, Intravenous, | | 20 11:55 | | | | | Administer over 120 Minutes, | | AM PDT | | | | | ONCE, 06/29/19 at 1045, For 1 | | | | | | | dose, Maximum recommended | | | | | | | infusion rate = 1 gram/hour., | | | | | | + +---------+ +-----+ +---+ +---+---+ | | | +---+---+ + +-------+ +------+---+---+ | melatonin tablet 6 mg 6 mg, | Given | 07/02/19 | 6 mg | | | | Oral, NIGHTLY, First dose (after | | 20 10:33 | | | | | last modification) on Fri06/30/19 | | PM PDT | | | | | at 2100 | | | | | | + +-------+ +------+---+---+ +-------+ +------+---+---+ | Given | 06/30/19 | 6 mg | | | | | 20 7:40 | | | | | | PM PDT | | | | +-------+ +------+---+---+ +---+---+ | | | +---+---+ + +-------+ +--------+---+---+ | nitroglycerin (NITROSTAT) SL | Given | 06/27/19 | 0.4 mg | | | | tablet 0.4 mg 0.4 mg, | | 20 3:12 | | | | | Sublingual, ONCE, 06/27/19 at | | PM PDT | | | | | 1455, For 1 dose, Maximum of 3 | | | | | | | doses in 15 minutes., | | | | | | + +-------+ +--------+---+---+ +---+---+ | | | +---+---+ + +-------+ +--------+---+---+ | potassium chloride (KLOR-CON) | Given | 07/03/19 | 20 mEq | | | | ER tablet 20 mEq 20 mEq, Oral, | | 20 8:05 | | | | | DAILY, First dose on Fri06/30/19 | | AM PDT | | | | | at 0900, May take with food to | | | | | | | decrease GI upset., | | | | | | + +-------+ +--------+---+---+ +-------+ +--------+---+---+ | Given | 07/02/19 | 20 mEq | | | | | 20 8:44 | | | | | | AM PDT | | | | +-------+ +--------+---+---+ | Given | 07/01/19 | 20 mEq | | | | | 20 9:58 | | | | | | AM PDT | | | | +-------+ +--------+---+---+ + +---+ | | | + +---+ | potassium chloride (KLOR-CON) | | | ER tablet 20-40 mEq 20-40 mEq, | | | Oral, DAILY PRN, Per protocol, | | | Starting Fri06/29/19 at 1901, | | | NON-ICU Protocol Replace | | | potassium once per day based on | | | morning potassium level. Use | | | scale below to determine dose. If | | | further replacement is required | | | after this morning dose of | | | potassium, notify provider | | | Protocol NOT recommended if Scr > | | | 1.8, dialysis patients or CrCl < | | | 50 mL/min [K+] =3.6 - 4 mEql/L | | | Give 20 mEq KCl PO x 1 dose | | | [K+] 3.0 - 3.5 mEql/L Give 40 | | | mEq KCl PO x 1 dose [K+] < 3.0 | | | mEq/L Notify provider * | | | Recheck K+ 4 hours after | | | replacement is done. Give either | | | tablet, liquid, or IV but never | | | more than one form. If repeat K | | | is still < 3.5, contact provider | | | for further instruction. May take | | | with food to decrease GI upset., | | | | | + +---+ | | | + +---+ + +-------+ +--------+---+---+ | potassium chloride (KLOR-CON) | Given | 06/29/19 | 40 mEq | | | | ER tablet 40 mEq 40 mEq, Oral, | | 20 3:10 | | | | | EVERY 4 HOURS (6 times per day), | | PM PDT | | | | | First dose on Fri06/29/19 at | | | | | | | 1045, For 2 doses, May take with | | | | | | | food to decrease GI upset., | | | | | | + +-------+ +--------+---+---+ +-------+ +--------+---+---+ | Given | 06/29/19 | 40 mEq | | | | | 20 11:58 | | | | | | AM PDT | | | | +-------+ +--------+---+---+ + +---+ | | | + +---+ | potassium chloride (KLOR-CON) | | | packet 20-40 mEq 20-40 mEq, Per | | | G Tube, DAILY PRN, Per Protocol, | | | Starting Fri06/29/19 at 1901, | | | NON-ICU Protocol Replace | | | potassium once per day based on | | | morning potassium level. Use | | | scale below to determine dose. If | | | further replacement is required | | | after this morning dose of | | | potassium, notify provider | | | Protocol NOT recommended if Scr > | | | 1.8, dialysis patients or CrCl < | | | 50 mL/min [K+] =3.6 - 4 mEql/L | | | Give 20 mEq KCl PO x 1 dose | | | [K+] 3.0 - 3.5 mEql/L Give 40 | | | mEq KCl PO x 1 dose [K+] < 3.0 | | | mEq/L Notify provider * | | | Recheck K+ 4 hours after | | | replacement is done. Give either | | | tablet, liquid, or IV but never | | | more than one form. If repeat K | | | is still < 3.5, contact provider | | | for further instruction., | | + +---+ | | | + +---+ | potassium chloride 20 mEq in | | | sodium chloride 0.9% 250 mL IVPB | | | 20 mEq, Intravenous, Administer | | | over 2 Hours, DAILY PRN, Per | | | protocol, Starting Fri06/29/19 at | | | 1901, NON-ICU Protocol Replace | | | potassium once per day based on | | | morning potassium level. Use | | | scale below to determine dose. If | | | further replacement is required | | | after this morning dose of | | | potassium, notify provider | | | Protocol NOT recommended if Scr > | | | 1.8, dialysis patients or CrCl < | | | 50 mL/min [K+] =3.6 - 4 mEql/L | | | Give 20 mEq KCl IV X 1 dose | | | * Recheck K+ 2 hours after | | | replacement is done. Give either | | | tablet, liquid, or IV but never | | | more than one form. If repeat K | | | is still < 3.5, contact provider | | | for further instruction., | | + +---+ | | | + +---+ | potassium chloride 40 mEq in | | | sodium chloride 0.9% 500 mL IVPB | | | 40 mEq, Intravenous, Administer | | | over 4 Hours, DAILY PRN, Per | | | protocol, Starting Fri06/29/19 at | | | 1901, NON-ICU Protocol Replace | | | potassium once per day based on | | | morning potassium level. Use | | | scale below to determine dose. If | | | further replacement is required | | | after this morning dose of | | | potassium, notify provider | | | Protocol NOT recommended if Scr > | | | 1.8, dialysis patients or CrCl < | | | 50 mL/min [K+] 3.0 - 3.5 mEql/L | | | Give 40 mEq KCl IV X 1 dose | | | * Recheck K+ 2 hours after | | | replacement is done. Give either | | | tablet, liquid, or IV but never | | | more than one form. If repeat K | | | is still < 3.5, contact provider | | | for further instruction., | | + +---+ | | | + +---+ documented in this encounter Additional Health Concerns + + + + + | Infection | Onset Date | Last Indicated | Resolved Time | + + + + + | Rule out COVID-19 | 06/27/2019 | 06/27/2019 | 06/30/2019 8:50 AM | | | | | PDT | + + + + + documented as of this encounter
--- OUTSIDE RECORDS SUMMARY | ~2019-10-23 | XMS | Clinical Summary ---
Demographics + + + | Address | [address] | | | [place] [address] | + + + | Home Phone | | + + + | Preferred Language | Unknown | + + + | Marital Status | Legally | + + + | Baptist Affiliation | Unknown | + + + | Race | Unknown | + + + | Ethnic Group | Unknown | + + + Author + + + | Author | [facility] | | | and [place] | + + + | Organization | [facility] | | | and [place] [...] Team Providers + +------+ + | Care Insulation Installer Name | Role | Phone | + [...] Noted Date | + + + | Acute hypoxemic respiratory failure | 07/06/2019 | + + + | Acute right-sided heart failure | 06/27/2019 | + + + | Elevated troponin | 06/27/2019 | + + + | Cellulitis | 06/27/2019 | + + + | Chest pain | 08/15/2017 | + + + | Uncontrolled hypertension | 08/15/2017 | + + + | CLARE (acute kidney injury) | 08/15/2017 | + + + | Drug abuse | 08/15/2017 | + + + Encounters +--------+ + + + + | Date | Type | Specialty | Care Team | Description | +--------+ + + + + | 07/26/ | Telephone | Hospitalist | Zunilda Chávez | Other ([facility]) | | 2019 | | | BRIANA Enriquez | | +--------+ + + + + from Last 3 Months Social History + +-------+ +--------+------+ | Tobacco [...] on file | | + + + Last Filed Vital Signs + [...] + + Plan of Treatment + + +-------+ + | Health Maintenance | Due Date | Last | Comments | | | | Done | | + + +-------+ + | Vaccine: | | | | | Dtap/Tdap/Td (1 - | 5 | | | | Tdap) | | | | + + +-------+ + | Vaccine: Influenza | | | | | (#1) | 0 | | | + + +-------+ + Results Not on filefrom Last 3 Months Insurance + +--------+ +--------+ +---------+--------+ | Payer | Benefi | Subscriber | Effect | Phone | Address | Type | | | t Plan | ID | patrick | | | | | | / | | Dates | | | | | | Group | | | | | | + +--------+ +--------+ +---------+--------+ | [employer] | [employer] | [id number] | | [phone] | | Medica | | MEDICAID HMO | HEALTH | | 020-Pr | 1 | | id | | | MDCD | | esent | | | | | | [place] | | | | | | + +--------+ +--------+ +---------+--------+ + +--------+ +--------+ + + | Guarantor Name | Accoun | Relation to | Date | Phone | Billing Address | | | t Type | Patient | of | | | | | | | | | | + +--------+ +--------+ + + | Kimber Terry W | Person | Self [birth year] | [address] | | | al/Fam | | [phone] | [phone] | [place] [address] | | | [place] | | | 5 (Home) | | + +--------+ +--------+ + + Advance Directives + + + + + | Type | Date Recorded | Patient | Explanation | | | | Dna Sequencing Associate | | + + + + + | Power of | | | | | Backroom Associate | | | | + + + + + | Advance | 06/27/2019 4:40 | | | | Directive | PM | | | + + + + + + + + + + | Code Status | Date | Date | Comments | | | Activated | Inactivated | | + + + + + | Full Code | 06/27/2019 | 07/03/2019 | | | | 9:27 PM | 1:13 PM | | + + + + +
--- OUTSIDE RECORDS SUMMARY | ~2019-10-23 | XMS | Encounter Summary ---
Demographics + + + | Address | [address] | | | [place] [address] | + + + | Home Phone | | + + + | Preferred Language | Unknown | + + + | Marital Status | Legally | + + + | Jew Affiliation | Unknown | + + + | Race | Unknown | + + + | Ethnic Group | Unknown | + + + Author + + + | Author | [facility] | | | and [place] | + + + | Organization | [facility] | | | and [place] | [...] Team Providers + +------+ + | Care Flight Software Test Engineer Name | Role | Phone | + +------+ + PCP | Unavailable | + +------+ + Encounter Details +--------+ + + + + | Date | Type | Department | Care Team | Description | +--------+ + + + + | 08/15/ | Hospital | [facility] | Tania Raines MD | Chest pain, | | 2018 - | Encounter | MEDICAL CENTER | [address] [place] | unspecified type; | | | | CLINICAL DECISION | [address] [place], [place] | Hypoxia; | | 08/16/ | | [address] | [phone] | Uncontrolled | | 2018 | | [place], [place] | | hypertension; CL[place] | | | | [phone] | | (acute kidney | | | | [phone] | | injury) ([facility]); Drug | | | | | [...] Summaries by Tania Raines MD at 08/16/17 7803 Author: Tania Raines MD Service: (none) Author Type: Physician Filed: 08/16/17 1190 Date of Service: 08/16/178 Status: Signed Compliance Administrator: Tania Raines MD (Physician) Patient: Carole Terry [...] need PCP f/ up information family practice [facility] clinic kahlil he stats to call and [...] soft BS+ no tenderness EXt no edwema 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 1. [place] [employer] and [place] College of Cardiology Scientific Statement. Circulation (2008); 118: p 3568-1295 Selectio n Text Definition Low Risk 1.Normal [...] (none) Author Type: Registered Nurse Filed: 08/16/17 0230 Date of Service: 08/16/171499 Status: Signed Compliance Administrator: Lata Arzola RN (Registered Nurse) Patient given AVS and prescriptions. Verbalizes understanding and is agreeable; states no further questions at this time. Declines wheelchair ride out to private vehicle. onver pamela Transaction, Provider Unknown - 08/15/2017 11:09 PM PDT Progress Notes by Elijah Swain RPH at 08/15/17 8636 Author: Elijah Swain RPH Service: Pharmacy Author Type: Pharmacist Filed: 08/15/172308 Date of Service: 08/15/172308 Status: Signed Compliance Administrator: Elijah Swain RPH (Pharmacist) Note ccl 82.1ml/min meds reviewed pharmacy will follow [facility] [address] onver pamela Transaction, Provider Unknown - 08/15/2017 6:08 PM PDT Progress Notes by LUIS ALBERTO Shine at 08/15/171807 Author: LUIS ALBERTO Shine Service: (none) Author Type: Western Philosophy Professor Filed: 08/15/171810 Date of Service: 08/15/171807 Status: Signed Compliance Administrator: LUIS ALBERTO Shine (Western Philosophy Professor) 08/15/171807 Discharge Planning Evaluation Admitting Diagnosis Headache Readmission No Living Arrangements Spouse/significant other Support Systems Spouse/significant other;Family members Type of Residence Private residence House type Apartment Elevator available No Independent with ADL's Yes Independent with Mobility Yes Home Care Services No Caregiver after Discharge No Mental Status Oriented Prior functional status Independent Met with: pt and SO Shelley Dodson [phone] and discussed discharge planning, Pt is a 42 y.o., male, lives with Shelley, is independent, does not use any DME. Patient's PCP is: Per Pt None (Will need assistance) Patient's insurance: [employer] Coverage concerns: None noted Medication coverage/concerns: None [...] 08/15/172200 Date of Service: 08/15/171814 Status: Addendum Compliance Administrator: Tania Raines MD (Physician) Related Notes: Original Note by Tania Raines MD (Physician) filed at 08/15/172054 [facility] Service: Hospitalist Admission History & Physical Pt: Carole Terry AGE/SEX: 42 y.o. male ROOM: [place] [address] PCP: Per Pt None : 1975 TODAY'S [...] CT angiographic MIP reconstructions were performed by molecular technologist. No 3-D imaging. 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 Other recommendations for managemen t of this [...] Date of Service: 08/16/17 1017 Status: Signed Compliance Administrator: LILIANA Green (Advanced Registered Nurse Practitioner) Pre-procedure Diagnoses: 1. Chest tightness [R07.89] Post-procedure Diagnoses: 1. Chest tightness [R07.89] Procedures: 1. NM MYOCARDIAL PERFUSION SPECT - STRESS AND REST [SEM378 (Custom)] [facility] Service: Diagnostic Imaging/Nuclear Medicine Preliminary Cardiac [...] 08/15/172229 Date of Service: 08/15/172229 Status: Signed Compliance Administrator: Nirmal Carr RN (Registered Nurse) Report given to EMS crew. Patient transferred to [facility] CDU at this time Nirmal Carr RN 08/15/172229 onver pamela Transaction, Provider Unknown - 08/15/2017 10:04 PM PDT ED Notes by Nirmal Carr RN at 08/15/172203 Author: Nirmal aCrr RN Service: (none) Author Type: Registered Nurse Filed: 08/15/172203 Date of Service: 08/15/172203 Status: Signed Compliance Administrator: Nirmal Carr RN (Registered Nurse) Report called to CDU RN Nirmal Carr RN 08/15/172203 onver pamela Transaction, Provider Unknown - 08/15/2017 5:32 PM PDT ED Notes by Alicia Dupont RN at 08/15/171731 Author: Alicia Dupont RN Service: (none) Author Type: Registered Nurse Filed: 08/15/171732 Date of Service: 08/15/171731 Status: Signed Compliance Administrator: Alicia Dupont RN (Registered Nurse) Patient denies any pain at this time, advised of current plan of care-ct results and need f or urine. Bolus continues running to patent line at this time. Alicia Dupont RN 08/15/17 1733 onver pamela Transaction, Provider Unknown - 08/15/2017 4:55 PM PDT ED Notes by Cheryl Charlton at 08/15/171654 Author: Cheryl Charlton Service: (none) Author Type: Educational Speech Language Clinician Filed: 08/15/171654 Date of Service: 08/15/171654 Status: Signed Compliance Administrator: Cheryl Charlton (Educational Speech Language Clinician) Tele notified that patient in on the monitor Cheryl Charlton 08/15/171654 onver pamela Transaction, Provider Unknown - 08/15/2017 4:53 PM PDT ED Notes by Nirmal Carr RN at 08/15/171652 Author: Nirmal Carr RN Service: (none) Author Type: Registered Nurse Filed: 08/15/171653 Date of Service: 08/15/171652 Status: Signed Compliance Administrator: Nirmal Carr RN (Registered Nurse) x1 SL NTG prepared and patient now denies chest pain. NTG not given Nirmal Carr RN 08/15/171653 onver pamela Transaction, Provider Unknown - 08/15/2017 4:49 PM PDT ED Notes by Nirmal Carr RN at 08/15/171648 Author: Nirmal Carr RN Service: (none) Author Type: Registered Nurse Filed: 08/15/171649 Date of Service: 08/15/171648 Status: Signed Compliance Administrator: Nirmal Carr RN (Registered Nurse) Patient c/o chest pain. ED provider notified. Patient on 4L NC O2 to maintain sats Nirmal Carr RN 08/15/171649 onver pamela Transaction, Provider Unknown - 08/15/2017 4:32 PM PDT ED Notes by Nirmal Carr RN at 08/15/171631 Author: Nirmal Carr RN Service: (none) Author Type: Registered Nurse Filed: 08/15/171632 Date of Service: 08/15/171631 Status: Signed Compliance Administrator: Nirmal Carr RN (Registered Nurse) Patient's room [...] 08/15/172017 Date of Service: 08/15/171555 Status: Attested Compliance Administrator: Mickey Brand PA-C (Physician Ict Systems Test Engineer - Certified) Cosigner: Angel hancock DO at 08/15/172029 Attestation signed by Angel Holland DO at 08/15/172029 I have reviewed the patient's chart. I was available for consultation during the care of the patient. Angel Holland DO Procedures [facility] EMERGENCY DE[facility]MENT IN [place] History of Present Illness Patient Identification Carole [...] pulmonary arterial emboli or other acute findings. [id number] rate cardiomegaly noted. Chest pain has resolved [...] has consented to ambulance transfer. Dictation software, Holograam, is used. Sound-alike errors may be present. If there is any maia bt, please refer to provider for clarification. Records Reviewed Nursing notes. Records unavailable Labs & Radiology Results Laboratory Evaluation Results Procedure Component Value Ref Range Date/Time Urine DOA screen (PLUS TCA) DRUG8 FSED ONLY [[id number]] (Abnormal) Collected: 08/15/171854 Order Status: Completed Specimen: Urine, Clean Catch Updated: 08/15/17 1920 PCP NEGATIVE NEGATIVE BENZODIAZEPINE NEGATIVE NEGATIVE COCAINE NEGATIVE NEGATIVE AMPHETAMINE POSITIVE (A) NEGATIVE THC NEGATIVE NEGATIVE OPIATES NEGATIVE NEGATIVE BARBITUATES NEGATIVE NEGATIVE TRICYCLIC ANTIDEPRESS NEGATIVE NEGATIVE Urine microscopic only [[id number]] Collected: 08/15/171854 Order Status: Completed Updated: 08/15/17 1918 WBC NONE SEEN 0 - 5 /hpf RBC 0-2 0 - 2 /hpf EPITHELIAL NONE SEEN /lpf BACTERIA NONE SEEN NONE SEEN Urinalysis (reflex to microscopic/reflex to culture) [[id number]] (Abnormal) Collected: 08/15/171854 Order Status: Completed Specimen: Urine from Urine, Clean Catch Updated: 08/15/17 191 8 COLOR UA YELLOW CLARITY CLEAR Specific [place], UA <1.005 1.001 - 1.035 LEUKOCYTE ESTERASE NEGATIVE NEGATIVE NITRITE NEGATIVE NEGATIVE UROBILINOGEN 0.2 <1.1 mg/dL PROTEIN NEGATIVE NEGATIVE mg/dL PH,URINE 5.5 4.6 - 8.0 BLOOD TRACE (A) NEGATIVE KETONES NEGATIVE NEGATIVE mg/dL BILIRUBIN NEGATIVE NEGATIVE GLUCOSE NEGATIVE NEGATIVE mg/dL Cardiac Panel [[id number]] (Abnormal) Collected: 08/15/17 1600 Order Status: Completed [...] ng/mL CK-MB Index 2.8 Troponin I, Lab [[id number]] Collected: 08/15/17 1600 Order Status: Completed Specimen: Blood Updated: 08/15/17 1640 TROPONIN I <0.04 0.00 - 0.10 ng/mL BNP [[id number]] (Abnormal) Collected: 08/15/17 1600 Order Status: Completed [...] MIP reconstructions were performed by CT technolo [facility]. No 3-D imaging. Automated exposure control was [...] Hypoxia Uncontrolled hypertension CLARE (acute kidney injury) ([facility]) Drug abuse Acute nonintractable headache, unspecified [...] 08/16/17121 Date of Service: 08/16/17121 Status: Signed Compliance Administrator: Toi Vaca RN (Registered Nurse) Problem: Pain [...] | maxP.34 mmHg TR Vmax: 3.13 m/s Data Warehousing Specialist: VICTOR MANUEL | | | Authenticated by: [...] (A-L): 11.46 | | ml/m2LAAs A2C: 14.11 mg7BXBUM A-L A2C: 29.21 mlLAESV MOD A2C: 27.32 mlLALs A2C: | | 5.78 cmLAAs A4C: 12.17 rr4TOOKB A-L A4C: 22.05 mlLAESV MOD A4C: 19.21 mlLALs A4C: | | 5.70 cmTAPSE: 1.38 cmHR: 90.78 BPMAV maxP.67 mmHgAV meanP.35 mmHgAV | | Vmax: 1.19 m/Carmen Vmean: 0.87 m/Carmen VTI: 17.60 cmAVA Vmax: 4.01 cm2AVA (VTI): | | 4.87 ht2GRSQ Vmax: 0.00 cm2/m2AVAI (VTI): 0.00 cm2/m2LVCI Dopp: 3.53 l/nfbh8HZDM | | Dopp: 7.87 l/minHR: 91.74 BPMLVOT [...] | m/sTR maxP.34 mmHgTR Vmax: 3.13 m/s Data Warehousing Specialist: Adryticated by: Pina | | Saulim MDReport [...] |TR Vmax: 3.13 m/s | | | |Data Warehousing Specialist: MW | |Authenticated by: Pina Guallpa MD [...] | | | affecting final categorization. 1. [place] [employer] Association | | | and [place] College of Cardiology Scientific Statement. Circulation | | | (2008); 118: p 4479-1395 Selection Text Definition Low | | | [...] potentially affecting final | | categorization. 1. [place] Heart Association and [place] College of Cardiology | | Scientific Statement. Circulation (2008); 118: p 2339-2090 Selection Text Definition | | Low Risk [...] | |final categorization. | | | |1. [place] Heart Association and [place] College of [employer]iology Scientific Statement. Cir culation (2008); 118: p 4228-5635 | | | | | |Selection Text [...] + + | Historically converted procedure from [facility] environment | EXTERNAL LAB | + + [...] | | | | | performed at [facility];[address] | | | | | | [address] [facility];[place], [place] | | | | | | [address] | | | | + + + [...] | | | Basophils | performed at [facility], [address] | [address] | LAB | | | | [facility], | | | | | | [place] [address] | | | | + + + [...] EXTERNAL | | | | performed at [facility], [address] | | LAB | | | | [address], | | | | | | [place] [address] | | | | + + + [...] EXTERNAL | | | | performed at [facility], [address] | | LAB | | | | [place], | | | | | | [place] [address] | | | | + + + [...] + + | Hemoglobin | 6.0Comment: The [place] | 4.0 - 6.0 % | EXTERNAL [...] | | | | | performed at [facility], [address] | | | | | | [address] [facility], | | | | | | [place] [address] | | | | + + + [...] | | | Calculated | performed at [facility], [address] | | LAB | | | | [place], | | | | | | [place] [address] | | | | + + + [...] | | | | | | at [facility], [address] | | | | | | [facility], | | | | | | [place] [address] | | | | + + + [...] | | | | | performed at [facility] | | | | | | [address] [facility];[place] | | | | | | [address] | | | | + + + [...] | | | | | performed at [facility], [address] | | | | | [address] [place], | | | | | | [place] [address] | | | | + + + [...] - 1.035 | EXTERNAL | | | [place], | | | LAB | | | [...] | | | Urine | performed at [facility], [address] | | LAB | | | | [address] [place] [address], | | | | | | [place] [address] | | | | + + + [...] | | LAB | | | | [facility], [address], | | | | | | [place] [address] | | | | + + + [...] | | | reconstructions were performed by molecular technologist. No 3-D imaging. | | | [...] | angiographic MIP reconstructions were performed by molecular technologist. No 3-D imaging. | | Automated [...] | | | | | ONLY, -COMPUTER (020), | | | | | | film and video editor Elida Lucas | | | | | | (00) on 08/16/2017 | | | | | | 2:57:08 AM | | | | + + + + + + + + | Specimen | + + | | + + + + + | Narrative | Performed At | + + + | [facility] | EXTERNAL LAB | + [...] | | | | | performed at [facility], [address] | | | | | [address] [place], | | | | | | [place] [address] | | | | + + + [...] EXTERNAL | | | | performed at [facility], [address] | | LAB | | | | [address] [place] [address], | | | | | | [place] [address] | | | | + + + [...] | | | | | ONLY, -COMPUTER (366), | | | | | | film and video editor Elida Lucas | | | | | | (63) on 08/16/2017 | | | | | [...]
--- OUTSIDE RECORDS SUMMARY | ~2019-10-23 | XMS | Clinical Summary ---
Demographics + + + | Address | [address] | | | [place] [address] | + + + | Home Phone | | + + + | Preferred Language | Unknown | + + + | Marital Status | Legally | + + + | Mormonism Affiliation | Unknown | + + + | Race | Unknown | + + + | Ethnic Group | Unknown | + + + Author + + + | Author | [facility] | | | and [place] | + + + | Organization | [facility] | | | and [place] [...] Team Providers + +------+ + | Care Insurance Coordinator Name | Role | Phone | + [...] | Hospitalist | Zunilda Chávez | Other ([employer]) | | 2019 | | | [place] [...] | [employer] | [employer] | [id number] | | [phone] | | Medica | [...] | | 1975 | [phone] | [place] [address] | | | [place] | | | 5 (Home) | | + +--------+ +--------+ + + Advance Directives + + + + + | Type | Date Recorded | Patient | Explanation | | | | Physical Sciences Instructor | | + + + + + | Power of | | | | | Merchandise Planning Manager | | | | + + + [...]
--- OUTSIDE RECORDS SUMMARY | ~2019-10-23 | XMS | Encounter Summary ---
Demographics + + + | Address | [address] | | | [place] [address] | + + + | Home Phone | | + + + | Preferred Language | Unknown | + + + | Marital Status | Legally | + + + | Christian Affiliation | Unknown | + + + | Race | Unknown | + + + | Ethnic Group | Unknown | + + + Author + + + | Author | [facility] | | | and Jobyana | + + + | Organization | [facility] | | | and [...] Team Providers + +------+ + | Care Clinical Data Manager Name | Role | Phone | [...] + + + + | 06/26/ | [facility] | [facility] | Sergei Gamez MD | Acute on chronic | | 2020 - | Encounter | MEDICAL CENTER AC[facility] | [address] | respiratory failure | | | | CARE FLOOR [address] | [place], [place] | with hypoxia (HCC) | | 04/04/ | | [address] | [address] | (Primary Dx); Acute | | 2020 | | [place], [place] | [phone] | on chronic diastolic | | | | [address] | | heart failure | | | | [phone] | Veronica Arriola MD | (HCC); Hypervolemia, | | | | | [address] | unspecified | | | | | [place] [address] | hypervolemia type | | | | | [phone] | | | | | | | | | | | | Maxime Cochran MD | | | | | | [address] | | | | | | [place] [address] | | | | | | [phone] | | | | | | | | | | | | Pernell Godoy MD | | | | | | [address] | | | | | | [place] [address] | | | | | | [phone] | | | | | | | | | | | | Markos Sanchez DO | | | | | | [address] | | | | | | [place] [address] | | | | | | [phone] | | | | | | | | | | | | Augustus Mclean MD | | | | | | [address] | | | | | | [place] | | | | | | [address] | | | | | | | | | | | | Teodoro Gutierrez MD | | | | | | [address] | | | | | | [place] [address] | | | | | | [phone] | | | | | | | [...] fraction, and other comorbidities who presented to [facility] on 06/26 with [...] Information: Follow up: LILIANA Saez [address] [facility] [address] In 1 week hospital follow up Current [...] ugustus Mclean MD - 2:26 PM PDT [facility] Hospitalist Progress Note Hospital Day: 5 Patient Summary: Briefly, 44-year-old male with a significant past medical history of essential hypertensio n, history of methamphetamine abuse (quit 6 months ago), chronic right heart failure, chroni c heart failure with preserved ejection fraction likely, and other comorbidities who present s to [facility] on 06/26 with [...] control hydralazine PRN -COVID-19 negative. -Kindly, see employment case manager note for further details. The patient will require set up with outpatient CHF clinic and referral to outpatient cable coverer. Elevated troponin: -Patient presently denies any chest [...] Carter MD - 07/01/2019 11:06 AM PDT [facility] Hospitalist Progress Note Hospital Day: 4 Patient Summary: Briefly, 44-year-old male with a significant past medical history of essential hypertensio n, history of methamphetamine abuse (quit 6 months ago), chronic right heart failure, chroni c heart failure with preserved ejection fraction likely, and other comorbidities who present s to [facility] on 06/26 with [...] Will continue to monitor. Ezio Booker RN 7115: pt tapered down to approx 3L per nasal cannula and tolerating well. O2 saturations ma intaining in low to mid 90's. Otherwise no acute changes, will continue to monitor. END OF SHIFT AUDIT COMPLETE. Eizo Booker RN Electronically signed by Shelley Booker [...] note might be different from the original. [facility] Hospitalist Progress Note Hospital Day: 3 Patient Summary: Briefly, 44-year-old male with a significant past medical history of essential hypertensio n, history of methamphetamine abuse (quit 6 months ago), chronic right heart failure, chroni c heart failure with preserved ejection fraction likely, and other comorbidities who present s to [facility] on 06/26 with [...] notes minimal/no shortness of breath at rest; [facility] er, the patient does get dyspneic with [...] Carter MD - 06/29/2019 10:16 AM PDT [facility] Hospitalist Progress Note Hospital Day: 2 Patient Summary: Briefly, 44-year-old male with a significant past medical history of essential hypertensio n, history of methamphetamine abuse (quit 6 months ago), chronic right heart failure, chroni c heart failure with preserved ejection fraction likely, and other comorbidities who present s to [facility] on 06/26 with [...] Consider addition of BB and/or KARIN/ARB sheila alureano on echo and vitals. Periumbilical cellulitis Improving [...] Arriola MD - 06/27/2019 7:52 PM PDT [facility] Service: Hospitalist Admission History & Physical Date [...] [facility]. He was transferred to [facility] for acute on chronic right-sided [...] file Gets together: Not on file Attends spiritism service: Not on file Active member of [...] Will repeat echocardiogram. Also patient admitted at [facility] 05/20, will request records. Acute [...] LILIANA Saez MD 06/27/2019 documented in this [facility] ED Notes Sergei Gamez MD - 06/27/2019 3:33 PM PDTFormatting of this note might be different from t he original. [facility] Department of Emergency Medicine 7:59 PM Pt [...] file Gets together: Not on file Attends spiritism service: Not on file Active member of [...] includes, but is not limited to: acute DE, unstable angina, thoracic aortic dissection, pneumothorax, PE, myocarditis, pericarditis, esophagitis, musculoskeletal disorder, pleurisy, anxiety, vs other. Considered COVID19 as trigger for his CHF and so wore appropriate PPE and face shiel d during my clinical encounter. Will obtain labs and imaging and reevaluate the patient. ====EKG Interpretation==== The following EKG interpreted by Me Time: 15:04 Rate: 88 Rhythm: NSR [place]: normal Intervals: qrs 94 ST: No significant [...] on chronic respiratory failure with hypoxia (HCC) [[id number]] Clinical impression: Acute on chronic diastolic heart failure (HCC) [428.33.ICD-9-CM] Clinical impression: Hypervolemia, unspecified hypervolemia type [3840370] Admitting provider: [facility] [[id number]] Expected patient class: Inpatient [101] Level of [...] Current Outpt/Agency/Support Groups: none Community Agency Name: ([facility] food stamps) [place] of Choice: given Other Resources: offered Pt declined, wanting to leave hospital today Equipment Durable Medical Equipment Provider: Home Equipment at Discharge: Equipment Used at Home: none Pharmacy Pharmacy/Medication needs: ([facility]) Notes: Pt stated he wanted to leave hospital today.Pt to discharge home today 07/03/19. Pt st ated he had a place to go, if needed he could go to friends or [place]. Pt's car is in [employer], however, can contact friend if needed. Prescription [...] Medium Current Discharge Plan Anticipated Discharge Disposition: fpc/friends Expected DC Date: TBD Barriers to Discharge: Pt is homeless Steps Taken Toward Discharge: (CM discussed by phone w/pt initial discharge plan) Next Steps: (f/u on placement issues) Community Support Services Current Outpt/Agency/Support Groups: none Community Agency Name: ([facility] food stamps) Discharge Transportation Transportation Needs: Pt car in [facility] parking garage Notes:Pt will likely discharge to the [place] when medically stable. Pt is still requiring [...] on while ambulating. lan of Care - [facility], Sayda Bey RN - 06/28/2019 1:20 PM PDTCare Management Initial Assessment Readmission Risk: Medium Status Prior to Admission or Illness Arrival From: home or self-care Lives With: alone Living Arrangements: homeless Caregiver For: no one Patient s Caregiver: Functional Status: IADLs, lives out of his car currently. Caregiving Concerns: Home Accessibility: no concerns Transportation Available: car(Pt car in in [facility] garage) Able to return to prior living: may need placement @ [place] or [facility]. Pending Covid19 re [place]. Care Management [...] Current Outpt/Agency/Support Groups: none Community Agency Name: ([facility] food stamps) Anticipated Changes Related to Illness: inability to care for self Concerns to be Addressed: homelessness/housing concerns Services Anticipated at Discharge: education services Equipment Used at Home: none Equipment Needed after Discharge: Durable Medical Equipment Provider: Pharmacy/Medication Needs: ([facility]) Transportation Needs: no home, pt car in garage. Initial Plan Anticipated Discharge Disposition: fpc Expected DC Date: Steps Taken Toward Discharge: (CM discussed by phone w/pt initial discharge plan) Next Steps: (f/u on placement issues) Notes: Pt lives out of his car. Claims has food stamps for meals. States, he has no conta cts. Pt has not been to the [place]. He lives from place to place when [...] W?MRN: | | | | | | [id number] | | | [id number] | | | riteri | | | [...] | | | St. | | | [place] | | | y | | | [...] | | | St. | | | [place] | | | y H. | | [...] | | | St. | | | [place] | | | y H. | | [...] | | | St. | | | [place] | | | y H. | | [...] | | | St. | | | [place] | | | y H. | | [...] | | | St. | | | [place] | | | y H. | | [...] | | | St. | | | [place] | | | y H. | | [...] | | | St. | | | [place] | | | y H. | | [...] | | | | | performed at [facility], [address] | | | | | | [facility], | | | | | | [place] [address] | | | | + + + + + + + + | Specimen | + + | Blood | + + + + + + + | Performing | Address | City/State/Zipcode | Phone Number | | Organization | | | | + + + + + | [facility] | [address] | [place] [address] | [phone] | + + + + + Magnesium (07/02/2019 5:33 AM PDT) + + + + + + | Component | Value | Ref Range | Performed | Pathologist | | | | | At | Signature | + + + + + + | Magnesium | 2.1Comment: Testing | 1.7 - 2.4 mg/dL | [facility] | | | | performed at [facility], [address] | | LABORATORY | | | | [address], | | | | | | [place] [address] | | | | + + + + + + + + | Specimen | + + | | + + + + + + + | Performing | Address | City/State/Zipcode | Phone Number | | Organization | | | | + + + + + | [facility] | [address] | [place] [address] | [phone] | + + + + + Renal [...] | >60Comment: GFR <60: | >60 | [facility] | | | GFR | CHRONIC KIDNEY [...] | | | | | performed at [facility], [address] | | | | | | [facility], | | | | | | [place] [address] | | | | + + + + + + + + | Specimen | + + | Blood | + + + + + + + | Performing | Address | City/State/Zipcode | Phone Number | | Organization | | | | + + + + + | [facility] | [address] | [place] [address] | [phone] | + + + + + Potassium (07/01/2019 4:54 AM PDT) + + + + + + | Component | Value | Ref Range | Performed | Pathologist | | | | | At | Signature | + + + + + + | K | 3.9Comment: Testing | 3.5 - 4.9 | [facility] | | | | performed at [facility];[address] | mmol/L | LABORATORY | | | | [address];[place] | | | | | | [address] | | | | + + + + + + + + | Specimen | + + | Blood | + + + + + + + | Performing | Address | City/State/Zipcode | Phone Number | | Organization | | | | + + + + + | [facility] | [address] | [place] [address] | [phone] | + + + + + Magnesium (06/30/2019 5:35 AM PDT) + + + + + + | Component | Value | Ref Range | Performed | Pathologist | | | | | At | Signature | + + + + + + | Magnesium | 2.1Comment: Testing | 1.7 - 2.4 mg/dL | [facility] | | | | performed at [facility], [address] | | LABORATORY | | | | [address], | | | | | | [place] [address] | | | | + + + + + + + + | Specimen | + + | | + + + + + + + | Performing | Address | City/State/Zipcode | Phone Number | | Organization | | | | + + + + + | [facility] | [address] | [place] [address] | [phone] | + + + + + Renal [...] | | | | | performed at [facility], [address] | | | | | | [facility], | | | | | | [place] [address] | | | | + + + + + + + + | Specimen | + + | Blood | + + + + + + + | Performing | Address | City/State/Zipcode | Phone Number | | Organization | | | | + + + + + | [facility] | [address] | [place] [address] | [phone] | + + + + + Potassium (06/29/2019 7:17 PM PDT) + + + + + + | Component | Value | Ref Range | Performed | Pathologist | | | | | At | Signature | + + + + + + | K | 3.8Comment: Testing | 3.5 - 4.9 | [facility] | | | | performed at [facility];[address] | mmol/L | LABORATORY | | | | [address] [facility];[place], [place] | | | | | | [address] | | | | + + + + + + + + | Specimen | + + | Blood | + + + + + + + | Performing | Address | City/State/Zipcode | Phone Number | | Organization | | | | + + + + + | [facility] | [address] | [place] [address] | [phone] | + + + + + Phosphorus (06/29/2019 6:29 AM PDT) + + + + + + | Component | Value | Ref Range | Performed | Pathologist | | | | | At | Signature | + + + + + + | Phosphorus | 4.0Comment: Testing | 2.3 - 4.8 mg/dL | [facility] | | | | performed at [facility];[address] | | LABORATORY | | | | [address];[place] | | | | | | [address] | | | | + + + + + + + + | Specimen | + + | Blood | + + + + + + + | Performing | Address | City/State/Zipcode | Phone Number | | Organization | | | | + + + + + | [facility] | [address] | [place] [address] | [phone] | + + + + + Magnesium (06/29/2019 6:29 AM PDT) + + + + + + | Component | Value | Ref Range | Performed | Pathologist | | | | | At | Signature | + + + + + + | Magnesium | 1.4 (L)Comment: Testing | 1.7 - 2.4 mg/dL | [facility] | | | | performed at [facility];[address] | | LABORATORY | | | | [address];[place] | | | | | | [address] | | | | + + + + + + + + | Specimen | + + | Blood | + + + + + + + | Performing | Address | City/State/Zipcode | Phone Number | | Organization | | | | + + + + + | [facility] | [address] | [place] [address] | [phone] | + + + + + Basic [...] | | | | | performed at [facility];[address] | | | | | | [address];[place], [place] | | | | | | [address] | | | | + + + + + + + + | Specimen | + + | Blood | + + + + + + + | Performing | Address | City/State/Zipcode | Phone Number | | Organization | | | | + + + + + | [facility] | [address] | [place] [address] | [phone] | + + + + + CBC [...] | | | Absolute | performed at [facility];[address] | K/uL | LABORATORY | | | | [address];[place] | | | | | | [address] | | | | + + + + + + + + | Specimen | + + | Blood | + + + + + + + | Performing | Address | City/State/Zipcode | Phone Number | | Organization | | | | + + + + + | [facility] | [address] | [place] [address] | [phone] | + + + + + ECHO [...] (H)Comment: 0.04 | 0.00 - 0.04 | [facility] | | | | ng/mL or less [...] at | | | | | | [facility];[address] [facility] | | | | | | [address]vd;[place] [address] | | | | + + + + + + + + | Specimen | + + | Blood | + + + + + + + | Performing | Address | City/State/Zipcode | Phone Number | | Organization | | | | + + + + + | [facility] | [address] | [place] [address] | [phone] | + + + + + Comprehensive [...] | | | | | performed at [facility];[address] | | | | | | [address];[place], [place] | | | | | | [address] | | | | + + + + + + + + | Specimen | + + | Blood | + + + + + + + | Performing | Address | City/State/Zipcode | Phone Number | | Organization | | | | + + + + + | [facility] | [address] | [place] [address] | [phone] | + + + + + CBC [...] LABORATORY | | | | performed at [facility];[address] | | | | | [address];[place], [place] | | | | | | [address] | | | | + + + + + + + + | Specimen | + + | Blood | + + + + + + + | Performing | Address | City/State/Zipcode | Phone Number | | Organization | | | | + + + + + | [facility] | [address] | [place] [address] | [phone] | + + + + + Troponin I (06/27/2019 9:48 PM PDT) + + + + + + | Component | Value | Ref Range | Performed | Pathologist | | | | | At | Signature | + + + + + + | Troponin I | 0.046 (H)Comment: 0.04 | 0.00 - 0.04 | [facility] | | | | ng/mL or less [...] at | | | | | | [facility];[address];[place] [address] | | | | + + + + + + + + | Specimen | + + | Blood | + + + + + + + | Performing | Address | City/State/Zipcode | Phone Number | | Organization | | | | + + + + + | [facility] | [address] | [place] [address] | [phone] | + + + + + POC CG 4, ISTAT Arterial (06/27/2019 4:15 PM PDT) + + + + + + | Component | Value | Ref Range | Performed | Pathologist | | | | | At | Signature | + + + + + + | pH, | 7.460 (H)Comment: This | 7.350 - 7.450 | [facility] | | | Arterial, | test was [...] | | | | | performed at [facility];[address] | | | | | | [address];[place], [place] | | | | | | [address] | | | | + + + + + + + + | Specimen | + + | | + + + + + + + | Performing | Address | City/State/Zipcode | Phone Number | | Organization | | | | + + + + + | [facility] | [address] | [place] [address] | [phone] | + + + + + XR [...] + + | Performing | Address | City/State/[facility] | Phone Number | | Organization | [...] | | | | | d by [facility] | | | | | | Laboratories. [...] | | | | | | [place], [id number]. | | | | + + + + + + + + | Specimen | + + | Tissue - Entire | | nasopharynx (body | | structure) | + + + + + + + | Performing | Address | City/State/Zipcode | Phone Number | | Organization | | | | + + + + + | [facility] | [address] | [place] [address] | [phone] | + + + + + ECG [...] | | | | | ONLY, -COMPUTER ([id number]), | | | | | | writer editor Mack Hebert | | | | [...] | | | | | performed at [facility];[address] | | | | | | [address];[place], [place] | | | | | | [address] | | | | + + + + + + + + | Specimen | + + | Blood | + + + + + + + | Performing | Address | City/State/Zipcode | Phone Number | | Organization | | | | + + + + + | [facility] | [address] | [place] [address] | [phone] | + + + + + Troponin I (06/27/2019 2:55 PM PDT) + + + + + + | Component | Value | Ref Range | Performed | Pathologist | | | | | At | Signature | + + + + + + | Troponin I | 0.058 (H)Comment: 0.04 | 0.00 - 0.04 | [facility] | | | | ng/mL or less [...] at | | | | | | [facility];[address] [facility] | | | | | | [facility];[place] [address] | | | | + + + + + + + + | Specimen | + + | Blood | + + + + + + + | Performing | Address | City/State/Zipcode | Phone Number | | Organization | | | | + + + + + | [facility] | [address] | [place] [address] | [phone] | + + + + + Comprehensive [...] | | | | | performed at [facility];[address] | | | | | | [address];[place] | | | | | | [address] | | | | + + + + + + + + | Specimen | + + | Blood | + + + + + + + | Performing | Address | City/State/Zipcode | Phone Number | | Organization | | | | + + + + + | [facility] | [address] | [place] [address] | [phone] | + + + + + CBC [...] | | | Absolute | performed at [facility];[address] | K/uL | LABORATORY | | | | [address];[place], [place] | | | | | | [address] | | | | + + + + + + + + | Specimen | + + | Blood | + + + + + + + | Performing | Address | City/State/Zipcode | Phone Number | | Organization | | | | + + + + + | [facility] | [address] | [place] [address] | [phone] | + + + + + B [...] | | LABORATORY | | | | [facility];[address] | | | | | | [address];[place] [address] | | | | + + + + + + + + | Specimen | + + | Blood | + + + + + + + | Performing | Address | City/State/Zipcode | Phone Number | | Organization | | | | + + + + + | [facility] | [address] | [place] [address] | [phone] | + + + + + documented [...] | | | (after last modification) on [facility] | | | | | | | [...]
--- OUTSIDE RECORDS SUMMARY | ~2019-10-23 | XMS | Encounter Summary ---
Demographics + + + | Address | [address] | | | [place] [address] | + + + | Home Phone | | + + + | Preferred Language | Unknown | + + + | Marital Status | Legally | + + + | Muslim Affiliation | Unknown | + + + | Race | Unknown | + + + | Ethnic Group | Unknown | + + + Author + + + | Author | [facility] | | | and [place] | + + + | Organization | [facility] | | | and [...] Team Providers + +------+ + | Care Industrial Registered Nurse Name | Role | Phone | + +------+ + | Penelope Gage | PCP | | + +------+ + Encounter Details +--------+ + + + + | Date | Type | Department | Care Team | Description | +--------+ + + + + | 08/16/ | Orders Only | [facility] | Teto Broussard MD | | | 2018 | | [facility] [address] | [address] | | | | | [address] | [address] [facility] [address] | | | | | [place] | [id number] | | | | | [address] | | | | | | [phone] | | | +--------+ + + + [...]
--- OUTSIDE RECORDS SUMMARY | ~2019-10-23 | XMS | Encounter Summary ---
Demographics + + + | Address | [address] | | | [place] [address] | + + + | Home Phone | | + + + | Preferred Language | Unknown | + + + | Marital Status | Legally | + + + | Faith Affiliation | Unknown | + + + | Race | Unknown | + + + | Ethnic Group | Unknown | + + + Author + + + | Author | [facility] | | | and [place] | + + + | Organization | [facility] | | | and [place] [...] Team Providers + +------+ + | Care Manager University Name | Role | Phone | + [...] + + | 07/26/ | Telephone | [facility] | Zunilda Chávez | Other ([facility]) | | 2020 | | [address] | [place] | | | | | [place], [place] | | | | | | [address] | | | | | | [phone] | | | +--------+ + + + [...]
--- OUTSIDE RECORDS SUMMARY | ~2019-10-23 | XMS | Encounter Summary ---
Demographics + + + | Address | [address] | | | [place] [address] | + + + | Home Phone | | + + + | Preferred Language | Unknown | + + + | Marital Status | Legally | + + + | Baptist Affiliation | Unknown | + + + | Race | Unknown | + + + | Ethnic Group | Unknown | + + + Author + + + | Author | [facility] | | | and [place] | + + + | Organization | [facility] | | | and [place] [...] Team Providers + +------+ + | Care Document Manager Name | Role | Phone | + +------+ + | Penelope Gage | PCP | | + +------+ + Encounter Details +--------+ + + + + | Date | Type | Department | Care Team | Description | +--------+ + + + + | 08/16/ | Orders Only | [facility] | Teto Broussard MD | | | 2018 | | [facility] [address] | [address] | | | | | [address] | [address] [facility] | | | | | [place] | [id number] | | | | | [address] | | | | | | [phone] | | | +--------+ + + + [...]
--- OUTSIDE RECORDS SUMMARY | ~2019-10-23 | XMS | Encounter Summary ---
Demographics + + + | Address | [address] | | | [place] [address] | + + + | Home Phone | | + + + | Preferred Language | Unknown | + + + | Marital Status | Legally | + + + | Denominational Affiliation | Unknown | + + + | Race | Unknown | + + + | Ethnic Group | Unknown | + + + Author + + + | Author | [facility] | | | and [place] | + + + | Organization | [facility] | | | and [...] Team Providers + +------+ + | Care Poll Clerk Name | Role | Phone | + +------+ + PCP | Unavailable | + +------+ + Encounter Details +--------+ + + + + | Date | Type | Department | Care Team | Description | +--------+ + + + + | 04/23/ | Emergency | [facility] | Thor Soria | Cough; | | 2019 | | [facility] | [address] | Viral syndrome | | | | EMERGENCY CENTER | [address] | | | | | [address] | [place], [place] | | | | | [place], [place] | [address] | | | | | [address] | [phone] | | | | | [phone] | | | +--------+ + + + [...] 04/23/182317 Date of Service: 04/23/182316 Status: Signed Hospital Security Officer: Charlee Quintanilla RN (Registered Nurse) Assumed care of patient at this time. Report received from BRIANA Garcia. Charlee Quintanilla RN 04/23/182317 onver pamela Transaction, Provider Unknown - 04/23/2018 11:05 PM PST ED Notes by Lani Brand RN at 04/23/182304 Author: Lani Brand RN Service: (none) Author Type: Registered Nurse Filed: 04/23/182309 Date of Service: 04/23/182304 Status: Signed Hospital Security Officer: Lani Brand RN (Registered Nurse) Pt c/o [...] Filed: 04/24/18 0144 Date of Service: 04/23/18 766 Status: Signed Hospital Security Officer: Thor Soria DO (Physician) [facility] Department of Emergency Medicine 11:00 PM [...] sore throat CV/Resp: Positive for chest pain, [id number], cough GI: Negative for abdominal pain, nausea, [...] Ref Range Date/Time INFLUENZA A AND B [[id number]] Collected: 04/23/182314 Order Status: Completed Updated: 04/23/182345 INFLUENZA A NEGATIVE NEGATIVE INFLUENZA B NEGATIVE NEGATIVE Flu Swab [[id number]] Collected: 04/23/182305 Order Status: Completed Specimen: Nasal [...] up of your emergency department visit [facility] [address] [facility] Emergency Department Emergency Medicine Go to If symptoms worsen Jerry8 Jennifer Lopez [facility] [address] Discharge Medications: Discharge Medication List as of [...] [facility];[address] | | | Jessica;[place] [address] | | + + + + +---------+ [...] [facility];[address];[place] [address] | | + + + + +---------+ [...] ([phone]), | | | | | | rewrite editor Mack Hebert | | | | [...]
[~2019-10-23 20:16] MED LIST changes: +CARVEDILOL3.125 MG PO; +LISINOPRIL10 MG PO
--- NOTE | 2019-10-23 22:50 | NUR ---
PT ADMITTED TO CRITICAL CARE 127 FROM ED FOR CHF. TRANSFERS FELF BY SLIDING FROM GURNEY TO BED. PT IS ALERT AND ORIENTED, ACCOMPANIED BY . CURRENTLY ON 6L OXYMASK WITH SPO2 95%, RESP LABORED, SLIGHT USE OF ACC MUSCLES, RATE IS 24 AND WITH AUDIBLE EXP WHEEZES. LUNGS HAVE EX WHEEZES THROUGHOUT, FEW COARSE SOUNDS HEARD IN LEFT LUNG BASE. BUMEX GTT STARTED INFUSING. PT USED URINAL TO VOID 300ML THEN ONTIVEROS INSERTED WITH RETURN OF 200 ML CLEAR LIGHT URINE. WILL GET STANDING WEIGHT WHEN PTS RESP ARE NOT SO LABORED. PT DENIES PAIN, STATES HE IS HUNGRY. SANDWICH BOX PROVIDED. SIPS OF WATER GIVEN, PT AWARE OF ORDER FOR FLUID RESTRICTION AND IS AGREEABLE.
--- NOTE | 2019-10-23 23:40 | NUR ---
JYOTSNA LEAVING FOR THE NIGHT. PT CURRENTLY SITTING UP IN BED, HAS JUST FINISHED EATING. HR 80'S, SPO2 92% ON OXYMASK 6L, RESP RATE 20.
--- NOTE | 2019-10-24 01:21 | NUR ---
IN TO CHECK CATHETER, PT APPEARS TO BE SLEEPING, BUT WAKENS. ASKED HOW HIS BREATHING IS DOING AND HE STATES "BETTER I THINK, AT LEAST I AM ABLE TO SLEEP." 1200ML EMPTIED FROM CATHETER AT THIS TIME, BUMEX GTT CONT TO INFUSE. PT HAS HAD A TOTAL OF 3150ML URINE OUT SINCE LASIX WAS GIVEN IN ED.
--- NOTE | 2019-10-24 03:00 | NUR ---
PT RESTING WITH EYES CLOSED, OXYMASK AT 6L IN PLACE.
--- NOTE | 2019-10-24 04:45 | NUR ---
ASSESSMENT DONE. PT STATES HE HAS BEEN SLEEPING WELL, REPORTS FEELING LESS SOB. NO REQUESTS AT THIS TIME.
--- NOTE | 2019-10-24 06:24 | NUR ---
IN TO EMPTY CATHETER, PT WAKES BRIEFLY, DENIES NEEDS THEN BACK TO SLEEP. REMAINS ON OXYMASK 6L WITH SPO2 93-95% RR 18, RESP LOOKING LESS LABORED.
--- NOTE | 2019-10-24 08:10 | NUR ---
DISCUSSED WITH PATIENT PLAN OF CARE. PATIENT STATES HE IS FEELING GROGGY AND TIRED. BREAKFAST ORDER OBTAINED. PT REMAINS ON 6 L OXYMASK WITH SP02 AT 94%. TURNED THIS DOWN TO 5 L AT THIS TIME. WILL ALLOW PATIENT TO REST THIS AM.
--- NOTE | 2019-10-24 08:26 | NUR ---
YVITALS AND I&OS CHARTED. PATIENT RESTING, EYES CLOSED AND OXYMASK ON 5L. ONTIVEROS EMPTIED.
--- NOTE | 2019-10-24 10:30 | NUR ---
IN TO VISIT PATIENT, LEFT AFTER A FEW MINUTES. APPARENTLY HAS PURFUME ON AND PATIENT IS BOTHERED BY SCENT, WILL BE BACK LATER.
--- NOTE | 2019-10-24 10:46 | NUR ---
PATIENT'S ARRIVES TO VISIT FOR A SHORT TIME, BUT HAS TOO STRONG SMELLING PERFUME ON FOR PATIENT TO TOLERATE. PT REMAINS ON BUMEX GTT. ONTIVEROS DRAINING CLEAR YELLOW URINE. CONTINUE TO MONITOR.
--- NOTE | 2019-10-24 10:48 | NUR ---
Medications reconciled using discharge medication list from prior admission which was less than 1 month ago
--- NOTE | 2019-10-24 14:38 | NUR ---
PATIENT RESTING. REMAINS ON BUMEX GTT AT 1 ML/HR = 0.25 MG/HR INTO RIGHT AC IV SITE. IV MAG STARTED AND IV STARTING TO BEEP DISTAL OCCLUSION. PATIENT REMAINS SHORT WITH NURSING STAFF, AND STATES HE IS ULTIMATELY "JUST TRYING TO GET SOME REST." PATIENT WANTS MINIMAL INTERVENTIONS DONE AND MOSTLY WANTS TO BE LEFT ALONE. WILL CONTINUE TO MONITOR. PILLOW UNDER RIGHT ARM TO SUPPORT TO HELP FROM ACCIDENTAL DISTAL OCCLUSION.
--- NOTE | 2019-10-24 16:00 | NUR ---
VITALS AND I&OS CHARTED. ONTIVEROS EMPTIED. NO OTHER NEEDS AT THIS TIME.
--- NOTE | 2019-10-24 17:29 | NUR ---
PATIENT UP TO STANDING SCALE AND THEN INTO CHAIR FOR DINNER. PT REMAINS VERY SHORT AND SNAPPY IN HIS RESPONSES TO NURSING STAFF. PATIENT ASKED TO NOT BE RUDE WE ARE TRYING TO HELP HIM. PT APOLOGIZES AND STATES, "I'M JUST MESSING WITH YOU GUYS." PATIENT NOW EATING HIS DINNER. BED LINEN CHANGED PER EARLY CHILDHOOD EDUCATOR AIDE. PT REMAINS ON 1 L NC WITH SP02 AROUND 90-92%. CALL LIGHT WITHIN REACH. CONTINUE TO MONITOR.
--- NOTE | 2019-10-24 18:01 | NUR ---
LAB IN ROOM DRAWING PATIENT'S LAB AT THIS TIME. PT REMAINS SITTING IN CHAIR. PT ALSO REMAINS ON 1 L NC. CONTINUE TO MONITOR.
--- NOTE | 2019-10-24 18:10 | NUR ---
PATIENT UP IN CHAIR, LEGS ELEVATED, PATIENT ASKING FOR ANOTHER WARM BLANKET. CALL LIGHT IN CHAIR WITH PATIENT, BEDSIDE TABLE, ICE WATER, AND PERSONAL ITEMS WITHIN REACH.
--- NOTE | 2019-10-24 18:51 | NUR ---
PATIENT HELPED BACK TO BED AFTER CALL LIGHT WASN'T WORKING WHILE PATIENT SITTING IN CHAIR. PATIENT'S ONTIVEROS EMPTIED FOR 950 ML AT THIS TIME. PT REMAINS ON BUMEX GTT AND ON 1 L NC. CONTINUE TO MONITOR.
--- NOTE | 2019-10-24 19:21 | NUR ---
DR. GARCIA UPDATED ON LAB VALUES. ORAL POTASSIUM REPLACEMENT BEING REPLACED.
--- NOTE | 2019-10-24 19:51 | NUR ---
RECEIVED REPORT FROM DAY SHIFT. pt RESTING IN BED, RESPIRATIONS LABORED RATE 23. O2 SAT 92%. IV PUMP ALARMING, ERROR RESOLVED. WHITEBOARD UPDATED. CALL LIGHT WITHIN REACH.
--- NOTE | 2019-10-24 22:01 | NUR ---
ROUNDED ON pt. RESTING IN BED, WITH EYES CLOSED, WORK OF BREATHING UNCHANGED. CALL LIGHT WITHIN REACH. BUMEX GTT INFUSING.
--- NOTE | 2019-10-24 22:52 | NUR ---
CALL [facility] ON. pt REQUESTED THE REST OF HIS WATER FOR THE NIGHT AND A SANDWICH BOX. PROVIDED. NO FURTHER REQUESTS AT THIS TIME. CALL LIGHT WITHIN REACH.
--- NOTE | 2019-10-24 23:53 | NUR ---
CALL LIGHT ON. pt REPORTED "I CAN'T BREATH RIGHT NOW!" O2 SAT 93% ON 2L O2. INCREASE O2 TO 5L PER pt REQUEST. PROVIDED HUMIDIFICATION ON NC FOR COMFORT. pt BLEW NOSE, SCANT AMOUNT OF BLOOD NOTED. pt REPOSITIONED SELF. STATED "I NEED TO BE LEFT ALONE RIGHT NOW." CALL LIGHT WITHIN REACH.
--- NOTE | 2019-10-25 00:16 | NUR ---
ROUNDED ON pt. RESTING IN BED WITH HOB ELEVATED. pt AGREED TO ASSESSMENT. REPORTED THAT HIS WORK OF BREATHING IS BETTER. NO CHANGES IN ASSESSMENT. RAMA EMPTIED. pt ON 5L 02 VIA NC WITH HUMIDIFICATION FOR COMFORT. CALL LIGHT WITHIN REACH.
--- NOTE | 2019-10-25 02:28 | NUR ---
pt RESTING IN BED WITH EYES CLOSED, RESPIRATIONS REGULAR, RATE = 21. WORK OF BREATHING UNCHANGED. O2 SAT 92% ON 5L O2 VIA NC. CALL LIGHT WITHIN REACH.
--- NOTE | 2019-10-25 04:07 | NUR ---
CALL LIGHT ON. pt STATED "I NEED WATER NOW, I KNOW IT HAS ONLY BEEN A COUPLE HOURS BUT I NEED IT NOW." EDUCATED ON FLUID RESTRICTION pt BECAME AGITATED AND REQUESTED MORNING WATER "NOW!" GIVEN. ASSESSMENT DONE. NO CHANGE IN WORK OF BREATHING. CALL LIGHT WITHIN REACH.
--- NOTE | 2019-10-25 05:27 | NUR ---
pt RESTING WITH EYES CLOSED, RESPIRATIONS REGULAR. WOKE TO VOICE, REPLACED O2 SENSOR. NO REQUESTS AT THIS TIME. pt MOUTH BREATHING AT THIS TIME. O2 SAT 90% ON 5L O2 VIA NC.
--- NOTE | 2019-10-25 07:28 | NUR ---
CALL LIGHT ON. pt REQUESTED MORE WATER. ORDERED BREAKFAST. NO FURTHER REQUESTS AT THIS TIME. CALL LIGHT WITHIN REACH.
--- NOTE | 2019-10-25 08:36 | NUR ---
Patient resting, eyes closed, respirations even and non labored, oxygen saturation level of 90% on 5l per nc. Pt has no notable distress. Bumex drip infusing at this time; @ 1ml/hr(0.25mg/hr). Pt has no needs at this time. Call light within reach of patient.
--- NOTE | 2019-10-25 10:59 | NUR ---
DR. GARCIA IN TO SEE PATIENT. PLAN IS FOR PATIENT TO TRANSFER TO MEDICAL FLOOR. PATIENT WILL TRANSFER ON BUMEX GTT, WILL D/C DRIP ONCE THIS BAG IS COMPLETE. ONTIVEROS CAN THEN COME OUT. PT TAKEN OFF MONITOR AND OXYGEN TURNED DOWN TO 3.5 L AT THIS TIME. PATIENT'S IN ROOM AT THIS TIME, AND PATIENT NOTED TO BE YELLING AT HER AND QUITE UPSET. PATIENT FRUSTRATED WITH ANY COMMUNICATION IT SEEMS. PT AWARE OF PLAN OF CARE AND PENDING TRANSFER TO THE MEDICAL FLOOR. CONTINUE TO MONITOR.
--- NOTE | 2019-10-25 11:45 | NUR ---
PT ARRIVED TO FLOOR VIA BED FROM CCU. 3.5L IN PLACE. VITALS TAKEN AND STABLE. ASSESSMENT COMPLETE. DENEIS PAIN. ORIETNED TO ROOM. PT REQUESTING BLINDS BE SHUT AND DOOR BE SHUT. BUMEX DRIP WITH AROUND [address] CALL LIGHT IN REACH
--- NOTE | 2019-10-25 13:00 | NUR ---
PATIENT SLEEPING. WILL RETURN LATER.
--- NOTE | 2019-10-25 14:21 | NUR ---
Patient VS documented. Patient is sleeping. Call light within reach and no further needs at this time.
--- NOTE | 2019-10-25 16:15 | NUR ---
RECEIVED REPORT FROM LUISA WARREN. THIS RN INTRODUCED HERSELF TO PT. PT STATES THAT HE DOESN'T NEED ANYTHING AT THIS TIME. THIS RN DID CALL DOWN TO THE KITCHEN TO NOTIFY THEM THAT HE SHOULD NOT HAVE ANY FLUIDS ON HIS DINNER TRAY DUE TO ONLY HAVING 600MLS LEFT UNTIL 0600 TOMORROW DUE TO HIS FLUID RESTRICTION
--- NOTE | 2019-10-25 16:31 | EKG ---
[facility] [address] [facility] [place], [place] [address] Signed Sinus rhythm with 1st degree AV block Right axis deviation Possible Right ventricular hypertrophy Septal infarct (cited on or before 08-JUN-2018) Abnormal ECG When compared with ECG of 23-SEP-2019 12:37, Questionable change in initial forces of Septal leads Confirmed by HAYDER GARCIA MD ([id number]) on 10/25/2019 4:31:21 PM Electronically Signed By: HAYDER GARCIA MD 10/25/19 1631 PATIENT NAME: CAROLE MARTINS Electrocardiogram DATE OF : 77 PHYSICIAN: HAYDER GARCIA MD REPORT #: [id number] REPORT IS CONFIDENTIAL AND NOT TO BE RELEASED WITHOUT AUTHORIZATION
--- NOTE | 2019-10-25 18:14 | NUR ---
PATIENT IN BED RESTING, IN ROOM. CALL LIGHT IN REACH. NO FURTHER NEEDS AT THIS TIME.
--- NOTE | 2019-10-25 19:11 | NUR ---
CHARGE NURSE REPORT FROM ROSETTA VEGA.
--- NOTE | 2019-10-25 19:25 | NUR ---
REPORT RECEIVED FROM OUTSIDE ROOM PER pt REQUEST FROM BRIANA PAGAN. pt WITH BUMEX DRIP INFUSING ORDERED AT THIS TIME, ONTIVEROS TO D/C WHEN DRIP COMPLETE.
--- NOTE | 2019-10-25 20:02 | NUR ---
CALL LIGHT ANSWERED. BUMEX DRIP COMPLETE AT THIS TIME. pt PROVIDED WITH ALLOTTED ICE WATER. REQUESTING TO REST, WILL D/C ONTIVEROS WITH VS, pt AGREEABLE WITH PLAN OF CARE. CALL LIGHT IN REACH.
--- NOTE | 2019-10-25 22:42 | NUR ---
pt ASSESSMENT AND VS COMPLETE, VSS. 3L OXYGEN BY NC IN PLACE. CRACKLES RLL POSTERIORLY. pt DENIES SOB AT REST WITH OXYGEN IN PLACE. ONTIVEROS D/C'D WNL. URINAL AT BEDSIDE. CALL LIGHT IN REACH. LIGHTS OFF IN ROOM.
--- NOTE | 2019-10-26 01:05 | NUR ---
CHECKED ON pt, RESTING IN BED WITH EYES CLOSED. BREATHING UNLABORED. 3L OXYGEN BY NC IN PLACE. LIGHTS OFF IN ROOM.
--- NOTE | 2019-10-26 03:15 | NUR ---
pt RESTING IN BED, APPEARS TO BE SLEEPING. LIGHTS OFF IN ROOM.
--- NOTE | 2019-10-26 06:15 | NUR ---
CALL LIGHT ANSWERED. pt PROVIDED WITH ALLOTTED PO FLUIDS REQUESTED. NC ON FOREHEAD AT THIS TIME, SPO2 86-87% ON RA, 3L OXYGEN BY NC APPLIED FOR SATURATIONS TO REACH 92%. STANDING WEIGHT 111.7 KG. NO ADVENTITIOUS LUNG SOUNDS AUSCULTATED, DENIES SOB. NEW GOWN PROVIDED, pt DIAPHORETIC WITH SLEEP. 225 ML VOID IN URINAL. CALL LIGHT IN REACH. NO ADDITIONAL REQUESTS.
--- NOTE | 2019-10-26 06:20 | NUR ---
BUMEX INFUSION COMPLETE THIS SHIFT. ONTIVEROS D/C'D, VOIDING WNL. pt RESTED WELL THIS SHIFT. 3L OXYGEN BY NC IN PLACE WITH SLEEP. STANDING WEIGHT 111.7 KG. 2000 ML FLUID RESTRICTION. pt COMPLIANT WITH CARES, IRRITABLE AT TIMES. USING CALL LIGHT APPROPRIATELY.
--- NOTE | 2019-10-26 07:37 | NUR ---
RECEIVED REPORT PT CURRENTLY SLEEPING RESP RATE REG AND UNEVEN AT THIS TIME
--- NOTE | 2019-10-26 08:30 | NUR ---
PT AWAKE ATE HIS BKF AND STATES "I AM TRYING TO WAKE UP" ASKED IF HE WAS SHORT OF BREATH DUE TO IT APPEARS TO HAVE LABOR BREATHING AT THIS TIME PT STATES "NO, BUT I NEED MY OXYGEN ON"
--- NOTE | 2019-10-26 09:23 | NUR ---
PATIENT RESTING IN BED. WHITE BOARD UPDATED. CALL LIGHT WITHIN REACH. NO FURTHER NEEDS AT THIS TIME.
--- NOTE | 2019-10-26 09:54 | NUR ---
PT APPEARS TO BE ASLEEP AT THIS TIME, O2 TURNED OFF AT THIS TIME.
--- NOTE | 2019-10-26 10:19 | NUR ---
PT O2 HAS BEEN OFF AND AT TIMES HIS SPO2 WILL BE 89% TO 90% ON ROOM AIR.
--- NOTE | 2019-10-26 11:47 | NUR ---
PT IN BED TRYING TO REST, IT IS NOTED THAT THE O2 WAS TURNED ON BUT STAFF DID NOT TURN IT ON. AT 3L'S SPO2 93%.
--- NOTE | 2019-10-26 12:00 | NUR ---
SPOKE WITH PATIENT IN ROOM. TRIED TO DO ASSESSMENT. PATIENT WAS VERY ABRUPT AND RUDE. PATIENT WOULD NOT ANSWER MOST QUESTIONS. DISCUSSED THAT HE QUALIFIES FOR HOME OXYGEN, ASKED IF HE HAD PREFERENCE OF WHAT COMPANY. PATIENT "HOW WOULD I KNOW WHICH ONE" WHEN NAMED SOME AREA DME. HE AGREED TO [facility] SINCE HE LIVES IN [place]. PATIENT DENIES KNOWING HE WAS GOING HOME TODAY. DISCUSSED THAT I WILL SEND PAPERWORK THROUGH AND DME WILL HAVE TO GET APPROVAL FROM INSURANCE AND THIS CAN TAKE SEVERAL HOURS. AGAIN HE STATES "SINCE NO ONE HAS TOLD ME I'M LEAVING I GUESS YOU CAN DO WHAT YOU WANT". SPOKE WITH STAFF. DR GARCIA STATES HE DISCUSSED AT LENGTH PLAN WITH PATIENT. HE STATES HE IS DISCHARGED, DR GARCIA HAD RX FOR OXYGEN. CALLED [facility]. THEY HAVE CONTRACT WITH [employer]. STATES TO FAX OVER CLINICALS AND RX.
--- NOTE | 2019-10-26 12:01 | NUR ---
PT TO BE QUALIFED FOR HOME O2 TODAY. O2 OFF AND SPO2 DECREASES. RT PLACED PT BACK ON 2L'S VIA NC. IN GENERAL PT IS RUDE TO STAFF AND DEMANDING OF STAFF.
--- NOTE | 2019-10-26 12:32 | NUR ---
PT ATE LUNCH, TOLERATED WELL AND VOIDED IN URINAL CLEAR YELLOW IN COLOR AFTER PT RECEIVED LAXIS IVP. BEFORE THE LAXIS PT URINE WAS NELLY IN COLOR.
[2019-10-26] MEDS ORDERED: LISINOPRIL10 MG PO (12:45)
[2019-10-26] MEDS ORDERED: TORSEMIDE20 MG PO (12:46)
--- NOTE | 2019-10-26 13:09 | NUR ---
PT TO BE DC'D HOME TODAY, EXPLAINED THIS TO PT AND HE IS TRYING TO FIND RIDE HOME.
--- NOTE | 2019-10-26 13:48 | NUR ---
FAXED OXYGEN QUALIFIER, RX, CLINICALS TO [facility] [phone]. FAX CONFIRMATION RECEIVED 152PM.
--- NOTE | 2019-10-26 14:04 | NUR ---
DISCHARGE INSTRUCTIONS GIVEN TO PT AND HE STATES "YA YA YA AND THANK YOU" "I AM WAITING FOR MY RIDE AND I HAVE ALL OF THIS INFORMATION AT HOME" PT IS DRESSED AND WAITING FOR A RIDE SAID BEFORE. PT IS UP ABOUT IN THE ROOM WITHOUT O2 ON AND EXPLAINED THAT HE CAN WHERE THE HOSPITALS TILL HIS ARRIVES FROM HOME HEALTH [facility].
--- NOTE | 2019-10-26 14:56 | NUR ---
CALLED [facility] AND SPOKE WITH SALOME [phone]. THEY DID RECEIVE FAX, THEY HAVE NOT RECEIVED AUTH AND ARE STILL PROCESSING. REMINDED THEM PATIENT IS DISCHARGED TODAY AND WE WILL NEED THEM TO DELIVER TANK FOR HIM TO GO HOME WITH. SHE STATES SHE HAS THAT WRITTEN ON THEIR NOTE. THEY WILL LET US KNOW WHEN ETA IS.
--- NOTE | 2019-10-26 15:38 | NUR ---
RECEIVED CALL FROM LAURA FROM [facility] WHO STATES THE CLINICAL EDUCATION ACADEMIC COORDINATOR SHOULD BE HERE WITHIN THE HOUR TO DELIVER TANK FOR PATIENT TO TRANSPORT HOME. STAFF UPDATED.
--- NOTE | 2019-10-26 17:14 | NUR ---
HOME O2 HERE AT THIS TIME. THEY ARE PROVIDING HIM INFORMATION AT THIS TIME. THEN PT CAN GO HOME. PT RIDE HAS BEEN HERE.
--- NOTE | 2019-10-26 17:34 | NUR ---
PT DISCHARGE TO HOME TRANSPORTED OUT VIA [facility] WILL DRIVE HIM HOME. PT STATES HE UNDERSTANDS ALL INSTRUCTIONS.
== END 2019-10-26 17:35 | disposition home or self-care (01) | DRG 291 ==
LOC: ED 20:16 → CCU 21:50 → MS 10-25 11:45
PROVIDERS: ADMIT Internal Medicine
DX: I11.0 Hypertensive heart disease with heart failure (principal); J96.01 Acute respiratory failure with hypoxia; Z20.828 Contact with and (suspected) exposure to other viral communicable diseases; I50.33 Acute on chronic diastolic (congestive) heart failure; G47.33 Obstructive sleep apnea (adult) (pediatric); K76.1 Chronic passive congestion of liver; I27.23 Pulmonary hypertension due to lung diseases and hypoxia; I27.81 Cor pulmonale (chronic); Z79.899 Other long term (current) drug therapy; Z91.14 Patient's other noncompliance with medication regimen; Z88.5 Allergy status to narcotic agent; Z88.2 Allergy status to sulfonamides
CPT/HCPCS: 36415; 71045; 80053; 80069; 80076; 83735; 83880; 84484; 85025; 93005; 93010; 94760; 94761; 96374; 99285-25; C9803; J1650; J1940; J3475; J3490; U0002

== ENCOUNTER 2020-02-20 19:37 | Emergency (ER) | payer OTHER ==
[~2020-02-20] VITALS: Ht 177.8 cm; Wt 111.7 kg
[~2020-02-20 19:37] MED LIST changes: +TORSEMIDE20 MG PO
--- OUTSIDE RECORDS SUMMARY | 2020-02-20 19:40 | XMS ---
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 Care History Medical/Surgical 10/25/2019 [facility] - PATIENT IS [facility] ELIGIBLE, \T\middot;\T\nbsp; PLEASE REFER PATIENT TO [facility] FOR NON EMERGENT MEDICAL NEEDS. \T\middot;\T\nbsp; [facility] CAN SEE PATIENTS SAME DAY FOR APTS IF PATIENT CALLS FIRST THING IN THE MORNING. E.D. VISIT COUNT ([address] [facility] 1 [facility] 1 [facility] 6 [facility] TOTAL 9 NOTE: Visits indicate total known visits. ED/UCC VISIT TRACKING (12 MO.) 02/20/2020 19:38 [facility]S TYPE: Emergency COMPLAINT: - SOB 01/26/2020 00:57 [facility] Surjit THOMAS TYPE: Emergency DIAGNOSES: - Med refill retaining fluid - Heart failure, unspecified - Chest Pain - Medication Refill - Edema 10/23/2019 20:16 [facility] [place] TYPE: Emergency COMPLAINT: - DIFFICULTY BREATHING,SWELLING 09/23/2019 12:12 [facility] [place] TYPE: Emergency COMPLAINT: - BODY SWOLLEN, DIFFICULTY BREATHING 06/27/2019 14:31 [facility] TYPE: Emergency DIAGNOSES: - Acute and chronic respiratory failure with hypoxia - Cough - Shortness of Breath - Fluid overload, unspecified - Acute on chronic diastolic (congestive) heart failure 06/10/2019 20:15 [facility] [place] TYPE: Emergency COMPLAINT: - SOB 05/05/2019 00:44 [facility] [place] TYPE: Emergency DIAGNOSES: - Acute on chronic right heart failure - Influenza due to other identified influenza virus with other respiratory manifestations - HARD TIME BREATHING 05/02/2019 01:14 [facility] TYPE: Emergency COMPLAINT: - SOB DIAGNOSES: - Allergy status to narcotic agent - Chest pain, unspecified - Shortness of breath - Allergy status to sulfonamides - Heart failure, unspecified - Other detention (current) drug therapy - Hypertensive heart disease with heart failure 03/14/2019 11:22 [facility] TYPE: Emergency COMPLAINT: - SOB, CHEST PAIN INPATIENT VISIT TRACKING (12 MO.) 01/26/2020 00:57 [facility] Alicia THOMAS TYPE: Medical Surgical DIAGNOSES: - Heart failure, unspecified - Acute on chronic diastolic (congestive) heart failure 10/23/2019 21:50 [facility] [place] TYPE: Medical Surgical COMPLAINT: - CHF DECOMPENSATION DIAGNOSES: - Contact with and (suspected) exposure to other viral communicable diseases - Contact with and (suspected) exposure to other viral communicable diseases - Hypertensive heart disease with heart failure - Other discovery manager (current) drug therapy - Allergy status to sulfonamides - Pulmonary hypertension due to lung diseases and hypoxia - Chronic passive congestion of liver - Cor pulmonale (chronic) - Obstructive sleep apnea (adult) (pediatric) - Patient's other noncompliance with medication regimen - Allergy status to sulfonamides - Allergy status to narcotic agent - Obstructive sleep apnea (adult) (pediatric) - Acute on chronic diastolic (congestive) heart failure - Patient's other noncompliance with medication regimen - Chronic passive congestion of liver - Acute respiratory failure with hypoxia - Acute respiratory failure with hypoxia - Hypertensive heart disease with heart failure - Cor pulmonale (chronic) - Allergy status to narcotic agent - Other detention (current) drug therapy - Pulmonary hypertension due to lung diseases and hypoxia 09/23/2019 14:58 [facility] [place] TYPE: Medical Surgical COMPLAINT: - DECOMPENSATED HEART FAILURE DIAGNOSES: - Hypertensive heart disease with heart failure - Hypertensive heart disease with heart failure - Other discovery manager (current) drug therapy - Chronic passive congestion of liver - Allergy status to sulfonamides - Allergy status to sulfonamides - Acute respiratory failure with hypoxia - Acute respiratory failure with hypoxia - Acute on chronic diastolic (congestive) heart failure - Allergy status to narcotic agent - Allergy status to narcotic agent - Chronic passive congestion of liver - Contact with and (suspected) exposure to other viral communicable diseases - Other detention (current) drug therapy - Contact with and (suspected) exposure to other viral communicable diseases 06/27/2019 14:31 [facility] TYPE: Internal Medicine DIAGNOSES: - Fluid overload, unspecified - Acute on chronic diastolic (congestive) heart failure - Acute and chronic respiratory failure with hypoxia 06/10/2019 21:53 [facility] [place] TYPE: Medical Surgical COMPLAINT: - CHF DECOMPENSATION DIAGNOSES: - Allergy status to narcotic agent - Other stimulant abuse, in remission - Nicotine dependence, chewing tobacco, uncomplicated - Nicotine dependence, chewing tobacco, uncomplicated - Pulmonary hypertension, unspecified - Other stimulant abuse, in remission - Allergy status to sulfonamides - Allergy status to sulfonamides - Chronic passive congestion of liver - Allergy status to narcotic agent - Acute on chronic diastolic (congestive) heart failure - Acute respiratory failure with hypoxia - Chronic passive congestion of liver - Acute respiratory failure with hypoxia - Hypertensive heart disease with heart failure - Patient's other noncompliance with medication regimen - Other detention (current) drug therapy - Patient's other noncompliance with medication regimen - Other detention (current) drug therapy - Pulmonary hypertension, unspecified - Acute on chronic diastolic (congestive) heart failure [facility]2019 [facility] COMPLAINT: - CHF DIAGNOSES: 0. Influenza due to identified novel influenza A virus with other respiratory manifestations 1. Influenza due to identified novel influenza A virus with other respiratory manifestations 2. Acute respiratory failure with hypoxia 3. Chronic diastolic (congestive) heart failure 4. Mild protein-calorie malnutrition 5. Lobar pneumonia, unspecified organism 6. Hypertensive heart disease with heart failure 7. Pulmonary hypertension, unspecified 8. Gastro-esophageal reflux disease without esophagitis 9. Other psychoactive substance use, unspecified, uncomplicated 10. Patient's other noncompliance with medication regimen 11. Obesity, unspecified 12. Body mass index [BMI] 39.0-39.9, adult 13. Other detention (current) drug therapy 03/14/2019 15:51 [facility] [place] TYPE: Medical Surgical COMPLAINT: - CHF DIAGNOSES: - Acute respiratory failure with hypoxia - Homelessness - Obstructive sleep apnea (adult) (pediatric) - Patient's other noncompliance with medication regimen - Chronic passive congestion of liver - Other psychoactive substance abuse, in remission - Acute on chronic diastolic (congestive) heart failure - Pulmonary hypertension due to left heart disease - Hypertensive heart disease with heart failure - Allergy status to narcotic agent - Allergy status to sulfonamides - Other detention (current) drug therapy [email or web address]
[2020-02-20] MEDS ORDERED: POTASSIUM CHLO20 ME1 PO (21:09)
--- NOTE | 2020-02-20 23:59 | EKG ---
[facility] [address] [place] [address] Signed Normal sinus rhythm Possible Left atrial enlargement Incomplete right bundle branch block Right ventricular hypertrophy Possible Anteroseptal infarct (cited on or before 08-JUN-2018) Abnormal ECG When compared with ECG of 23-OCT-2019 20:30, Questionable change in initial forces of Anteroseptal leads Confirmed by HAYDER GARCIA MD ([id number]) on 02/20/2020 11:59:32 PM Electronically Signed By: HAYDER GARCIA MD 02/20/20 2359 PATIENT NAME: CAROLE MARTINS Electrocardiogram DATE OF : 77 PHYSICIAN: HAYDER GARCIA MD REPORT #: [id number] REPORT IS CONFIDENTIAL AND NOT TO BE RELEASED WITHOUT AUTHORIZATION
== END 2020-02-20 21:27 | disposition home or self-care (01) ==
LOC: ED 19:37
DX: I11.0 Hypertensive heart disease with heart failure (principal); I50.9 Heart failure, unspecified; Z91.19 Patient's noncompliance with other medical treatment and regimen; Z88.5 Allergy status to narcotic agent; Z88.2 Allergy status to sulfonamides; Z79.899 Other long term (current) drug therapy
CPT/HCPCS: 71045; 80053; 83735; 83880; 84484; 85025; 93005; 93010; 96374; 99285-25; J1940

== ENCOUNTER 2020-03-29 13:18 | Inpatient (IN) | payer OTHER ==
[~2020-03-29] VITALS: Ht 177.8 cm; Wt 108.7 kg
[~2020-03-29 13:18] MED LIST changes: +POTASSIUM CHLO20 ME1 PO
[2020-03-29] MEDS ORDERED: ZESTRIL10 MG PO (16:30)
--- NOTE | 2020-03-29 19:25 | NUR ---
SHIFT REPORT RECEIVED FROM DAYSHIFT BRIANA VICK. pt RESTING IN BED, FACING WINDOW. RR EVEN AND UNLABORED, NO DISTRESS NOTED. CALL LIGHT IN REACH.
--- NOTE | 2020-03-29 20:50 | NUR ---
GABRIELLE FROM IMAGING COMPLETED US TO pt's LLE. RESULTS FROM IMAGING REPORTS NO SIGNS OF BLOOD CLOT.
--- NOTE | 2020-03-29 21:02 | NUR ---
ENTERED NIO ORDER FOR MAALOX FOR PRIMARY BRIANA CRESPO.
--- NOTE | 2020-03-29 21:13 | NUR ---
ASSESSMENT COMPLETE, pt REPORTS HAVING A RECENT "LARGE" BM AND VOIDING, NO HAT IN TIOLET. pt EDUCATED ON POC FOR SHIFT INCLUDING VS AND FLUID RESTRICTION. pt REQUESTED REMAINING WATER BE LEFT AT BEDSIDE. HAT TO TIOLET PROVIDED. pt STATES HE'LL USE URINAL TO VOID, WILL MONITOR OUTPUT. VSS, ABD FIRM WITH ACTIVE BOWEL TONES. DENIES NAUSEA, REPORTS HEARTBURN. NIO FOR MAALOX PLACED BY SLATE SPLITTER, PRN MAALOX GIVEN (SEE EMAR). DR CASAS MADE AWARE WHILE COMPLETING HIS EVENING ROUNDS. +3 BLE EDEMA NOTED, pt RECEIVING SCHEDULED LASIX. WILL CONTINUE TO MONITOR. KASI IN COLOR. FLUID RESTRICTION SHEET ALSO IN ROOM. NO FURTHER NEEDS AT THIS TIME, CALL LIGHT IN REACH.
--- NOTE | 2020-03-29 21:16 | EKG ---
[facility] [address] [place], [place] [address] Signed Normal sinus rhythm Incomplete right bundle branch block Right ventricular hypertrophy Cannot rule out Anterior infarct (cited on or before 08-JUN-2018) Abnormal ECG When compared with ECG of 20-FEB-2020 19:52, Questionable change in initial forces of Septal leads Confirmed by LISA CASAS DO ([id number]) on 03/29/2020 9:16:19 PM Electronically Signed By: LISA CASAS DO 03/29/20 2116 PATIENT NAME: CAROLE MARTINS Electrocardiogram DATE OF : [birth year] PHYSICIAN: LISA CASAS DO REPORT #: [id number] REPORT IS CONFIDENTIAL AND NOT TO BE RELEASED WITHOUT AUTHORIZATION
--- NOTE | 2020-03-29 21:53 | NUR ---
PT CALLED ASKING FOR THE TEMP TO BE TURNED UP IN THE ROOM. ALSO PROVIDED WARM BLANKET. PT DENIES FURTHER NEEDS AND CALL LIGHT IS CLOSE.
--- NOTE | 2020-03-29 22:22 | NUR ---
IN ROOM TO ANSWER CALL LIGHT, URINAL EMPTIED PER pt REQUEST. 160MLS DARK YELLOW URINE NOTED. pt REPORTS HE IS "FREEZING MY ASS OFF". RECENTLY GIVEN WARM BLANKET BY LINK AND LINK KNITTING MACHINE OPERATOR, HOSPITAL SOCKS PROVIDED ALSO PER pt REQUEST. NO FURTHER NEEDS, CALL LIGHT IN REACH.
--- NOTE | 2020-03-29 23:57 | NUR ---
ROUNDING ON pt. pt AWOKE TO VOICE, RR EVEN WITH SOME MILD LABORED BREATHING. SPO2 CHECKED, O2 SAT MID TO UPPER 80'S. pt PLACED ON 2LNC, NOW SUSTAINING 92% TO 93%, RR 24. pt ALSO REPORTS OF CONTINUED HEARTBURN, EDUCATED ON HOW HOB ELEVATION CAN EASE HEARTBURN AND SOB. pt DECLINED AND STATES, "IT'S BETTER WHEN IM LAYING DOWN". WILL MONITOR. NO FURTHER NEEDS, pt AFREBILE. CALL LIGHT IN REACH.
--- NOTE | 2020-03-30 01:30 | NUR ---
PATIENT CALLED AND FOR A DRINK OF WATER. IN ROOM FOR VITALS DUE TO PATIENT BEING AWAKE. WHEN I ENTERED ROOM PATIENT DID NOT HAVE NASAL CANULA IN AND HIS BLOOD OXYGEN WAS RUNNING ABOUT 85%. RN ASSISTED PATIENT WITH PUTTING OXYGEN BACK ON PROPERLY AND BLOOD OXYGEN RETURNRD TO 94%. MOUTH SWABS GIVEN FOR MOUTH DRYNESS. CALL LIGHT IN REACH. NO OTHER NEEDS AT THIS TIME.
--- NOTE | 2020-03-30 01:40 | NUR ---
SONIA ADAME IN ROOM TO COLLECT VS, pt FOUND IN ROOM WITHOUT NC. PER SACK SORTER O2 SAT IN MID 80'S, 2LNC RESUMED AND O2 SAT NOW SUSTAINING LOW 90'S. WHEN ASKED HOW pt's NIGHT IS GOING, HE MUMBLES, "LONG NIGHT BULLSHIT". pt EDUCATED ON NEED TO KEEP NC IN PLACE AND TO CALL STONER HAND IF HE NEEDS TO GET OUT OF BED FOR SAFETY, pt VERBALIZES UNDERSTANDING TO BOTH. NO ADDITIONAL NEEDS AT THIS TIME, CALL LIGHT IN REACH.
--- NOTE | 2020-03-30 04:53 | NUR ---
ROUNDED ON pt, NC AGAIN OFF OF pt AND IS FOUND AT THE BOTTUM ON THE BED BY THE pt's FEET. pt APPEARS TO BE MOUTH BREATHING, pt SWITCHED OVER TO OXYMASK, 2L. O2 SATS WENT FROM MID 80'S ON RA TO LOW 90'S AND SUSTAINING. RR 24-25. pt DENIES SOB AT REST WHILE IN BED. 110MLS DARK YELLOW URINE EMPTIED FROM URINAL. NO FURTHER NEEDS, CALL LIGHT IN REACH.
--- NOTE | 2020-03-30 06:55 | NUR ---
PATIENT WAS SITTING AT EDGE OF BED WHEN I ENTERED ROOM RO GET VITALS AND I&0. PATIENT GOT HIS MORING FREE WATER OF 300 ML. WEIGHT RECORDED. CALL LIGHT IN REACH. NO OTHER NEEDS AT THS TIME.
--- NOTE | 2020-03-30 06:58 | NUR ---
late entry.PT on 2-2.5lnc for most of the shift, rt in room and assisted with extension tubing so pt could go to the bathroom easily.. per rt o2 sat still in upper 80's and pt was then placed on 5lnc at approx 0615 . rr 20, no obvious signs of distress. pt denies sob. no crackles noted. dr loya also made aware of low uo for shift, telephone orders read back for double view chest x-ray and to give scheduled 0900 lasix early.
--- NOTE | 2020-03-30 07:03 | NUR ---
0605-RT CALLED TO BEDSIDE BY RN TO CONFIRM CORRECT O2 TUBING. PT WAS ON 2L NC O2 SAT 88. INCREASED O2 TO 6L, O2 SAT NOW 93
--- NOTE | 2020-03-30 07:30 | NUR ---
Shift report from Lois WARREN included: Pt was reported to be irritable last night. Pt had some increased work of breathing and was desaturating into the 80s. Pts urine output was also insufficient, made aware of all these things by Lois WARREN. MD Velez ordered to have the pts lasix given chacho, and xrays done to view the chest again. Pt in bed at this time, breathing even and slightly labored, o2 sat 91% on 5L mask. Pt eyes closed, table and call light within reach.
--- NOTE | 2020-03-30 09:12 | NUR ---
RT WAS CALLED TO REPEAT A RAPID COVID SWAB USING INTERPATH AT THIS TIME. DURING FIRST ATTEMPT, PT REACHED UP AND GRABBED THE SWAB CONTAMINATING THE SAMPLE. RT HAD TO USE SECOND TEST KIT TO ENSURE ACCURACY OF THE TEST. THERE WERE NO OTHER COMPLICATIONS WITH GETTING THE SECOND TEST AT THIS TIME.
--- NOTE | 2020-03-30 10:15 | NUR ---
Pt brought back to room from imaging. Pt alert and oriented. Pt showing some tachypnea, RR of 24 which is lower than the RR 28 this morning and with nightshift. Pt on 4 L NC, o2sat at 94-96%. Pt given ordered ABX and able to take without difficulty. Pt is going through his allowed fluid intake too quickly, pt states he knows but is really thirsty. Pts temp taken again since it was unusually high this morning and his oral temp was 98.6. Pt in bed, requests to be allowed to rest, breathing even and slightly labored, table and call light within reach.
--- NOTE | 2020-03-30 11:15 | NUR ---
Rounding. Pt in bed, lying on his left side, breathing even and slightly labored, table and call light within reach.
--- NOTE | 2020-03-30 12:10 | NUR ---
Rounding. Pt in bed, lying on his right side, eyes closed, breathing even and unlabored, table and call light within reach.
--- NOTE | 2020-03-30 13:58 | NUR ---
Newly ordered lasix dose administered per orders. Pt in bed, lying on his right side, eyes closed, breathing even and somewhat labored. Pt rouses to greeting and is alert and oriented but groggy. Pt seems to be sleeping a lot today, he reports its due to "crappy nights sleep here". Pt oxygen saturation at 96% on 4L NC humidified. Pt in bed, denies needs at this time, table and call light within reach.
--- NOTE | 2020-03-30 16:00 | NUR ---
Spoke with Kimber. He remains his usual nonforthcoming self. He replies to all questions with, "sure, whatever". He does state he lives in [place]. When asked if Leonora is his emergency contact he states, "sure, if you say so." Attempted to complete CM assessment but I am unable to to detemine barriers or even which pharmacy he is currently using. He does states he plans on returning to [place] on dc.
--- NOTE | 2020-03-30 19:00 | NUR ---
SHIFT REPORT RECEIVED FROM SARAHMOJOSE DANIEL VICK AT BEDSIDE. pt RESTING IN BED, WITH EYES CLOSED. NO DISTRESS NOTED, 4LNC IN PLACE. pt DENIES NEEDS AT THIS TIME. CALL LIGHT IN REACH.
--- NOTE | 2020-03-30 22:00 | NUR ---
ASSESSMENT COMPLETE, SCHEDULED MEDS GIVEN (SEE EMAR). pt DECLINED SENNA AND STATES, "I TOOK A SHIT EARLIER TODAY". pt DID NOT RATE PAIN, DECLINES PAIN MEDICATION WHEN OFFERED. 4LNC IN PLACE, VSS. MINIMAL EX WHEEZES NOTED, NO SIGNS OF DISTRESS. CALL LIGHT IN REACH.
--- NOTE | 2020-03-31 00:33 | NUR ---
pt RESTING IN BED WITH EYES CLOSED, RESPIRATIONS EVEN AND UNLABORED. NO DISTRESS NOTED. 4LNC REMAIN IN PLACE. CALL LIGHT IN REACH.
--- NOTE | 2020-03-31 02:11 | NUR ---
pt AWAKE AND RESTING IN BED, 4LNC IN PLACE. pt DENIES NEEDS AT THIS TIME, CALL LIGHT IN REACH.
--- NOTE | 2020-03-31 06:00 | NUR ---
IN RM TO GET VITALS, STANDING WEIGH,NO FURTHER NEEDS AT THIS TIME
--- NOTE | 2020-03-31 06:10 | NUR ---
MESSAGE SENT TO DR CASAS REGARDING LOW URINE OUTPUT.
--- NOTE | 2020-03-31 07:38 | NUR ---
0715: REPORT RECEIVED FROM CHERIE WARREN. PT SLEEPING, CALL REES WITHIN REACH.
--- NOTE | 2020-03-31 09:00 | NUR ---
PT SITTING AT THE BEDSIDE AT THIS TIME WITH HIS LEGS ON THE FLOOR. ELEVATION WAS ENCOUARAGED WHICH THE PT STATES HE WILL DO LATER. +3 EDEMA NOTED IN HIS LOWER LEGS AND THEY ARE KASI, PT STATES HE IS UNSURE IF THERE IS ANY CHANGE NOTED. WILL CONTINUE TO MONITOR. PT STATES REST DOES HELP WITH THE DISCOMFORT IT IS WORSE WITH ACTIVITY. SAT 92% ON 4L AT THIS TIME, LUNGS CLEAR WITH DECREASED BASES. PT NOW EATING BREAKFAST. SEE ASSESSMENT.
--- NOTE | 2020-03-31 09:55 | NUR ---
PT WAS SLEEPING AND AWOKE TO VOICE FOR THE PASSING OF MEDICATIONS AND QUICKLY FELL BACK TO SLEEP.
--- NOTE | 2020-03-31 10:31 | NUR ---
PT CALLED REQUESTING ADDITIONAL FLUID WHICH HE HAS ALREADY MAXED OUT FOR THIS TIME IN THE DAY DUE TO HIS FLUID RESTRICTION. HE WAS INFORMED OF THIS AND AFTER DISCUSSION TO WHY IT IS IMPORTANT DUE TO HIS CHF AND FLUID OVERLOEAD HE STATES HE UNDERSTANDS.
--- NOTE | 2020-03-31 10:50 | NUR ---
Pt states his left pain remains at a 7 but declined the need for anything for it. He did compain of acid reflux and was medicated for it at this time. He states his breathing feels "fine".
--- NOTE | 2020-03-31 12:57 | NUR ---
NO CHANGE IN CONDITION NOTED. PT STATES HIS PAIN IN HIS LEFT CALF REMAINS AT A 7 AND STATES HE WOULD TAKE SOME TYLENOL FOR IT AT THIS TIME. RESP STATUS UNCHANGED WITH DECREASED BASES AND HE DENIES ANY SOB. PT CONTINUE TO RECEIVED ORDERED LASIX AND HAS A PO FLUID RESTRICTION. SEE ASSESSMENT.
--- NOTE | 2020-03-31 14:55 | NUR ---
PT RESTING IN HIS BED AND HE STATES HIS LEFT CALF PAIN IS TOLERABLE AT THIS TIME.
--- NOTE | 2020-03-31 15:43 | NUR ---
Kimber states that he is doing okay at this time and denies any needs. Call hernandez within reach.
--- NOTE | 2020-03-31 18:55 | NUR ---
PT SLEEPING AT THIS TIME.
--- NOTE | 2020-03-31 19:05 | NUR ---
PT RESTING IN BED, EYES CLOSED. RR EVEN, UNLABORED. CALL LIGHT IN REACH. SHIFT REPORT RECEIVED FROM DONALD WARREN.
--- NOTE | 2020-03-31 22:18 | NUR ---
in to get vitals, emptied 725ml void from pt's urinal, pt requestin sandwhic, ice water provided, no further needs at this time
--- NOTE | 2020-03-31 22:30 | NUR ---
ASSESSMENT COMPLETED. SCHEDULED MED PROVIDED. BLE RED WITH 3+ EDEMA, HANDS 1+ EDEMA. ABD SEVERE GENERALIZED EDEMA, BOWEL TONES ACTIVE, FIRM. GENERALIZED EDEMA IN TESTICLES. GCS 15, A&O X4, IRRITABLE. IV CDI, WNL, FLUSHED WELL. LUNGS CLEAR, NC @ 4L. PT STATES HIS LEFT CALF STILL ACHES. LUNGS CLEAR IN UPPER LOBES AND CRACKLES IN LOWER LOBES. NO OTHER NEEDS AT THIS TIME. CALL LIGHT IN REACH.
--- NOTE | 2020-03-31 22:39 | NUR ---
TOOK CAMMIE LAMA IN TO PT, NO FURTHER NEEDS AT THIS TIME
--- NOTE | 2020-04-01 | NUR ---
PT RESTING IN BED, EYES CLOSED. NC @ 4L. RR EVEN, UNLABORED. CALL LIGHT IN REACH.
--- NOTE | 2020-04-01 07:28 | NUR ---
this rn received report from silas rogers. pt appears to be resting with respirations noted this am.
--- NOTE | 2020-04-01 08:25 | NUR ---
RN IN ROOM TO GIVE PT HIS MORNING MEDS AND DO MORNING ASSESSMENT. PT STATES THAT HE FEELS LIKE HIS BREATHING IS BETTER AFTER HE "GOT THE MUCOUS OUT OF MY NOSE" PT NOT WANTING TO TALK ABOUT HOW HIS HEART FAILURE STARTED OR HOW HE IS MANAGING IT AT HOME. PT REFUSED BOWEL MEDS. PT STATES THAT HE "HAS BEEN SHITTING EVERYDAY" THIS RN DISCUSSED WITH PT TO TELL STAFF IF HE HAS A BM TODAY SO IT CAN CHARTED.
--- NOTE | 2020-04-01 11:12 | NUR ---
PATIENT IN BED RESTING WITH EYES CLOSED. CALL LIGHT IN REACH. NO FURTHER NEEDS AT THIS TIME.
--- NOTE | 2020-04-01 13:05 | NUR ---
pt put information systems audit manager light to notify this rn that his iv on his left forearm was leaking. this rn in to check pts iv. this rn flushed pts iv and it leaked down pts arm. this rn decided to change pts iv site. this rn placed a new iv in pts right forearm.
--- NOTE | 2020-04-01 13:55 | NUR ---
this rn back in pts room to give pt his iv lasix per pt request. pt requests privacy when he has to pee. pt has no other reports at this time.
--- NOTE | 2020-04-01 16:38 | NUR ---
this rn in pts room to discontinue pts iv potassium. pt states that he had a large bowel movement.
--- NOTE | 2020-04-01 19:55 | NUR ---
REPORT RECEIVED FROM DAY SHIFT RN. PT LYING IN BED WITH LIGHTS OUT, NAD. NOT DISTURBED AT THIS TIME. CALL LIGHT IN REACH.
--- NOTE | 2020-04-01 20:30 | NUR ---
IN TO GET VITALS, URINAL EMPTIED
--- NOTE | 2020-04-01 20:55 | NUR ---
EVENING ASSESSMENT COMPLETE. SCHEDULED MEDS ADMINISTERED PER EMAR. PT DENIES PAIN OR NAUSEA. NO C/O SOB. O2 4L/NC IN PLACE. RESPIRATIONS EVEN AND NON-LABORED. EDEMA IN BLE AND ABD NOTED. PT SHORT AND IRRITABLE WITH ASSESSMENT. DENIES FURTHER NEEDS. CALL LIGHT IN REACH.
--- NOTE | 2020-04-01 23:37 | NUR ---
in to take pt some ice chips, emptied urinal no further needs
--- NOTE | 2020-04-01 23:58 | NUR ---
PT AWAKE SITTING UP IN BED. DENIES NEEDS AT THIS TIME. CALL LIGHT IN REACH.
--- NOTE | 2020-04-02 06:44 | NUR ---
ASSESSMENT COMPLETE. DENIES SOB. O2 4L/NC IN PLACE. NO C/O LLE PAIN. PT SHORT AND IRRITABLE. LIMITED INTERACTION DURING ASSESSMENT. DENIES NEEDS. CALL LIGHT IN REACH.
--- NOTE | 2020-04-02 07:10 | NUR ---
this rn received report from raul rogers. per pt request report done outside of the room. this rn will check in on pt after report
--- NOTE | 2020-04-02 09:55 | NUR ---
THIS RN IN PTS ROOM TO GIVE PT HIS MORNING MEDS. PT STATES THAT HE HAD ASKED THE GUINEA PIG BREEDER RN IF HE COULD SHOWER TODAY. THIS RN STATED THAT THIS RN DID NOT GET THAT IN REPORT, THIS RN OFFERED TO SET UP PTS SHOWER AND WRAP HIS IV. PT STATED THAT HE IS NOT READY FOR SHOWER NOW AND WILL LET THIS RN KNOW WHEN HE IS READY
--- NOTE | 2020-04-02 13:48 | NUR ---
this rn set up pts shower. pt up to shower at this time. pt requesting to take lasix after shower.
--- NOTE | 2020-04-02 14:06 | NUR ---
per pt request pt did not wear oxygen in shower
--- NOTE | 2020-04-02 14:30 | NUR ---
PT OUT OF SHOWER AND SITTING ON THE SIDE OF THE BED. PT ON ROOM AIR AT THIS TIME. PT STATES THAT HE FEELS MUCH BETTER AND PTS SISTER AT BEDSIDE AT THIS TIME
--- NOTE | 2020-04-02 18:01 | NUR ---
PATIENT IN BED RESTING WITH EYES CLOSED. CALL LIGHT IN REACH. NO FURTHER NEEDS AT THIS TIME.
--- NOTE | 2020-04-02 19:50 | NUR ---
PT LYING IN BED. SHIFT REPORT RECIEVED BY RN. NO NEEDS AT THIS TIME.
--- NOTE | 2020-04-02 20:50 | NUR ---
PT LYING IN BED. ASSESSMENT COMPLETE. SCHEDULED MEDS GIVEN. VS STABLE. PT DENIES PAIN. REDNESS AND + 1 EDEMA ON L LOWER LEG. SWOLLEN ABDOMEN NOTED. IV SALINE LOCKED. CALL LIGHT IN REACH. NO FURTHER NEEDS AT THIS TIME.
--- NOTE | 2020-04-02 23:28 | NUR ---
PT LYING IN BED. EYES CLOSED. RR WNL WITH UNLABORED BREATHING. CALL LIGHT IN REACH.
--- NOTE | 2020-04-03 02:05 | NUR ---
PT LYING IN BED. EYES CLOSED. RR WNL WITH UNLABORED BREATHING. CALL LIGHT IN REACH.
--- NOTE | 2020-04-03 04:19 | NUR ---
PT SITTING UP IN BED. ASSESSMENT COMPLETE. I AND O'S COMPLETE. VS STABLE. PT DENIES PAIN. EDUCATION NOTED ON NPO UNTIL AFTER PARACENTESIS. PT VERBALIZED UNDERSTANDING. IV SALINE LOCKED. DAILY WEIGHT DONE.CALL LIGHT IN REACH.
--- NOTE | 2020-04-03 07:17 | NUR ---
this rn recieved report from enoch rogers. per pt request bedside report done outside of pt room
--- NOTE | 2020-04-03 08:46 | NUR ---
per pt request this rn to chart outside of pts room. this rn was in pts room to give pt his morning meds. this rn provided pt education on paracentsis. pt has no other compliants except for this rn being in pts room during pts breakfast.
--- NOTE | 2020-04-03 12:01 | NUR ---
THIS RN IN PTS ROOM TO CHECK ON PT AFTER HE GOT BACK TO FLOOR FROM HAVING PARACENTSIS. PT STATES THAT HE FEELS THAT HIS BREATHING IS MUCH IMPROVED. PT STATES THAT HE NEEDS NOTHING ELSE AT THIS TIME
[2020-04-03] MEDS ORDERED: NICORETTE4 M2 BUCCAL (12:50)
[2020-04-03] MEDS ORDERED: DOXYCYCLINE HY100 MG PO (12:50)
--- NOTE | 2020-04-03 13:40 | NUR ---
THIS RN IN PTS ROOM TO CHANGE PTS FLUIDS OVER. THIS RN EDUCATED PT ABOUT ALBUMIN AND WHY HE IS GETTING IT.
--- NOTE | 2020-04-03 14:21 | NUR ---
PT ALERT, RESTING IN BED SLIGHTLY RECLINING. PT STATED HE FEELS VERY INFORMED AND DOING BETTER. COULDN'T SIT UP IN BED AND WATCH TV WITHOUT PAIN. PT STATED 6 LTRS OF FLUID REMOVED. GAVE ENCOURAGEMENT AND BLESSING. WILL FOLLOW
== END 2020-04-03 16:15 | disposition home or self-care (01) | DRG 291 ==
LOC: ED 13:18 → MS 17:56
PROVIDERS: ADMIT Student in an Organized Health Care Education/Training Program; ATTEND Student in an Organized Health Care Education/Training Program
PROC: 0W9G3ZZ Drainage of Peritoneal Cavity, Percutaneous Approach (ICD-10-PCS; principal; 2020-04-03)
DX: I11.0 Hypertensive heart disease with heart failure (principal); J96.01 Acute respiratory failure with hypoxia; R18.8 Other ascites; L03.116 Cellulitis of left lower limb; I50.33 Acute on chronic diastolic (congestive) heart failure; Z20.828 Contact with and (suspected) exposure to other viral communicable diseases; G47.30 Sleep apnea, unspecified; Z79.899 Other long term (current) drug therapy; Z91.14 Patient's other noncompliance with medication regimen; Z88.2 Allergy status to sulfonamides; Z88.5 Allergy status to narcotic agent
CPT/HCPCS: 36415; 49083; 71045; 71046; 71260; 80048; 80053; 83735; 83880; 84484; 85025; 85610; 93005; 93010; 93971; 94760; 96374; 99285-25; 99406; C9803; J1650; J1940; J3480; J7060; P9047; Q9967; U0003

== ENCOUNTER → 2020-08-02 | Emergency (ER) | payer OTHER ==
[~2020-08-02] VITALS: Ht 177.8 cm; Wt 108.4 kg
[~2020-08-02] MED LIST changes: +COZAAR25 MG PO; +DOXYCYCLINE HY100 MG PO; +NICORETTE4 M2 BUCCAL; +ZESTRIL10 MG PO
--- NOTE | 2020-08-03 07:13 | EKG ---
[facility] [address] [facility] [place] [address] Signed Normal sinus rhythm Incomplete right bundle branch block Right ventricular hypertrophy Cannot rule out Anterior infarct (cited on or before 08-JUN-2018) Prolonged QT Abnormal ECG When compared with ECG of 29-MAR-2020 15:02, QT has lengthened Confirmed by CALLIE HASTINGS MD ([id number]) on 08/03/2020 7:13:26 AM Electronically Signed By: CALLIE HASTINGS MD 08/03/20 0713 PATIENT NAME: CAROLE MARTINS Electrocardiogram DATE OF : 77 PHYSICIAN: CALLIE HASTINGS MD REPORT #: [id number] REPORT IS CONFIDENTIAL AND NOT TO BE RELEASED WITHOUT AUTHORIZATION
== END ==
LOC: ED 18:28
DX: A41.89 Other specified sepsis (principal); U07.1 COVID-19; R65.20 Severe sepsis without septic shock; K72.00 Acute and subacute hepatic failure without coma; I11.0 Hypertensive heart disease with heart failure; J12.82 Pneumonia due to coronavirus disease 2019; R09.02 Hypoxemia; K76.9 Liver disease, unspecified; N28.9 Disorder of kidney and ureter, unspecified; Z88.5 Allergy status to narcotic agent; Z88.2 Allergy status to sulfonamides; Z79.899 Other long term (current) drug therapy
CPT/HCPCS: 71045; 71260; 80053; 83605; 83735; 83880; 84484; 85025; 85379; 93005; 93010; 99285-25; Q9967; U0003

== ENCOUNTER 2025-01-01 12:40 | Emergency (ER) | payer MEDICARE, OTHER ==
[~2025-01-01] VITALS: Ht 177.8 cm; Wt 92.5 kg
[2025-01-01] MEDS ORDERED: METOPROLOL SUCC25 MG PO (14:04)
[2025-01-01] MEDS ORDERED: ELIQUIS5 MG PO (14:04)
[2025-01-01] MEDS ORDERED: PANTOPRAZOLE SO40 MG PO (14:05)
[2025-01-01] MEDS ORDERED: ATORVASTATIN CA40 MG PO (14:05)
[2025-01-01] MEDS ORDERED: SPIRONOLACTONE25 MG PO (14:05)
[2025-01-01] MEDS ORDERED: TADALAFIL20 MG PO (14:06)
[2025-01-01] MEDS ORDERED: GABAPENTIN300 MG PO (14:06)
[2025-01-01] MEDS ORDERED: OPSUMIT10 MG PO (14:06)
[2025-01-01 16:30] VITALS: BP 97/61
== END 2025-01-01 16:30 | disposition home or self-care (01) ==
LOC: ED 12:40
DX: J02.9 Acute pharyngitis, unspecified (principal); I48.91 Unspecified atrial fibrillation; I11.0 Hypertensive heart disease with heart failure; I50.9 Heart failure, unspecified; Z86.718 Personal history of other venous thrombosis and embolism; Z88.5 Allergy status to narcotic agent; Z88.2 Allergy status to sulfonamides; Z79.01 Long term (current) use of anticoagulants; Z79.899 Other long term (current) drug therapy
CPT/HCPCS: 71046; 87651; 99283-25